=== PATIENT | female | born 1955 | race African-American/Black ===

== ENCOUNTER 2020-05-05 07:28 | Outpatient (REF) | payer MEDICARE, SELFPAY | END 2020-05-05 07:29 | disposition home or self-care (01) | LOC: HO.LAB 07:28 | PROVIDERS: Visit Provider Internal Medicine | DX: Z20.828 Contact with and (suspected) exposure to other viral communicable diseases (principal) | CPT/HCPCS: C9803; U0003 ==

== ENCOUNTER → 2021-05-04 12:36 | Outpatient (BNVA) | payer MEDICARE, SELFPAY | PROVIDERS: Visit Provider Nurse Practitioner Family | DX: M54.16 Radiculopathy, lumbar region (principal); M48.062 Spinal stenosis, lumbar region with neurogenic claudication; M79.7 Fibromyalgia | CPT/HCPCS: 99202 ==

== ENCOUNTER 2021-05-22 09:27 | Outpatient (REF) | payer MEDICARE, SELFPAY | END 2021-05-22 09:28 | disposition home or self-care (01) | LOC: HO.LAB 09:27 | PROVIDERS: Visit Provider Internal Medicine | DX: Z20.822 Contact with and (suspected) exposure to COVID-19 (principal) | CPT/HCPCS: C9803; U0003; U0005 ==

== ENCOUNTER → 2021-06-05 14:42 | Outpatient (BNVA) | payer MEDICARE, SELFPAY | PROVIDERS: Visit Provider Nurse Practitioner Family | DX: M54.16 Radiculopathy, lumbar region (principal); M48.062 Spinal stenosis, lumbar region with neurogenic claudication; M79.7 Fibromyalgia | CPT/HCPCS: 99212 ==

== ENCOUNTER 2021-07-10 09:00 | Outpatient (REF) | payer MEDICARE, SELFPAY ==
[2021-07-10 09:47] LABS: Binax Internal Control QC Valid; Binax Now Covid-19 Ag Negative (Negative)
== END 2021-07-10 09:01 | disposition home or self-care (01) ==
LOC: HO.LAB 09:00
PROVIDERS: PCP Internal Medicine; Visit Provider Internal Medicine
DX: Z20.822 Contact with and (suspected) exposure to COVID-19 (principal)
CPT/HCPCS: C9803

== ENCOUNTER → 2021-07-17 11:32 | Outpatient (BNVA) | payer MEDICARE, SELFPAY | PROVIDERS: PCP Internal Medicine; Visit Provider Nurse Practitioner Family | DX: Z51.81 Encounter for therapeutic drug level monitoring (principal); M48.062 Spinal stenosis, lumbar region with neurogenic claudication; M54.16 Radiculopathy, lumbar region; M79.7 Fibromyalgia; R29.6 Repeated falls; R42 Dizziness and giddiness; Z79.899 Other long term (current) drug therapy | CPT/HCPCS: 99212 ==

== ENCOUNTER 2021-07-24 08:00 | Outpatient (RCR) | payer MEDICARE, SELFPAY ==
--- NOTE | 2021-05-29 09:54 | MHC.PT.EP ---
[facility] [place] Office [place] [facility] [place] Office [address] Silvana Cartwright [address] [phone] F: [phone] F: [phone] F: [phone] F: [phone] Physical Therapy Plan of Care Date of Evaluation: Date of Surgery: Diagnosis: spinal stenosis, lumbar region continue current treatment plan spinal stenosis with neurogenic claudication LBP with radiculopathy Assessment: 66 y/o F referred to PT with lumbar region spinal stenosis. She has had LBP for several years and recent imaging shows significant lumbar stenosis. 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 Examination shows significantly limited lumbar AROM, poor hip strength, decreased B LE strength, scoliosis and B genu valgus, icreased LBP, and impaired gait pattern. Recommend PT 2x/week for 5 weeks to address impairments, implement HEP, and optimize functional mobility. Frequency and Duration: The patient will be seen 2x/week for 5 weeks Short Term Goals: 3 weeks 1 I with HEP 2. Improve lumbar flexion to 75% to facilitate don/doffing shoes 3. Improve hip ER to 25* B (IR R0, L 10) Hand Bunch Maker Goals: 5 week 1. I with HEP and self management of sx 2. Improve hip strength by one MMT grade to facilitate walking Treatment Plan: Modalities to reduce pain, spasms and effusion. Manual therapy to restore motion and function. Therapeutic exercise to improve strength and flexibility. Neuromuscular re-education for posture and balance. Therapeutic activities to return to functional activities of daily living. Electronically signed by: Hilda Barrientos PT Please sign and return to therapist. Thank you for your referral.
--- NOTE | 2021-08-18 13:17 | MHC.PT.DC ---
[facility] [place] Office [place] Office [place] Office [address] Silvana Cartwright [address] [phone] F: [phone] F: [phone] F: [phone] F: [phone] Physical Therapy Discharge Report Diagnosis: spinal stenosis, lumbar region continue current treatment plan spinal stenosis with neurogenic claudication LBP with radiculopathy Date of Surgery: Date of Evaluation: 05/29/21 Date of Discharge: 08/18/21 Treatments to Date: 8 Cancellations to Date: 0 No Shows to Date: 0 Discharge Status: Independent with HEP Visit Non-compliance Discharge Summary: Pt did not f/u with further visits. She had made minimal progress and needed cues to stay on task with exercises. D/c at this time. Electronically signed by: Hilda Barrientos PT Please sign and return to therapist. Thank you for your referral.
== END 2021-08-18 13:17 | disposition home or self-care (01) ==
LOC: HO.PTCHIC 08:00
PROVIDERS: Visit Provider Nurse Practitioner Family
DX: M48.062 Spinal stenosis, lumbar region with neurogenic claudication (principal); M54.16 Radiculopathy, lumbar region
CPT/HCPCS: 97110; 97162

== ENCOUNTER → 2021-08-14 11:28 | Outpatient (BNVA) | payer MEDICARE, SELFPAY | PROVIDERS: PCP Internal Medicine; Visit Provider Nurse Practitioner Family | DX: Z13.89 Encounter for screening for other disorder (principal) | CPT/HCPCS: Q3014 ==

== ENCOUNTER 2021-08-22 09:42 | Outpatient (REF) | payer MEDICARE, SELFPAY ==
--- NOTE | ~2021-08-22 | MR_ITS ---
EXAMINATION: MR LUMBAR SPINE WITHOUT CONTRAST CLINICAL INFORMATION: Spinal stenosis. Lumbar spine. Neurogenic claudication. COMPARISON: No relevant prior imaging. TECHNIQUE: MRI of the lumbar spine was obtained using routine sequences without contrast. FINDINGS: There is spinal scoliosis with a leftward convex curvature centered at L3-L4. Slight left lateral subluxation of L4 on L5. Grade 1 anterolisthesis of L5 on S1 related to facet degenerative changes at this level. Vertebral body heights are preserved. No acute bone marrow signal changes. There is loss of intervertebral disc height and T2 signal intensity at multiple levels related to disc degeneration. The tip of the conus medullaris is located at L1. No mass effect on the conus. Visualized distal cord signal intensity is normal. At L1-L2 the annular contour is normal. No canal or neuroforaminal compromise. At L2-L3 there is a slightly bulging disc. Bilateral facet degenerative change. No canal stenosis. No mass effect on the traversing or foraminal nerve roots. At L3-L4 there is a diffusely bulging disc. Bilateral facet degenerative change. Mild canal stenosis. Asymmetric narrowing of the right subarticular zone causes displacement of the right traversing L4 nerve roots. Moderate to severe compression of the right L3 foraminal nerve root. At L4-L5 there is a diffusely bulging disc and bilateral facet degenerative change. Mild canal stenosis. Subarticular zone narrowing causes displacement and likely compression of the right traversing L5 nerve roots. Mild compression of both L4 foraminal nerve roots. At L5-S1 there is a diffusely bulging disc. Bilateral facet degenerative change. No canal stenosis. Subarticular zone narrowing causes abutment and possible compression of both traversing S1 nerve roots. Moderate compression of the left L5 foraminal nerve root. Limited visualization of the retroperitoneal anatomy reveals a few well marginated benign-appearing cystic lesions within both kidneys. Psoas and paraspinal muscle groups are symmetric. MR/MR lumbar spine wo con IMPRESSION: There is multilevel degenerative spondylosis of the lumbar spine. Mild canal stenosis at L3-L4 and L4-L5. There are varying degrees of mass effect on the traversing and foraminal segments of the nerve roots as described above. For instance a slightly bulging disc at L3-L4 cause moderate to severe compression of the right L3 foraminal nerve root. A pseudodisc bulge in conjunction with facet degenerative change at L5-S1 causes moderate compression of the left L5 foraminal nerve root.
--- NOTE | 2021-08-22 10:51 | ECG_ITS ---
Test Reason : R29.6 Blood Pressure : / mmHG Vent. Rate : 052 BPM Atrial Rate : 052 BPM P-R Int : 176 ms QRS Dur : 084 ms QT Int : 450 ms P-R-T Axes : 071 052 051 degrees QTc Int : 418 ms Sinus bradycardia Otherwise normal ECG No previous ECGs available Referred By: Jannet Rob Electronically Signed By:YAJAIRA VASQUEZ MD
== END 2021-08-22 09:43 | disposition home or self-care (01) ==
LOC: HO.MRI 09:42
PROVIDERS: Visit Provider Nurse Practitioner Family
DX: M48.062 Spinal stenosis, lumbar region with neurogenic claudication (principal); M54.16 Radiculopathy, lumbar region; R42 Dizziness and giddiness; R29.6 Repeated falls
CPT/HCPCS: 72148; 93005

== ENCOUNTER 2021-11-08 11:29 | Outpatient (REF) | payer OTHER, SELFPAY ==
[2021-11-08 12:01] LABS: COVID-19 Test Negative (Negative); IDNOW Serial# 16C4AD1C
== END 2021-11-08 11:30 | disposition home or self-care (01) ==
LOC: HO.LAB 11:29
PROVIDERS: Visit Provider Internal Medicine
DX: Z20.822 Contact with and (suspected) exposure to COVID-19 (principal)
CPT/HCPCS: 87635; C9803

== ENCOUNTER 2022-03-12 10:09 | Outpatient (REF) | payer OTHER, MEDICAID, SELFPAY ==
--- NOTE | ~2022-03-12 | XR_ITS ---
EXAMINATION: XR CERVICAL SPINE CLINICAL INFORMATION: Spondylosis without myelopathy COMPARISON: None TECHNIQUE: 5 views of the cervical spine FINDINGS: Severe degenerative disc disease with slight retrolisthesis of C4-C5. Moderate degenerative disc disease at C5-C6 and C6-C7 with prominent endplate osteophytes. Mild narrowing of the left neural foramen at C4-C5. 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 XR/XR cervical spine min 6V IMPRESSION: Degenerative disc disease as described, severe at C4-C5. Mild left C4-C5 neural foraminal narrowing.
== END 2022-03-12 10:10 | disposition home or self-care (01) ==
LOC: HO.XRAY 10:09
PROVIDERS: PCP Internal Medicine; Visit Provider Nurse Practitioner Family
DX: M47.812 Spondylosis without myelopathy or radiculopathy, cervical region (principal); R29.6 Repeated falls; G89.4 Chronic pain syndrome; M54.16 Radiculopathy, lumbar region; M47.816 Spondylosis without myelopathy or radiculopathy, lumbar region
CPT/HCPCS: 72052; 99212

== ENCOUNTER → 2022-07-23 11:26 | Outpatient (BNVA) | payer OTHER, MEDICAID, SELFPAY | PROVIDERS: PCP Internal Medicine; Visit Provider Nurse Practitioner Family | DX: R29.6 Repeated falls (principal); R42 Dizziness and giddiness; Z74.09 Other reduced mobility | CPT/HCPCS: 99212 ==

== ENCOUNTER 2022-07-23 14:01 | Emergency (ER) | payer OTHER, SELFPAY ==
--- NOTE | ~2022-07-23 | XR_ITS ---
EXAMINATION: 1. LEFT FOOT. 2. LEFT ANKLE. CLINICAL INFORMATION: Fall. Pain. COMPARISON: None TECHNIQUE: 1. Left foot. 3 views 2. Left ankle. 3 views FINDINGS: 1. Left foot. No fracture. No dislocation. Joint spaces are maintained. No significant arthropathy. Small plantar calcaneal spur. No soft tissue abnormality. 2. Left ankle. There is soft tissue swelling around the medial malleolus. No fracture. No dislocation. Ankle mortise is congruent. XR/XR foot LT 2V IMPRESSION: 1. Left foot. No acute abnormality. 2. Left ankle. Soft tissue swelling around the medial malleolus. There is no acute osseous abnormality.
--- NOTE | ~2022-07-23 | XR_ITS ---
EXAMINATION: XR SHOULDER, LEFT CLINICAL INFORMATION: Fall. COMPARISON: None TECHNIQUE: Three views of the left shoulder. FINDINGS: The bones and soft tissues are normal. No fracture. Glenohumeral and acromioclavicular alignment is anatomic with normal joint space. No abnormal soft tissue calcifications. XR/XR shoulder LT min 2V IMPRESSION: Normal left shoulder.
--- NOTE | ~2022-07-23 | XR_ITS ---
EXAMINATION: XR SHOULDER, RIGHT CLINICAL INFORMATION: Pain. Fall. COMPARISON: None TECHNIQUE: Three views of the right shoulder. FINDINGS: The bones and soft tissues are normal. No fracture. Glenohumeral and acromioclavicular alignment is anatomic with normal joint space. No abnormal soft tissue calcifications. XR/XR shoulder RT min 2V IMPRESSION: Normal right shoulder.
--- NOTE | ~2022-07-23 | XR_ITS ---
EXAMINATION: 1. LEFT FOOT. 2. LEFT ANKLE. CLINICAL INFORMATION: Fall. Pain. COMPARISON: None TECHNIQUE: 1. Left foot. 3 views 2. Left ankle. 3 views FINDINGS: 1. Left foot. No fracture. No dislocation. Joint spaces are maintained. No significant arthropathy. Small plantar calcaneal spur. No soft tissue abnormality. 2. Left ankle. There is soft tissue swelling around the medial malleolus. No fracture. No dislocation. Ankle mortise is congruent. XR/XR ankle LT min 3V IMPRESSION: 1. Left foot. No acute abnormality. 2. Left ankle. Soft tissue swelling around the medial malleolus. There is no acute osseous abnormality.
[2022-07-23 15:19] VITALS: BP 108/62; PULSE 67; RESP 18; TEMP 36.6; O2SAT 97; BMI 27.6
--- NOTE | 2022-07-23 15:23 | ECG_ITS ---
Test Reason : FALL Blood Pressure : / mmHG Vent. Rate : 053 BPM Atrial Rate : 053 BPM P-R Int : 170 ms QRS Dur : 084 ms QT Int : 428 ms P-R-T Axes : 053 051 038 degrees QTc Int : 401 ms Sinus bradycardia Otherwise normal ECG When compared with ECG of 22-AUG-2021 10:54, No significant change was found Referred By: Alfredito Pang Electronically Signed By:YAJAIRA VASQUEZ MD
--- NOTE | 2022-07-23 15:28 | ED.GENADULT ---
HPI - General Adult General Chief complaint: Fall <FAUSTINO Wheat - Last Filed: 07/23/22 19:45> Stated complaint: L foot pain/R shoulder pain <FAUSTINO Wheat - Last Filed: 07/23/22 19:45> Time Seen by Provider: 07/23/22 17:55 <FAUSTINO Wheat - Last Filed: 07/23/22 19:45> Source: patient <Ralph Han MD - Last Filed: 07/23/22 18:15> Mode of arrival: ambulatory <Ralph Han MD - Last Filed: 07/23/22 18:15> Limitations: no limitations <Ralph Han MD - Last Filed: 07/23/22 18:15> History of Present Illness HPI narrative: 67-year-old female with history of vertigo, frequent falls, fibromyalgia presents after a fall with left foot and ankle pain, bilateral shoulder pain. Patient is not on blood thinning medications. She denies hitting her head. She says she fell for unclear reason although is likely related to her vertigo. She denied any chest pain, palpitations, significant lightheadedness or other prodromal symptoms. She did not hit her head or lose consciousness at all. Currently her pain is moderate to severe in nature. Is worse with ambulation or movement. Does not radiate. She has some chronic baseline numbness and tingling in her feet which is unchanged. Patient describes her pain as sharp and aching in nature. Patient's fall was yesterday. <Ralph Han MD - Last Filed: 07/23/22 18:15> Related Data Home medications: Home Medications Medication Instructions Recorded Confirmed cholecalciferol (vitamin D3) 50 50 mcg PO DAILY 05/04/21 03/12/22 mcg (2,000 unit) capsule ferrous sulfate 325 mg (65 mg 325 mg PO DAILY 05/04/21 03/12/22 iron) tablet furosemide 20 mg tablet 20 mg PO DAILY 05/04/21 03/12/22 hydroxyzine HCl 25 mg tablet 25 mg PO DAILY 05/04/21 03/12/22 lisinopril 5 mg tablet 5 mg PO DAILY 05/04/21 03/12/22 magnesium oxide 400 mg (241.3 mg 400 mg PO BID 11/18/21 09/26/22 magnesium) tablet meclizine 12.5 mg tablet 12.5 mg PO TID 05/04/21 03/12/22 meloxicam 15 mg tablet 15 mg PO DAILY 05/04/21 03/12/22 omeprazole 40 mg capsule,delayed 40 mg PO DAILY 05/04/21 03/12/22 release ondansetron HCl 4 mg tablet 4 mg PO Q8H PRN 05/04/21 03/12/22 potassium chloride 20 mEq 20 meq PO DAILY 05/04/21 03/12/22 tablet,extended release sennosides 8.6 mg-docusate sodium 0 tab PO 05/04/21 03/12/22 50 mg tablet (Senexon-S) sertraline 50 mg tablet 50 mg PO DAILY 05/04/21 03/12/22 sumatriptan succinate 50 mg tablet 0 mg PO 05/04/21 03/12/22 topiramate 50 mg tablet 50 mg PO BID 05/04/21 03/12/22 verapamil 120 mg 24 hr 120 mg PO DAILY 05/04/21 03/12/22 capsule,extended release atorvastatin 10 mg tablet 10 mg PO DAILY 07/23/22 calcium carbonate 200 mg calcium 200 mg PO TID 07/23/22 (500 mg) chewable tablet (Jeremy-Gest Antacid) gabapentin 400 mg capsule 0 mg PO BID 07/23/22 trazodone 100 mg tablet 100 mg PO BEDTIME 07/23/22 Previous Rx's Medication Instructions Recorded Gel mattress overlay #1 ea 05/04/21 diclofenac sodium 1 % topical gel 4 g topical QID pain #100 grams 03/12/22 (Arthritis Pain (diclofenac)) cyclobenzaprine 5 mg tablet 5 mg PO TID PRN muscle spasm #10 07/23/22 tabs <FAUTSINO Wheat - Last Filed: 07/23/22 19:45> Allergies/adverse reactions: Allergies Allergy/AdvReac Type Severity Reaction Status Date / Time Penicillins Allergy Severe hives Verified 07/23/22 11:32 <FAUSTINO Wheat - Last Filed: 07/23/22 19:45> Review of Systems Review of Systems: CONSTITUTIONAL: Denies weight loss, fever and chills. HEENT: Denies changes in vision and hearing. RESPIRATORY: Denies SOB and cough. CV: Denies palpitations and CP. GI: Denies abdominal pain, nausea, vomiting and diarrhea. : Denies dysuria and urinary frequency. MSK: + myalgia and joint pain. SKIN: Denies rash and pruritus. NEUROLOGICAL: Denies headache and syncope. PSYCHIATRIC: Denies recent changes in mood. Denies anxiety and depression. <Ralph Han MD - Last Filed: 07/23/22 18:15> Yes all other systems are reviewed and are negative <Ralph Han MD - Last Filed: 07/23/22 18:15> [facility] Past Medical History Medical History: Medical History Lumbar back pain with radiculopathy affecting lower extremity Spinal stenosis of lumbar region with neurogenic claudication <FAUSTINO Wheat - Last Filed: 07/23/22 19:45> Social History Social History: Social History Advance Directives: No Advance Directives Information Provided: No <FAUSTINO Wheat - Last Filed: 07/23/22 19:45> Physical Exam ED Vital Signs: Vital Signs - 24 hr 07/23/22 15:19 Temperature 97.9 F Pulse Rate 67 Respiratory Rate 18 Blood Pressure 108/62 Pulse Oximetry 97 Oxygen Delivery Method Room Air BMI result Body Mass Index 27.6 <FAUSTINO Wheat - Last Filed: 07/23/22 19:45> Vital Signs - 24 hr 07/23/22 15:19 Temperature 97.9 F Pulse Rate 67 Respiratory Rate 18 Blood Pressure 108/62 Pulse Oximetry 97 Oxygen Delivery Method Room Air BMI result Body Mass Index 27.6 <Ralph Han MD - Last Filed: 07/23/22 18:15> GEN: Well developed, no acute distress, alert, oriented HEENT: Normocephalic, atraumatic, normal external ears, nose appears normal, no oropharyngeal edema or exudates Eyes: Normal to appearance Neck: Supple, no lymphadenopathy Respiratory: Talks in complete sentences, no respiratory distress, clear to auscultation bilaterally Cardiovascular: Regular rate and rhythm, no murmurs rubs or gallops Abdomen: Soft, nontender, nondistended, no guarding, no rebound Back: No CVA tenderness Extremities: No clubbing cyanosis or edema, tenderness to bilateral shoulder, left medial maleolus, no deformity Neurologic: No focal neurologic deficits, cranial nerves 2-12 intact, strength is 5/5 bilaterally, gait normal Skin: No rash <Ralph Han MD - Last Filed: 07/23/22 18:15> Course Course Course Narrative: RME: 67 yold female presents to the ED for left foot pain and bilateral shoulder pain affter falling yesterday. patient states she fell yesterday due to her vertigo. patient denies hitting head or loss of consciosuness. no neuro deficints on exam. patient denies hitting head or lost of consciosuness. imaging. Xrays, and labs ordered. <FAUSTINO Wheat - Last Filed: 07/23/22 19:45> Reevaluation(s) Reevaluation #1: Patient complains of musculoskeletal pain following a fall yesterday. She did not hit her head or have prodromal symptoms. Doubt syncope for cardiac etiology of her symptoms. She did not hit her head and is not on any blood thinning medications. There are no focal neurologic deficits. There is no indication for CT scan of the head. She had imaging of the shoulders as well as left foot and ankle. There is no fracture or deformities noted. Lab work was unremarkable for acute significant abnormality. I reviewed all results with the patient. I discussed discharge plan and recommendations for follow-up. She will continue Tylenol as needed. Will prescribe a mild muscle relaxer. She is aware this may make her tired increase her risk for falls. She will use this judiciously. For any other concerning symptoms, patient will return to the emergency department. Otherwise, patient is instructed to follow-up with her primary care provider within the next 3-5 days. <Ralph Han MD - Last Filed: 07/23/22 18:15> Time: 18:07 <Ralph Han MD - Last Filed: 07/23/22 18:15> Medical Decision Making Medical Decision Making MDM Narrative: Patient presents with a fall, likely mechanical versus vertiginous nature. She has a history of frequent falls due to chronic vertigo. She denies any new neurologic symptoms. Examination revealed some mild joint tenderness in bilateral shoulders and left ankle. Rest of examination was unremarkable. Reviewed lab work an additional studies. Discussed all results with the patient. <Ralph Han MD - Last Filed: 07/23/22 18:15> Differential Diagnosis Differential Diagnoses: The differential diagnosis associated with the presentation includes (Fracture, strain, sprain, contusion, dislocation) <Ralph Han MD - Last Filed: 07/23/22 18:15> Accidental fall, vertigo, musculoskeletal pain <Ralph Han MD - Last Filed: 07/23/22 18:15> Admission/Observation Consideration of admission/observation: Escalation of care including admission/observation considered <Ralph Han MD - Last Filed: 07/23/22 18:15> Lab Data MDM Lab Attestation statement: I reviewed the patient's lab results. <Ralph Han MD - Last Filed: 07/23/22 18:15> Result Diagrams: 07/23/22 16:56 07/23/22 16:56 <FAUSTINO Wheat - Last Filed: 07/23/22 19:45> Labs: Lab Results 07/23/22 07/23/22 07/23/22 Range/Units 16:56 16:56 16:56 WBC 5.7 (4.8-10.8) X10*3/uL RBC 3.87 L (4.20-5.50) X10*6/uL Hgb 11.8 L (12.0-16.0) g/dl Hct 36.3 L (37.0-47.0) % MCV 93.8 (80.0-98.0) fL MCH 30.5 (27.0-33.0) pg MCHC 32.5 (31.0-35.0) g/dl RDW 13.2 (11.0-16.0) % Plt Count 161 (160-400) X10*3/uL MPV 11.0 (9.4-12.3) fL Immature Gran % (Auto) 0.2 (0.0-0.4) % Neut % (Auto) 45.4 (45-73) % Lymph % (Auto) 38.0 (20-40) % [place] % (Auto) 9.8 (2-11) % Eos % (Auto) 6.1 H (0-4) % Baso % (Auto) 0.5 (0-2) % Lymph # (Auto) 2.2 (1.2-4.9) X10*3/uL [place] # (Auto) 0.6 (0.1-1.2) X10*3/uL Eos # (Auto) 0.4 (0.0-0.4) X10*3/uL Baso # (Auto) 0.0 (0.0-0.2) X10*3/uL Abs Immat Gran (auto) 0.01 (0.00-0.03) X10*3/uL Absolute Neuts (auto) 2.6 (2.0-8.3) x10*3/uL Absolute Nucleated RBC 0.000 (0.0-0.012) X10*3/uL Nucleated RBC % (auto) 0.0 (0.0-0.2) /100WBC PT (10.0-13.1) SEC INR (0.9-1.1) APTT (26.0-36.4) SEC Sodium 141 (135-145) mmol/L Potassium 4.7 (3.3-5.1) mmol/L Chloride 115 H (96-108) mmol/L Carbon Dioxide 22 (22-29) mmol/L Anion Gap 9 L (12-20) BUN 20 H (9-16) mg/dL Creatinine 1.03 (0.5-1.4) mg/dL Estim Creat Clear Calc 54.9 Estimated GFR 53 Random Glucose 92 (60-115) mg/dL Calcium 8.9 (8.4-10.2) mg/dL Total Bilirubin 0.4 (0.0-1.0) mg/dL AST 20 (5-31) U/L ALT 16 (0-31) U/L Alkaline Phosphatase 79 (39-117) U/L Total Creatine Kinase 161 H (26-140) U/L Troponin I High Sens < 3.5 (<3.5-17.0) ng/L Total Protein 6.1 L (6.5-8.0) g/dL Albumin 3.5 (3.5-5.0) g/dL 07/23/22 Range/Units 16:56 WBC (4.8-10.8) X10*3/uL RBC (4.20-5.50) X10*6/uL Hgb (12.0-16.0) g/dl Hct (37.0-47.0) % MCV (80.0-98.0) fL MCH (27.0-33.0) pg MCHC (31.0-35.0) g/dl RDW (11.0-16.0) % Plt Count (160-400) X10*3/uL MPV (9.4-12.3) fL Immature Gran % (Auto) (0.0-0.4) % Neut % (Auto) (45-73) % Lymph % (Auto) (20-40) % [place] % (Auto) (2-11) % Eos % (Auto) (0-4) % Baso % (Auto) (0-2) % Lymph # (Auto) (1.2-4.9) X10*3/uL [place] # (Auto) (0.1-1.2) X10*3/uL Eos # (Auto) (0.0-0.4) X10*3/uL Baso # (Auto) (0.0-0.2) X10*3/uL Abs Immat Gran (auto) (0.00-0.03) X10*3/uL Absolute Neuts (auto) (2.0-8.3) x10*3/uL Absolute Nucleated RBC (0.0-0.012) X10*3/uL Nucleated RBC % (auto) (0.0-0.2) /100WBC PT 11.5 (10.0-13.1) SEC INR 1.0 (0.9-1.1) APTT 29.1 (26.0-36.4) SEC Sodium (135-145) mmol/L Potassium (3.3-5.1) mmol/L Chloride (96-108) mmol/L Carbon Dioxide (22-29) mmol/L Anion Gap (12-20) BUN (9-16) mg/dL Creatinine (0.5-1.4) mg/dL Estim Creat Clear Calc Estimated GFR Random Glucose (60-115) mg/dL Calcium (8.4-10.2) mg/dL Total Bilirubin (0.0-1.0) mg/dL AST (5-31) U/L ALT (0-31) U/L Alkaline Phosphatase (39-117) U/L Total Creatine Kinase (26-140) U/L Troponin I High Sens (<3.5-17.0) ng/L Total Protein (6.5-8.0) g/dL Albumin (3.5-5.0) g/dL <FAUSTINO Wheat - Last Filed: 07/23/22 19:45> Lab Results 07/23/22 07/23/22 07/23/22 Range/Units 16:56 16:56 16:56 WBC 5.7 (4.8-10.8) X10*3/uL RBC 3.87 L (4.20-5.50) X10*6/uL Hgb 11.8 L (12.0-16.0) g/dl Hct 36.3 L (37.0-47.0) % MCV 93.8 (80.0-98.0) fL MCH 30.5 (27.0-33.0) pg MCHC 32.5 (31.0-35.0) g/dl RDW 13.2 (11.0-16.0) % Plt Count 161 (160-400) X10*3/uL MPV 11.0 (9.4-12.3) fL Immature Gran % (Auto) 0.2 (0.0-0.4) % Neut % (Auto) 45.4 (45-73) % Lymph % (Auto) 38.0 (20-40) % [place] % (Auto) 9.8 (2-11) % Eos % (Auto) 6.1 H (0-4) % Baso % (Auto) 0.5 (0-2) % Lymph # (Auto) 2.2 (1.2-4.9) X10*3/uL [place] # (Auto) 0.6 (0.1-1.2) X10*3/uL Eos # (Auto) 0.4 (0.0-0.4) X10*3/uL Baso # (Auto) 0.0 (0.0-0.2) X10*3/uL Abs Immat Gran (auto) 0.01 (0.00-0.03) X10*3/uL Absolute Neuts (auto) 2.6 (2.0-8.3) x10*3/uL Absolute Nucleated RBC 0.000 (0.0-0.012) X10*3/uL Nucleated RBC % (auto) 0.0 (0.0-0.2) /100WBC PT (10.0-13.1) SEC INR (0.9-1.1) APTT (26.0-36.4) SEC Sodium 141 (135-145) mmol/L Potassium 4.7 (3.3-5.1) mmol/L Chloride 115 H (96-108) mmol/L Carbon Dioxide 22 (22-29) mmol/L Anion Gap 9 L (12-20) BUN 20 H (9-16) mg/dL Creatinine 1.03 (0.5-1.4) mg/dL Estim Creat Clear Calc 54.9 Estimated GFR 53 Random Glucose 92 (60-115) mg/dL Calcium 8.9 (8.4-10.2) mg/dL Total Bilirubin 0.4 (0.0-1.0) mg/dL AST 20 (5-31) U/L ALT 16 (0-31) U/L Alkaline Phosphatase 79 (39-117) U/L Total Creatine Kinase 161 H (26-140) U/L Troponin I High Sens < 3.5 (<3.5-17.0) ng/L Total Protein 6.1 L (6.5-8.0) g/dL Albumin 3.5 (3.5-5.0) g/dL 07/23/22 Range/Units 16:56 WBC (4.8-10.8) X10*3/uL RBC (4.20-5.50) X10*6/uL Hgb (12.0-16.0) g/dl Hct (37.0-47.0) % MCV (80.0-98.0) fL MCH (27.0-33.0) pg MCHC (31.0-35.0) g/dl RDW (11.0-16.0) % Plt Count (160-400) X10*3/uL MPV (9.4-12.3) fL Immature Gran % (Auto) (0.0-0.4) % Neut % (Auto) (45-73) % Lymph % (Auto) (20-40) % [place] % (Auto) (2-11) % Eos % (Auto) (0-4) % Baso % (Auto) (0-2) % Lymph # (Auto) (1.2-4.9) X10*3/uL [place] # (Auto) (0.1-1.2) X10*3/uL Eos # (Auto) (0.0-0.4) X10*3/uL Baso # (Auto) (0.0-0.2) X10*3/uL Abs Immat Gran (auto) (0.00-0.03) X10*3/uL Absolute Neuts (auto) (2.0-8.3) x10*3/uL Absolute Nucleated RBC (0.0-0.012) X10*3/uL Nucleated RBC % (auto) (0.0-0.2) /100WBC PT 11.5 (10.0-13.1) SEC INR 1.0 (0.9-1.1) APTT 29.1 (26.0-36.4) SEC Sodium (135-145) mmol/L Potassium (3.3-5.1) mmol/L Chloride (96-108) mmol/L Carbon Dioxide (22-29) mmol/L Anion Gap (12-20) BUN (9-16) mg/dL Creatinine (0.5-1.4) mg/dL Estim Creat Clear Calc Estimated GFR Random Glucose (60-115) mg/dL Calcium (8.4-10.2) mg/dL Total Bilirubin (0.0-1.0) mg/dL AST (5-31) U/L ALT (0-31) U/L Alkaline Phosphatase (39-117) U/L Total Creatine Kinase (26-140) U/L Troponin I High Sens (<3.5-17.0) ng/L Total Protein (6.5-8.0) g/dL Albumin (3.5-5.0) g/dL <Ralph Han MD - Last Filed: 07/23/22 18:15> Independent Interpretation I performed an independent interpretation of an: EKG (Sinus bradycardia heart rate 53, normal intervals, no acute ST elevations depressions, no evidence of cardiac dysrhythmia) and Plain X-Ray (X-ray left ankle, no fracture dislocation, and swelling over the medial malleolu, x-ray left foot, no fracture dislocation, x-ray right shoulder no fracture or dislocation, x-ray left shoulder no fracture dislocation) <Ralph Han MD - Last Filed: 07/23/22 18:15> External Record Review External record reviewed: Office record (Pain management from today as well as March 12, 2022) <Ralph Han MD - Last Filed: 07/23/22 18:15> Tests considered The following testing was considered but not selected: CT scan head, cervical spine <Ralph Han MD - Last Filed: 07/23/22 18:15> Prescription Management I considered prescription management with: Pain Medication <Ralph Han MD - Last Filed: 07/23/22 18:15> Discharge Plan Discharge Clinical Impression: Vertigo, Frequent falls, Acute pain of both shoulders, Acute left ankle pain <FAUSTINO Wheat - Last Filed: 07/23/22 19:45> Patient Disposition: Home, Self-Care <FAUSTINO Wheat - Last Filed: 07/23/22 19:45> Instructions: Musculoskeletal Pain (ED), Dizziness (ED), Arthralgia (ED) <FAUSTINO Wheat - Last Filed: 07/23/22 19:45> Prescriptions: New cyclobenzaprine 5 mg tablet 5 mg PO TID PRN (Reason: muscle spasm) Qty: 10 0RF No Action trazodone 100 mg tablet 100 mg PO BEDTIME calcium carbonate [Jeremy-Gest Antacid] 200 mg calcium (500 mg) tablet,chewable 200 mg PO TID atorvastatin 10 mg tablet 10 mg PO DAILY gabapentin 400 mg capsule 0 mg PO BID hydroxyzine HCl 25 mg tablet 25 mg PO DAILY magnesium oxide 400 mg (241.3 mg magnesium) tablet 400 mg PO BID omeprazole 40 mg capsule,delayed release(DR/EC) 40 mg PO DAILY sumatriptan succinate 50 mg tablet 0 mg PO sennosides-docusate sodium [Senexon-S] 8.6-50 mg tablet 0 tab PO ondansetron HCl 4 mg tablet 4 mg PO Q8H PRN furosemide 20 mg tablet 20 mg PO DAILY topiramate 50 mg tablet 50 mg PO BID meloxicam 15 mg tablet 15 mg PO DAILY verapamil 120 mg capsule,ext rel. pellets 24 hr 120 mg PO DAILY potassium chloride 20 mEq tablet extended release 20 meq PO DAILY lisinopril 5 mg tablet 5 mg PO DAILY ferrous sulfate 325 mg (65 mg iron) tablet 325 mg PO DAILY cholecalciferol (vitamin D3) 50 mcg (2,000 unit) capsule 50 mcg PO DAILY sertraline 50 mg tablet 50 mg PO DAILY meclizine 12.5 mg tablet 12.5 mg PO TID (DME) Gel mattress overlay Misc See Rx Instructions .Route Qty: 1 1RF Rx Instructions: As directed diclofenac sodium [Arthritis Pain (diclofenac)] 1 % gel 4 g topical QID Qty: 100 0RF Rx Instructions: apply to single knee, ankle, foot; for foot includes sole/toes/top of foot <FAUSTINO Wheat - Last Filed: 07/23/22 19:45> Referrals: Marisel Benito MD [Primary Care Provider] - 5 days <FAUSTINO Wheat - Last Filed: 07/23/22 19:45> Interventions: ED Discharge Assessment Last Done: 07/23/22 19:32 <FAUSTINO Wheat - Last Filed: 07/23/22 19:45> Discharge Date/Time: 07/23/22 19:34 <FAUSTINO Wheat - Last Filed: 07/23/22 19:45>
[2022-07-23 17:16] LABS: MANUAL DIFF FLAG NO
[2022-07-23 17:17] LABS: Basophils Percent Auto 0.5 % (0-2); Eosinophils Absolute Auto 0.4 X10*3/uL (0.0-0.4); Eosinophils Percent Auto 6.1 % (0-4); Hematocrit 36.3 % (37.0-47.0); Hemoglobin 11.8 g/dl (12.0-16.0); Imm Gran Abs Auto 0.01 X10*3/uL (0.00-0.03); Imm Gran Pct Auto 0.2 % (0.0-0.4); Lymphocytes Absolute Auto 2.2 X10*3/uL (1.2-4.9); Mean Corpuscular HGB Conc 32.5 g/dl (31.0-35.0); Mean Corpuscular Hemoglobin 30.5 pg (27.0-33.0); Mean Corpuscular Volume 93.8 fL (80.0-98.0); Monocytes Absolute Auto 0.6 X10*3/uL (0.1-1.2); Monocytes Percent Auto 9.8 % (2-11); Neutrophils Absolute Auto 2.6 x10*3/uL (2.0-8.3); Neutrophils Percent Auto 45.4 % (45-73); Platelet Count 161 X10*3/uL (160-400); Red Blood Count 3.87 X10*6/uL (4.20-5.50); Red Cell Distribution Width 13.2 % (11.0-16.0); White Blood Count 5.7 X10*3/uL (4.8-10.8)
[2022-07-23 17:24] LABS: Prothrombin Time 11.5 SEC (10.0-13.1)
[2022-07-23 17:27] LABS: Partial Thromboplastin Time 29.1 SEC (26.0-36.4)
[2022-07-23 17:37] LABS: Alanine Aminotransferase 16 U/L (0-31); Albumin Level 3.5 g/dL (3.5-5.0); Alkaline Phosphatase 79 U/L (39-117); Anion Gap 9 (12-20); Aspartate Amino Transferase 20 U/L (5-31); Bilirubin Total 0.4 mg/dL (0.0-1.0); Blood Urea Nitrogen 20 mg/dL (9-16); Calcium 8.9 mg/dL (8.4-10.2); Carbon Dioxide 22 mmol/L (22-29); Chloride 115 mmol/L (96-108); Creatinine Clr Calc Pharmacy 54.9; Estimated Glomerular Filt Rate 53; Glucose Random 92 mg/dL (60-115); Potassium 4.7 mmol/L (3.3-5.1); Sodium 141 mmol/L (135-145); Total Protein 6.1 g/dL (6.5-8.0)
[2022-07-23 17:44] LABS: Troponin-I High Sensitivity < 3.5 ng/L (<3.5-17.0)
== END 2022-07-23 19:34 | disposition home or self-care (01) ==
PROVIDERS: Physician Assistant; Emergency Provider Emergency Medicine; PCP Internal Medicine
DX: R42 Dizziness and giddiness (principal); G89.11 Acute pain due to trauma; M25.512 Pain in left shoulder; M25.511 Pain in right shoulder; M25.572 Pain in left ankle and joints of left foot; M54.16 Radiculopathy, lumbar region; R29.6 Repeated falls; Z91.81 History of falling; R00.1 Bradycardia, unspecified; Z79.899 Other long term (current) drug therapy
CPT/HCPCS: 36415; 73030; 73610; 73620; 80053; 82550; 84484; 85025; 85610; 85730; 93005; 99283

== ENCOUNTER → 2022-11-01 13:16 | Outpatient (REF) | payer OTHER, SELFPAY ==
--- NOTE | 2022-11-01 14:12 | ECG_ITS ---
Test Reason : bradycardia Blood Pressure : / mmHG Vent. Rate : 048 BPM Atrial Rate : 048 BPM P-R Int : 180 ms QRS Dur : 088 ms QT Int : 422 ms P-R-T Axes : 067 046 049 degrees QTc Int : 376 ms Sinus bradycardia Otherwise normal ECG When compared with ECG of 23-JUL-2022 16:54, No significant change was found Referred By: Jannet Rob Electronically Signed By:Robert Neves
== END ==
LOC: HO.CARD 13:16
PROVIDERS: PCP Internal Medicine; Visit Provider Nurse Practitioner Family
DX: R00.1 Bradycardia, unspecified (principal); R29.6 Repeated falls; R42 Dizziness and giddiness
CPT/HCPCS: 93005; 99212

== ENCOUNTER 2022-12-13 10:36 | Day surgery (SDC) | payer OTHER, SELFPAY ==
[2022-12-05 09:54] VITALS: BMI 25.7
--- NOTE | 2022-12-12 10:58 | P.CONAN_ITS ---
Documented by User: Susy Ames NP 12/12/22 11:01 HPI - Anesthesia Eval Consult details Narrative: 67yo F for Left L5-S1 Transforaminal Epidural Injection Medically optimized PMFSH Active Problems Active Problems: All Active Problems (Updated 12/05/22 @ 10:10 by Clair Edmond, RN) Fibromyalgia (Acute) Frequent falls (Acute) Dizziness of unknown etiology (Acute) Impaired functional mobility, balance, gait, and endurance (Acute) Cervical spondylosis (Acute) Chronic pain syndrome (Acute) Lumbar spondylosis (Acute) Vertigo (Acute) Cataract (Acute) Prediabetes (Acute) Cloudy vision (Acute) Bradycardia with 51-60 beats per minute (Acute) Spinal stenosis of lumbar region with neurogenic claudication (Acute) Lumbar back pain with radiculopathy affecting lower extremity (Acute) Past Medical History Medical History (Updated 12/05/22 @ 10:10 by Clair Edmond RN) Ambulates with cane Anemia Anxiety Arthritis Cataracts, bilateral Diabetes mellitus type 2, diet-controlled Elevated cholesterol Full dentures GERD (gastroesophageal reflux disease) HTN (hypertension) Lumbar back pain with radiculopathy affecting lower extremity JV (obstructive sleep apnea) Spinal stenosis of lumbar region with neurogenic claudication Surgical History Surgical History (Updated 12/05/22 @ 09:53 by Clair Edmond RN) History of total right hip replacement Hx of cholecystectomy Hx of colonoscopy Social History Social History Are you a primary hemodialysis patient care specialist to a significant other at home: No Do you presently have visiting nurse or other home services: Yes (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 If so, by whom?: No Are you DNR?: No Advance Directives: Yes Advance Directives Information Provided: Yes Advance Directives on File: No Recently lost weight without trying: No Meds Allergies Allergy/AdvReac Type Severity Reaction Status Date / Time Penicillins Allergy Severe hives Verified 12/05/22 09:45 Home Medications Medication Instructions Recorded Confirmed Last Taken Type cholecalciferol (vitamin D3) 50 50 mcg PO DAILY 05/04/21 12/05/22 Unknown History mcg (2,000 unit) capsule ferrous sulfate 325 mg (65 mg 325 mg PO DAILY 05/04/21 12/05/22 Unknown History iron) tablet furosemide 20 mg tablet 20 mg PO DAILY 05/04/21 12/05/22 Unknown History hydroxyzine HCl 25 mg tablet 25 mg PO DAILY 05/04/21 12/05/22 Unknown History lisinopril 5 mg tablet 5 mg PO DAILY 05/04/21 12/05/22 Unknown History magnesium oxide 400 mg (241.3 mg 400 mg PO BID 05/04/21 12/05/22 Unknown History magnesium) tablet meclizine 12.5 mg tablet 12.5 mg PO TID 05/04/21 12/05/22 Unknown History meloxicam 15 mg tablet 15 mg PO DAILY 05/04/21 12/05/22 Unknown History omeprazole 40 mg capsule,delayed 40 mg PO DAILY 05/04/21 12/05/22 Unknown History release ondansetron HCl 4 mg tablet 4 mg PO Q8H PRN Nausea 05/04/21 12/05/22 Unknown History potassium chloride 20 mEq 20 meq PO DAILY 05/04/21 12/05/22 Unknown History tablet,extended release sennosides 8.6 mg-docusate sodium 1 tab PO BID 05/04/21 12/05/22 Unknown History 50 mg tablet (Senexon-S) sertraline 50 mg tablet 50 mg PO DAILY 05/04/21 12/05/22 Unknown History sumatriptan succinate 50 mg tablet 0 mg PO DAILY PRN Headache 05/04/21 12/05/22 Unknown History topiramate 50 mg tablet 50 mg PO BID 05/04/21 12/05/22 Unknown History verapamil 120 mg 24 hr 120 mg PO DAILY 05/04/21 12/05/22 Unknown History capsule,extended release atorvastatin 10 mg tablet 10 mg PO DAILY 07/23/22 12/05/22 Unknown History calcium carbonate 200 mg calcium 200 mg PO TID 07/23/22 12/05/22 Unknown History (500 mg) chewable tablet (Jeremy-Gest Antacid) gabapentin 400 mg capsule 400 mg PO TID 07/23/22 12/05/22 Unknown History trazodone 100 mg tablet 100 mg PO BEDTIME 07/23/22 12/05/22 Unknown History acetaminophen 650 mg 1,300 mg PO Q12H 12/05/22 12/05/22 Unknown History tablet,extended release Exam Exam Date and Time: December 12, 2022 1058 Height,Weight and Vital Signs: Height 5 ft 5.5 in Weight 71.214 kg Pertinent Lab Results Pertinent Lab Results: Laboratory Tests 07/23/22 07/23/22 16:56 16:56 WBC 5.7 Hgb 11.8 L Hct 36.3 L Plt Count 161 Sodium 141 Potassium 4.7 Chloride 115 H Carbon Dioxide 22 BUN 20 H Creatinine 1.03 Narrative Narrative: EKG 2022 Vent. Rate : 048 BPM ? ? Atrial Rate : 048 BPM ?? P-R Int : 180 ms? QRS Dur : 088 ms ? ? QT Int : 422 ms ? ? ? P-R-T Axes : 067 046 049 degrees ?? QTc Int : 376 ms ? Sinus bradycardia Otherwise normal ECG When compared with ECG of 23-JUL-2022 16:54, No significant change was found Assessment and Plan Assessment Anesthesia Assessment: Chart Reviewed Documented by User: Anthony Chen MD 12/13/22 11:58 [facility] Past Medical History Medical History (Updated 12/05/22 @ 10:10 by Clair Edmond RN) Ambulates with cane Anemia Anxiety Arthritis Cataracts, bilateral Diabetes mellitus type 2, diet-controlled Elevated cholesterol Full dentures GERD (gastroesophageal reflux disease) HTN (hypertension) Lumbar back pain with radiculopathy affecting lower extremity JV (obstructive sleep apnea) Spinal stenosis of lumbar region with neurogenic claudication Family History Family history of problems with anesthesia: No Surgical History Surgical History (Updated 12/05/22 @ 09:53 by Clair Edmond, KRISTIE) History of total right hip replacement Hx of cholecystectomy Hx of colonoscopy History of Problems with Anesthesia: No Social History Social History Are you a primary hemodialysis patient care specialist to a significant other at home: No Do you presently have visiting nurse or other home services: Yes (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 If so, by whom?: No Are you DNR?: No Advance Directives: Yes Advance Directives Information Provided: Yes Advance Directives on File: No Recently lost weight without trying: No Meds Allergies Allergy/AdvReac Type Severity Reaction Status Date / Time Penicillins Allergy Severe hives Verified 12/05/22 09:45 Home Medications Medication Instructions Recorded Confirmed Last Taken Type cholecalciferol (vitamin D3) 50 50 mcg PO DAILY 05/04/21 12/05/22 Unknown History mcg (2,000 unit) capsule ferrous sulfate 325 mg (65 mg 325 mg PO DAILY 05/04/21 12/05/22 Unknown History iron) tablet furosemide 20 mg tablet 20 mg PO DAILY 05/04/21 12/05/22 Unknown History hydroxyzine HCl 25 mg tablet 25 mg PO DAILY 05/04/21 12/05/22 Unknown History lisinopril 5 mg tablet 5 mg PO DAILY 05/04/21 12/05/22 Unknown History magnesium oxide 400 mg (241.3 mg 400 mg PO BID 05/04/21 12/05/22 Unknown History magnesium) tablet meclizine 12.5 mg tablet 12.5 mg PO TID 05/04/21 12/05/22 Unknown History meloxicam 15 mg tablet 15 mg PO DAILY 05/04/21 12/05/22 Unknown History omeprazole 40 mg capsule,delayed 40 mg PO DAILY 05/04/21 12/05/22 Unknown History release ondansetron HCl 4 mg tablet 4 mg PO Q8H PRN Nausea 05/04/21 12/05/22 Unknown History potassium chloride 20 mEq 20 meq PO DAILY 05/04/21 12/05/22 Unknown History tablet,extended release sennosides 8.6 mg-docusate sodium 1 tab PO BID 05/04/21 12/05/22 Unknown History 50 mg tablet (Senexon-S) sertraline 50 mg tablet 50 mg PO DAILY 05/04/21 12/05/22 Unknown History sumatriptan succinate 50 mg tablet 0 mg PO DAILY PRN Headache 05/04/21 12/05/22 Unknown History topiramate 50 mg tablet 50 mg PO BID 05/04/21 12/05/22 Unknown History verapamil 120 mg 24 hr 120 mg PO DAILY 05/04/21 12/05/22 Unknown History capsule,extended release atorvastatin 10 mg tablet 10 mg PO DAILY 07/23/22 12/05/22 Unknown History calcium carbonate 200 mg calcium 200 mg PO TID 07/23/22 12/05/22 Unknown History (500 mg) chewable tablet (Jeremy-Gest Antacid) gabapentin 400 mg capsule 400 mg PO TID 07/23/22 12/05/22 Unknown History trazodone 100 mg tablet 100 mg PO BEDTIME 07/23/22 12/05/22 Unknown History acetaminophen 650 mg 1,300 mg PO Q12H 12/05/22 12/05/22 Unknown History tablet,extended release Exam Airway Mallampati Class: II TM Dist: >3cm Neck ROM: Limited Heart: rrr Lungs: cta Assessment and Plan Assessment Anesthesia Assessment: Anesthesia Plan Discussed Final Anesthetic Review Family History of Problems with Anesthesia: No History of Problems with Anesthesia: No NPO: Yes ASA Class: III Final Preanesthetic Review: No Changes in Pt Med Stat, Meds/Allgs Chart Reviewed, Consent Obtained/Reviewed and Anes Risks/Benef Reviewed Patient Risk: Intermediate Procedure Risk: Low Anesthetic Plan Anesthetic Plan: MAC: and Agree w/ Assess. and Plan Disposition: Standard PACU
--- NOTE | 2022-12-13 11:35 | MHC.SHP ---
Pre-Procedural Eval Section A Date of Service: 12/13/22 The patient is an INPATIENT: No Changes since office visit: Yes Patient answered all questions The History & Physical has been completed within 30 days and I have reviewed it.: No Section B Chief Complaint: Radiculopathy, lumbar region Details of Present Illness: as above Relevant Social History: None Present Medications: see Short Stay Collaborative assessment Medical History: No relevant PMH History of Previous Operations: No relevant previous surgery Allergies: Allergies Allergy/AdvReac Type Severity Reaction Status Date / Time Penicillins Allergy Severe hives Verified 12/05/22 09:45 Review of Systems Sugical H&P ROS: Negative: Constitution, Cardiovascular, Respiratory, Neurological, Psychiatric, Hem-Onc, Allergic/Immunologic, Gastrointestinal, Genitourinary, Integumentary, Endocrine and Eyes/Ears/Nose/Throat and Yes, Specify: Musculoskeletal (as above) Exam Surgical H&P Exam: Normal: HEENT, Normal: Heart, Normal: Lungs, Normal: Extremities, Normal: Abdomen, Normal: Skin and Normal: Neurological Plan Diagnosis/Plan: Unchanged I have reviewed the history and physical and performed a pertinent physical examination on my patient. No changes have occurred unless specified. Time Spent With Patient Time: Total time managing care of this patient today __5__ minutes.
[2022-12-13 11:54] VITALS: BP 108/58; PULSE 54; RESP 18; TEMP 36.6; O2SAT 100
[2022-12-13 12:01] LABS: Glucose, Whole Blood 76 mg/dL (60-115)
[2022-12-13] MEDS: Lactated Ringers 1,000 ML 100 ML IVCONT (12:07)
--- NOTE | 2022-12-13 12:08 | PC.NURSE ---
IV inserted by bekah vivas rn
--- NOTE | 2022-12-13 12:28 | P.OP_ITS ---
Operative Note Operative Note Date of Service: 12/13/22 Narrative: Transforaminal L5-S1 epidural steroid injection Informed consent was thoroughly explained to the patient before the procedure.? The patient came to the operating room.? She was positioned prone on operating t able with a pillow under her abdomen.? Time-out was performed delineating correct site and side of the procedure, nature of the injection, name and date of of the patient. The lower back of the patient was prepped with ChloraPrep and draped with sterile utility towels.? C-arm was brought over the operating field and sq picture of - L5 vertebra were demonstrated on the screen.? The left side was chosen as the side of the injection.? Tilting machine ipsilateral to the left at the level of L 5 the most prominent picture of the L5 left pedicle was obtained on the screen.? At the lateral border of the S1 superior articular process projection to the skin small amount of lidocaine 1% 3-4 cc was injected to anesthetize the skin.? After that 5 in 22 gauge Quincke point needle was inserted through the skin wheal and was advanced to the articular process on anterior posterior and oblique views intermittently.? When tip of the needle touched the bone the tip of the needle was deviated lateral and after that immediatelly returned back to more medial diresction under SAP and into the foramina. Lateral view was obtained demonstrating the tip of the needle in the most posterior inferior portion of the foamina.The C-amd was returned into AP view and injection of the contrast was performed demonstrating epidural and perineural spread of the contrast.? After that injection of the treatment medicine 4 cc of lidocaine 1% mixed with Kenalog 40 mg was injected into the foramina.? Injection of the contrast and injection of the treatment medicine was observed live on the screen.? No intrathecal and no intravascular spread of the contrast was noted. Upon completion of the procedure sterile Band-Aids were applied. Patient tolerated procedure well she was taken outside of the operating room where she recovered uneventfully.?
--- NOTE | 2022-12-13 12:31 | PC.NURSE ---
dr. vernon updated regarding patient POC. Okay to proceed. No interventions at this time. Rupal PHILLIPS aware.
[2022-12-13 12:59] VITALS: BP 114/68; PULSE 82; RESP 16; TEMP 36.9; O2SAT 96
--- NOTE | 2022-12-13 13:02 | P.BOP_ITS ---
Brief Operative Note Date of Service: 12/13/22 Pre-op diagnosis: disc degeneration lumbar with radiculopathy. Post-op diagnosis: same Procedure: TFESI L5- S1 on the left Surgeon: Bennie Reid MD Anesthesia: MAC Was an Pharmacy Analyst used for this Procedure?: No Estimated blood loss (mL): 0 Condition: stable Disposition: PACU
[2022-12-13 13:14] VITALS: BP 116/73; PULSE 80; RESP 16; TEMP 37; O2SAT 98
== END 2022-12-13 13:59 | disposition home or self-care (01) ==
PROVIDERS: PCP Internal Medicine; Visit Provider Anesthesiology
PROC: (CPT 64483; principal; 2022-12-13 12:20)
DX: M47.26 Other spondylosis with radiculopathy, lumbar region (principal); G89.4 Chronic pain syndrome; M47.812 Spondylosis without myelopathy or radiculopathy, cervical region; Z88.0 Allergy status to penicillin
CPT/HCPCS: 64483; 82947; J2250; J3010; J3301; Q9965

== ENCOUNTER 2023-01-24 13:47 | Outpatient (AMB) | payer OTHER, SELFPAY ==
--- NOTE | 2023-01-24 13:41 | A.OFFVIS_ITS ---
Intake Vital Signs 01/24/23 13:52 Height 5 ft 5.5 in Weight 142 lb BMI 23.3 BP 105/66 Blood Pressure Location Lt brachial Position Sitting Pulse 88 Pulse Source Pulse Oximeter Pulse Oximetry (%) 96 Oxygen Delivery Method Room Air Intake Visit Reasons: s/p Left L5-S1 TFESI 12/13/22 Intake Note: Pain today 01/24 Supervisor Customer Services Required: No Accompanied by: Self / Same As Patient Allergies Penicillins Allergy (Severe, Verified 01/24/23 13:52) hives HPI HPI Comments History of Present Illness Details Patient presents today for follow up to assess response to Left L5-S1 TFESI on 12/13/[address] Reid. Patient reports 100% pain relief for 6 weeks with return of back pain to baseline recently with increased weakness and frequent fall. She reports increase in pain due to rainy weather. Patient also has upcoming follow up with Cardiology and Neurology for vertigo and dizziness. Reports she fell last night but was able to catch herself. Denies any injury or LOC. Patient requests to repeat injections, including for right leg pain too. She reports bilateral leg pain with short distance ambulation, bending or changing positions. Denies any fever, abdominal or groin pain, bladder or bowel incontinence or saddle anesthesia. [place] [facility]: Left L5-S1 TFESI-100% pain relief for 6 weeks Past Procedures at [facility]: 07/26/20 Right L3-L4 and L5-S1 TFESI 01/13/20 Right L3-L4 CARON PRIOR: Patient is a pleasant 66 years old female who presents to the office for initial encounter with a long standing history of low back pain. Patient has been referred to us by [facility] for low back pain with significant stenosis and nerve compression per lumbar MRI. Patient reports her lower back pain is mostly axial but reports pain radiates laterally down both legs (L>R). She admits diffuse pain all over her body, from head to toes with aches, numbness and tingling anteriorly and laterally of both legs. Patient also reports Tu horses in her lower extremities, pain causes her headaches and fatigue. Patient denies bladder/bowel dysfunction or saddle anesthesia. She reports intermittent weakness in her legs and uses cane for ambulation. She states her pain is persistent, worse with prolong sitting, standing or walking and less severe at night time when she lies down on her side and keep pillow between her legs. She states the pain is interfering with her sleep, activities of daily living and she cannot function normally.?She is on permanent disability and has [employer] who helps her 3 times per week. The patient reports the pain in terms of tissue damage tugging, pulling, wrenching, tingling, stinging, tight, squeezing, and tearing. She has been taking Gabapentin and meloxican for many years and notes that it has stopped working for her. She rates her current pain /.? Previously she has tried physical therapy through [facility] office, the last being 1 week ago. Patient feels her symptoms were partially improving with PT and she would like to continue that.? Denies any chiropractic manipulation, massage or acupuncture. Denies any previous back surgery but reports has received back injections in the past and she might reconsider these injections through this office in the future. Patient reports she recently got new mattress for her back pain and she requesting prescription for gel pads for her mattress. Patient?s past medical history is significant for HTN, fibromyalgia, degenerative disc disease, lumbar disc degeneration, high cholesterol, and arthritis.? [facility] Medical History Ambulates with cane Anemia Anxiety Arthritis Cataracts, bilateral Diabetes mellitus type 2, diet-controlled Elevated cholesterol Full dentures GERD (gastroesophageal reflux disease) HTN (hypertension) Lumbar back pain with radiculopathy affecting lower extremity JV (obstructive sleep apnea) Spinal stenosis of lumbar region with neurogenic claudication Surgical History History of total right hip replacement Hx of cholecystectomy Hx of colonoscopy Social History Are you a primary personal carer to a significant other at home: No Do you presently have visiting nurse or other home services: Yes ([employer] M-F 4 hours/day) Patient Tobacco Use Status: Never used Tobacco Review of Systems Const All systems reviewed & are unremarkable except as noted in HPI and below Card Denies chest pain with activity, Denies leg edema and Denies dyspnea Resp Denies cough and Denies dyspnea Physical Exam Vital Signs: Last Vital Signs Pulse 88 01/24/23 13:52 BP 105/66 08/10/23 13:52 Pulse Ox 96 01/24/23 13:52 Oxygen Delivery Method Room Air 01/24/23 13:52 BMI result Body Mass Index 23.3 General: Appears afebrile. Alert and oriented. Mood and affect appropriate. Follows and participates in conversation appropriately. Respiratory effort is unlabored. Uses cane with ambulation. Back/Spine/Pelvis Other: Patient is able to transition from sit to stand with assistance of cane. Antalgic gait with mild limping. Seated SLR positive bilaterally, L>R, worsened with dorsiflexion bilaterally. Para-spinal tenderness all over the back, worse on the left mid and lower back. Kelli sign + bilaterally. Lumbar flexion and extension reproduces lower back pain. Facet loading test positive bilaterally. 2+ pedal pulses bilaterally. Cervical Spine: cervical muscular tenderness and No Cervical spine tenderness Thoracic/Lumbar Spine: thoracic and lumbar spine normal to inspection, No Thoracic/lumbar spine scar(s), Lasegue's sign positive bilateral and localized, pain with thoraco-lumbar ROM, paraspinal muscle tenderness, thoraco-lumbar ROM limited, Thoracic/lumbar scoliosis, No thoracic spinal tenderness, lumbar spinal tenderness at L4 and at L5 and straight leg raise positive bilateral at 40 degrees Pelvis: buttock tenderness bilaterally Sacroiliac joints: bilaterally tender to palpation Results Reviewed Results Reviewed: MR LUMBAR SPINE WITHOUT CONTRAST 08/22/21 FINDINGS: There is spinal scoliosis with a leftward convex curvature centered at L3-L4. Slight left lateral subluxation of L4 on L5. Grade 1 anterolisthesis of L5 on S1 related to facet degenerative changes at this level. Vertebral body heights are preserved. No acute bone marrow signal changes. There is loss of intervertebral disc height and T2 signal intensity at multiple levels related to disc degeneration. The tip of the conus medullaris is located at L1. No mass effect on the conus. Visualized distal cord signal intensity is normal. At L1-L2 the annular contour is normal. No canal or neuroforaminal compromise. At L2-L3 there is a slightly bulging disc. Bilateral facet degenerative change. No canal stenosis. No mass effect on the traversing or foraminal nerve roots. At L3-L4 there is a diffusely bulging disc. Bilateral facet degenerative change. Mild canal stenosis. Asymmetric narrowing of the right subarticular zone causes displacement of the right traversing L4 nerve roots. Moderate to severe compression of the right L3 foraminal nerve root. At L4-L5 there is a diffusely bulging disc and bilateral facet degenerative change. Mild canal stenosis. Subarticular zone narrowing causes displacement and likely compression of the right traversing L5 nerve roots. Mild compression of both L4 foraminal nerve roots. At L5-S1 there is a diffusely bulging disc. Bilateral facet degenerative change. No canal stenosis. Subarticular zone narrowing causes abutment and possible compression of both traversing S1 nerve roots. Moderate compression of the left L5 foraminal nerve root. Limited visualization of the retroperitoneal anatomy reveals a few well marginated benign-appearing cystic lesions within both kidneys. Psoas and paraspinal muscle groups are symmetric. IMPRESSION: There is multilevel degenerative spondylosis of the lumbar spine. Mild canal stenosis at L3-L4 and L4-L5. There are varying degrees of mass effect on the traversing and foraminal segments of the nerve roots as described above. For instance a slightly bulging disc at L3-L4 cause moderate to severe compression of the right L3 foraminal nerve root. A pseudodisc bulge in conjunction with facet degenerative change at L5-S1 causes moderate compression of the left L5 foraminal nerve root. X-Ray Thoracic Spine CLINICAL INFORMATION: Pain in thoracic spine FINDINGS: Mild S-shaped thoracolumbar scoliosis. Multilevel degenerative changes of the thoracic spine. Normal sagittal alignment of the thoracic spine. No compression fracture seen. Right upper quadrant cholecystectomy clips. Partially imaged gastric band and tubing. IMPRESSION: Mild S-shaped thoracolumbar rotoscoliosis. Multilevel degenerative changes of the thoracic spine. XR CERVICAL SPINE 03/12/22 FINDINGS: Severe degenerative disc disease with slight retrolisthesis of C4-C5. Moderate degenerative disc disease at C5-C6 and C6-C7 with prominent endplate osteophytes. Mild narrowing of the left neural foramen at C4-C5. 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 IMPRESSION: Degenerative disc disease as described, severe at C4-C5. Mild left C4-C5 neural foraminal narrowing. Assessment & Plan Assessment & Plan (1) Spinal stenosis of lumbar region with neurogenic claudication: Code(s): M48.062 - Spinal stenosis, lumbar region with neurogenic claudication (2) Lumbar back pain with radiculopathy affecting lower extremity: Code(s): M54.16 - Radiculopathy, lumbar region (3) Chronic pain syndrome: Code(s): G89.4 - Chronic pain syndrome (4) Lumbar spondylosis: Code(s): M47.816 - Spondylosis without myelopathy or radiculopathy, lumbar region (5) Fibromyalgia: Code(s): M79.7 - Fibromyalgia Plan Patient is status post Left L5-S1 TFESI on 12/13/22 with 6 weeks pain relief. She requests to repeat same injection but also injection to relieve her right leg pain. Discussed with patient these injections cannot be repeated until after 03/15/23. Due to significant low back pain with bilateral leg pain, we will proceed with Neurosurgical evaluation with [facility]. Refills provided for lidocaine patch and gel matress pad per patient's request. Patient is aware to call if pain worsens or if she develops any red flag symptoms to seek emergency care. Patient denies any cauda equina syndrome symptoms at this time. Orders: Referrals Neurosurgery Referral M48.062 - Spinal stenosis, lumbar region with neurogenic claudication, M54.16 - Radiculopathy, lumbar region Medications: Refilled lidocaine 5% 1 patch topical DAILY 30 patches 3RF for pain G89.4 - Chronic pain syndrome, M47.816 - Spondylosis without myelopathy or radiculopathy, lumbar region Gel mattress overlay As directed 1 ea 3RF Back pain M48.062 - Spinal stenosis, lumbar region with neurogenic claudication, M54.16 - Radiculopathy, lumbar region Coding Level of Care Code Est Pt Level 4 (49180) Diagnoses Spinal stenosis of lumbar region with neurogenic claudication M48.062 Lumbar back pain with radiculopathy affecting lower extremity M54.16 Chronic pain syndrome G89.4 Lumbar spondylosis M47.816 Fibromyalgia M79.7
[2023-01-24 13:52] VITALS: BP 105/66; PULSE 88; O2SAT 96; BMI 23.3
== END 2023-01-24 14:08 | disposition home or self-care (01) ==
PROVIDERS: PCP Internal Medicine; Visit Provider Nurse Practitioner Family
DX: G89.4 Chronic pain syndrome (principal); M48.062 Spinal stenosis, lumbar region with neurogenic claudication; M47.26 Other spondylosis with radiculopathy, lumbar region; M79.7 Fibromyalgia
CPT/HCPCS: 99214

== ENCOUNTER → 2023-01-24 13:47 | Outpatient (BNVA) | payer OTHER, SELFPAY | PROVIDERS: PCP Internal Medicine; Visit Provider Nurse Practitioner Family | DX: G89.4 Chronic pain syndrome (principal); M48.062 Spinal stenosis, lumbar region with neurogenic claudication; M47.26 Other spondylosis with radiculopathy, lumbar region; M79.7 Fibromyalgia; Z98.890 Other specified postprocedural states | CPT/HCPCS: 99212 ==

== ENCOUNTER 2023-02-19 08:08 | Outpatient (AMB) | payer OTHER, SELFPAY ==
--- NOTE | 2023-02-19 08:30 | A.OFFVIS_ITS ---
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 Roller Operator Required: No Accompanied by: Self / Same As Patient Allergies Penicillins Allergy (Severe, Verified 02/19/23 08:33) hives Medication List - Last Reconciled 02/19/23 by Rafi Trevizo MD acetaminophen ER 1,300 mg PO Q12H atorvastatin 10 mg PO DAILY calcium carbonate (Jeremy-Gest Antacid) 200 mg PO TID cholecalciferol (vitamin D3) 50 mcg PO DAILY cyclobenzaprine 5 mg PO TID PRN diclofenac sodium 1% (Arthritis Pain (diclofenac)) 4 grams topical QID ferrous sulfate 325 mg PO DAILY furosemide 20 mg PO DAILY gabapentin 400 mg PO TID Gel mattress overlay As directed hydroxyzine HCl 25 mg PO DAILY lidocaine 5% 1 patch topical DAILY lisinopril 5 mg PO DAILY magnesium oxide 400 mg PO BID meclizine 12.5 mg PO TID meloxicam 15 mg PO DAILY omeprazole 40 mg PO DAILY ondansetron HCl 4 mg PO Q8H PRN potassium chloride ER 20 mEq PO DAILY sennosides-docusate sodium 8.6-50 mg (Senexon-S) 1 tab PO BID sertraline 50 mg PO DAILY sumatriptan succinate 50 mg PO DAILY PRN topiramate 50 mg PO BID trazodone 100 mg PO BEDTIME verapamil ER 120 mg PO DAILY HPI HPI Comments History of Present Illness Details Lesly has been referred for evaluation of dizziness bradycardia. She states she frequently gets dizzy. This can happen any time but more frequently when she is standing get up from seated position and she is walking. She states that she feels as though she is on study. Additionally, she also has vertigo which is apparently independent problem according to her. However, not sure if she is actually trying to describe the same issue. According to her, no known cardiac issues like coronary disease myocardial infarction or cardiomyopathy. She states she has high blood pressure and takes medications for the same including verapamil and lisinopril but available blood pressures are rather on the lower side. Not clear if that is the main issue. Also described to have slow heart rate which could be related to verapamil. No other cardiac symptoms at this time. [facility] Medical History Ambulates with cane Anemia Anxiety Arthritis Cataracts, bilateral Diabetes mellitus type 2, diet-controlled Elevated cholesterol Full dentures GERD (gastroesophageal reflux disease) HTN (hypertension) Lumbar back pain with radiculopathy affecting lower extremity JV (obstructive sleep apnea) Spinal stenosis of lumbar region with neurogenic claudication Surgical History History of total right hip replacement Hx of cholecystectomy Hx of colonoscopy Social History Are you a primary overnight caregiver to a significant other at home: No Do you presently have visiting nurse or other home services: Yes ([employer] M-F 4 hours/day) Patient Tobacco Use Status: Never used Tobacco Review of Systems Const Denies weakness ENT Denies dizziness Card Denies chest pain, Denies chest pain with activity, Denies syncope, Denies rapid heart rate, Denies pedal edema, Denies edema, Denies leg edema, Denies lightheadedness, Denies palpitations, Denies dyspnea, Denies dyspnea on exertion and Denies orthopnea Resp Denies cough, Denies dyspnea and Denies dyspnea on exertion GI Denies hematochezia and Denies change in stool character Musc Denies abnormal gait, Denies muscle cramps, Denies muscle weakness, Denies numbness, Denies radiating pain into limb and Denies tingling Neuro Denies abnormal gait, Denies dizziness, Denies syncope, Denies numbness, Denies tingling and Denies weakness Endo Denies palpitations Physical Exam Vital Signs: Last Vital Signs Pulse 50 02/19/23 08:31 BP 100/70 02/19/23 08:31 BMI result Body Mass Index 24.2 Const General: comfortable and no acute distress Orientation/consciousness: patient oriented x3 HEENT Other: Unremarkable Head: Yes normal to inspection Neck Neck: Yes normal visual inspection Chest Chest palpation & inspection: normal inspection of the chest Resp Auscultation: clear to auscultation bilaterally Cardio Palpation: normal PMI Heart sounds: S1 normal heart sound present, S2 normal heart sound present, no gallops, no murmurs and no rubs GI Palpation (GI): Soft to palpation Back/Spine/Pelvis Other: unremarkable Skin General skin exam: no rashes or lesions noted Neuro General: patient oriented x3 Extrem General: Yes normal to inspection Psych Mental Status: mental status grossly normal Assessment & Plan Assessment & Plan (1) Dizziness of unknown etiology: Code(s): R42 - Dizziness and giddiness (2) Frequent falls: Code(s): R29.6 - Repeated falls (3) Bradycardia: Code(s): R00.1 - Bradycardia, unspecified Plan EKG with sinus bradycardia at 48/Min; no significant ST-T changes and otherwise unremarkable. Normal NV and corrected QT. Described to be hypertensive but blood pressures seem to be rather on the lower side. Today it is 100/70 mm Hg. Verapamil that she takes her high blood pressure could also lead to bradycardia. Overall, main recommendation is to stop the verapamil and lisinopril and monitor her symptoms and blood pressure. Hopefully, she will feel better. Otherwise, we will get an echocardiogram for cardiac function assessment. Holter monitor for any high-grade heart blocks but less likely. Follow-up in a few weeks time. Orders: Orders CA echo transthoracic complete Today R42 - Dizziness and giddiness ECG 3 day holter monitor Today R00.1 - Bradycardia, unspecified, R42 - Dizziness and giddiness Coding Level of Care Code New Pt Level 3 (43822) Diagnoses Dizziness of unknown etiology R42 Frequent falls R29.6 Bradycardia R00.1
[2023-02-19 08:31] VITALS: BP 100/70; PULSE 50; BMI 24.2
== END 2023-02-19 08:48 | disposition home or self-care (01) ==
PROVIDERS: PCP Internal Medicine; Referring Provider Internal Medicine; Visit Provider Internal Medicine
DX: R42 Dizziness and giddiness (principal); R29.6 Repeated falls; R00.1 Bradycardia, unspecified
CPT/HCPCS: 99203

== ENCOUNTER → 2023-02-19 08:08 | Outpatient (BNVA) | payer OTHER, SELFPAY | PROVIDERS: PCP Internal Medicine; Referring Provider Internal Medicine; Visit Provider Internal Medicine | DX: R42 Dizziness and giddiness (principal); R29.6 Repeated falls; R00.1 Bradycardia, unspecified | CPT/HCPCS: 99202 ==

== ENCOUNTER 2023-02-19 10:41 | Emergency (ER) | payer OTHER, SELFPAY ==
[2023-02-19 10:42] VITALS: BP 128/68; PULSE 58; RESP 16; TEMP 36.6; BMI 24.5
--- NOTE | 2023-02-19 11:21 | ED.URI ---
HPI - URI/Sore Throat General Chief Complaint: Upper Respiratory Symptoms Stated Complaint: Ear ache/Sore throat Time Seen by Provider: 02/19/23 10:52 Source: patient and RN notes reviewed Mode of arrival: ambulatory Limitations: no limitations History of Present Illness HPI Narrative: This is a [id number], with a past medical history of anemia, anxiety, arthritis, diabetes, GERD, hypertension, JV, and spinal stenosis, presenting to the emergency department with complaints of sore throat and bilateral ear pain x2 days. Patient reports that she has had sore throat and painful swallowing. She has been able to tolerate p.o. without difficulty. She denies any headaches, dizziness, fevers, chills, nasal congestion, runny nose, chest pain, shortness of breath, abdominal pain, nausea, vomiting or diarrhea. She denies any sick contacts. No other complaints or concerns at this time. MD elicited complaint: sore throat Consistency: constant Severity: moderate Able to tolerate fluids by mouth: Yes Exacerbating factors: swallowing Relieving factors: lozenge and gargling Associated symptoms: sore throat Treatments prior to arrival: none Related Data Home Medications Medication Instructions Recorded Confirmed cholecalciferol (vitamin D3) 50 50 mcg PO DAILY 05/04/21 02/19/23 mcg (2,000 unit) capsule ferrous sulfate 325 mg (65 mg 325 mg PO DAILY 05/04/21 02/19/23 iron) tablet furosemide 20 mg tablet 20 mg PO DAILY 05/04/21 02/19/23 hydroxyzine HCl 25 mg tablet 25 mg PO DAILY 05/04/21 02/19/23 magnesium oxide 400 mg (241.3 mg 400 mg PO BID 05/04/21 02/19/23 magnesium) tablet meclizine 12.5 mg tablet 12.5 mg PO TID 05/04/21 02/19/23 meloxicam 15 mg tablet 15 mg PO DAILY 05/04/21 02/19/23 omeprazole 40 mg capsule,delayed 40 mg PO DAILY 05/04/21 02/19/23 release ondansetron HCl 4 mg tablet 4 mg PO Q8H PRN Nausea 05/04/21 02/19/23 potassium chloride 20 mEq 20 meq PO DAILY 05/04/21 02/19/23 tablet,extended release sennosides 8.6 mg-docusate sodium 1 tab PO BID 05/04/21 02/19/23 50 mg tablet (Senexon-S) sertraline 50 mg tablet 50 mg PO DAILY 05/04/21 02/19/23 topiramate 50 mg tablet 50 mg PO BID 05/04/21 02/19/23 atorvastatin 10 mg tablet 10 mg PO DAILY 07/23/22 02/19/23 calcium carbonate 200 mg calcium 200 mg PO TID 07/23/22 02/19/23 (500 mg) chewable tablet (Jeremy-Gest Antacid) gabapentin 400 mg capsule 400 mg PO TID 07/23/22 02/19/23 trazodone 100 mg tablet 100 mg PO BEDTIME 07/23/22 02/19/23 acetaminophen 650 mg 1,300 mg PO Q12H 12/05/22 02/19/23 tablet,extended release sumatriptan succinate 50 mg tablet 50 mg PO DAILY PRN Headache 02/19/23 02/19/23 Previous Rx's Medication Instructions Recorded diclofenac sodium 1 % topical gel 4 g topical QID pain #100 grams 03/12/22 (Arthritis Pain (diclofenac)) cyclobenzaprine 5 mg tablet 5 mg PO TID PRN muscle spasm #10 07/23/22 tabs Gel mattress overlay #1 ea 01/24/23 lidocaine 5 % topical patch 1 patch topical DAILY for pain #30 01/24/23 patches acetaminophen 325 mg capsule 650 mg PO Q6H PRN pain #45 caps 02/19/23 Allergies Allergy/AdvReac Type Severity Reaction Status Date / Time Penicillins Allergy Severe hives Verified 02/19/23 08:33 Review of Systems Review of Systems: Yes all other systems are reviewed and are negative Constitutional: Constitutional: Reports as per [facility] Past Medical History Attestation statement: The following information was validated with the patient. Medical History Ambulates with cane Anemia Anxiety Arthritis Cataracts, bilateral Diabetes mellitus type 2, diet-controlled Elevated cholesterol Full dentures GERD (gastroesophageal reflux disease) HTN (hypertension) Lumbar back pain with radiculopathy affecting lower extremity JV (obstructive sleep apnea) Spinal stenosis of lumbar region with neurogenic claudication Surgical History History of total right hip replacement Hx of cholecystectomy Hx of colonoscopy Social History Social History Are you a primary ambulatory care coordinator to a significant other at home: No Do you presently have visiting nurse or other home services: Yes ([employer] M-F 4 hours/day) Patient Tobacco Use Status: Never used Tobacco Advance Directives: Yes Advance Directives Information Provided: Yes Advance Directives on File: No Physical Exam Vital Signs: Vital Signs: Last Vital Signs Temp 97.8 F 02/19/23 10:42 Pulse 58 02/19/23 10:42 Resp 16 02/19/23 10:42 BP 128/68 02/19/23 10:42 BMI result Body Mass Index 24.5 Const: General: cooperative, comfortable and no acute distress Orientation/consciousness: patient oriented x3 Limitations: no limitations HEENT: Other: OP mildly erythematous, no tonsillar hypertrophy or exudates. Airway patent. Uvula midline Head: Yes normal to inspection, Yes normocephalic and Yes atraumatic Ears: hearing grossly normal bilaterally, TM's normal bilaterally and mastoids normal General nose exam: Normal external nose present Face and sinus: Yes normal facial exam Mouth: moist mucous membranes Throat: Yes posterior oropharynx normal Eyes: General: appearance normal, both eyes and all related structures Eyelids: Yes eyelids normal Conjunctivae: conjunctivae normal Sclerae: sclerae normal Pupils: Equal, round and reactive pupils present EOM: EOMs intact bilaterally Neck: Other: Anterior cervical lymphadenopathy noted Neck: Yes normal visual inspection and Yes full ROM Chest: Chest palpation & inspection: normal inspection of the chest Resp: Effort & Inspection: normal respiratory effort and able to speak in complete sentences Auscultation: clear to auscultation bilaterally, no crackles, no rales, no rhonchi and no wheezes Cardio: Rate: regular rate Rhythm: regular rhythm Heart sounds: S1 normal heart sound present and S2 normal heart sound present GI: Inspection: Yes normal to inspection Skin: General skin exam: no rashes or lesions noted Trauma: no lacerations or abrasions Wounds: no wounds Neuro: General: patient oriented x3 and moves all extremities Cranial nerves: Yes Equal, round and reactive pupils present Extrem: General: Yes normal to inspection Right upper extremity: normal to inspection Left upper extremity: normal to inspection Right lower extremity: normal to inspection Left lower extremity: normal to inspection Course Reevaluation(s) Reevaluation #1: Swabs negative. Symptoms likely viral. Given return precautions. D/C with conservative symptomatic treatment instructions. Pt understands and agrees with plan. Stable for D/C. Medical Decision Making Medical Decision Making [facility] Narrative: This is a 68-year-old female presenting to the emergency department with complaints of bilateral ear pain and sore throat x2 days. She has been using cough drops, gargling with salt water without any relief. No fevers or chills. On arrival, all vital signs within normal limits. Patient is nontoxic appearing. No trismus, drooling or dysphonia. Differential diagnoses include strep pharyngitis, tonsillitis, peritonsillar abscess-unlikely, URI, COVID, influenza. Given clinical presentation, will obtain strep swab as well as viral swabs. Differential Diagnosis Differential Diagnoses: The differential diagnosis associated with the presentation includes See above Lab Data [facility] Lab Attestation statement: I reviewed the patient's lab results. Labs: Lab Results 02/19/23 02/19/23 Range/Units 11:27 11:27 Influenza Type A (PCR) NEGATIVE (Negative) Influenza Type B (PCR) NEGATIVE (Negative) RSV RNA Qual (PCR) NEGATIVE (Negative) SARS-CoV-2 RNA (RT-PCR) NEGATIVE (Negative) S. pyogenes GrpA DENICE Negative (Negative) Discharge Plan Discharge Clinical Impression: Pharyngitis Patient Disposition: Home, Self-Care Instructions: Pharyngitis (ED) Additional Instructions: You tested negative for COVID, RSV, and strep throat. Your symptoms are likely due to a virus. Your symptoms will resolve on its own and does not need antibiotics at this time. Please take Tylenol as needed for pain and symptoms. Please continue drinking plenty of fluids and get plenty of rest. Warm tea with honey, salt water gargles, and throat lozenges can also help for your symptoms. If any new or worsening symptoms occur including but not limited to inability to swallow, fevers not responding to ibuprofen or Tylenol, chest pain or shortness for breath, please return for re-evaluation. Prescriptions: New acetaminophen 325 mg capsule 650 mg PO Q6H PRN (Reason: pain) Qty: 45 0RF No Action cyclobenzaprine 5 mg tablet 5 mg PO TID PRN (Reason: muscle spasm) Qty: 10 0RF acetaminophen [Tylenol Arthritis] 650 mg Tablet Extended Release 1,300 mg PO Q12H trazodone 100 mg tablet 100 mg PO BEDTIME calcium carbonate [Jeremy-Gest Antacid] 200 mg calcium (500 mg) tablet,chewable 200 mg PO TID atorvastatin 10 mg tablet 10 mg PO DAILY gabapentin 400 mg capsule 400 mg PO TID hydroxyzine HCl 25 mg tablet 25 mg PO DAILY magnesium oxide 400 mg (241.3 mg magnesium) tablet 400 mg PO BID omeprazole 40 mg capsule,delayed release(DR/EC) 40 mg PO DAILY sennosides-docusate sodium [Senexon-S] 8.6-50 mg tablet 1 tab PO BID ondansetron HCl 4 mg tablet 4 mg PO Q8H PRN (Reason: Nausea) furosemide 20 mg tablet 20 mg PO DAILY topiramate 50 mg tablet 50 mg PO BID meloxicam 15 mg tablet 15 mg PO DAILY potassium chloride 20 mEq tablet extended release 20 meq PO DAILY ferrous sulfate 325 mg (65 mg iron) tablet 325 mg PO DAILY cholecalciferol (vitamin D3) 50 mcg (2,000 unit) capsule 50 mcg PO DAILY sertraline 50 mg tablet 50 mg PO DAILY meclizine 12.5 mg tablet 12.5 mg PO TID sumatriptan succinate 50 mg tablet 50 mg PO DAILY PRN (Reason: Headache) diclofenac sodium [Arthritis Pain (diclofenac)] 1 % gel 4 g topical QID Qty: 100 0RF Rx Instructions: apply to single knee, ankle, foot; for foot includes sole/toes/top of foot lidocaine 5 % adhesive patch,medicated 1 patch topical DAILY Qty: 30 3RF (DME) Gel mattress overlay Misc See Rx Instructions .Route Qty: 1 3RF Rx Instructions: As directed Stand Alone Forms: Work/School Release Interventions: ED Discharge Assessment Last Done: 02/19/23 12:57 Discharge Date/Time: 02/19/23 12:57
[2023-02-19 11:59] LABS: IDNOW Serial# 6674DD1D; Strep A Nucleic Acid Negative (Negative)
[2023-02-19 12:39] LABS: Influenza A PCR NEGATIVE (Negative); Influenza B PCR NEGATIVE (Negative); Resp Syncy Virus RNA Qual PCR NEGATIVE (Negative); SARS COV2 PCR INHOUSE NEGATIVE (Negative)
== END 2023-02-19 12:57 | disposition home or self-care (01) ==
PROVIDERS: Physician Assistant Medical; Emergency Provider Emergency Medicine; PCP Internal Medicine
DX: J02.9 Acute pharyngitis, unspecified (principal); Z20.822 Contact with and (suspected) exposure to COVID-19; Z20.828 Contact with and (suspected) exposure to other viral communicable diseases
CPT/HCPCS: 0241U; 87651; 99282; 99283

== ENCOUNTER → 2023-03-29 13:59 | Outpatient (REF) | payer OTHER, SELFPAY ==
--- NOTE | 2023-03-29 14:02 | HM_ITS ---
Conclusion: 1. Patient was monitored for total period of 3 days 2. Baseline was normal sinus with average heart of 72 beats per minute 3. No significant pauses noted 4. Rare ectopy noted 5. Patient marked the counter twice without associated symptoms correlating with sinus rhythm MTDD
--- NOTE | 2023-03-29 14:02 | CA_ITS ---
Transthoracic Echocardiogram Patient (Last, First, Middle): Lesly Mike, Gender: Female Date of : 1955 Age: 68 Procedure Date: 03/29/2023 Procedure Type: Transthoracic Echocardiogram Location: OP Height: 167.64 cm Weight: 64.86 kg BSA: 1.73 m2 Heart Rate: bpm BP: 100 / 68 mmHg Rougher Operator: TO Referring MD: Rafi Trevizo MD Symptoms: R42 - Dizziness and giddiness Study Quality: Adequate Conclusions: - Normal left ventricular size and systolic function. There is mildly increased left ventricular wall thickness. The visually estimated ejection fraction is between 60-65%. - Normal right ventricular cavity size and systolic function. - There is mild dilatation of the sinuses of Valsalva measuring 3.50 cm and mild dilatation of the ascending aorta measuring 3.40 cm. Findings Left Ventricle Normal left ventricular size and systolic function. There is mildly increased left ventricular wall thickness. The visually estimated ejection fraction is between 60-65%. There is no evidence of regional wall motion abnormalities. Diastolic function is normal for age. There is moderate basal asymmetric hypertrophy. GLS normal at -19%. Right Ventricle Normal right ventricular cavity size and systolic function. Atria The left atrium is normal in size. The right atrium is normal in size. Aortic Valve Normal aortic valve structure and function. There is no aortic valve stenosis. There is no aortic valve regurgitation. Mitral Valve The mitral valve appears normal. There is trace mitral valve regurgitation. There is no mitral valve stenosis. Pulmonic Valve The pulmonic valve is likely normal. There is trace pulmonic valve regurgitation. Tricuspid Valve Normal tricuspid valve structure. There is moderate tricuspid valve regurgitation. Normal right atrial pressure. There is no evidence of pulmonary hypertension. Great Vessels There is mild dilatation of the sinuses of Valsalva measuring 3.50 cm and mild dilatation of the ascending aorta measuring 3.40 cm. The visualized portions of the pulmonary artery and branches are normal. Venous The inferior vena cava is normal in size and collapses greater than 50% with inspiration. Pericardium/Pleural There is no evidence of pericardial effusion. Prior Study Comparison No prior study available for comparison. Measurements 2D Linear Measurements IVSd: 1.40 0.6-0.9/0.6-1.0 cm LVIDd: 3.70 3.9-5.3/4.2-5.9 cm LVIDd Index: 2.14 2.4-3.2/2.2-3.1 cm/m2 LVIDs: 2.20 2.0-3.6 cm LVPWd: 0.90 0.7-1.1 cm LA Diam: 3.20 2.7-3.8/3.0-4.0 cm LAIDs Index: 1.85 1.5-2.3 cm/m2 LV Mass: 171.96 67-162/88-224 g LV Mass Index: 99.40 43-95/49-115 g/m2 LVOT Diam: 2.10 3.0+(-)1.3 cm 2D Systolic Function EF 4C: 63.70 >55% EF 2C: 69.90 >55% EF BiP: 65.50 >55% Aortic Valve AoV Pk Fawad: 1.41 AoV Mn Fawad: 0.97 AoV VTI: 0.34 AoV Pk Grad: 8.00 Aov Mn Grad: 4.00 REAL Cont.VTI: 1.89 LVOT LVOT Pk Fawad: 0.82 LVOT Mn Fawad: 0.50 LVOT VTI: 0.19 LVOT Pk Grad: 3.00 LVOT Mn Grad: 1.00 LVOT Diam: 2.10 LVOT Area: 3.46 Right Ventricle TAPSE (mm): 18.60 TVS' Fawad: 12.20 Tricuspid Valve TR Pk Fawad: 2.78 TR Pk Grad: 31.00 RA Press: 3.00 RVSP: 34.00 Great Vessels Aorta Sinus of Valsalva: 3.50 2.0-3.5 cm Ao Asc: 3.40 2.1-3.4 cm Updated in Other Vendor System with Status of Final Robert Neves MD electronically signed on 04/01/2023 9:33:52 AM with status of Final
== END ==
LOC: HO.CARD 13:59
PROVIDERS: PCP Internal Medicine; Visit Provider Internal Medicine
DX: R42 Dizziness and giddiness (principal); R00.1 Bradycardia, unspecified
CPT/HCPCS: 93242; 93306

== ENCOUNTER → 2023-03-29 14:02 | Outpatient (BNV) | payer OTHER, SELFPAY | PROVIDERS: PCP Internal Medicine; Visit Provider Internal Medicine Cardiovascular Disease | DX: R00.1 Bradycardia, unspecified (principal) | CPT/HCPCS: 93244; 93306 ==

== ENCOUNTER 2023-04-18 08:11 | Outpatient (AMB) | payer OTHER, SELFPAY ==
[2023-04-18 08:43] VITALS: BP 100/72; PULSE 58; BMI 23.0
--- NOTE | 2023-04-18 08:43 | MHC.OFFVIS ---
Intake Vital Signs 04/18/23 08:43 Height 5 ft 5 in Weight 138 lb 0.15 oz BMI 23.0 BP 100/72 Blood Pressure Location Lt brachial Position Sitting Pulse 58 Pulse Source Pulse Oximeter Intake Visit Reasons: follow up after testing Intake Note: f/u after testing [employer] [place] [facility] Required: No Allergies Penicillins Allergy (Severe, Verified 04/18/23 08:45) hives Medication List - Last Reconciled 04/18/23 by CURTIS Rai acetaminophen 650 mg (2 x 325 mg) PO Q6H PRN acetaminophen ER 1,300 mg PO Q12H atorvastatin 10 mg PO DAILY calcium carbonate (Jeremy-Gest Antacid) 200 mg PO TID cholecalciferol (vitamin D3) 50 mcg PO DAILY cyclobenzaprine 5 mg PO TID PRN diclofenac sodium 1% (Arthritis Pain (diclofenac)) 4 grams topical QID ferrous sulfate 325 mg PO DAILY furosemide 20 mg PO DAILY gabapentin 400 mg PO TID Gel mattress overlay As directed hydroxyzine HCl 25 mg PO DAILY lidocaine 5% 1 patch topical DAILY lisinopril 5 mg PO DAILY magnesium oxide 400 mg PO BID meclizine 12.5 mg PO TID meloxicam 15 mg PO DAILY omeprazole 40 mg PO DAILY ondansetron HCl 4 mg PO Q8H PRN potassium chloride ER 20 mEq PO DAILY sennosides-docusate sodium 8.6-50 mg (Senexon-S) 1 tab PO BID sertraline 50 mg PO DAILY sumatriptan succinate 50 mg PO DAILY PRN topiramate 50 mg PO BID trazodone 100 mg PO BEDTIME verapamil ER 120 mg PO DAILY HPI follow up after testing HPI Details Lesly is a 68 yr old female with past medical history of hypertension, prediabetes, vertigo who was recently evaluated for bradycardia. An echocardiogram and Holter monitor were done and she now presents for follow-up. Today she reports that she continues to have lightheadedness and that she takes meclizine up to 3 times daily which does help. She has some unsteadiness with ambulation and uses a cane. No presyncope, syncope or recent falls. No chest discomfort at rest or with activity. No shortness of breath, palpitations, PND, orthopnea or edema. She takes her meds as directed. [facility] Medical History (Updated 04/18/23 @ 12:37 by Samina Schaffer NP-C) Cataracts, bilateral Arthritis Anxiety Full dentures Ambulates with cane Diabetes mellitus type 2, diet-controlled Anemia JV (obstructive sleep apnea) Elevated cholesterol HTN (hypertension) GERD (gastroesophageal reflux disease) Spinal stenosis of lumbar region with neurogenic claudication Lumbar back pain with radiculopathy affecting lower extremity Surgical History Hx of colonoscopy History of total right hip replacement Hx of cholecystectomy Social History Are you a primary home care consultant to a significant other at home: No Do you presently have visiting nurse or other home services: Yes ([employer] M-F 4 hours/day) Patient Tobacco Use Status: Never used Tobacco Review of Systems Const All systems reviewed & are unremarkable except as noted in HPI and below ENT Details: unsteady at times, uses cane for balance Denies dizziness Card Denies chest pain, Denies chest pain at rest, Denies chest pain with activity, Denies rapid heart rate, Denies pedal edema, Denies edema, Denies leg edema, Denies lightheadedness, Denies palpitations, Denies dyspnea, Denies dyspnea on exertion and Denies orthopnea Resp Denies cough, Denies dyspnea and Denies dyspnea on exertion GI Denies hematochezia and Denies change in stool character Musc Denies abnormal gait, Denies limited range of motion, Denies muscle cramps, Denies muscle weakness, Denies numbness, Denies radiating pain into limb, Denies stiffness and Denies tingling Neuro Denies abnormal gait, Denies dizziness, Denies numbness and Denies tingling Endo Denies palpitations Physical Exam Vital Signs: Last Vital Signs Pulse 58 04/18/23 08:43 BP 100/72 04/18/23 08:43 BMI result Body Mass Index 23.0 Const General: cooperative, healthy appearing, comfortable and no acute distress Orientation/consciousness: patient oriented x3 Neck Neck: Yes normal visual inspection Resp Effort & Inspection: normal respiratory effort Auscultation: clear to auscultation bilaterally, no crackles, no rales, no rhonchi and no wheezes Cardio Jugular venous distension: no JVD Rate: regular rate Rhythm: regular rhythm Heart sounds: S1 normal heart sound present, S2 normal heart sound present, no murmurs and no rubs Neuro General: patient oriented x3 Extrem General: Yes normal to inspection, No no pedal edema and No calf tenderness Psych Appearance: grossly normal Mental Status: mental status grossly normal Speech and movement: Normal speech and movement present Assessment & Plan Assessment & Plan (1) Bradycardia: Code(s): R00.1 - Bradycardia, unspecified Plan: History of bradycardia. She has been on verapamil for blood pressure control. On last visit her blood pressure was low and she was instructed to stop verapamil and lisinopril which she did not do. She did not understand the directions. An echocardiogram was done on 03/29/2023 showing EF 60-65%, mild LVH, moderate basal asymmetric hypertrophy. Holter monitor done 03/29/2023 for 3 days showed sinus rhythm with average heart rate 72, no significant bradycardia or pauses. She tells me she has been taking her verapamil right along. Blood pressure is still on the low side at 100/72. Will need to confirm her actual dose of for appt male then plan to reduce by half. She is agreeable to this plan. She has an upcoming PCP visit and vital signs can be reached checked at that time. If she continues to have issues with bradycardia then verapamil can be stopped. Alternate agents can be used for blood pressure control if warranted. No indication for pacemaker placement at this time. Cardiology follow-up in 6 months, sooner if needed (2) Vertigo: Code(s): R42 - Dizziness and giddiness Plan: History of vertigo which seems to be chronic for her. She has some lightheadedness even with the use of meclizine. She uses a cane for steady ambulation. No clear indication that her light headedness is related to bradycardia. (3) HTN (hypertension): Code(s): I10 - Essential (primary) hypertension Qualifiers: Hypertension type: primary hypertension Qualified Code(s): I10 - Essential (primary) hypertension Plan: On low side today, 100/72. She did not stop her medications as directed last visit. Will reduce her verapamil dose (4) LVH (left ventricular hypertrophy): Code(s): I51.7 - Cardiomegaly Plan: Mild LVH and moderate basal asymmetric hypertrophy noted on recent echocardiogram. She needs ongoing good blood pressure control Coding Level of Care Code Est Pt Level 4 (50975) Diagnoses Bradycardia R00.1 Vertigo R42 Primary hypertension I10 Hypertension type: primary hypertension LVH (left ventricular hypertrophy) I51.7 Time Spent (min) 26
== END 2023-04-18 09:16 | disposition home or self-care (01) ==
PROVIDERS: PCP Internal Medicine; Visit Provider Nurse Practitioner Family
DX: R00.1 Bradycardia, unspecified (principal); R42 Dizziness and giddiness; I10 Essential (primary) hypertension; I51.7 Cardiomegaly
CPT/HCPCS: 99214

== ENCOUNTER → 2023-04-18 08:11 | Outpatient (BNVA) | payer OTHER, SELFPAY | PROVIDERS: PCP Internal Medicine; Visit Provider Nurse Practitioner Family | DX: R00.1 Bradycardia, unspecified (principal); I10 Essential (primary) hypertension; I51.7 Cardiomegaly; R42 Dizziness and giddiness | CPT/HCPCS: 99212 ==

== ENCOUNTER 2023-05-28 14:40 | Outpatient (REF) | payer OTHER, SELFPAY ==
--- NOTE | ~2023-05-28 | XR_ITS ---
EXAMINATION: Right clavicle series. Right shoulder series. CLINICAL INFORMATION: Fall. COMPARISON: X-rays of the right shoulder July 2022 TECHNIQUE: 2 views of the right clavicle. 3 views of the right shoulder FINDINGS: Right shoulder: Chronic clavicular joint normal. Glenohumeral joint: There is a subchondral cyst well-circumscribed sclerotic margins of the inferior aspect of the glenoid. No joint space narrowing. Surrounding bone and soft tissues unremarkable. Right clavicle: The bone is normal. Sternoclavicular joint unremarkable No fracture or surrounding abnormality. XR/XR clavicle RT IMPRESSION: 1. No acute abnormality. 2. osteoarthritis of the glenohumeral joint. 3. Normal right clavicle.
--- NOTE | ~2023-05-28 | XR_ITS ---
EXAMINATION: Right clavicle series. Right shoulder series. CLINICAL INFORMATION: Fall. COMPARISON: X-rays of the right shoulder July 2022 TECHNIQUE: 2 views of the right clavicle. 3 views of the right shoulder FINDINGS: Right shoulder: Chronic clavicular joint normal. Glenohumeral joint: There is a subchondral cyst well-circumscribed sclerotic margins of the inferior aspect of the glenoid. No joint space narrowing. Surrounding bone and soft tissues unremarkable. Right clavicle: The bone is normal. Sternoclavicular joint unremarkable No fracture or surrounding abnormality. XR/XR shoulder RT min 2V IMPRESSION: 1. No acute abnormality. 2. osteoarthritis of the glenohumeral joint. 3. Normal right clavicle.
== END 2023-05-28 14:41 | disposition home or self-care (01) ==
LOC: HO.XRAY 14:40
PROVIDERS: PCP Internal Medicine; Visit Provider Nurse Practitioner Family
DX: M25.511 Pain in right shoulder (principal); M47.816 Spondylosis without myelopathy or radiculopathy, lumbar region; G89.4 Chronic pain syndrome; Z91.81 History of falling
CPT/HCPCS: 73000; 73030; 99212

== ENCOUNTER 2023-05-28 14:47 | Outpatient (AMB) | payer OTHER, SELFPAY ==
--- NOTE | 2023-05-28 14:48 | MHC.OFFVIS ---
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 She also continues to endorse chronic low back pain but her main concern is right shoulder pain today. Bilateral shoulder x-rays in July 2022 were normal. Patient reports multiple recent falls due to dizziness and unsteadiness. She was seen by Cardiology and completed cardiac echo and Holter monitoring. Patient reports she stopped taking lisinopril and verapamil as she was recommended by Cardiology but continues to experience significant dizziness, headaches and frequent falls. She also reports decreased appetite, weight loss and is asking for supplemental Ensure drinks. Patient states she regularly follows with her PCP for anemia. Reports meclizine has not been effective for her dizziness. She plans to reach out to Cardiology provider today. Patient also reports her blood pressure readings have been running low when she checks it at local pharmacy. She was able to ambulate in change her positions during today's visit without dizziness or vertigo episodes. Her gait is antalgic due to back pain and uses cane with ambulation. [place] [facility] [place] Left L5-S1 TFESI-100% pain relief for 6 weeks Past Procedures at [facility]: 07/26/20 Right L3-L4 and L5-S1 TFESI 01/13/20 Right L3-L4 CARON PRIOR: Patient is a pleasant 66 years old female who presents to the office for initial encounter with a long standing history of low back pain. Patient has been referred to us by [facility] for low back pain with significant stenosis and nerve compression per lumbar MRI. Patient reports her lower back pain is mostly axial but reports pain radiates laterally down both legs (L>R). She admits diffuse pain all over her body, from head to toes with aches, numbness and tingling anteriorly and laterally of both legs. Patient also reports Tu horses in her lower extremities, pain causes her headaches and fatigue. Patient denies bladder/bowel dysfunction or saddle anesthesia. She reports intermittent weakness in her legs and uses cane for ambulation. She states her pain is persistent, worse with prolong sitting, standing or walking and less severe at night time when she lies down on her side and keep pillow between her legs. She states the pain is interfering with her sleep, activities of daily living and she cannot function normally.?She is on permanent disability and has [employer] who helps her 3 times per week. The patient reports the pain in terms of tissue damage tugging, pulling, wrenching, tingling, stinging, tight, squeezing, and tearing. She has been taking Gabapentin and meloxican for many years and notes that it has stopped working for her. She rates her current pain 01/24.? Previously she has tried physical therapy through [facility] office, the last being 1 week ago. Patient feels her symptoms were partially improving with PT and she would like to continue that.? Denies any chiropractic manipulation, massage or acupuncture. Denies any previous back surgery but reports has received back injections in the past and she might reconsider these injections through this office in the future. Patient reports she recently got new mattress for her back pain and she requesting prescription for gel pads for her mattress. Patient?s past medical history is significant for HTN, fibromyalgia, degenerative disc disease, lumbar disc degeneration, high cholesterol, and arthritis.? [facility] Medical History (Updated 05/28/23 @ 15:09 by FATMATA Larkin) Cataracts, bilateral Arthritis Anxiety Full dentures Ambulates with cane Diabetes mellitus type 2, diet-controlled Anemia JV (obstructive sleep apnea) Elevated cholesterol HTN (hypertension) GERD (gastroesophageal reflux disease) Spinal stenosis of lumbar region with neurogenic claudication Lumbar back pain with radiculopathy affecting lower extremity Surgical History Hx of colonoscopy History of total right hip replacement Hx of cholecystectomy Social History Are you a primary care transition manager to a significant other at home: No Do you presently have visiting nurse or other home services: Yes ([employer] M-F 4 hours/day) Patient Tobacco Use Status: Never used Tobacco Review of Systems Const All systems reviewed & are unremarkable except as noted in HPI and below Reports as per HPI, Denies body aches, Denies chills, Reports difficulty sleeping, Reports fatigue, Denies fever(s), Reports frequent falls, Reports headache(s), Reports lethargy, Denies malaise, Denies night sweats, Reports poor appetite, Reports weakness and Reports weight loss ENT Reports vertigo, Reports headache(s), Denies epistaxis, Denies nasal discharge, Denies neck pain and Denies sore throat Card Reports as per HPI, Denies chest pain with activity, Denies syncope, Denies claudication, Reports lightheadedness, Denies palpitations and Denies dyspnea Resp Denies cough and Denies dyspnea GI Denies melena, Denies hematochezia, Denies constipation, Denies fecal incontinence and Denies loose stools Denies hematuria and Denies urinary incontinence Musc Reports back pain, Reports arthralgias, Denies joint swelling, Denies neck pain, Denies numbness, Denies radiating pain into limb, Reports stiffness and Denies tingling Neuro Reports vertigo, Denies syncope, Reports frequent falls, Reports headache(s), Denies numbness, Denies tingling and Reports weakness Endo Reports fatigue and Denies palpitations Physical Exam Vital Signs: Last Vital Signs Pulse 61 05/28/23 14:52 BP 129/69 05/28/23 14:52 Pulse Ox 97 05/28/23 14:52 Oxygen Delivery Method Room Air 05/28/23 14:52 BMI result Body Mass Index 23.0 General: Appears afebrile. Alert and oriented. Mood and affect appropriate. Follows and participates in conversation appropriately. Respiratory effort is unlabored. No cough. Gait is antalgic with loss of balance without cane. She is able to stand on heels or toes with assistance. Uses cane with ambulation. HEENT Head: Yes normal to inspection, Yes No palpable skull fracture present, Yes normocephalic, Yes atraumatic, No Reese's sign, No occipital foramen tenderness, No palpable skull fracture and No periorbital ecchymosis Back/Spine/Pelvis Other: Lumbar flexion and extension reproduces lower back pain. Facet loading test positive bilaterally. 2+ pedal pulses bilaterally. Cervical Spine: cervical muscular tenderness and No Cervical spine tenderness Thoracic/Lumbar Spine: thoracic and lumbar spine normal to inspection, No Thoracic/lumbar spine scar(s), Lasegue's sign negative, pain with thoraco-lumbar ROM, paraspinal muscle tenderness, thoraco-lumbar ROM limited, Thoracic/lumbar scoliosis, No thoracic spinal tenderness, lumbar spinal tenderness at L4 and at L5 and straight leg raise positive bilateral at 40 degrees Sacroiliac joints: bilaterally tender to palpation Extrem General: Yes capillary refill normal, Yes no clubbing, cyanosis or edema and Yes no calf tenderness Right upper extremity: shoulder/upper arm (Limited ROM with internal and external rotations.) Details: normal to inspection, tenderness Location: of the clavicle Laterality: medially and mid-shaft and over the biceps tendon and axillary nerve sensory function normal; no swelling, no ecchymosis, no crepitus and no unusual warmth Results Reviewed Results Reviewed: MR LUMBAR SPINE WITHOUT CONTRAST 08/22/21 FINDINGS: There is spinal scoliosis with a leftward convex curvature centered at L3-L4. Slight left lateral subluxation of L4 on L5. Grade 1 anterolisthesis of L5 on S1 related to facet degenerative changes at this level. Vertebral body heights are preserved. No acute bone marrow signal changes. There is loss of intervertebral disc height and T2 signal intensity at multiple levels related to disc degeneration. The tip of the conus medullaris is located at L1. No mass effect on the conus. Visualized distal cord signal intensity is normal. At L1-L2 the annular contour is normal. No canal or neuroforaminal compromise. At L2-L3 there is a slightly bulging disc. Bilateral facet degenerative change. No canal stenosis. No mass effect on the traversing or foraminal nerve roots. At L3-L4 there is a diffusely bulging disc. Bilateral facet degenerative change. Mild canal stenosis. Asymmetric narrowing of the right subarticular zone causes displacement of the right traversing L4 nerve roots. Moderate to severe compression of the right L3 foraminal nerve root. At L4-L5 there is a diffusely bulging disc and bilateral facet degenerative change. Mild canal stenosis. Subarticular zone narrowing causes displacement and likely compression of the right traversing L5 nerve roots. Mild compression of both L4 foraminal nerve roots. At L5-S1 there is a diffusely bulging disc. Bilateral facet degenerative change. No canal stenosis. Subarticular zone narrowing causes abutment and possible compression of both traversing S1 nerve roots. Moderate compression of the left L5 foraminal nerve root. Limited visualization of the retroperitoneal anatomy reveals a few well marginated benign-appearing cystic lesions within both kidneys. Psoas and paraspinal muscle groups are symmetric. IMPRESSION: There is multilevel degenerative spondylosis of the lumbar spine. Mild canal stenosis at L3-L4 and L4-L5. There are varying degrees of mass effect on the traversing and foraminal segments of the nerve roots as described above. For instance a slightly bulging disc at L3-L4 cause moderate to severe compression of the right L3 foraminal nerve root. A pseudodisc bulge in conjunction with facet degenerative change at L5-S1 causes moderate compression of the left L5 foraminal nerve root. XR SHOULDER, LEFT 07/23/22 CLINICAL INFORMATION: Fall. FINDINGS: The bones and soft tissues are normal. No fracture. Glenohumeral and acromioclavicular alignment is anatomic with normal joint space. No abnormal soft tissue calcifications. IMPRESSION: Normal left shoulder. XR SHOULDER, RIGHT 07/23/22 CLINICAL INFORMATION: Pain. Fall. FINDINGS: The bones and soft tissues are normal. No fracture. Glenohumeral and acromioclavicular alignment is anatomic with normal joint space. No abnormal soft tissue calcifications. IMPRESSION: Normal right shoulder. X-Ray Thoracic Spine CLINICAL INFORMATION: Pain in thoracic spine FINDINGS: Mild S-shaped thoracolumbar scoliosis. Multilevel degenerative changes of the thoracic spine. Normal sagittal alignment of the thoracic spine. No compression fracture seen. Right upper quadrant cholecystectomy clips. Partially imaged gastric band and tubing. IMPRESSION: Mild S-shaped thoracolumbar rotoscoliosis. Multilevel degenerative changes of the thoracic spine. XR CERVICAL SPINE 03/12/22 FINDINGS: Severe degenerative disc disease with slight retrolisthesis of C4-C5. Moderate degenerative disc disease at C5-C6 and C6-C7 with prominent endplate osteophytes. Mild narrowing of the left neural foramen at C4-C5. 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 IMPRESSION: Degenerative disc disease as described, severe at C4-C5. Mild left C4-C5 neural foraminal narrowing. Assessment & Plan Assessment & Plan (1) History of recent fall: Code(s): Z91.81 - History of falling (2) Right shoulder pain: Code(s): M25.511 - Pain in right shoulder (3) Chronic pain syndrome: Code(s): G89.4 - Chronic pain syndrome (4) Lumbar spondylosis: Code(s): M47.816 - Spondylosis without myelopathy or radiculopathy, lumbar region Plan 1. Right shoulder and clavicle x-ray to rule out dislocation, fracture and degenerative changes. 2. Follow office cardiology and PCP regarding persistent dizziness and vertigo episodes. Patient reports she is being treated for anemia by her PCP, most recent CBC values are not available today for review. Script for supplemental Ensure drinks provided per patient request today. She reports decreased appetite and would like to supplement it with Ensure drinks but this has been financially difficult with out of pocket costs. 3. Patient reports gabapentin has been effective for her pain generators. She is willing to trial a decreased gabapentin dose and monitor her dizziness levels. Patient is aware to call if pain worsens or if she develops any red flag or worsening symptoms to seek emergency care. All questions and concerns have been answered and patient agreed with the plan. Follow-up for x-ray results and sooner as needed. Orders: Orders XR clavicle RT Today M25.511 - Pain in right shoulder, Z91.81 - History of falling XR shoulder RT min 2V Today M25.511 - Pain in right shoulder, Z91.81 - History of falling Medications: New food supplemt, lactose-reduced (Ensure Original oral liquid) [place] flavor 2 ea PO BID 30 days 60 multiple units 2RF D64.9 - Anemia, unspecified, E46 - Unspecified protein-calorie malnutrition Changed From gabapentin 400 mg PO TID G89.4 - Chronic pain syndrome, M47.816 - Spondylosis without myelopathy or radiculopathy, lumbar region To gabapentin 300 mg PO BID 30 days 60 caps 0RF pain G89.4 - Chronic pain syndrome, M47.816 - Spondylosis without myelopathy or radiculopathy, lumbar region Coding Level of Care Code Est Pt Level 4 (16375) Diagnoses History of recent fall Z91.81 Right shoulder pain M25.511 Chronic pain syndrome G89.4 Lumbar spondylosis M47.816
[2023-05-28 14:52] VITALS: BP 129/69; PULSE 61; O2SAT 97; BMI 23.0
== END 2023-05-28 15:19 | disposition home or self-care (01) ==
PROVIDERS: PCP Internal Medicine; Visit Provider Nurse Practitioner Family
DX: G89.4 Chronic pain syndrome (principal); M25.511 Pain in right shoulder; M47.816 Spondylosis without myelopathy or radiculopathy, lumbar region; Z91.81 History of falling
CPT/HCPCS: 99214

== ENCOUNTER 2023-07-04 13:55 | Outpatient (AMB) | payer OTHER, SELFPAY ==
[2023-07-04 14:04] VITALS: BP 104/56; PULSE 69; O2SAT 96; BMI 22.2
--- NOTE | 2023-07-04 14:04 | MHC.OFFVIS ---
Intake Vital Signs 07/04/23 14:04 Height 5 ft 5 in Weight 133 lb 6 oz BMI 22.2 BP 104/56 L Blood Pressure Location Lt brachial Position Sitting Pulse 69 Pulse Source Pulse Oximeter Pulse Oximetry (%) 96 Oxygen Delivery Method Room Air Intake Visit Reasons: Follow Up/Increased Pain/lvm Intake Note: Pain today 8 Rehab Liaison Required: No Accompanied by: Self / Same As Patient Allergies Penicillins Allergy (Severe, Verified 07/04/23 14:05) hives HPI HPI Comments History of Present Illness Details Patient presents today for follow up for right shoulder pain and to review recent xray results. She reports recent fall off her bed while she was sleeping and re-injured her right shoulder and neck pain. She attributes her re-current falls due to dizziness and vertigo. Patient states she has upcoming ENT evaluation next month. She is interested in Vestibular PT which she was unable to attend last year due to taking care of her elderly mother with Alzheimer. Patient has limited range of motion of right shoulder and increased pain with overhead reaches. She is interested in therapeutic injection to alleviate her pain. Denies any recent cough, cold, infection, fever, other significant changes in medical history or recent hospitalizations/ER or Urgent clinic visits since last office visit. PRIOR: Patient presents today for right shoulder and clavicle pain. She also continues to endorse chronic low back pain but her main concern is right shoulder pain today. Bilateral shoulder x-rays in July 2022 were normal. Patient reports multiple recent falls due to dizziness and unsteadiness. She was seen by Cardiology and completed cardiac echo and Holter monitoring. Patient reports she stopped taking lisinopril and verapamil as she was recommended by Cardiology but continues to experience significant dizziness, headaches and frequent falls. She also reports decreased appetite, weight loss and is asking for supplemental Ensure drinks. Patient states she regularly follows with her PCP for anemia. Reports meclizine has not been effective for her dizziness. She plans to reach out to Cardiology provider today. Patient also reports her blood pressure readings have been running low when she checks it at local pharmacy. She was able to ambulate in change her positions during today's visit without dizziness or vertigo episodes. Her gait is antalgic due to back pain and uses cane with ambulation. Past Procedures at [facility]: 12/13/22: Left L5-S1 TFESI-100% pain relief for 6 weeks Past Procedures at [facility]: 07/26/20 Right L3-L4 and L5-S1 TFESI 01/13/20 Right L3-L4 CARON PRIOR: Patient is a pleasant 66 years old female who presents to the office for initial encounter with a long standing history of low back pain. Patient has been referred to us by [facility] for low back pain with significant stenosis and nerve compression per lumbar MRI. Patient reports her lower back pain is mostly axial but reports pain radiates laterally down both legs (L>R). She admits diffuse pain all over her body, from head to toes with aches, numbness and tingling anteriorly and laterally of both legs. Patient also reports Tu horses in her lower extremities, pain causes her headaches and fatigue. Patient denies bladder/bowel dysfunction or saddle anesthesia. She reports intermittent weakness in her legs and uses cane for ambulation. She states her pain is persistent, worse with prolong sitting, standing or walking and less severe at night time when she lies down on her side and keep pillow between her legs. She states the pain is interfering with her sleep, activities of daily living and she cannot function normally.?She is on permanent disability and has [employer] who helps her 3 times per week. The patient reports the pain in terms of tissue damage tugging, pulling, wrenching, tingling, stinging, tight, squeezing, and tearing. She has been taking Gabapentin and meloxican for many years and notes that it has stopped working for her. She rates her current pain 8/10.? Previously she has tried physical therapy through [facility] office, the last being 1 week ago. Patient feels her symptoms were partially improving with PT and she would like to continue that.? Denies any chiropractic manipulation, massage or acupuncture. Denies any previous back surgery but reports has received back injections in the past and she might reconsider these injections through this office in the future. Patient reports she recently got new mattress for her back pain and she requesting prescription for gel pads for her mattress. Patient?s past medical history is significant for HTN, fibromyalgia, degenerative disc disease, lumbar disc degeneration, high cholesterol, and arthritis.? [facility] Medical History (Updated 07/04/23 @ 19:34 by FATMATA Larkin) Vertigo Cataracts, bilateral Arthritis Anxiety Full dentures Ambulates with cane Diabetes mellitus type 2, diet-controlled Anemia JV (obstructive sleep apnea) Elevated cholesterol HTN (hypertension) GERD (gastroesophageal reflux disease) Spinal stenosis of lumbar region with neurogenic claudication Lumbar back pain with radiculopathy affecting lower extremity Surgical History Hx of colonoscopy History of total right hip replacement Hx of cholecystectomy Social History Are you a primary post acute care registered nurse to a significant other at home: No Do you presently have visiting nurse or other home services: Yes ([employer] M-F 4 hours/day) Patient Tobacco Use Status: Never used Tobacco Review of Systems Const All systems reviewed & are unremarkable except as noted in HPI and below Physical Exam Vital Signs: Last Vital Signs Pulse 69 07/04/23 14:04 BP 104/56 L 07/04/23 14:04 Pulse Ox 96 07/04/23 14:04 Oxygen Delivery Method Room Air 07/04/23 14:04 BMI result Body Mass Index 22.2 General: Appears afebrile. No acute distress. Alert and oriented. Mood and affect appropriate. Follows and participates in conversation appropriately. Respiratory effort is unlabored. No cough. Gait is antalgic with loss of balance without cane. She is able to stand on heels or toes with assistance. Uses cane with ambulation. HEENT Head: Yes normal to inspection, Yes No palpable skull fracture present, Yes normocephalic, Yes atraumatic, No Reese's sign, No occipital foramen tenderness, No palpable skull fracture and No periorbital ecchymosis Neck Neck: Yes no lymphadenopathy, Yes supple, No anterior neck swelling, Yes no JVD, No prominent supraclavicular fat pad and No prominent dorsocervical fat pad Back/Spine/Pelvis Other: Lumbar flexion and extension reproduces lower back pain. Facet loading test positive bilaterally. 2+ pedal pulses bilaterally. Cervical Spine: cervical muscular tenderness, pain with cervical ROM, cervical spasm (right) and No Cervical spine tenderness Thoracic/Lumbar Spine: thoracic and lumbar spine normal to inspection, No Thoracic/lumbar spine scar(s), Lasegue's sign negative, pain with thoraco-lumbar ROM, paraspinal muscle tenderness, thoraco-lumbar ROM limited, Thoracic/lumbar scoliosis, No thoracic spinal tenderness and lumbar spinal tenderness at L4 and at L5 Sacroiliac joints: bilaterally tender to palpation Extrem General: Yes capillary refill normal, Yes no clubbing, cyanosis or edema and Yes no calf tenderness Right upper extremity: shoulder/upper arm (Limited ROM with internal and external rotations.) Details: normal to inspection, tenderness Location: of the clavicle Laterality: medially and of the A-C joint and axillary nerve sensory function normal; no swelling, no ecchymosis, no crepitus and no unusual warmth Results Reviewed Results Reviewed: Right clavicle series. Right shoulder series 05/28/23 CLINICAL INFORMATION: Fall. COMPARISON: X-rays of the right shoulder July 2022 TECHNIQUE: 2 views of the right clavicle. 3 views of the right shoulder FINDINGS: Right shoulder: Chronic clavicular joint normal. Glenohumeral joint: There is a subchondral cyst well-circumscribed sclerotic margins of the inferior aspect of the glenoid. No joint space narrowing. Surrounding bone and soft tissues unremarkable. Right clavicle: The bone is normal. Sternoclavicular joint unremarkable No fracture or surrounding abnormality. IMPRESSION: 1. No acute abnormality. 2. osteoarthritis of the glenohumeral joint. 3. Normal right clavicle. Assessment & Plan Assessment & Plan (1) Frequent falls: Code(s): R29.6 - Repeated falls (2) Dizziness of unknown etiology: Code(s): R42 - Dizziness and giddiness (3) Chronic pain syndrome: Code(s): G89.4 - Chronic pain syndrome (4) Right shoulder pain: Code(s): M25.511 - Pain in right shoulder (5) Vertigo: Code(s): R42 - Dizziness and giddiness Plan 1. PT referral for Vestibular PT for dizziness and vertigo. Fall precautions reviewed with patient. 2. Right shoulder and clavicle xray results reviewed with patient. For ongoing right shoulder pain, will schedule Right Shoulder Intra-articular steroid injection with local and fluoroscopy. All questions and concerns have been answered and patient agreed with the plan. Follow up after injection and sooner if needed. Justification for interventional therapy: ? Patient with average pain > 6/10 ? Patient has exhausted conservative therapy, including physical therapy, NSAIDs The risks, consequences, alternatives, and benefits of various treatment options were discussed with the patient in great detail, including conservative management, injections and procedures. I have informed patient of hyperglycemic effects of steroids. Orders: Orders PT Evaluation and Treatment Today R29.6 - Repeated falls, R42 - Dizziness and giddiness, Z74.09 - Other reduced mobility Coding Level of Care Code Est Pt Level 4 (65533) Diagnoses Frequent falls R29.6 Dizziness of unknown etiology R42 Chronic pain syndrome G89.4 Right shoulder pain M25.511 Vertigo R42
== END 2023-07-04 14:17 | disposition home or self-care (01) ==
PROVIDERS: PCP Internal Medicine; Visit Provider Nurse Practitioner Family
DX: G89.4 Chronic pain syndrome (principal); R42 Dizziness and giddiness; M19.011 Primary osteoarthritis, right shoulder; M25.511 Pain in right shoulder; R29.6 Repeated falls
CPT/HCPCS: 99214

== ENCOUNTER → 2023-07-04 13:55 | Outpatient (BNVA) | payer OTHER, SELFPAY | PROVIDERS: PCP Internal Medicine; Visit Provider Nurse Practitioner Family | DX: R29.6 Repeated falls (principal); R42 Dizziness and giddiness; M25.511 Pain in right shoulder; G89.4 Chronic pain syndrome | CPT/HCPCS: 99212 ==

== ENCOUNTER 2023-08-20 06:13 | Outpatient (REF) | payer OTHER, SELFPAY ==
--- NOTE | ~2023-08-20 | FL_ITS ---
EXAMINATION: XR FLUOROSCOPY WITH IMAGES CLINICAL INFORMATION: Right shoulder pain injection. COMPARISON: Fluoroscopy dated 12/13/2022. TECHNIQUE: Fluoroscopy Supervised By: Dr. Bennie Reid. Fluoroscopy Time: 0.1 minutes. Cumulative Dose: 0.530 mGy. DAP: 0.106 Gycm2. Images: 2. FINDINGS: The 2 submitted images show an injection needle and injected contrast, situated in the vicinity of the right subacromial/subdeltoid bursa. FL/FL guidance in treatment room IMPRESSION: Intraoperative fluoroscopy is provided during right shoulder pain injection. Please see the patient's Operative Report for full procedural details.
== END 2023-08-20 06:14 | disposition home or self-care (01) ==
LOC: CF 06:13
PROVIDERS: Visit Provider Anesthesiology
DX: M19.011 Primary osteoarthritis, right shoulder (principal); R29.6 Repeated falls
CPT/HCPCS: 20610; J2795; J3301; Q9967

== ENCOUNTER 2023-08-20 10:01 | Outpatient (AMB) | payer OTHER, SELFPAY ==
[2023-08-20 10:13] VITALS: BP 140/72; PULSE 69; RESP 14; O2SAT 100; BMI 23.0
--- NOTE | 2023-08-20 10:13 | MHC.OFFVIS ---
Intake Vital Signs 08/20/23 10:13 08/20/23 10:37 Height 5 ft 5 in 5 ft 5 in Weight 138 lb 138 lb BMI 23.0 23.0 BP 140/72 H 118/70 Blood Pressure Location Lt brachial Lt brachial Position Sitting Sitting Respiration 14 14 Pulse 69 78 Pulse Source Pulse Oximeter Pulse Oximeter Pulse Oximetry (%) 100 98 Oxygen Delivery Method Room Air Comment Pre-Op Post-Op Intake Visit Reasons: RIGHT INTRA-ARTICULAR SHOULDER INJECTION Radio Television Technical Director Required: No Accompanied by: Self / Same As Patient Allergies Penicillins Allergy (Severe, Verified 08/20/23 10:37) hives [facility] Medical History (Updated 08/19/23 @ 15:03 by FATMATA Larkin) Vertigo Cataracts, bilateral Arthritis Anxiety Full dentures Ambulates with cane Diabetes mellitus type 2, diet-controlled Anemia JV (obstructive sleep apnea) Elevated cholesterol HTN (hypertension) GERD (gastroesophageal reflux disease) Spinal stenosis of lumbar region with neurogenic claudication Lumbar back pain with radiculopathy affecting lower extremity Surgical History Hx of colonoscopy History of total right hip replacement Hx of cholecystectomy Social History Are you a primary career development engineer to a significant other at home: No Do you presently have visiting nurse or other home services: Yes ([employer] M-F 4 hours/day) Patient Tobacco Use Status: Never used Tobacco Physical Exam Vital Signs: Last Vital Signs Pulse 78 08/20/23 10:37 Resp 14 08/20/23 10:37 BP 118/70 08/20/23 10:37 Pulse Ox 98 08/20/23 10:37 Oxygen Delivery Method Room Air 08/20/23 10:37 BMI result Body Mass Index 23.0 Assessment & Plan Assessment & Plan (1) Frequent falls: Code(s): R29.6 - Repeated falls (2) Dizziness of unknown etiology: Code(s): R42 - Dizziness and giddiness (3) Chronic pain syndrome: Code(s): G89.4 - Chronic pain syndrome (4) Right shoulder pain: Code(s): M25.511 - Pain in right shoulder Plan: Right shoulder injection therapeutic. ? ?Informed consent was explained to the patient. All questions were explained and? answered.? The patient was taken inside the operating room where she was positioned prone on the operating table. Time-out was performed delineating correct site, side, the nature of the procedure, patient's allergy, . All operating room staff was participating in OR time-out procedure. ? ? The back of the right shoulder was prepped with ChloraPrep and draped with self adhesive utility towels. C-arm was brought over the operating field and the picture of the silhouette of the right glenohumeral joint was demonstrated on the screen.? Projection of the glenohumeral joint silhouette the skin was injected with small amount of lidocaine. After that 22 gauge during 1/2 inch needle was inserted through the skin and advanced to the silhouette of the glenohumeral joint. When loss of resistance felt and the tip of the needle went into the joint injections of the contrast was performed demonstrating intra-articular spread of the contrast. After that 4 cc of ropivacaine mixed with Kenalog 40 mg was injected into the joint. The patient tolerated procedure well. The needle was removed Band-Aid was applied. (5) Vertigo: Code(s): R42 - Dizziness and giddiness Plan 1. PT referral for Vestibular PT for dizziness and vertigo. Fall precautions reviewed with patient. 2. Right shoulder and clavicle xray results reviewed with patient. For ongoing right shoulder pain, will schedule Right Shoulder Intra-articular steroid injection with local and fluoroscopy. All questions and concerns have been answered and patient agreed with the plan. Follow up after injection and sooner if needed. Justification for interventional therapy: ? Patient with average pain > 6/10 ? Patient has exhausted conservative therapy, including physical therapy, NSAIDs The risks, consequences, alternatives, and benefits of various treatment options were discussed with the patient in great detail, including conservative management, injections and procedures. I have informed patient of hyperglycemic effects of steroids. Orders: Orders FL guidance in treatment room Today M19.011 - Primary osteoarthritis, right shoulder, M25.511 - Pain in right shoulder Coding Level of Care Code Procedure Only Diagnoses Frequent falls R29.6 Dizziness of unknown etiology R42 Chronic pain syndrome G89.4 Right shoulder pain M25.511 Vertigo R42
[2023-08-20 10:37] VITALS: BP 118/70; PULSE 78; RESP 14; O2SAT 98; BMI 23.0
== END 2023-08-20 10:36 | disposition home or self-care (01) ==
LOC: HO.PMCPRC 10:01
PROVIDERS: PCP Internal Medicine; Visit Provider Anesthesiology
DX: R29.6 Repeated falls (principal); R42 Dizziness and giddiness; G89.4 Chronic pain syndrome; M25.511 Pain in right shoulder
CPT/HCPCS: 20610; 77002

== ENCOUNTER 2023-08-21 07:53 | Outpatient (RCR) | payer OTHER, SELFPAY ==
[2023-08-21 07:57] VITALS: BP 123/76; PULSE 57
--- NOTE | 2023-08-21 09:21 | MHC.PT.EP ---
[facility] [place] Office [place] Office [place] Office [address] Silvana Cartwright [address] [phone] F: [phone] F: [phone] F: [phone] F: [phone] Physical Therapy Plan of Care Date of Evaluation: 08/21/23 Date of Surgery: NA Diagnosis: Dizziness and giddiness Repeated falls Assessment: Lesly is a 68 year old female who is referred to PT for dizziness and giddiness, repeated falls, unspecified disorder of vestibular function . She reports of having symptoms of dizziness for about a year. She reports of having symptoms of spontaneous dizziness which could vary from room spinning to light headedness, occasional nausea, and VEE. In addition she reports of feeling unsteady and having falls in the evening. Per pt she is unsure if it is because of dizziness, B LE neuropathy or vision. She also reports of rolling of her bed and having falls overnight. On PT examination she presented with intact saccades, smooth pursuit, visual tracking, negative head thrust, negative VBI, negative for BPPV in B [place] and B roll and good static and dynamic balance. She does not present with symptoms suggestive of vestibular hypofunction. She lives alone and goes to adult day program everyday from 7 to 2.30pm. She has DIRECTOR OF PLAYER PERSONNEL to assist her with ADLS before and after. She would benefit from skilled PT to address B LE strength and balance so as to improve tolerance to functional activities. Frequency and Duration: The patient will be seen 1/week for 5 weeks Short Term Goals: 1. Pt will demonstrate initiation of HEP in 2 weeks. Industrial Seamstress Goals: 1. Pt will demonstrate an increase in muscle strength by 1 grade which prevent falls from B LE weakness at the end of the fay in 5 weeks. 2. Pt will be independent with all HEP for symptom management and maintenance following d/c in 5 weeks. Treatment Plan: Modalities to reduce pain, spasms and effusion. Manual therapy to restore motion and function. Therapeutic exercise to improve strength and flexibility. Neuromuscular re-education for posture and balance. Therapeutic activities to return to functional activities of daily living. Electronically signed by: Aminata Stewart PT DPT Please sign and return to therapist. Thank you for your referral.
--- NOTE | 2023-11-15 09:28 | MHC.PT.DC ---
[facility] [place] [facility] [place] [facility] [place] Office [address] Silvana Cartwright [address] [phone] F: [phone] F: [phone] F: [phone] F: [phone] Physical Therapy Discharge Report Diagnosis: Dizziness and giddiness Repeated falls Date of Surgery: NA Date of Evaluation: 08/21/23 Date of Discharge: 11/15/23 Treatments to Date: 1 Cancellations to Date: 2 No Shows to Date: 2 Discharge Status: Patient Elected to Stop Discharge Summary: The patient did not attend any scheduled visits after her initial evaluation. The patient has not been seen in 08/21/23. Please refer to plan of care for more information regarding findings and proposed PT plan. Electronically signed by: Josefa Meier PT, DPT Please sign and return to therapist. Thank you for your referral.
== END 2023-11-04 15:17 | disposition home or self-care (01) ==
LOC: HO.PT 07:53
PROVIDERS: PCP Internal Medicine; Visit Provider Nurse Practitioner Family
DX: R29.6 Repeated falls (principal); H81.90 Unspecified disorder of vestibular function, unspecified ear; Z74.09 Other reduced mobility
CPT/HCPCS: 97112; 97162

== ENCOUNTER 2023-09-26 09:04 | Outpatient (AMB) | payer OTHER, SELFPAY ==
[2023-09-26 09:08] VITALS: BP 117/68; PULSE 65; O2SAT 98; BMI 23.0
--- NOTE | 2023-09-26 09:08 | A.OFFVIS_ITS ---
Intake Vital Signs 09/26/23 09:08 Height 5 ft 5 in Weight 138 lb 6 oz BMI 23.0 BP 117/68 Blood Pressure Location Lt brachial Position Sitting Pulse 65 Pulse Source Pulse Oximeter Pulse Oximetry (%) 98 Oxygen Delivery Method Room Air Intake Visit Reasons: RIGHT INTRA-ARTICULAR SHOULDER INJECTION Allergies Penicillins Allergy (Severe, Verified 09/26/23 09:08) hives HPI HPI Comments History of Present Illness Details Patient presents today to assess response to right intra-articular shoulder steroid injection on 08/20/[address] Reid. Patient reports ongoing 70% pain relief and increased range of motion since proc edure. She denies any pain with overhead reaches or regular daily activities but report residual right shoulder pain with backside pocket reaches. Patient reports 7/10 lower back pain due to fall last week while she was taking shower and thinks she was too sleepy. She states she fell backwards and hit her lower back and buttock. Denies loss of consciousness. Patient reports she notified her PCP regarding this, denies any recent xrays. Reports significant muscle spasms in her mid and lower back. Tylenol and lidocaine patches have been partially beneficial for her. She is also awaiting repeat Sleep Study as she finds herself frequently napping during daytime or dozing off during conversations with her friends or family. Patient also is restarting Vestibular PT for chronic dizziness. Denies any recent cough, cold, infection, fever, or any other significant changes in her medical history, medications or recent hospitalizations. Patient also reports her 92 years old mom recently and she had good family and friends gathering for her mom's . Patient reports she is one of 8 siblings. Past Procedures at [facility] [place]: 08/20/23: Right intra-articular shoulder steroid injection-70% ongoing pain relief 12/13/22: Left L5-S1 TFESI-100% pain rel ief for 6 weeks Past Procedures at [facility]: 07/26/20 Right L3-L4 and L5-S1 TFESI 01/13/20 Right L3-L4 CARON PRIOR: Patient is a pleasant 66 years old female who presents to the office for initial encounter with a long standing history of low back pain. Patient has been referred to us by [facility] for low back pain with significant stenosis and nerve compression per lumbar MRI. Patient reports her lower back pain is mostly axial but reports pain radiates laterally down both legs (L>R). She admits diffuse pain all over her body, from head to toes with aches, numbness and tingling anteriorly and laterally of both legs. Patient also reports Tu horses in her lower extremities, pain causes her headaches and fatigue. Patient denies bladder/bowel dysfunction or saddle anesthesia. She reports intermittent weakness in her legs and uses cane for ambulation. She states her pain is persistent, worse with prolong sitting, standing or walking and less severe at night time when she lies down on her side and keep pillow between her legs. She states the pain is interfering with her sleep, activities of daily living and she cannot function normally.?She is on permanent disability and has [employer] who helps her 3 times per week. The patient reports the pain in terms of tissue damage tugging, pulling, wrenching, tingling, stinging, tight, squeezing, and tearing. She has been taking Gabapentin and meloxican for many years and notes that it has stopped working for her. She rates her current pain 8/10.? Previously she has tried physical therapy through [facility] office, the last being 1 week ago. Patient feels her symptoms were partially improving with PT and she would like to continue that.? Denies any chiropractic manipulation, massage or acupuncture. Denies any previous back surgery but reports has received back injections in the past and she might reconsider these injections through this office in the future. Patient reports she recently got new mattress for her back pain and she requesting prescription for gel pads for her mattress. Patient?s past medical history is significant for HTN, fibromyalgia, degenerative disc disease, lumbar disc degeneration, high cholesterol, and arthritis.? [facility] Medical History (Updated 09/26/23 @ 09:17 by FATMATA Larkin) Vertigo Cataracts, bilateral Arthritis Anxiety Full dentures Ambulates with cane Diabetes mellitus type 2, diet-controlled Anemia JV (obstructive sleep apnea) Elevated cholesterol HTN (hypertension) GERD (gastroesophageal reflux disease) Spinal stenosis of lumbar region with neurogenic claudication Lumbar back pain with radiculopathy affecting lower extremity Surgical History Hx of colonoscopy History of total right hip replacement Hx of cholecystectomy Social History Are you a primary animal care supervisor to a significant other at home: No Do you presently have visiting nurse or other home services: Yes ([employer] M-F 4 hours/day) Patient Tobacco Use Status: Never used Tobacco Review of Systems Const All systems reviewed & are unremarkable except as noted in HPI and below Physical Exam Vital Signs: Last Vital Signs Pulse 65 09/26/23 09:08 BP 117/68 09/26/23 09:08 Pulse Ox 98 09/26/23 09:08 Oxygen Delivery Method Room Air 09/26/23 09:08 BMI result Body Mass Index 23.0 General: Appears afebrile. No acute distress. Alert and oriented. Mood and affect appropriate. Follows and participates in conversation appropriately. Respiratory effort is unlabored. No cough. She is able to stand on heels or toes with assistance. Antalgic gait with mild limping. Uses cane with ambulation. HEENT Head: Yes normal to inspection, Yes No palpable skull fracture present, Yes normocephalic, Yes atraumatic, No occipital foramen tenderness, No palpable skull fracture and No periorbital ecchymosis Eyes General: appearance normal, both eyes and all related structures Neck Neck: Yes no lymphadenopathy, Yes supple, No anterior neck swelling, Yes no JVD and No prominent dorsocervical fat pad Back/Spine/Pelvis Other: Lumbar flexion and extension reproduces lower back pain. Facet loading test positive bilaterally. 2+ pedal pulses bilaterally. Cervical Spine: cervical muscular tenderness and No Cervical spine tenderness Thoracic/Lumbar Spine: thoracic and lumbar spine normal to inspection, No Thoracic/lumbar spine scar(s), Lasegue's sign negative, straight leg raise negative bilaterally, pain with thoraco-lumbar ROM, paraspinal muscle tenderness, Thoracic/lumbar scoliosis, thoraco-lumbar spasm, No thoracic spinal tenderness and lumbar spinal tenderness at L4 and at L5 Pelvis: buttock tenderness Sacroiliac joints: bilaterally tender to palpation Sacrum: tenderness Extrem General: Yes capillary refill normal, Yes no clubbing, cyanosis or edema and Yes no calf tenderness Right upper extremity: shoulder/upper arm (Mild pain with backside pocket reaches.) Details: normal to inspection, tenderness Location: of the clavicle Laterality: medially and of the A-C joint and crepitus; no swelling Results Reviewed Results Reviewed: Right clavicle series. Right shoulder series 05/28/23 CLINICAL INFORMATION: Fall. COMPARISON: X-rays of the right shoulder July 2022 TECHNIQUE: 2 views of the right clavicle. 3 views of the right shoulder FINDINGS: Right shoulder: Chronic clavicular joint normal. Glenohumeral joint: There is a subchondral cyst well-circumscribed sclerotic margins of the inferior aspect of the glenoid. No joint space narrowing. Surrounding bone and soft tissues unremarkable. Right clavicle: The bone is normal. Sternoclavicular joint unremarkable No fracture or surrounding abnormality. IMPRESSION: 1. No acute abnormality. 2. osteoarthritis of the glenohumeral joint. 3. Normal right clavicle. Assessment & Plan Assessment & Plan (1) Lumbar back pain with radiculopathy affecting lower extremity: Code(s): M54.16 - Radiculopathy, lumbar region (2) Lumbar spondylosis: Code(s): M47.816 - Spondylosis without myelopathy or radiculopathy, lumbar region (3) History of recent fall: Code(s): Z91.81 - History of falling (4) Coccyx pain: Code(s): M53.3 - Sacrococcygeal disorders, not elsewhere classified (5) Osteoarthritis of right glenohumeral joint: Code(s): M19.011 - Primary osteoarthritis, right shoulder (6) Right shoulder pain: Code(s): M25.511 - Pain in right shoulder Plan Patient is one month status post right therapeutic shoulder injection with fluoroscopy with ongoing 70% pain relief, with improved functioning and ROM. She will continue to monitor her shoulder symptoms and notify our office when her pain returns to baseline. Lumbar spine and coccyx imaging to assess degree of degenerative changes, any subluxation, listhesis, compression fractures or pars defects due to recent recurrent fall 1 week ago in the shower. Continue rest, ice/heat applications, Tylenol and lidocaine patches. Patient is aware to notify our office or seek medical evaluation at ER or Urgent clinic for worsening of symptoms. All questions were answered and patient agreed with the plan. Follow up for xray results and sooner as needed. Orders: Orders XR lumbar spine 4V min Today M47.816 - Spondylosis without myelopathy or radiculopathy, lumbar region, M54.16 - Radiculopathy, lumbar region, Z91.81 - History of falling XR sacrum coccyx min 2V Today M47.816 - Spondylosis without myelopathy or radiculopathy, lumbar region, M53.3 - Sacrococcygeal disorders, not elsewhere classified, Z91.81 - History of falling Medications: Discontinued cyclobenzaprine Discontinued Reason: Patient Completed Course 5 mg PO TID PRN 10 tabs 0RF muscle spasm Coding Level of Care Code Est Pt Level 4 (36249) Diagnoses Lumbar back pain with radiculopathy affecting lower extremity M54.16 Lumbar spondylosis M47.816 History of recent fall Z91.81 Coccyx pain M53.3 Osteoarthritis of right glenohumeral joint M19.011 Right shoulder pain M25.511
== END 2023-09-26 09:19 | disposition home or self-care (01) ==
PROVIDERS: PCP Internal Medicine; Visit Provider Nurse Practitioner Family
DX: M54.16 Radiculopathy, lumbar region (principal); M47.816 Spondylosis without myelopathy or radiculopathy, lumbar region; Z91.81 History of falling; M53.3 Sacrococcygeal disorders, not elsewhere classified; M19.011 Primary osteoarthritis, right shoulder; M25.511 Pain in right shoulder
CPT/HCPCS: 99214

== ENCOUNTER 2023-09-26 09:04 | Outpatient (REF) | payer OTHER, SELFPAY ==
--- NOTE | ~2023-09-26 | XR_ITS ---
EXAMINATION: XR LUMBAR SPINE XR SACRUM/COCCYX CLINICAL INFORMATION: History of falling. TECHNIQUE: 6 views of the lumbar spine. 3 views of the sacrum. COMPARISON: MR lumbar spine 08/22/2021. Radiographs thoracic spine 08/12/2020. FINDINGS: SACRUM/COCCYX: Right total hip prosthesis partially imaged. Moderate degenerative changes with joint space narrowing and hypertrophic change left hip. The bones are diffusely demineralized. Small pelvic calcifications are likely vascular. Advanced degenerative changes with sclerosis and hypertrophic change in the bilateral sacroiliac joints. Limited visualization of the sacrum in particular due to overlying bowel. There is a 4-5 mm gap between the distal tip of the coccyx and the remainder of the sacrum/coccyx of indeterminate age and significance. Multiple small ossific/calcific calcifications, many of them rounded, some corticated, are seen in the soft tissues just posterior to the tip of the coccyx on the lateral view, possibly located more laterally on AP views although difficult to characterize. LUMBAR SPINE: Levoscoliosis of the spine. Redemonstration of partially imaged gastric band and tubing. Surgical clips in the right upper quadrant. Advanced facet arthritis in the [id number] lumbar spine. Advanced multilevel spondylosis with marked loss of disc space height at L3-L4. L4-L5 disc space is difficult to evaluate due to overlying bowel and bony demineralization, but there appears to be moderate loss of disc space height at L4-L5. Grade 1 anterolisthesis of L5 on S1 with moderate loss of disc space height. XR/XR lumbar spine 4V min IMPRESSION: 1. Advanced degenerative changes in the bilateral sacroiliac joints. 2. Limited visualization of the sacrum in particular due to overlying bowel. There is a 4-5 mm gap between the distal tip of the coccyx and the remainder of the sacrum/coccyx of indeterminate age and significance. Multiple small ossific/calcific calcifications, some corticated, are seen in the soft tissues just posterior to the tip of the coccyx on the lateral view, possibly located more laterally on AP views although difficult to localize with confidence. 3. Advanced multilevel spondylosis in the lumbar spine. 4. Correlation with clinical exam recommended to determine further management including possible additional imaging.
--- NOTE | ~2023-09-26 | XR_ITS ---
EXAMINATION: XR LUMBAR SPINE XR SACRUM/COCCYX CLINICAL INFORMATION: History of falling. TECHNIQUE: 6 views of the lumbar spine. 3 views of the sacrum. COMPARISON: MR lumbar spine 08/22/2021. Radiographs thoracic spine 08/12/2020. FINDINGS: SACRUM/COCCYX: Right total hip prosthesis partially imaged. Moderate degenerative changes with joint space narrowing and hypertrophic change left hip. The bones are diffusely demineralized. Small pelvic calcifications are likely vascular. Advanced degenerative changes with sclerosis and hypertrophic change in the bilateral sacroiliac joints. Limited visualization of the sacrum in particular due to overlying bowel. There is a 4-5 mm gap between the distal tip of the coccyx and the remainder of the sacrum/coccyx of indeterminate age and significance. Multiple small ossific/calcific calcifications, many of them rounded, some corticated, are seen in the soft tissues just posterior to the tip of the coccyx on the lateral view, possibly located more laterally on AP views although difficult to characterize. LUMBAR SPINE: Levoscoliosis of the spine. Redemonstration of partially imaged gastric band and tubing. Surgical clips in the right upper quadrant. Advanced facet arthritis in the [id number] lumbar spine. Advanced multilevel spondylosis with marked loss of disc space height at L3-L4. L4-L5 disc space is difficult to evaluate due to overlying bowel and bony demineralization, but there appears to be moderate loss of disc space height at L4-L5. Grade 1 anterolisthesis of L5 on S1 with moderate loss of disc space height. XR/XR sacrum coccyx min 2V IMPRESSION: 1. Advanced degenerative changes in the bilateral sacroiliac joints. 2. Limited visualization of the sacrum in particular due to overlying bowel. There is a 4-5 mm gap between the distal tip of the coccyx and the remainder of the sacrum/coccyx of indeterminate age and significance. Multiple small ossific/calcific calcifications, some corticated, are seen in the soft tissues just posterior to the tip of the coccyx on the lateral view, possibly located more laterally on AP views although difficult to localize with confidence. 3. Advanced multilevel spondylosis in the lumbar spine. 4. Correlation with clinical exam recommended to determine further management including possible additional imaging.
== END 2023-09-26 09:05 | disposition home or self-care (01) ==
LOC: HO.XRAY 09:04
PROVIDERS: PCP Internal Medicine; Visit Provider Nurse Practitioner Family
DX: M54.16 Radiculopathy, lumbar region (principal); M53.3 Sacrococcygeal disorders, not elsewhere classified; M47.816 Spondylosis without myelopathy or radiculopathy, lumbar region; Z91.81 History of falling
CPT/HCPCS: 72110; 72220; 99212

== ENCOUNTER 2023-10-28 10:09 | Outpatient (AMB) | payer OTHER, SELFPAY ==
--- NOTE | 2023-10-28 10:42 | MHC.OFFVIS ---
Vital Signs 10/28/23 10:43 Height 5 ft 5 in Weight 137 lb BMI 22.8 BP 107/58 L Blood Pressure Location Lt brachial Position Sitting Pulse 62 Pulse Source Pulse Oximeter Pulse Oximetry (%) 98 Oxygen Delivery Method Room Air Intake Visit Reasons: Discuss X-Ray Results Intake Note: Pain today 12/24 Engineering Secretary Required: No Accompanied by: Self / Same As Patient Allergies Penicillins Allergy (Severe, Verified 10/28/23 10:44) hives HPI Comments Details: Patient presents to discuss recent lumbar spine and coccyx x-ray results. Patient continues to endorse significant lower back pain is most movements, ADLs, mobility, bending or extending backwards. Patient denies any tailbone pain today and tolerates prolonged sitting during today's exam. X-rays findings were discussed this patient today in are noted below. We will proceed with diagnostic lumbar medial branch blocks as next steps in bone density test to follow-up on recent x-ray results. Patient denies bladder or bowel dysfunction or saddle anesthesia. She reports episodes of dizziness and vertigo and states meclizine has been helpful. Patient reports she continues to take magnesium for muscle spasms with good relief. She reports avoiding taking magnesium with her regular BP medications to avoid hypotension. Denies any recent cough, cold, infection, fever, any significant changes in her medical history, medications or recent hospitalizations. PRIOR: Patient presents today to assess response to right intra-articular shoulder steroid injection on 08/20/[address] Reid. Patient reports ongoing 70% pain relief and increased range of motion since procedure. She denies any pain with overhead reaches or regular daily activities but report residual right shoulder pain with backside pocket reaches. Patient reports 7/10 lower back pain due to fall last week while she was taking shower and thinks she was too sleepy. She states she fell backwards and hit her lower back and buttock. Denies loss of consciousness. Patient reports she notified her PCP regarding this, denies any recent xrays. Reports significant muscle spasms in her mid and lower back. Tylenol and lidocaine patches have been partially beneficial for her. She is also awaiting repeat Sleep Study as she finds herself frequently napping during daytime or dozing off during conversations with her friends or family. Patient also is restarting Vestibular PT for chronic dizziness. Denies any recent cough, cold, infection, fever, or any other significant changes in her medical history, medications or recent hospitalizations. Patient also reports her 92 years old mom recently and she had good family and friends gathering for her mom's . Patient reports she is one of 8 siblings. Past Procedures at [facility]: 08/20/23: Right intra-articular shoulder steroid injection-70% ongoing pain relief 12/13/22: Left L5-S1 TFESI-100% pain relief for 6 weeks Past Procedures at [facility]: 07/26/20 Right L3-L4 and L5-S1 TFESI 01/13/20 Right L3-L4 CARON PRIOR: Patient is a pleasant 66 years old female who presents to the office for initial encounter with a long standing history of low back pain. Patient has been referred to us by [facility] for low back pain with significant stenosis and nerve compression per lumbar MRI. Patient reports her lower back pain is mostly axial but reports pain radiates laterally down both legs (L>R). She admits diffuse pain all over her body, from head to toes with aches, numbness and tingling anteriorly and laterally of both legs. Patient also reports Tu horses in her lower extremities, pain causes her headaches and fatigue. Patient denies bladder/bowel dysfunction or saddle anesthesia. She reports intermittent weakness in her legs and uses cane for ambulation. She states her pain is persistent, worse with prolong sitting, standing or walking and less severe at night time when she lies down on her side and keep pillow between her legs. She states the pain is interfering with her sleep, activities of daily living and she cannot function normally.?She is on permanent disability and has [employer] who helps her 3 times per week. The patient reports the pain in terms of tissue damage tugging, pulling, wrenching, tingling, stinging, tight, squeezing, and tearing. She has been taking Gabapentin and meloxican for many years and notes that it has stopped working for her. She rates her current pain 01/24.? Previously she has tried physical therapy through [facility] office, the last being 1 week ago. Patient feels her symptoms were partially improving with PT and she would like to continue that.? Denies any chiropractic manipulation, massage or acupuncture. Denies any previous back surgery but reports has received back injections in the past and she might reconsider these injections through this office in the future. Patient reports she recently got new mattress for her back pain and she requesting prescription for gel pads for her mattress. Patient?s past medical history is significant for HTN, fibromyalgia, degenerative disc disease, lumbar disc degeneration, high cholesterol, and arthritis.? [facility] Medical History Vertigo Cataracts, bilateral Arthritis Anxiety Full dentures Ambulates with cane Diabetes mellitus type 2, diet-controlled Anemia JV (obstructive sleep apnea) Elevated cholesterol HTN (hypertension) GERD (gastroesophageal reflux disease) Spinal stenosis of lumbar region with neurogenic claudication Lumbar back pain with radiculopathy affecting lower extremity Surgical History Hx of colonoscopy History of total right hip replacement Hx of cholecystectomy Social History Are you a primary family day care worker to a significant other at home: No Do you presently have visiting nurse or other home services: Yes ([employer] M-F 4 hours/day) Patient Tobacco Use Status: Never used Tobacco Review of Systems Const All systems reviewed & are unremarkable except as noted in HPI and below Physical Exam General: Appears afebrile. No acute distress. Alert and oriented. Mood and affect appropriate. Follows and participates in conversation appropriately. Respiratory effort is unlabored. No cough. She is able to stand on heels or toes with assistance. Antalgic gait with mild limping. Uses cane with ambulation. HEENT Head: Yes normal to inspection, Yes No palpable skull fracture present, Yes normocephalic, Yes atraumatic, No occipital foramen tenderness, No palpable skull fracture and No periorbital ecchymosis Eyes General: appearance normal, both eyes and all related structures Neck Neck: Yes no lymphadenopathy, Yes supple, No anterior neck swelling, Yes no JVD and No prominent dorsocervical fat pad General: Yes no CVA tenderness Back/Spine/Pelvis Other: Lumbar flexion and extension reproduces moderate lower back pain, worse with extension and lateral rotations. Facet loading test positive bilaterally. 2+ pedal pulses bilaterally. Back: no CVA tenderness Cervical Spine: cervical muscular tenderness, pain with cervical ROM and No Cervical spine tenderness Thoracic/Lumbar Spine: thoracic and lumbar spine normal to inspection, No Thoracic/lumbar spine scar(s), Lasegue's sign negative, straight leg raise negative bilaterally, pain with thoraco-lumbar ROM, paraspinal muscle tenderness, Thoracic/lumbar scoliosis, thoraco-lumbar spasm, No thoracic spinal tenderness and lumbar spinal tenderness (L3-S1) Pelvis: no buttock tenderness Sacroiliac joints: bilaterally (+Fransico's, +Stinchfield, + Pelvic compression) tender to palpation Extrem General: Yes capillary refill normal, Yes no clubbing, cyanosis or edema and Yes no calf tenderness Results Reviewed Results Reviewed: XR LUMBAR SPINE XR SACRUM/COCCYX 09/26/23 CLINICAL INFORMATION: History of falling. TECHNIQUE: 6 views of the lumbar spine. 3 views of the sacrum. COMPARISON: MR lumbar spine 08/22/2021. Radiographs thoracic spine 08/12/2020. FINDINGS: SACRUM/COCCYX: Right total hip prosthesis partially imaged. Moderate degenerative changes with joint space narrowing and hypertrophic change left hip. The bones are diffusely demineralized. Small pelvic calcifications are likely vascular. Advanced degenerative changes with sclerosis and hypertrophic change in the bilateral sacroiliac joints. Limited visualization of the sacrum in particular due to overlying bowel. There is a 4-5 mm gap between the distal tip of the coccyx and the remainder of the sacrum/coccyx of indeterminate age and significance. Multiple small ossific/calcific calcifications, many of them rounded, some corticated, are seen in the soft tissues just posterior to the tip of the coccyx on the lateral view, possibly located more laterally on AP views although difficult to characterize. LUMBAR SPINE: Levoscoliosis of the spine. Redemonstration of partially imaged gastric band and tubing. Surgical clips in the right upper quadrant. Advanced facet arthritis in the [id number] lumbar spine. Advanced multilevel spondylosis with marked loss of disc space height at L3-L4. L4-L5 disc space is difficult to evaluate due to overlying bowel and bony demineralization, but there appears to be moderate loss of disc space height at L4-L5. Grade 1 anterolisthesis of L5 on S1 with moderate loss of disc space height. IMPRESSION: 1. Advanced degenerative changes in the bilateral sacroiliac joints. 2. Limited visualization of the sacrum in particular due to overlying bowel. There is a 4-5 mm gap between the distal tip of the coccyx and the remainder of the sacrum/coccyx of indeterminate age and significance. Multiple small ossific/calcific calcifications, some corticated, are seen in the soft tissues just posterior to the tip of the coccyx on the lateral view, possibly located more laterally on AP views although difficult to localize with confidence. 3. Advanced multilevel spondylosis in the lumbar spine. 4. Correlation with clinical exam recommended to determine further management including possible additional imaging. Assessment & Plan Assessment & Plan (1) Lumbar spondylosis: Code(s): M47.816 - Spondylosis without myelopathy or radiculopathy, lumbar region Category: Medical (2) Decreased bone density: Code(s): M85.80 - Other specified disorders of bone density and structure, unspecified site Category: Medical (3) Sacroiliac joint pain: Code(s): M53.3 - Sacrococcygeal disorders, not elsewhere classified Category: Medical (4) Chronic pain syndrome: Code(s): G89.4 - Chronic pain syndrome Category: Medical Plan Lumbar spine and coccyx xray results reviewed with patient. For ongoing axial low back pain, will schedule Diagnostic Bilateral L3-L4 L5 MBB with local and fluoroscopy. Discussed peripheral nerve stimulation and radiofrequency ablation if positive response to injections. We will also send patient for a bone scan to assess for osteoporosis given decrease in density on recent x-ray results. Patient reports she regularly takes Calcium and Vitamin D. All questions and concerns have been answered and patient agreed with the plan. Follow up after injection and sooner if needed. Justification for interventional therapy: ? Patient with average pain > 6/10 ? Patient has exhausted conservative therapy, including physical therapy, NSAIDs The risks, consequences, alternatives, and benefits of various treatment options were discussed with the patient in great detail, including conservative management, injections and procedures. Orders: Orders XR DEXA axial skeleton Today M47.816 - Spondylosis without myelopathy or radiculopathy, lumbar region, M53.3 - Sacrococcygeal disorders, not elsewhere classified, M85.80 - Other specified disorders of bone density and structure, unspecified site, Z78.0 - Asymptomatic menopausal state Medications: Refilled lidocaine 5% 1 patch topical DAILY 30 patches 3RF for pain G89.4 - Chronic pain syndrome, M47.816 - Spondylosis without myelopathy or radiculopathy, lumbar region Coding Level of Care Code Est Pt Level 4 (09612) Diagnoses Lumbar spondylosis M47.816 Decreased bone density M85.80 Sacroiliac joint pain M53.3 Chronic pain syndrome G89.4
[2023-10-28 10:43] VITALS: BP 107/58; PULSE 62; O2SAT 98; BMI 22.8
== END 2023-10-28 10:58 | disposition home or self-care (01) ==
PROVIDERS: PCP Internal Medicine; Visit Provider Nurse Practitioner Family
DX: M47.816 Spondylosis without myelopathy or radiculopathy, lumbar region (principal); M85.80 Other specified disorders of bone density and structure, unspecified site; M53.3 Sacrococcygeal disorders, not elsewhere classified; G89.4 Chronic pain syndrome
CPT/HCPCS: 99214

== ENCOUNTER → 2023-10-28 10:09 | Outpatient (BNVA) | payer OTHER, SELFPAY | PROVIDERS: PCP Internal Medicine; Visit Provider Nurse Practitioner Family | DX: M85.80 Other specified disorders of bone density and structure, unspecified site (principal); M47.816 Spondylosis without myelopathy or radiculopathy, lumbar region; M53.3 Sacrococcygeal disorders, not elsewhere classified; G89.4 Chronic pain syndrome | CPT/HCPCS: 99212 ==

== ENCOUNTER 2023-10-31 08:28 | Outpatient (AMB) | payer OTHER, SELFPAY ==
[2023-10-31 08:30] VITALS: BP 90/62; PULSE 62; BMI 22.2
--- NOTE | 2023-10-31 08:30 | MHC.OFFVIS ---
Vital Signs 10/31/23 08:30 Height 5 ft 5 in Weight 133 lb 9.602 oz BMI 22.2 BP 90/62 Blood Pressure Location Lt brachial Position Sitting Pulse 62 Pulse Source Pulse Oximeter Intake Visit Reasons: 6 mth fu (rs) Canvas Goods Maker Required: No Allergies Penicillins Allergy (Severe, Verified 10/31/23 08:32) hives Medication List - Last Reconciled 10/31/23 by CURTIS Rai acetaminophen 650 mg (2 x 325 mg) PO Q6H PRN atorvastatin 10 mg PO DAILY calcium carbonate (Jeremy-Gest Antacid) 200 mg PO TID cholecalciferol (vitamin D3) 50 mcg PO DAILY ferrous sulfate 325 mg PO DAILY food supplemt, lactose-reduced (Ensure Original oral liquid) 2 ea PO BID 30 days furosemide 20 mg PO DAILY gabapentin 300 mg PO BID 30 days Gel mattress overlay As directed hydroxyzine HCl 25 mg PO DAILY lidocaine 5% 1 patch topical DAILY lisinopril 5 mg PO DAILY magnesium oxide 400 mg PO BID meclizine 12.5 mg PO TID meloxicam 15 mg PO DAILY omeprazole 40 mg PO DAILY ondansetron HCl 4 mg PO Q8H PRN potassium chloride ER 20 mEq PO DAILY sennosides-docusate sodium 8.6-50 mg (Senexon-S) 1 tab PO BID sertraline 50 mg PO DAILY sertraline 100 mg PO DAILY sumatriptan succinate 50 mg PO DAILY PRN topiramate 50 mg PO BID trazodone 100 mg PO BEDTIME HPI HPI 6 mth fu (rs): Details: Lesly is a 68 yr old female with past medical history of hypertension, prediabetes, vertigo who has been evaluated for bradycardia and now presents for follow-up. Following last visit her verapamil dose was to be reduced. Today she reports that she has ongoing issues with lightheadedness and that she takes meclizine up to 3 times daily which does help. She has some unsteadiness with ambulation and uses a cane. No presyncope, syncope or recent falls. No chest discomfort at rest or with activity. No shortness of breath, palpitations, PND, orthopnea or edema. She takes her meds as directed. Verapamil is still on her list at her usual dose. [facility] Medical History Vertigo Cataracts, bilateral Arthritis Anxiety Full dentures Ambulates with cane Diabetes mellitus type 2, diet-controlled Anemia JV (obstructive sleep apnea) Elevated cholesterol HTN (hypertension) GERD (gastroesophageal reflux disease) Spinal stenosis of lumbar region with neurogenic claudication Lumbar back pain with radiculopathy affecting lower extremity Surgical History Hx of colonoscopy History of total right hip replacement Hx of cholecystectomy Social History Are you a primary progressive care unit registered nurse to a significant other at home: No Do you presently have visiting nurse or other home services: Yes ([employer] MANAGER M-F 4 hours/day) Patient Tobacco Use Status: Never used Tobacco Review of Systems Const All systems reviewed & are unremarkable except as noted in HPI and below ENT Reports vertigo and Reports dizziness Card Denies chest pain, Denies chest pain at rest, Denies chest pain with activity, Denies rapid heart rate, Denies pedal edema, Denies edema, Denies leg edema, Denies lightheadedness, Denies palpitations, Denies dyspnea, Denies dyspnea on exertion and Denies orthopnea Resp Denies cough, Denies dyspnea and Denies dyspnea on exertion GI Denies hematochezia and Denies change in stool character Musc Details: left knee pain Denies abnormal gait, Reports limited range of motion, Denies muscle cramps, Denies muscle weakness, Denies numbness, Denies radiating pain into limb, Denies stiffness and Denies tingling Neuro Denies abnormal gait, Reports vertigo, Reports dizziness, Denies numbness and Denies tingling Endo Denies palpitations Physical Exam Vital Signs: Last Vital Signs Pulse 62 10/31/23 08:30 BP 90/62 10/31/23 08:30 BMI result Body Mass Index 22.2 Const General: cooperative, healthy appearing, comfortable and no acute distress Orientation/consciousness: patient oriented x3 Neck Neck: Yes normal visual inspection and Yes no JVD Resp Effort & Inspection: normal respiratory effort Auscultation: clear to auscultation bilaterally, no crackles, no rales, no rhonchi and no wheezes Cardio Jugular venous distension: no JVD Rate: regular rate Rhythm: regular rhythm Heart sounds: S1 normal heart sound present, S2 normal heart sound present, no murmurs and no rubs Neuro General: patient oriented x3 Extrem General: Yes normal to inspection, No no pedal edema and No calf tenderness Psych Appearance: grossly normal Mental Status: mental status grossly normal Speech and movement: Normal speech and movement present Assessment & Plan Assessment & Plan (1) Bradycardia: Code(s): R00.1 - Bradycardia, unspecified Category: Medical Plan: History of bradycardia. She has been on verapamil for blood pressure control. An echocardiogram was done on 03/29/2023 showing EF 60-65%, mild LVH, moderate basal asymmetric hypertrophy. Holter monitor done 03/29/2023 for 3 days showed sinus rhythm with average heart rate 72, no significant bradycardia or pauses. On prior visit her blood pressure was low and she was instructed to stop verapamil and lisinopril which she did not do. Then on last visit she was instructed to reduce her verapamil by half. Today it seems that she has continued on her usual medications including verapamil 120 mg daily. She is unsure why the med changes were never made. Resting pulse currently in the 60s. She does have issues with lightheadedness which seems consistent with vertigo. She does take meclizine with improvement. Her blood pressure is low today however not orthostatic on exam. Her low blood pressures may be contributing to some of her lightheadedness. At this time clearly informed her to stop taking verapamil. She will continue on lisinopril 5 mg daily only. She states clear understanding of this. Will arrange for Holter monitor in a few weeks to ensure that she has no tachycardia issues. From what I see she has been on the verapamil for hypertension only. No indication for pacemaker placement at this time. Cardiology follow-up in 6 months, sooner if needed (2) Vertigo: Code(s): R42 - Dizziness and giddiness Category: Medical Plan: History of vertigo which seems to be chronic for her. She has some lightheadedness even with the use of meclizine. She uses a cane for steady ambulation. No clear indication that her light headedness is related to bradycardia. (3) HTN (hypertension): Code(s): I10 - Essential (primary) hypertension Category: Medical Qualifiers: Hypertension type: primary hypertension Qualified Code(s): I10 - Essential (primary) hypertension Plan: Blood pressure low today, 90/62. Will have her stop verapamil. Continue low-dose lisinopril. Cardiology follow-up in 6 weeks. (4) LVH (left ventricular hypertrophy): Code(s): I51.7 - Cardiomegaly Category: Medical Plan: Mild LVH and moderate basal asymmetric hypertrophy noted on recent echocardiogram. She needs ongoing good blood pressure control Plan Time spent on chart review, documentation, interview and assessment Orders: Orders ECG 3 day holter monitor 2 Weeks R00.1 - Bradycardia, unspecified Coding Level of Care Code Est Pt Level 4 (45719) Diagnoses Bradycardia R00.1 Vertigo R42 Primary hypertension I10 Hypertension type: primary hypertension LVH (left ventricular hypertrophy) I51.7 Time Spent (min) 28
== END 2023-10-31 08:58 | disposition home or self-care (01) ==
PROVIDERS: PCP Internal Medicine; Visit Provider Nurse Practitioner Family
DX: R00.1 Bradycardia, unspecified (principal); R42 Dizziness and giddiness; I10 Essential (primary) hypertension; I51.7 Cardiomegaly
CPT/HCPCS: 99214

== ENCOUNTER → 2023-10-31 08:28 | Outpatient (BNVA) | payer OTHER, SELFPAY | PROVIDERS: PCP Internal Medicine; Visit Provider Nurse Practitioner Family | DX: R00.1 Bradycardia, unspecified (principal); R42 Dizziness and giddiness; I10 Essential (primary) hypertension; I51.7 Cardiomegaly | CPT/HCPCS: 99212 ==

== ENCOUNTER 2023-11-27 09:34 | Outpatient (REF) | payer OTHER, SELFPAY ==
--- NOTE | ~2023-11-27 | MM_ITS ---
EXAMINATION: BONE DENSITOMETRY CLINICAL INDICATION: Osteopenia. COMPARISON: This is the patient's baseline examination. TECHNIQUE: Using a [employer]outOmatic DXA System (software version: 13.1) manufactured by [employer], dual-energy x-ray absorptiometry was performed of the lumbar spine and left hip. The images are of good technical quality. Summary results are attached. FINDINGS: LEFT FEMUR, NECK: BMD 0.872 g/cm2, Z-score -0.3, T-score -1.2, osteopenia. LEFT FEMUR, TOTAL: BMD 0.892 g/cm2, Z-score -0.3, T-score -0.9, normal. AP SPINE L1-L2 (excluding L3 and L4): The data of L1-L4 has been changed to exclude the L3 and L4 vertebral bodies, because degenerative sclerosis at these levels may cause overestimation of lumbar spine density. BMD 1.098 g/cm2, Z-score 0.6, T-score -0.6, normal. IDENTIFIED RISK FACTORS: Early menopause, family history (parent hip fracture), history of fracture (adult), bilateral oophorectomy, hysterectomy, osteoporosis, recurrent falls, secondary osteoporosis. HISTORY OF FRACTURE: Hip. MEDICATIONS: Calcium or multivitamin. Vitamin D, fluoride. MM/XR DEXA axial skeleton IMPRESSION: 1. DIAGNOSIS: Osteopenia based on the lowest T-score value of -1.2 in the femoral neck applying World Health Organization criteria. 2. 10-YEAR FRACTURE RISK PREDICTION, FRAX: Major osteoporotic fracture (clinical spine, forearm, hip or shoulder) 9.7%. Hip fracture 1.5%. 3. Treatment Recommendations: NOF guidelines recommend consideration for treatment in postmenopausal women and men age 50 and older presenting with the following: -A hip or vertebral (clinical or morphometric) fracture. -T-score less than or equal to -2.5 at the femoral neck or spine after appropriate evaluation to exclude secondary causes. -Low bone mass at the hip or spine and a 10-year fracture probability by FRAX of greater than or equal to 3% for hip fracture or greater than or equal to 20% for major osteoporotic fracture based on the [place] adapted WHO algorithm. 4. Other Recommendations: All treatment decisions require clinical judgment and consideration of individual patient factors, including patient preferences, comorbidities, previous drug use, risk factors not captured in the FRAX model (e.g. frailty, falls, vitamin D deficiency, increased bone turnover, interval significant decline in bone density) and possible under or overestimation of fracture risk by FRAX. Additional medical evaluation for secondary cause of low bone mineral density may be appropriate. FUTURE SCAN RECOMMENDATION: People with diagnosed cases of osteoporosis or at high risk for fracture should have regular bone mineral density tests. For patients eligible for Medicare, routine testing is allowed once every 2 years. The testing frequency can be increased to one year for patients who have rapidly progressing disease, those who are receiving or discontinuing medical therapy to restore bone mass, or have additional risk factors.
== END 2023-11-27 09:35 | disposition home or self-care (01) ==
LOC: HO.MAMMO 09:34
PROVIDERS: PCP Internal Medicine; Visit Provider Nurse Practitioner Family
DX: Z13.820 Encounter for screening for osteoporosis (principal); Z78.0 Asymptomatic menopausal state; M85.80 Other specified disorders of bone density and structure, unspecified site; M47.816 Spondylosis without myelopathy or radiculopathy, lumbar region; M53.3 Sacrococcygeal disorders, not elsewhere classified
CPT/HCPCS: 77080; 93242

== ENCOUNTER → 2023-11-27 11:09 | Outpatient (REF) | payer OTHER, SELFPAY ==
--- NOTE | 2023-11-27 11:13 | HM_ITS ---
Conclusion: 1. Patient was monitored for total period of 2 days and 23 hours 2. Baseline was normal sinus rhythm with average heart of 72 beats per minute 3. Rare ectopy noted next 4. No significant pauses noted 5. Patient marked the counter 3 times with no diary submitted, markers correlating with sinus rhythm MTDD
== END ==
LOC: HO.CARD 11:09
PROVIDERS: PCP Internal Medicine; Visit Provider Nurse Practitioner Family
DX: Z13.89 Encounter for screening for other disorder (principal)
CPT/HCPCS: 93242

== ENCOUNTER → 2023-11-27 11:13 | Outpatient (BNV) | payer OTHER, SELFPAY | PROVIDERS: PCP Internal Medicine; Visit Provider Internal Medicine Cardiovascular Disease | DX: R00.1 Bradycardia, unspecified (principal) | CPT/HCPCS: 93244 ==

== ENCOUNTER 2023-12-12 08:21 | Outpatient (AMB) | payer OTHER, SELFPAY ==
--- NOTE | 2023-12-12 08:42 | A.OFFVIS_ITS ---
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 Required: No Accompanied by: Self / Same As Patient Allergies Penicillins Allergy (Severe, Verified 10/31/23 08:32) hives Medication List - Last Reconciled 12/12/23 by CURTIS Rai acetaminophen 650 mg (2 x 325 mg) PO Q6H PRN atorvastatin 10 mg PO DAILY calcium carbonate (Jeremy-Gest Antacid) 200 mg PO TID cholecalciferol (vitamin D3) 50 mcg PO DAILY ferrous sulfate 325 mg PO DAILY food supplemt, lactose-reduced (Ensure Original oral liquid) 2 ea PO BID 30 days furosemide 20 mg PO DAILY gabapentin 300 mg PO BID 30 days Gel mattress overlay As directed hydroxyzine HCl 25 mg PO DAILY lidocaine 5% 1 patch topical DAILY lisinopril 5 mg PO DAILY magnesium oxide 400 mg PO BID meclizine 12.5 mg PO TID meloxicam 15 mg PO DAILY omeprazole 40 mg PO DAILY ondansetron HCl 4 mg PO Q8H PRN potassium chloride ER 20 mEq PO DAILY sennosides-docusate sodium 8.6-50 mg (Senexon-S) 1 tab PO BID sertraline 50 mg PO DAILY sertraline 100 mg PO DAILY sumatriptan succinate 50 mg PO DAILY PRN topiramate 50 mg PO BID trazodone 100 mg PO BEDTIME HPI HPI 6 wk/ Holter: Details: eLsly is a 68 yr old female with past medical history of hypertension, prediabetes, vertigo who has been evaluated for bradycardia and now presents for follow-up. Following last visit her verapamil was stopped and holter monitor ordered. Today she reports that she has ongoing issues with lightheadedness and that she takes meclizine up to 3 times daily which does help. She has some unsteadiness with ambulation and uses a cane. She did have a recent fall with injury to her left hand. She tells me that her legs were weak when she stood up which contributed to the fall. No presyncope, syncope. She is mostly sedentary. No chest discomfort at rest or with activity. No shortness of breath, palpitations, PND, orthopnea or edema. She takes her meds as directed. [facility] Medical History Vertigo Cataracts, bilateral Arthritis Anxiety Full dentures Ambulates with cane Diabetes mellitus type 2, diet-controlled Anemia JV (obstructive sleep apnea) Elevated cholesterol HTN (hypertension) GERD (gastroesophageal reflux disease) Spinal stenosis of lumbar region with neurogenic claudication Lumbar back pain with radiculopathy affecting lower extremity Surgical History Hx of colonoscopy History of total right hip replacement Hx of cholecystectomy Social History Are you a primary associate director career services to a significant other at home: No Do you presently have visiting nurse or other home services: Yes (PRESSURE DISPATCHER M-F 4 hours/day) Patient Tobacco Use Status: Never used Tobacco Review of Systems Const All systems reviewed & are unremarkable except as noted in HPI and below Denies chills, Denies fatigue, Denies fever(s), Denies frequent falls, Denies weakness, Denies weight gain and Denies weight loss ENT Reports vertigo and Reports dizziness Card Denies chest pain, Denies leg edema, Reports lightheadedness, Denies palpitations, Denies dyspnea and Denies dyspnea on exertion Resp Denies cough, Denies dyspnea and Denies dyspnea on exertion GI Denies hematochezia Musc Denies abnormal gait, Denies muscle weakness, Denies numbness, Denies radiating pain into limb and Denies tingling Neuro Denies abnormal gait, Reports vertigo, Reports dizziness, Denies frequent falls, Denies numbness, Denies tingling and Denies weakness Endo Denies fatigue and Denies palpitations Physical Exam Vital Signs: Last Vital Signs Pulse 53 12/12/23 08:43 BP 110/70 12/12/23 08:43 BMI result Body Mass Index 22.9 Const General: cooperative, healthy appearing, comfortable and no acute distress Orientation/consciousness: patient oriented x3 Neck Neck: Yes normal visual inspection and Yes no JVD Resp Effort & Inspection: normal respiratory effort Auscultation: clear to auscultation bilaterally, no crackles, no rales, no rhonchi and no wheezes Cardio Jugular venous distension: no JVD Rate: regular rate Rhythm: regular rhythm Heart sounds: S1 normal heart sound present, S2 normal heart sound present, no murmurs and no rubs Neuro General: patient oriented x3 Extrem General: Yes normal to inspection, No no pedal edema and No calf tenderness Psych Appearance: grossly normal Mental Status: mental status grossly normal Speech and movement: Normal speech and movement present Office Procedures EKG Details: Today, read by me, sinus bradycardia, right axis, ST and T-wave abnormality leads 3 and AVF, rate 53, QTC 397 millisecond [id number], Complete Assessment & Plan Assessment & Plan (1) Bradycardia: Code(s): R00.1 - Bradycardia, unspecified Category: Medical Plan: History of bradycardia. She had been on verapamil for blood pressure control. An echocardiogram was done on 03/29/2023 showing EF 60-65%, mild LVH, moderate basal asymmetric hypertrophy. Holter monitor done 03/29/2023 for 3 days showed sinus rhythm with average heart rate 72, no significant bradycardia or pauses. She does have chronic issues with lightheadedness which seems consistent with vertigo. She does take meclizine with improvement. Her blood pressure was low last visit, not orthostatic on exam. It was felt that low blood pressures may be contributing to some of her lightheadedness. On last visit she was instructed to stop verapamil completely which she did do. She was continued on low-dose lisinopril. A Holter monitor was done on 11/27/2023 for 3 days to ensure she had no concerning tachycardia. The Holter showed sinus rhythm with average heart rate 72, rare ectopy. EKG done today showing sinus bradycardia, rate 53. Her blood pressure is low normal and again she is not orthostatic on my exam. She continues to have issues with lightheadedness. Her current vital signs should not be making her feel lightheaded. Reviewed with her. Continue treatment for vertigo. Cardiology follow-up in 6 months, sooner if needed. (2) Vertigo: Code(s): R42 - Dizziness and giddiness Category: Medical Plan: History of vertigo which seems to be chronic for her. She has some lightheadedness even with the use of meclizine. She uses a cane for steady ambulation. No clear indication that her light headedness is related to bradycardia. (3) HTN (hypertension): Code(s): I10 - Essential (primary) hypertension Category: Medical Qualifiers: Hypertension type: primary hypertension Qualified Code(s): I10 - Essential (primary) hypertension Plan: As above. Blood pressure recheck done by me sitting 108/68, standing 108/72. (4) LVH (left ventricular hypertrophy): Code(s): I51.7 - Cardiomegaly Category: Medical Plan: Mild LVH and moderate basal asymmetric hypertrophy noted on recent echocardiogram. She needs ongoing good blood pressure control Plan Time spent on chart review, documentation, interview and assessment Coding Level of Care Code Est Pt Level 3 (08547) Diagnoses Bradycardia R00.1 Vertigo R42 Primary hypertension I10 Hypertension type: primary hypertension LVH (left ventricular hypertrophy) I51.7 CPT Codes EKG - CPT: 30899-[id number], Complete ([id number]) Time Spent (min) 24
[2023-12-12 08:43] VITALS: BP 110/70; PULSE 53; BMI 22.9
== END 2023-12-12 09:16 | disposition home or self-care (01) ==
LOC: HO.HCS 08:21
PROVIDERS: PCP Internal Medicine; Visit Provider Nurse Practitioner Family
DX: R00.1 Bradycardia, unspecified (principal); R42 Dizziness and giddiness; I10 Essential (primary) hypertension; I51.7 Cardiomegaly
CPT/HCPCS: 93010; 99213

== ENCOUNTER → 2023-12-12 08:21 | Outpatient (BNVA) | payer OTHER, SELFPAY | PROVIDERS: PCP Internal Medicine; Visit Provider Nurse Practitioner Family | DX: R42 Dizziness and giddiness (principal); I10 Essential (primary) hypertension; R00.1 Bradycardia, unspecified; I51.7 Cardiomegaly | CPT/HCPCS: 93005; 99212 ==

== ENCOUNTER 2023-12-12 09:23 | Emergency (ER) | payer OTHER, SELFPAY ==
--- NOTE | ~2023-12-12 | XR_ITS ---
EXAMINATION: BILATERAL HANDS CLINICAL INFORMATION: Fall with finger pain COMPARISON: None available. TECHNIQUE: 3 views each hand FINDINGS: Right: There is marked abnormality seen with fusion of nearly the entire carpus. Severe narrowing at the radiocarpal joint. Chronic comminuted unhealed fracture of the mid to distal ulna. Old probable healed fracture radial diaphysis. Flexion deformity present in the fingers. No acute fractures are seen. Left: Mild degenerative changes present at the radiocarpal joint. Old healed fracture noted in the distal radius with cortical thickening. There is nonunion of a distal ulnar fracture. There is chondrocalcinosis seen at the pisiform lunate joint. There is bony ankylosis of the proximal and middle phalanges of the fifth digit. There is a fracture at the base of the fifth proximal phalanx which may be subacute with no evidence of fusion. No other fractures are seen. XR/XR hand LT min 3V IMPRESSION: 1. Marked abnormality in the right wrist with fusion of nearly the entire carpus. 2. Nonunion right ulnar diaphyseal fracture with probable old healed radial fracture 3. Old healed fracture distal left radius with nonunion of distal left ulnar fracture. 4. Fracture base of left fifth proximal phalanx which may be subacute.
--- NOTE | ~2023-12-12 | XR_ITS ---
EXAMINATION: BILATERAL HANDS CLINICAL INFORMATION: Fall with finger pain COMPARISON: None available. TECHNIQUE: 3 views each hand FINDINGS: Right: There is marked abnormality seen with fusion of nearly the entire carpus. Severe narrowing at the radiocarpal joint. Chronic comminuted unhealed fracture of the mid to distal ulna. Old probable healed fracture radial diaphysis. Flexion deformity present in the fingers. No acute fractures are seen. Left: Mild degenerative changes present at the radiocarpal joint. Old healed fracture noted in the distal radius with cortical thickening. There is nonunion of a distal ulnar fracture. There is chondrocalcinosis seen at the pisiform lunate joint. There is bony ankylosis of the proximal and middle phalanges of the fifth digit. There is a fracture at the base of the fifth proximal phalanx which may be subacute with no evidence of fusion. No other fractures are seen. XR/XR hand RT min 3V IMPRESSION: 1. Marked abnormality in the right wrist with fusion of nearly the entire carpus. 2. Nonunion right ulnar diaphyseal fracture with probable old healed radial fracture 3. Old healed fracture distal left radius with nonunion of distal left ulnar fracture. 4. Fracture base of left fifth proximal phalanx which may be subacute.
[2023-12-12 09:31] VITALS: BP 121/63; PULSE 52; RESP 19; TEMP 36.6; O2SAT 98; BMI 22.5
--- NOTE | 2023-12-12 12:11 | ED_ITS ---
HPI - General Adult General Chief complaint: General Medical Stated complaint: pain in both hands Time Seen by Provider: 12/12/23 12:08 Source: patient Mode of arrival: ambulatory Limitations: no limitations History of Present Illness ED Provider: phyllis SANTIAGO narrative: Patient is a 68-year-old female with history of HTN, T2DM, arthritis, vertigo, spinal stenosis with claudication presenting to the emergency department with complaint of bilateral hand pain after a fall on Saturday. Patient states that she has vertigo at baseline and when she stood up on her porch Saturday afternoon, she became dizzy and fell onto her outstretched hands. She called [facility] on Saturday and scheduled an appointment for yesterday but when she arrived she was told that there was a computer air and her appointment was raised. She does have an appointment there tomorrow. Her primary complaint is pain to 5th metacarpal. Patient reports history of significant contractures of hands and wears a brace to right arm at baseline. Denies head strike or loss of consciousness at the time of fall. She has not anticoagulated. MD complaint: bilateral hand pain Onset (ago): day(s) Severity: moderate Quality: aching Pain Consistency: constant Relieving factors: none Exacerbating factors: movement Associated symptoms: denies other symptoms Treatments prior to arrival: none Related Data Home Medications ?Medication ?Instructions ?Recorded ?Confirmed cholecalciferol (vitamin D3) 50 50 mcg PO DAILY 05/04/21 12/12/23 mcg (2,000 unit) capsule ferrous sulfate 325 mg (65 mg 325 mg PO DAILY 05/04/21 12/12/23 iron) tablet furosemide 20 mg tablet 20 mg PO DAILY 05/04/21 12/12/23 hydroxyzine HCl 25 mg tablet 25 mg PO DAILY 05/04/21 12/12/23 magnesium oxide 400 mg (241.3 mg 400 mg PO BID 05/04/21 12/12/23 magnesium) tablet meclizine 12.5 mg tablet 12.5 mg PO TID 05/04/21 12/12/23 meloxicam 15 mg tablet 15 mg PO DAILY 05/04/21 12/12/23 omeprazole 40 mg capsule,delayed 40 mg PO DAILY 05/04/21 12/12/23 release ondansetron HCl 4 mg tablet 4 mg PO Q8H PRN Nausea 05/04/21 12/12/23 potassium chloride 20 mEq 20 meq PO DAILY 05/04/21 12/12/23 tablet,extended release sennosides 8.6 mg-docusate sodium 1 tab PO BID 05/04/21 12/12/23 50 mg tablet (Senexon-S) sertraline 50 mg tablet 50 mg PO DAILY 05/04/21 12/12/23 topiramate 50 mg tablet 50 mg PO BID 05/04/21 12/12/23 atorvastatin 10 mg tablet 10 mg PO DAILY 07/23/22 12/12/23 calcium carbonate (Jeremy-Gest 200 mg PO TID 07/23/22 12/12/23 Antacid) trazodone 100 mg tablet 100 mg PO BEDTIME 07/23/22 12/12/23 sumatriptan succinate 50 mg tablet 50 mg PO DAILY PRN Headache 02/19/23 12/12/23 sertraline 100 mg tablet 100 mg PO DAILY 05/28/23 12/12/23 lisinopril 5 mg tablet 5 mg PO DAILY 07/04/23 12/12/23 Previous Rx's ?Medication ?Instructions ?Recorded Gel mattress overlay #1 ea 01/24/23 acetaminophen 325 mg capsule 650 mg (2 x 325 mg) PO Q6H PRN 02/19/23 pain #45 caps gabapentin 300 mg capsule 300 mg PO BID pain 30 days #60 caps 08/22/23 lidocaine 5 % topical patch 1 patch topical DAILY for pain #30 10/28/23 patches food supplemt, lactose-reduced 2 ea PO BID 30 days #60 multiple 11/28/23 (Ensure Original oral liquid) units Allergies Allergy/AdvReac Type Severity Reaction Status Date / Time Penicillins Allergy Severe hives Verified 12/12/23 09:33 Review of Systems Review of Systems: As per HPI Yes all other systems are reviewed and are negative Constitutional: Constitutional: Reports as per HPI [facility] Past Medical History Medical History Vertigo Cataracts, bilateral Arthritis Anxiety Full dentures Ambulates with cane Diabetes mellitus type 2, diet-controlled Anemia JV (obstructive sleep apnea) Elevated cholesterol HTN (hypertension) GERD (gastroesophageal reflux disease) Spinal stenosis of lumbar region with neurogenic claudication Lumbar back pain with radiculopathy affecting lower extremity Surgical History Hx of colonoscopy History of total right hip replacement Hx of cholecystectomy Social History Social History Are you a primary intensive care anaesthetist to a significant other at home: No Do you presently have visiting nurse or other home services: Yes (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 Blood pressure normal. Heart rate normal. Respiratory rate normal. Temperature normal. Oxygen saturation normal. Const General: cooperative, healthy appearing and no acute distress Orientation/consciousness: oriented to person, oriented to place, oriented to time and patient oriented x3 Limitations: no limitations HENNC Head: Yes normocephalic and Yes atraumatic Ears: external ears normal General nose exam: Normal external nose present Face and sinus: Yes face symmetric Mouth: oropharynx normal and moist mucous membranes Throat: Yes uvula midline Eyes Pupils: Equal, round and reactive pupils present Neck Neck: Yes normal visual inspection and Yes supple Resp Effort & Inspection: normal respiratory effort and able to speak in complete sentences Auscultation: clear to auscultation bilaterally Cardio Rate: regular rate Rhythm: regular rhythm Heart sounds: S1 normal heart sound present and S2 normal heart sound present GI Palpation (GI): Soft to palpation and nontender Auscultation: normoactive bowel sounds General: Yes no CVA tenderness Back/Spine/Pelvis Back: no CVA tenderness Skin General skin exam: elasticity normal and turgor normal Neuro General: oriented to person, oriented to place, oriented to time, patient oriented x3, moves all extremities, no focal motor deficits and CN's II-XI intact bilaterally Cranial nerves: Yes Equal, round and reactive pupils present Cognition (Neuro): normal cognition Extrem General: Yes full ROM, Yes no pedal edema and Yes no calf tenderness Right upper extremity: wrist Details: abnormal ROM and radial pulse present; no tenderness and Extremity exam: right hand (contractures of fingers, 4th finger absent) Details: normal capillary refill and neurosensory exam normal; neuromotor exam abnormal Left upper extremity: wrist and hand Details: normal capillary refill, neuromotor exam abnormal (all fingers contracted, DIP joint of 5th finger fixed in flexion which patient states is not her baseline), neurosensory exam normal, abnormal ROM of finger and swelling Location: of the 5th digit Location: at the MCP joint and at the proximal phalanx; neuromotor exam abnormal Psych Mental Status: mental status grossly normal Affect: normal affect Thought process: Normal thought process present Procedures Orthopedic Splinting/Casting Injury #1: Side: left Upper Extremity Injury Location: finger (5th, left) Upper Extremity Immobilizer: finger (other) and Jaylen wrap Additional Comments: Ability to splint limited due to length of time since injury. Medical Decision Making Medical Decision Making [facility] Narrative: Patient is a 68-year-old female with history of HTN, T2DM, arthritis, vertigo, spinal stenosis with claudication presenting to the emergency department with complaint of bilateral hand pain after a fall on Saturday. On exam patient is awake, A+Ox3, VS WNL, afebrile, normal neurological exam without focal deficits, physical exam findings as above. Given reported symptoms and physical exam findings, initial differential includes bilateral hand/wrist contusion versus fracture versus dislocation. X-rays notable for acute fracture to base of 5th MCP, all other findings appear chronic. My interpretation is in agreement with the radiologist's interpretation. Case discussed with kodak Fuentes, who recommends splinting as best as possible given that injury occurred on Saturday and patient has baseline contractures. Finger splint and JAYLEN wrap applied with +CMS distal after application. Advised patient to keep ortho appointment with [facility] tomorrow. Tylenol, ice, elevation for pain. Return precautions discussed. Patient verbalized understanding of and agreement with plan. Differential Diagnosis Differential Diagnoses: The differential diagnosis associated with the presentation includes As per MDM Consult Healthcare Provider Management of the patient was discussed with: Community Health Planning Director (kodak Fuentes) Independent Interpretation I performed an independent interpretation of an: Plain X-Ray Interpretation: X-rays notable for acute fracture to base of 5th MCP, all other findings appear chronic. Radiology Impression Discussion of test interpretation with radiology: I have reviewed the radiologist's reading. Radiologist Impression: XR/XR hand RT min 3V IMPRESSION: 1. Marked abnormality in the right wrist with fusion of nearly the entire carpus. 2. Nonunion right ulnar diaphyseal fracture with probable old healed radial fracture 3. Old healed fracture distal left radius with nonunion of distal left ulnar fracture. 4. Fracture base of left fifth proximal phalanx which may be subacute. External Record Review External record reviewed: Inpatient record, Office record and Outpatient record Discharge Plan Discharge Clinical Impression: Closed fracture of fifth metacarpal bone of left hand Patient Disposition: Home, Self-Care Instructions: Hand Fracture (ED) Additional Instructions: You were evaluated in the emergency department today for injuries after a fall. Your x-rays showed evidence of a fracture to the 5th finger of your left hand and you were placed in a splint in the emergency department today. We recommend that you keep your appointment with [facility] for tomorrow for further management of your injuries. We recommend 650 mg of Tylenol every 6 hours as needed for pain. You can also apply ice to the affected areas for 10-15 minutes at a time, using caution not to apply ice directly to the skin. We recommend keeping your affected areas elevated while at rest. Return to the emergency department if you develop increasing swelling, new weakness, numbness, tingling, change of color in your hands or any other concerning symptoms. Prescriptions: No Action gabapentin 300 mg capsule 300 mg PO BID 30 Days Qty: 60 0RF Ensure Original Liquid 2 ea PO BID 30 Days Qty: 60 2RF Rx Instructions: [place] flavor acetaminophen 325 mg capsule 650 mg PO Q6H PRN (Reason: pain) Qty: 45 0RF trazodone 100 mg tablet 100 mg PO BEDTIME calcium carbonate [Jeremy-Gest Antacid] 200 mg calcium (500 mg) tablet,chewable 200 mg PO TID atorvastatin 10 mg tablet 10 mg PO DAILY hydroxyzine HCl 25 mg tablet 25 mg PO DAILY magnesium oxide 400 mg (241.3 mg magnesium) tablet 400 mg PO BID omeprazole 40 mg capsule,delayed release(DR/EC) 40 mg PO DAILY sennosides-docusate sodium [Senexon-S] 8.6-50 mg tablet 1 tab PO BID ondansetron HCl 4 mg tablet 4 mg PO Q8H PRN (Reason: Nausea) furosemide 20 mg tablet 20 mg PO DAILY topiramate 50 mg tablet 50 mg PO BID meloxicam 15 mg tablet 15 mg PO DAILY potassium chloride 20 mEq tablet extended release 20 meq PO DAILY ferrous sulfate 325 mg (65 mg iron) tablet 325 mg PO DAILY cholecalciferol (vitamin D3) 50 mcg (2,000 unit) capsule 50 mcg PO DAILY sertraline 50 mg tablet 50 mg PO DAILY meclizine 12.5 mg tablet 12.5 mg PO TID sumatriptan succinate 50 mg tablet 50 mg PO DAILY PRN (Reason: Headache) (DME) Gel mattress overlay Misc See Rx Instructions .Route Qty: 1 3RF Rx Instructions: As directed sertraline 100 mg tablet 100 mg PO DAILY lisinopril 5 mg tablet 5 mg PO DAILY lidocaine 5 % adhesive patch,medicated 1 patch topical DAILY Qty: 30 3RF Referrals: [facility] [Provider Group] Print Language: Sinhala
[2023-12-12 15:22] VITALS: BP 106/64; PULSE 57; RESP 16; TEMP 36.4; O2SAT 98
[2023-12-12 15:38] VITALS: BP 106/64; PULSE 57; RESP 16; TEMP 36.4; O2SAT 98
== END 2023-12-12 15:39 | disposition home or self-care (01) ==
PROVIDERS: Emergency Provider Emergency Medicine; PCP Internal Medicine
DX: S62.317A Displaced fracture of base of fifth metacarpal bone, left hand, initial encounter for closed fracture (principal); W18.30XA Fall on same level, unspecified, initial encounter; M79.641 Pain in right hand; E11.9 Type 2 diabetes mellitus without complications; I10 Essential (primary) hypertension; Y93.89 Activity, other specified; Y92.018 Other place in single-family (private) house as the place of occurrence of the external cause; Y99.9 Unspecified external cause status
CPT/HCPCS: 73130; 99283; 99284

== ENCOUNTER → 2023-12-25 12:55 | Outpatient (BNVA) | payer OTHER, SELFPAY | PROVIDERS: PCP Internal Medicine; Visit Provider Orthopaedic Surgery ==

== ENCOUNTER 2024-01-09 10:00 | Outpatient (RCR) | payer OTHER, SELFPAY ==
--- NOTE | 2023-12-31 13:16 | MHC.PT.EP ---
[facility] [place] [facility] [place] [facility] [place] [facility] [address] Silvana Cartwright [address] [phone] F: [phone] F: [phone] F: [phone] F: [phone] Physical Therapy Plan of Care Date of Evaluation: 12/31/23 Date of Surgery: Diagnosis: gait instability unsteadiness on feet Assessment: 68 y/o female referred to PT with gait instability and unsteadiness on feet. She has a long standing history of low back pain (significant stenosis and nerve compression per lumbar MRI) and multiple falls a month. Reports pain and difficulty with walking, stairs, slab puller. She does have a SALES RELATIONSHIP MANAGER come to the house everyday to assist with chores, laundry, cooking, dressing, and bathing. She ambulates with a cane, walker, or no AD at times. Examination shows decreased B LE strength (R LE weaker than L), decreased R hip ROM, impaired static balance, impaired dynamic balance, DGI, and impaired gait pattern. Recommend PT 2x/week for 5 weeks to address impairments, Frequency and Duration: The patient will be seen 2x/week for 5 weeks Short Term Goals: 3 weeks I with HEP Pt will be able to perform gait with head turns with close spv Correction Goals: 5 weeks I with HEP and self management of sx Improve DGI to >/=19/24 Pt will reports > 50% improvement in balance with functional mobility Treatment Plan: Modalities to reduce pain, spasms and effusion. Manual therapy to restore motion and function. Therapeutic exercise to improve strength and flexibility. Neuromuscular re-education for posture and balance. Therapeutic activities to return to functional activities of daily living. Electronically signed by: Hilda Barrientos PT Please sign and return to therapist. Thank you for your referral.
--- NOTE | 2024-01-23 12:08 | MHC.PT.DC ---
[facility] [place] Office [place] Office [place] Office [address] Silvana Cartwright [address] [phone] F: [phone] F: [phone] F: [phone] F: [phone] Physical Therapy Discharge Report Diagnosis: gait instability unsteadiness on feet Date of Surgery: Date of Evaluation: 12/31/23 Date of Discharge: 01/23/24 Treatments to Date: 2 Cancellations to Date: 3 No Shows to Date: 2 Discharge Status: Visit Non-compliance Discharge Summary: Pt only attended evaluation and one treatment session. She is discharged d/t noncompliance with scheduling policy. Electronically signed by: Hilda Barrientos PT Please sign and return to therapist. Thank you for your referral.
== END 2024-01-23 12:08 | disposition home or self-care (01) ==
LOC: HO.PT 10:00
PROVIDERS: PCP Internal Medicine; Visit Provider Nurse Practitioner Family
DX: R26.81 Unsteadiness on feet (principal)
CPT/HCPCS: 97110; 97162

== ENCOUNTER 2024-01-14 07:05 | Outpatient (REF) | payer OTHER, SELFPAY ==
--- NOTE | ~2024-01-14 | FL_ITS ---
EXAMINATION: XR FLUOROSCOPY WITH IMAGES CLINICAL INFORMATION: Spondylosis without myelopathy or radiculopathy, lumbar region. COMPARISON: 12/13/2022. TECHNIQUE: Fluoroscopy provided to: Dr. Reid Fluoroscopy time: 0.5 minutes DAP: 0.0809 mGycm2 Images: 7 FINDINGS: Sequential images dorsal lumbar spine with obliques demonstrating nerve root sheath injection exiting nerve roots L3, L4, and L5 bilaterally. FL/FL guidance in treatment room IMPRESSION: Fluoroscopic guidance. Please refer to the full operative report for details. Electronically signed by: Slick Marquez MD 03/11/2024 05:19 PM EDT
== END 2024-01-14 07:06 | disposition home or self-care (01) ==
LOC: CF 07:05
PROVIDERS: Visit Provider Anesthesiology
DX: M47.816 Spondylosis without myelopathy or radiculopathy, lumbar region (principal); M85.80 Other specified disorders of bone density and structure, unspecified site; M53.3 Sacrococcygeal disorders, not elsewhere classified; G89.4 Chronic pain syndrome
CPT/HCPCS: 64493; 64494; J2795; Q9967

== ENCOUNTER 2024-01-14 08:43 | Outpatient (AMB) | payer OTHER, SELFPAY ==
[2024-01-14 08:49] VITALS: BP 110/60; PULSE 60; RESP 16; O2SAT 97
--- NOTE | 2024-01-14 08:49 | A.OFFVIS_ITS ---
Vital Signs 01/14/24 08:49 01/14/24 10:09 BP 110/60 106/66 Blood Pressure Location Lt brachial Lt brachial Position Sitting Sitting Respiration 16 16 Pulse 60 55 Pulse Source Pulse Oximeter Pulse Oximeter Pulse Oximetry (%) 97 99 Oxygen Delivery Method Room Air Room Air Comment Pre-op Post-op Intake Visit Reasons: Diagnostic Bilateral L3-L4 L5 MBB Allergies Penicillins Allergy (Severe, Verified 12/25/23 13:31) hives FOR[facility]LY [facility], [facility] Medical History Vertigo Cataracts, bilateral Arthritis Anxiety Full dentures Ambulates with cane Diabetes mellitus type 2, diet-controlled Anemia JV (obstructive sleep apnea) Elevated cholesterol HTN (hypertension) GERD (gastroesophageal reflux disease) Spinal stenosis of lumbar region with neurogenic claudication Lumbar back pain with radiculopathy affecting lower extremity Surgical History Hx of colonoscopy History of total right hip replacement Hx of cholecystectomy Social History Are you a primary occasional caregiver to a significant other at home: No Do you presently have visiting nurse or other home services: Yes (HOUSE MOTHER M-F 4 hours/day) Alcohol intake: never Patient Tobacco Use Status: Never used Tobacco Physical Exam Vital Signs: Last Vital Signs Pulse 55 01/14/24 10:09 Resp 16 01/14/24 10:09 BP 106/66 01/14/24 10:09 Pulse Ox 99 01/14/24 10:09 Oxygen Delivery Method Room Air 01/14/24 10:09 Assessment & Plan Assessment & Plan (1) Lumbar spondylosis: Code(s): M47.816 - Spondylosis without myelopathy or radiculopathy, lumbar region Category: Medical Plan: Diagnostic medial branch block L3,L4 dorsal ramus L5 bilateral.? ? ?Informed consent was explained to the patient. All questions were explained and? answered.? The patient was taken inside the operating room where she was positioned prone on the operating table. Time-out was performed delineating correct site, side, the nature of the procedure, patient's allergy, . All operating room staff was participating in OR time-out procedure. ? ? The lower back was prepped with ChloraPrep and draped with sterile towels.? C- arm was brought over the operating field and sq picture of L4-, L5 vertebra and S1 AREA were delineated on the screen.? Point of interest were delineated as confluence of superior articular process of L4 and L5 vertebra bilaterally with corresponding transverse processes as well as confluence of the sacral alae bilaterally with superior articular process of S1.? The projection of the point of interest to the skin were injected with the small amount of local anesthetic lidocaine 2% 1-1.5 cc.? After that 22 gauge 3.5 inch spinal needle was driven sequentially to the points of interest in tunnel vision fashion. After needles gently contacted the bone at the point of interests the needle was injected with small amount of the contrast.? The injection of the contrast did not demonstrate any intravascular or intrathecal spread of the contrast.? After that injection of the? ropivacaine 0.5%-1cc was performed at each needle location.??after that the needles were removed and Bandaids were applied. ? Upon completion of the injections? needle was? removed and sterile Band-Aids were applied.? The patient tolerated procedure very well. (2) Decreased bone density: Code(s): M85.80 - Other specified disorders of bone density and structure, unspecified site Category: Medical (3) Sacroiliac joint pain: Code(s): M53.3 - Sacrococcygeal disorders, not elsewhere classified Category: Medical (4) Chronic pain syndrome: Code(s): G89.4 - Chronic pain syndrome Category: Medical Plan Lumbar spine and coccyx xray results reviewed with patient. For ongoing axial low back pain, will schedule Diagnostic Bilateral L3-L4 L5 MBB with local and fluoroscopy. Discussed peripheral nerve stimulation and radiofrequency ablation if positive response to injections. We will also send patient for a bone scan to assess for osteoporosis given decrease in density on recent x-ray results. Patient reports she regularly takes Calcium and Vitamin D. All questions and concerns have been answered and patient agreed with the plan. Follow up after injection and sooner if needed. Justification for interventional therapy: ? Patient with average pain > 6/10 ? Patient has exhausted conservative therapy, including physical therapy, NSAIDs The risks, consequences, alternatives, and benefits of various treatment options were discussed with the patient in great detail, including conservative management, injections and procedures. Orders: Orders FL guidance in treatment room Today M47.816 - Spondylosis without myelopathy or radiculopathy, lumbar region Coding Level of Care Code Procedure Only Diagnoses Lumbar spondylosis M47.816 Decreased bone density M85.80 Sacroiliac joint pain M53.3 Chronic pain syndrome G89.4
[2024-01-14 10:09] VITALS: BP 106/66; PULSE 55; RESP 16; O2SAT 99
== END 2024-01-14 10:12 | disposition home or self-care (01) ==
LOC: HO.PMCPRC 08:43
PROVIDERS: PCP Internal Medicine; Visit Provider Anesthesiology
DX: M47.816 Spondylosis without myelopathy or radiculopathy, lumbar region (principal); M85.80 Other specified disorders of bone density and structure, unspecified site; M53.3 Sacrococcygeal disorders, not elsewhere classified; G89.4 Chronic pain syndrome
CPT/HCPCS: 64493; 64494

== ENCOUNTER 2024-01-20 15:40 | Outpatient (AMB) | payer OTHER, SELFPAY ==
--- NOTE | 2024-01-20 15:40 | A.OFFVIS_ITS ---
Vital Signs 01/20/24 15:41 Height 5 ft 5 in Intake Visit Reasons: Diagnostic Bilateral L3-L4 L5 MBB Allergies Penicillins Allergy (Severe, Verified 01/20/24 15:41) hives HPI Comments Details: Patient presents today to assess response to Bilateral Diagnostic L3-L4 DR L5 MBB on 01/14/[address] Reid. Patient reports ongoing 100% pain relief in her lower spine with improvement in her daily functioning, mobility and sleep. She rates her pain at 0/10. She is interested to undergo peripheral nerve stimulation trial with Sprint. We also discussed therapeutic injections and RFA procedure. Patient reports she is now receiving MECHANICAL MANUFACTURING ENGINEER services and her grandson has moved in with her. She is currently activity with PT for gait and balance training and notes improvement in her strength and gait stability. She reports occasional episodes of vertigo, takes meclizine and vestibular PT. She also being followed by [facility] for sinus bradycardia, LVH and HTN. Patient requests refill for Ensure supplemental food drinks. Denies any recent cough, cold, infection, fever, any significant changes in her medical history, medications or recent hospitalizations. Past Procedures at [facility]: 01/14/24: Bilateral Diagnostic L3-L4 DR L5 MBB -100% ongoing pain relief 08/20/23: Right intra-articular shoulder steroid injection-70% ongoing pain relief 12/13/22: Left L5-S1 TFESI-100% pain relief for 6 weeks Past Procedures at [facility]: 07/26/20 Right L3-L4 and L5-S1 TFESI 01/13/20 Right L3-L4 CARON PRIOR: Patient is a pleasant 66 years old female who presents to the office for initial encounter with a long standing history of low back pain. Patient has been referred to us by [facility] for low back pain with significant stenosis and nerve compression per lumbar MRI. Patient reports her lower back pain is mostly axial but reports pain radiates laterally down both legs (L>R). She admits diffuse pain all over her body, from head to toes with aches, numbness and tingling anteriorly and laterally of both legs. Patient also reports Tu horses in her lower extremities, pain causes her headaches and fatigue. Patient denies bladder/bowel dysfunction or saddle anesthesia. She reports intermittent weakness in her legs and uses cane for ambulation. She states her pain is persistent, worse with prolong sitting, standing or walki ng and less severe at night time when she lies down on her side and keep pillow between her legs. She states the pain is interfering with her sleep, activities of daily living and she cannot function normally.?She is on permanent disability and has MECHANICAL MANUFACTURING ENGINEER who helps her 3 times per week. The patient reports the pain in terms of tissue damage tugging, pulling, wrenching, tingling, stinging, tight, squeezing, and tearing. She has been taking Gabapentin and meloxican for many years and notes that it has stopped working for her. She rates her current pain 8/10.? Previously she has tried physical therapy through [facility] office, the last being 1 week ago. Patient feels her symptoms were partially improving with PT and she would like to continue that.? Denies any chiropractic manipulation, massage or acupuncture. Denies any previous back surgery but reports has received back injections in the past and she might reconsider these injections through this office in the future. Patient reports she recently got new mattress for her back pain and she requesting prescription for gel pads for her mattress. Patient?s past medical history is significant for HTN, fibromyalgia, degenerative disc disease, lumbar disc degeneration, high cholesterol, and arthritis.? [facility] Medical History Vertigo Cataracts, bilateral Arthritis Anxiety Full dentures Ambulates with cane Diabetes mellitus type 2, diet-controlled Anemia JV (obstructive sleep apnea) Elevated cholesterol HTN (hypertension) GERD (gastroesophageal reflux disease) Spinal stenosis of lumbar region with neurogenic claudication Lumbar back pain with radiculopathy affecting lower extremity Surgical History Hx of colonoscopy History of total right hip replacement Hx of cholecystectomy Social History Are you a primary childcare attendant to a significant other at home: No Do you presently have visiting nurse or other home services: Yes (MECH[employer]ICAL MANUFACTURING ENGINEER M-F 4 hours/day) Alcohol intake: never Patient Tobacco Use Status: Never used Tobacco Review of Systems Const All systems reviewed & are unremarkable except as noted in HPI and below ENT Reports Normal hearing present Neuro Reports Normal hearing present and Denies confusion Psych Denies confusion Physical Exam Const General: cooperative, alert and awake; No confusion Orientation/consciousness: patient oriented x3 and No confusion Resp Effort & Inspection: able to speak in complete sentences, no audible wheezes and no cough Neuro General: patient oriented x3 and No confusion Cranial nerves: Yes Normal hearing present Cognition (Neuro): normal cognition Psych Mental Status: mental status grossly normal Speech and movement: Clear speech present Affect: normal affect Attitude: cooperative Thought process: Normal thought process present Thought content: Normal thought content present and No Depressive thoughts present Insight: Good insight present (Psych) Judgement: Good judgement present (Psych) Telehealth Telehealth Telehealth Platform: Telephone Location of provider rendering services: practice address Location of patient: address on file Patient Identification confirmed using: Name, : Yes Telehealth method: voice only Patient verbally consented to treatment: Yes Patient verbally consented to billing insurance company: Yes Patient informed of any privacy concerns related to visit: Yes Minutes spent on Phone/Video with Pt.: 12 Results Reviewed Results Reviewed: XR LUMBAR SPINE XR SACRUM/COCCYX 09/26/23 CLINICAL INFORMATION: History of falling. COMPARISON: MR lumbar spine 08/22/2021. Radiographs thoracic spine 08/12/2020. FINDINGS: SACRUM/COCCYX: Right total hip prosthesis partially imaged. Moderate degenerative changes with joint space narrowing and hypertrophic change left hip. The bones are diffusely demineralized. Small pelvic calcifications are likely vascular. Advanced degenerative changes with sclerosis and hypertrophic change in the bilateral sacroiliac joints. Limited visualization of the sacrum in particular due to overlying bowel. There is a 4-5 mm gap between the distal tip of the coccyx and the remainder of the sacrum/coccyx of indeterminate age and significance. Multiple small ossific/calcific calcifications, many of them rounded, some corticated, are seen in the soft tissues just posterior to the tip of the coccyx on the lateral view, possibly located more laterally on AP views although difficult to characterize. LUMBAR SPINE: Levoscoliosis of the spine. Redemonstration of partially imaged gastric band and tubing. Surgical clips in the right upper quadrant. Advanced facet arthritis in the zey-an-tijoe lumbar spine. Advanced multilevel spondylosis with marked loss of disc space height at L3-L4. L4-L5 disc space is difficult to evaluate due to overlying bowel and bony demineralization, but there appears to be moderate loss of disc space height at L4-L5. Grade 1 anterolisthesis of L5 on S1 with moderate loss of disc space height. IMPRESSION: 1. Advanced degenerative changes in the bilateral sacroiliac joints. 2. Limited visualization of the sacrum in particular due to overlying bowel. There is a 4-5 mm gap between the distal tip of the coccyx and the remainder of the sacrum/coccyx of indeterminate age and significance. Multiple small ossific/calcific calcifications, some corticated, are seen in the soft tissues just posterior to the tip of the coccyx on the lateral view, possibly located more laterally on AP views although difficult to localize with confidence. 3. Advanced multilevel spondylosis in the lumbar spine. 4. Correlation with clinical exam recommended to determine further management including possible additional imaging. MM/XR DEXA axial skeleton 11/27/23 IMPRESSION: 1. DIAGNOSIS: Osteopenia based on the lowest T-score value of -1.2 in the femoral neck applying World Health Organization criteria. Assessment & Plan Assessment & Plan (1) Lumbar spondylosis: Code(s): M47.816 - Spondylosis without myelopathy or radiculopathy, lumbar region Category: Medical (2) Decreased bone density: Code(s): M85.80 - Other specified disorders of bone density and structure, unspecified site Category: Medical (3) Sacroiliac joint pain: Code(s): M53.3 - Sacrococcygeal disorders, not elsewhere classified Category: Medical (4) Chronic pain syndrome: Code(s): G89.4 - Chronic pain syndrome Category: Medical (5) Fibromyalgia: Code(s): M79.7 - Fibromyalgia Category: Medical (6) Vestibular dysfunction: Code(s): H81.90 - Unspecified disorder of vestibular function, unspecified ear Category: Medical Plan Patient is status post Diagnostic Bilateral L3-L4 L5 MBB with ongoing complete pain relief since procedure with improvement in ADLs, mobility and sleep. Reviewed peripheral nerve stimulation and radiofrequency ablation as well as therapeutic injections. Recent bone scan showed osteopenia in femoral head. Patient is interested to pursue Sprint PNS trial for axial low back pain when her LBP returns to baseline. She will notify our office with this. Expectations, risks and benefits were reviewed. Script provided for Ensure supplemental food drinks per patient's request. Continue PT and HEP for low back pain, gait and balance training. All questions and concerns have been answered and patient agreed with the plan. Follow up after injection and sooner if needed. I hereby testify that I spent 12 minutes in conversation with this patient as well as with planning and coordinating care for this patient and organizing this note. Medications: Refilled food supplemt, lactose-reduced (Ensure Original oral liquid) [place] flavor 2 ea PO BID 30 days 60 multiple units 2RF D64.9 - Anemia, unspecified, E46 - Unspecified protein-calorie malnutrition Coding Level of Care Code Tele Est Pt Level 3 (86472) Diagnoses Lumbar spondylosis M47.816 Decreased bone density M85.80 Sacroiliac joint pain M53.3 Chronic pain syndrome G89.4 Fibromyalgia M79.7 Vestibular dysfunction H81.90
== END 2024-01-20 15:46 | disposition home or self-care (01) ==
LOC: HO.PMC 15:40
PROVIDERS: PCP Internal Medicine; Visit Provider Nurse Practitioner Family
DX: M47.816 Spondylosis without myelopathy or radiculopathy, lumbar region (principal); M85.80 Other specified disorders of bone density and structure, unspecified site; M53.3 Sacrococcygeal disorders, not elsewhere classified; G89.4 Chronic pain syndrome; M79.7 Fibromyalgia; H81.90 Unspecified disorder of vestibular function, unspecified ear
CPT/HCPCS: 99213

== ENCOUNTER → 2024-01-20 15:40 | Outpatient (BNVA) | payer OTHER, SELFPAY | PROVIDERS: PCP Internal Medicine; Visit Provider Nurse Practitioner Family ==

== ENCOUNTER 2024-02-11 09:08 | Outpatient (REF) | payer OTHER, SELFPAY ==
[2024-02-11 11:00] LABS: MANUAL DIFF FLAG NO
[2024-02-11 11:20] LABS: Basophils Percent Auto 0.4 % (0-2); Eosinophils Absolute Auto 0.3 X10*3/uL (0.0-0.4); Eosinophils Percent Auto 5.2 % (0-4); Hematocrit 36.2 % (37.0-47.0); Hemoglobin 11.5 g/dl (12.0-16.0); Imm Gran Abs Auto 0.01 X10*3/uL (0.00-0.03); Imm Gran Pct Auto 0.2 % (0.0-0.4); Lymphocytes Absolute Auto 2.2 X10*3/uL (1.2-4.9); Lymphocytes Percent Auto 39.7 % (20-40); Mean Corpuscular HGB Conc 31.8 g/dl (31.0-35.0); Mean Corpuscular Hemoglobin 30.7 pg (27.0-33.0); Mean Corpuscular Volume 96.5 fL (80.0-98.0); Mean Platelet Volume 10.8 fL (9.4-12.3); Monocytes Absolute Auto 0.6 X10*3/uL (0.1-1.2); Monocytes Percent Auto 10.1 % (2-11); Neutrophils Absolute Auto 2.5 x10*3/uL (2.0-8.3); Neutrophils Percent Auto 44.4 % (45-73); Platelet Count 145 X10*3/uL (160-400); Red Blood Count 3.75 X10*6/uL (4.20-5.50); Red Cell Distribution Width 13.5 % (11.0-16.0); White Blood Count 5.6 X10*3/uL (4.8-10.8)
[2024-02-11 12:01] LABS: Erythrocyte Sedimentation Rate 12 MM/HR (0-20)
[2024-02-11 12:05] LABS: Alanine Aminotransferase 23 U/L (0-31); Albumin Level 3.7 g/dL (3.5-5.0); Alkaline Phosphatase 71 U/L (39-117); Anion Gap 11 (12-20); Aspartate Amino Transferase 28 U/L (5-31); Bilirubin Total 0.5 mg/dL (0.0-1.0); Blood Urea Nitrogen 24 mg/dL (9-16); Calcium 9.1 mg/dL (8.4-10.2); Carbon Dioxide 24 mmol/L (22-29); Chloride 108 mmol/L (96-108); Estimated Glomerular Filt Rate 44; Glucose Random 69 mg/dL (60-115); Potassium 4.1 mmol/L (3.3-5.1); Sodium 139 mmol/L (135-145); Total Protein 6.6 g/dL (6.5-8.0)
[2024-02-12 14:54] LABS: CRP High Sensitivity 2.2 mg/L
== END 2024-02-11 09:09 | disposition home or self-care (01) ==
LOC: HO.LAB 09:08
PROVIDERS: PCP Internal Medicine; Visit Provider Nurse Practitioner Family
DX: R07.9 Chest pain, unspecified (principal); I10 Essential (primary) hypertension; R00.1 Bradycardia, unspecified; I51.7 Cardiomegaly
CPT/HCPCS: 36415; 80053; 85025; 85652; 86141; 93005; 99212

== ENCOUNTER 2024-02-11 09:08 | Outpatient (AMB) | payer OTHER, SELFPAY ==
[2024-02-11 09:13] VITALS: BP 110/60; PULSE 64; BMI 23.1
--- NOTE | 2024-02-11 09:13 | A.OFFVIS_ITS ---
Vital Signs 02/11/24 09:13 Height 5 ft 5 in Weight 138 lb 14.259 oz BMI 23.1 BP 110/60 Blood Pressure Location Lt brachial Position Sitting Pulse 64 Pulse Source Monitor Intake Visit Reasons: f/u cp for the past 3 days Allergies Penicillins Allergy (Severe, Verified 01/20/24 15:41) hives Medication List - Last Reconciled 02/11/24 by CURTIS Rai acetaminophen 650 mg (2 x 325 mg) PO Q6H PRN atorvastatin 10 mg PO DAILY calcium carbonate (Jeremy-Gest Antacid) 200 mg PO TID cholecalciferol (vitamin D3) 50 mcg PO DAILY ferrous sulfate 325 mg PO DAILY food supplemt, lactose-reduced (Ensure Original oral liquid) 2 ea PO BID 30 days furosemide 20 mg PO DAILY gabapentin 300 mg PO BID 30 days Gel mattress overlay As directed hydroxyzine HCl 25 mg PO DAILY lidocaine 5% 1 patch topical DAILY lisinopril 5 mg PO DAILY magnesium oxide 400 mg PO BID meclizine 12.5 mg PO TID meloxicam 15 mg PO DAILY omeprazole 40 mg PO DAILY ondansetron HCl 4 mg PO Q8H PRN potassium chloride ER 20 mEq PO DAILY sennosides-docusate sodium 8.6-50 mg (Senexon-S) 1 tab PO BID sertraline 100 mg PO DAILY sumatriptan succinate 50 mg PO DAILY PRN topiramate 50 mg PO BID trazodone 100 mg PO BEDTIME HPI HPI f/u cp for the past 3 days: Details: Lesly is a 69 yr old female with past medical history of hypertension, prediabetes, vertigo who has been evaluated for bradycardia, who presents for follow-up after recent Holter monitor. Today she reports that she has been experiencing discomfort in her anterior chest for the last month. She describes it as sharp pains that hurts with deep breath, movement, palpation of the area. She states this has been a daily occurrence and has not been improving. She takes Tylenol as needed. Her symptom is not worse by walking. She has been sleeping on her side which she says is the most comfortable position. Her symptom is not better with sitting up. She has had no recent fevers or illness. No concerning shortness of breath, PND, orthopnea or edema. No syncope, syncope, falls. She still has episodes of lightheadedness and takes her meclizine with affect. She is mostly sedentary. She is taking her meds as directed. [facility]LY [facility] Medical History Vertigo Cataracts, bilateral Arthritis Anxiety Full dentures Ambulates with cane Diabetes mellitus type 2, diet-controlled Anemia JV (obstructive sleep apnea) Elevated cholesterol HTN (hypertension) GERD (gastroesophageal reflux disease) Spinal stenosis of lumbar region with neurogenic claudication Lumbar back pain with radiculopathy affecting lower extremity Surgical History Hx of colonoscopy History of total right hip replacement Hx of cholecystectomy Social History Are you a primary wound care specialist to a significant other at home: No Do you presently have visiting nurse or other home services: Yes ([employer] M-F 4 hours/day) Alcohol intake: never Patient Tobacco Use Status: Never used Tobacco Review of Systems Const All systems reviewed & are unremarkable except as noted in HPI and below Denies weakness ENT Reports dizziness Card Reports chest pain, Reports chest pain at rest, Denies chest pain with activity, Denies syncope, Denies rapid heart rate, Denies pedal edema, Denies edema, Denies leg edema, Denies lightheadedness, Denies palpitations, Reports dyspnea, Denies dyspnea on exertion and Denies orthopnea Resp Denies cough, Reports dyspnea and Denies dyspnea on exertion GI Details: left abdomenal discomfort Denies hematochezia and Denies change in stool character Musc Denies abnormal gait, Denies muscle cramps, Denies muscle weakness, Denies numbness, Denies radiating pain into limb and Denies tingling Neuro Denies abnormal gait, Reports dizziness, Denies syncope, Denies numbness, Denies tingling and Denies weakness Endo Denies palpitations Physical Exam Vital Signs: Last Vital Signs Pulse 64 02/11/24 09:13 BP 110/60 02/11/24 09:13 BMI result Body Mass Index 23.1 Const General: cooperative, healthy appearing, comfortable and no acute distress Orientation/consciousness: patient oriented x3 Neck Neck: Yes normal visual inspection and Yes no JVD Resp Effort & Inspection: normal respiratory effort Auscultation: clear to auscultation bilaterally, no crackles, no rales, no rhonchi and no wheezes Cardio Other: reported tenderness to my palpation of anterior chest wall Jugular venous distension: no JVD Rate: regular rate Rhythm: regular rhythm Heart sounds: S1 normal heart sound present, S2 normal heart sound present, no murmurs and no rubs Neuro General: patient oriented x3 Extrem General: Yes normal to inspection, No no pedal edema and No calf tenderness Psych Appearance: grossly normal Mental Status: mental status grossly normal Speech and movement: Normal speech and movement present Office Procedures EKG Details: Today, read by me, normal sinus rhythm, right axis deviation, rate 64, QTC 418 milliseconds [id number], Complete Assessment & Plan Assessment & Plan (1) Chest pain: Code(s): R07.9 - Chest pain, unspecified Category: Medical Plan: Reports of precordial chest pain for the last month. She says it has been daily and is worse with deep inspiration, movement of her thorax and palpation of the anterior chest wall. It is not better in a upright position. She has not had any recent illness or fevers. She denies any concerning shortness of breath. An EKG done today showing sinus rhythm with no acute ST or T-wave abnormalities, rate 64. Her symptom is atypical for angina. It is most likely chest wall discomfort and could be costochondritis. EKG not suggesting pericarditis however will check sed rate and CRP. Will arrange for echocardiogram as it has been nearly a year since her last. Instructed to take ibuprofen 2-3 times daily to help with her discomfort, take with food. Plan to call her with test results once available. At present will arrange for cardiology follow-up in 6 months however if her tests are abnormal and symptoms persist she will be seen sooner. Emergency care if needed. (2) Bradycardia: Code(s): R00.1 - Bradycardia, unspecified Category: Medical Plan: History of bradycardia. She had been on verapamil for blood pressure control. An echocardiogram was done on 03/29/2023 showing EF 60-65%, mild LVH, moderate basal asymmetric hypertrophy. Holter monitor done 03/29/2023 for 3 days showed sinus rhythm with average heart rate 72, no significant bradycardia or pauses. She does have chronic issues with lightheadedness which seems consistent with vertigo. She does take meclizine with improvement. On prior visit she had low blood pressure and her verapamil was stopped. She was continued on lisinopril. A Holter monitor was done on 11/27/2023 for 3 days to ensure she had no concerning tachycardia. The Holter showed sinus rhythm with average heart rate 72, rare ectopy. EKG done today showing sinus rhythm, rate 64. Her blood pressure is low normal. She continues to have issues with lightheadedness. Her current vital signs should not be making her feel lightheaded. Reviewed with her. Continue treatment for vertigo. (3) Vertigo: Code(s): R42 - Dizziness and giddiness Category: Medical Plan: History of vertigo which seems to be chronic for her. She has some lightheaded ness even with the use of meclizine. She uses a cane for steady ambulation. No clear indication that her light headedness is related to bradycardia. (4) HTN (hypertension): Code(s): I10 - Essential (primary) hypertension Category: Medical Qualifiers: Hypertension type: primary hypertension Qualified Code(s): I10 - Essential (primary) hypertension Plan: As above. (5) LVH (left ventricular hypertrophy): Code(s): I51.7 - Cardiomegaly Category: Medical Plan: Mild LVH and moderate basal asymmetric hypertrophy noted on recent echocardiogram. She needs ongoing good blood pressure control Plan Time spent on chart review, documentation, interview and assessment Orders: Orders Erythrocyte Sedimentation Rate Today R07.9 - Chest pain, unspecified CRP High Sensitivity Today R07.9 - Chest pain, unspecified Complete Blood Count Auto Diff Today R07.9 - Chest pain, unspecified Comprehensive Met. Panel Today R07.9 - Chest pain, unspecified CA echo transthoracic complete Today I10 - Essential (primary) hypertension, I51.7 - Cardiomegaly, R07.9 - Chest pain, unspecified Coding Level of Care Code Est Pt Level 4 (45850) Diagnoses Chest pain R07.9 Bradycardia R00.1 Vertigo R42 Primary hypertension I10 Hypertension type: primary hypertension LVH (left ventricular hypertrophy) I51.7 CPT Codes EKG - CPT: [id number], Complete ([id number]) Time Spent (min) 30
== END 2024-02-11 10:04 | disposition home or self-care (01) ==
PROVIDERS: PCP Internal Medicine; Visit Provider Nurse Practitioner Family
DX: R07.9 Chest pain, unspecified (principal); R00.1 Bradycardia, unspecified; R42 Dizziness and giddiness; I10 Essential (primary) hypertension; I51.7 Cardiomegaly
CPT/HCPCS: 93010; 99214

== ENCOUNTER → 2024-03-19 08:26 | Outpatient (REF) | payer OTHER, SELFPAY ==
--- NOTE | 2024-03-19 08:29 | CA_ITS ---
Transthoracic Echocardiogram Patient (Last, First, Middle): Lesly Mike, Gender: Female Date of : 1955 Age: 69 Procedure Date: 03/19/2024 Procedure Type: Transthoracic Echocardiogram Location: OP Height: 165. cm Weight: 61.69 kg BSA: 1.68 m2 Heart Rate: 53 bpm BP: 120 / 70 mmHg Behavioral Health Counselor: PALOMA Referring MD: Samina Schaffer NP-S[facility] Awning Hanger Helper: Steven Boo MD Symptoms: R07.9 - Chest pain, unspecified Study Quality: Good ECG Rhythm: Bradycardia Conclusions: - 1. Normal LV ejection fraction of 65-70% with impaired relaxation filling pattern 2. Normal cardiac valvular Dopplers 3. Normal RV systolic pressure 4. Mildly dilated ascending aorta 3.7 cm Findings Left Ventricle Normal left ventricular size, thickness, and systolic function. The visually estimated ejection fraction is between 65-70%. Spectral Doppler is indicative of an impaired relaxation filling pattern. E/E prime ratio is between 8 and 15 consistent with indeterminate filling pressures. Right Ventricle Normal right ventricular cavity size and systolic function. Atria Both atria are normal in size. There is no evidence of interatrial shunt. Aortic Valve Normal aortic valve structure and function. There is no aortic valve stenosis. There is no aortic valve regurgitation. Mitral Valve Normal mitral valve structure and function. There is trace mitral valve regurgitation. There is no mitral valve stenosis. Pulmonic Valve The pulmonic valve is likely normal. There is trace pulmonic valve regurgitation. Tricuspid Valve Normal tricuspid valve structure. There is trace tricuspid valve regurgitation. The right ventricular systolic pressure is normal. The right ventricular systolic pressure is 30 mmHg. Normal right atrial pressure. There is no evidence of pulmonary hypertension. Great Vessels All visible segments of the aorta are normal in size. The pulmonary artery was not well visualized. There is mild dilatation of the ascending aorta measuring 3.70 cm. Venous The inferior vena cava is normal in size and collapses greater than 50% with inspiration. Pericardium/Pleural There is no evidence of pericardial effusion. Prior Study Comparison Changes noted compared to prior study dated: 03/29/2023. Ascending aorta is further dilated but only mildly dilated at 3.7 cm Measurements 2D Linear Measurements IVSd: 1.01 0.6-0.9/0.6-1.0 cm LVIDd: 4.19 3.9-5.3/4.2-5.9 cm LVIDd Index: 2.49 2.4-3.2/2.2-3.1 cm/m2 LVIDs: 2.23 2.0-3.6 cm LVPWd: 0.80 0.7-1.1 cm LA Diam: 2.70 2.7-3.8/3.0-4.0 cm LAIDs Index: 1.61 1.5-2.3 cm/m2 LV Mass: 148.59 67-162/88-224 g LV Mass Index: 88.44 43-95/49-115 g/m2 LVOT Diam: 1.90 3.0+(-)1.3 cm 2D Systolic Function EF 4C: 63.30 >55% EF 2C: 75.60 >55% EF BiP: 70.90 >55% Mitral Valve MV Pk E: 0.60 MV PK A: 0.67 MV Decel Time: 196.00 E/A: 0.90 E'Lateral: 6.42 E'Medial: 4.35 E/E' Med: 13.80 E/E' Lat: 9.30 PHT: 57.00 MVA PHT: 3.86 Decel Gates: 3.06 Aortic Valve AoV Pk Fawad: 1.21 AoV Mn Fawad: 0.91 AoV VTI: 0.31 AoV Pk Grad: 6.00 Aov Mn Grad: 4.00 REAL Cont.VTI: 1.58 LVOT LVOT Pk Fawad: 0.80 LVOT Mn Fawad: 0.48 LVOT VTI: 0.17 LVOT Pk Grad: 3.00 LVOT Mn Grad: 1.00 LVOT Diam: 1.90 LVOT Area: 2.84 Diastolic Function MV Pk E: 0.60 MV Pk A: 0.67 E/A: 0.90 E'Medial: 4.35 E/E' Med: 13.80 E' Laterial: 6.42 E/E' Lat: 9.30 Right Ventricle TAPSE (mm): 20.80 TVS' Fawad: 10.30 Tricuspid Valve TR Pk Fawad: 2.60 TR Pk Grad: 27.00 RA Press: 3.00 RVSP: 30.00 Great Vessels Aorta Sinus of Valsalva: 3.50 2.0-3.5 cm Ao Asc: 3.70 2.1-3.4 cm Pulmonary Valve PV Pk Fawad: 0.72 Peak PV Grad: 2.00 Updated in Other Vendor System with Status of Final Steven Boo MD electronically signed on 03/19/2024 12:53:32 PM with status of Final
== END ==
LOC: HO.CARD 08:26
PROVIDERS: PCP Internal Medicine; Visit Provider Nurse Practitioner Family
DX: R07.9 Chest pain, unspecified (principal); I51.7 Cardiomegaly
CPT/HCPCS: 93306; 99212

== ENCOUNTER → 2024-03-19 08:29 | Outpatient (BNV) | payer OTHER, SELFPAY | PROVIDERS: PCP Internal Medicine; Visit Provider Internal Medicine Cardiovascular Disease | DX: R07.9 Chest pain, unspecified (principal); R93.1 Abnormal findings on diagnostic imaging of heart and coronary circulation | CPT/HCPCS: 93306 ==

== ENCOUNTER 2024-03-19 13:07 | Outpatient (AMB) | payer OTHER, SELFPAY ==
--- NOTE | 2024-03-19 13:08 | A.OFFVIS_ITS ---
Vital Signs 03/19/24 13:11 Height 5 ft 5 in Weight 134 lb BMI 22.3 BP 126/74 Blood Pressure Location Lt brachial Position Sitting Pulse 61 Pulse Source Pulse Oximeter Pulse Oximetry (%) 98 Oxygen Delivery Method Room Air Intake Visit Reasons: Back Pain Intake Note: Pain today 03/26 Fingernail Technician Required: No Accompanied by: Self / Same As Patient Allergies Penicillins Allergy (Severe, Verified 03/19/24 13:12) hives Medication List - Last Reconciled 03/19/24 by FATMATA Larkin acetaminophen 650 mg (2 x 325 mg) PO Q6H PRN atorvastatin 10 mg PO DAILY calcium carbonate (Jeremy-Gest Antacid) 200 mg PO TID cholecalciferol (vitamin D3) 50 mcg PO DAILY ferrous sulfate 325 mg PO DAILY furosemide 20 mg PO DAILY gabapentin 300 mg PO BID 30 days Gel mattress overlay As directed hydroxyzine HCl 25 mg PO DAILY lidocaine 5% 1 patch topical DAILY lisinopril 5 mg PO DAILY magnesium oxide 400 mg PO BID meclizine 12.5 mg PO TID meloxicam 15 mg PO DAILY omeprazole 40 mg PO DAILY ondansetron HCl 4 mg PO Q8H PRN potassium chloride ER 20 mEq PO DAILY sennosides-docusate sodium 8.6-50 mg (Senexon-S) 1 tab PO BID sertraline 100 mg PO DAILY solifenacin 10 mg PO DAILY solifenacin 5 mg PO DAILY sumatriptan succinate 50 mg PO DAILY PRN topiramate 50 mg PO BID trazodone 100 mg PO BEDTIME HPI Comments Details: Patient presents today for follow up for worsening low back pain with bilateral radiculopathy and increased right sided neck pain. Pain is present with any activity, especially walking or standing which she can tolerate for 2-5 min only before she sits down to rest and alleviate her symptoms. She reports her axial low back pain has returned since injections in December and she was interested in RFA but is concerned for neck and low back pain with radicular symptoms and frequent falls. Patient reports last mechanical fall was yesterday without any significant trauma or injury but landed on her right side. Denies loss of consciousness. Neck pain radiates into her right shoulder and right upper extremity with associated numbness and tingling. She wears right lower arm brace for chronic pain. Patient reports she completed Echo per Cardiology today. Continues to experiences frequent chest pain episodes, cough at night, dizziness and falls. Patient has been managing her symptoms with heat, Tylenol, lidocaine patches and using walker at home. Denies any recent cough, cold, infection, fever, bladder or bowel dysfunction or saddle anesthesia or any other significant changes in medical history since last office visit. PRIOR: Patient presents today to assess response to Bilateral Diagnostic L3-L4 DR L5 MBB on 01/14/[address] Reid. Patient reports ongoing 100% pain relief in her lower spine with improvement in her daily functioning, mobility and sleep. She rates her pain at 0/10. She is interested to undergo peripheral nerve stimulation trial with [employer]. We also discussed therapeutic injections and RFA procedure. Patient reports she is now receiving CUSTOMER RELATIONS REPRESENTATIVE services and her grandson has moved in with her. She is currently activity with PT for gait and balance training and notes improvement in her strength and gait stability. She reports occasional episodes of vertigo, takes meclizine and vestibular PT. She also being followed by [facility] for sinus bradycardia, LVH and HTN. Patient requests refill for Ensure supplemental food drinks. Denies any recent cough, cold, infection, fever, any significant changes in her medical history, medications or recent hospitalizations. Past Procedures at [facility]: 01/14/24: Bilateral Diagnostic L3-L4 DR L5 MBB -100% ongoing pain relief 08/20/23: Right intra-articular shoulder steroid injection-70% ongoing pain relief 12/13/22: Left L5-S1 TFESI-100% pain relief for 6 weeks Past Procedures at [facility]: 07/26/20 Right L3-L4 and L5-S1 TFESI 01/13/20 Right L3-L4 CARON PRIOR: Patient is a pleasant 66 years old female who presents to the office for initial encounter with a long standing history of low back pain. Patient has been referred to us by [facility] for low back pain with significant stenosis and nerve compression per lumbar MRI. Patient reports her lower back pain is mostly axial but reports pain radiates laterally down both legs (L>R). She admits diffuse pain all over her body, from head to toes with aches, numbness and tingling anteriorly and laterally of both legs. Patient also reports Tu horses in her lower extremities, pain causes her headaches and fatigue. Patient denies bladder/bowel dysfunction or saddle anesthesia. She reports intermittent weakness in her legs and uses cane for ambulation. She states her pain is persistent, worse with prolong sitting, standing or walking and less severe at night time when she lies down on her side and keep pillow between her legs. She states the pain is interfering with her sleep, activities of daily living and she cannot function normally.?She is on permanent disability and has CUSTOMER RELATIONS REPRESENTATIVE who helps her 3 times per week. The patient reports the pain in terms of tissue damage tugging, pulling, wrenching, tingling, stinging, tight, squeezing, and tearing. She has been taking Gabapentin and meloxican for many years and notes that it has stopped working for her. She rates her current pain 01/24.? Previously she has tried physical therapy through [facility] office, the last being 1 week ago. Patient feels her symptoms were partially improving with PT and she would like to continue that.? Denies any chiropractic manipulation, massage or acupuncture. Denies any previous back surgery but reports has received back injections in the past and she might reconsider these injections through this office in the future. Patient reports she recently got new mattress for her back pain and she requesting prescription for gel pads for her mattress. Patient?s past medical history is significant for HTN, fibromyalgia, degenerative disc disease, lumbar disc degeneration, high cholesterol, and arthritis.? [facility] Medical History Vertigo Cataracts, bilateral Arthritis Anxiety Full dentures Ambulates with cane Diabetes mellitus type 2, diet-controlled Anemia JV (obstructive sleep apnea) Elevated cholesterol HTN (hypertension) GERD (gastroesophageal reflux disease) Spinal stenosis of lumbar region with neurogenic claudication Lumbar back pain with radiculopathy affecting lower extremity Surgical History Hx of colonoscopy History of total right hip replacement Hx of cholecystectomy Social History Are you a primary caretaker to a significant other at home: No Do you presently have visiting nurse or other home services: Yes (CUSTOMER RELATIONS REPRESENTATIVE M-F 4 hours/day) Alcohol intake: never Patient Tobacco Use Status: Never used Tobacco Review of Systems Const All systems reviewed & are unremarkable except as noted in HPI and below Physical Exam General: Appears afebrile. Alert and oriented. Mood and affect appropriate. Follows and participates in conversation appropriately. Respiratory effort is unlabored. No cough. She is able to stand on heels or toes with assistance. Antalgic gait with mild limping. Uses cane with ambulation. HEENT Head: Yes normal to inspection, Yes No palpable skull fracture present, Yes normocephalic, Yes atraumatic, No occipital foramen tenderness, No palpable skull fracture and No periorbital ecchymosis Face and sinus: Yes normal facial exam and Yes face symmetric Eyes General: appearance normal, both eyes and all related structures Pupils: Equal, round and reactive pupils present Neck Other: Patient with decreased cervical ROM in all planes/especially with right lateral rotation. Reports increased pain with cervical extension and flexion. Spurling compression test equivocal. Pain is unchanged by Spurling maneuver with retraction. Elvey's tension test positive on the right, with radiation of pain from neck to wrist. Lhermitte's test was negative. Diminished DTRs bilaterally. Reports significant neck stiffness on the right, balance issues and tripping or loosing her balance when walking. Patient demonstrated 3.4/5 right and 4/5 left motor strength of bilateral upper extremities. 2 + radial pulses. Significant tightness throughout right upper trapezius as well as TTP throughout bilateral upper trapezius muscles. No paravertebral tenderness over facet joints bilaterally. Neck: Yes no lymphadenopathy, Yes supple, No anterior neck swelling, Yes no JVD and No prominent dorsocervical fat pad General: Yes no CVA tenderness Back/Spine/Pelvis Other: Lumbar flexion and extension reproduces moderate-severe lower back pain. Facet loading test positive bilaterally. 2+ pedal pulses bilaterally. Back: no CVA tenderness Cervical Spine: cervical muscular tenderness, pain with cervical ROM and No Cervical spine tenderness Thoracic/Lumbar Spine: thoracic and lumbar spine normal to inspection, No Thoracic/lumbar spine scar(s), Lasegue's sign positive bilateral and localized, pain with thoraco-lumbar ROM, paraspinal muscle tenderness, Thoracic/lumbar scoliosis, thoraco-lumbar spasm, No thoracic spinal tenderness, lumbar spinal tenderness (L3-S1) and straight leg raise positive (right worse than left) bilateral at 50 degrees Pelvis: no buttock tenderness Sacroiliac joints: bilaterally (+Fransico's, +Stinchfield, + Pelvic compression) tender to palpation Neuro Cranial nerves: Yes Equal, round and reactive pupils present Extrem General: Yes capillary refill normal, Yes no clubbing, cyanosis or edema and Yes no calf tenderness Results Reviewed Results Reviewed: XR LUMBAR SPINE XR SACRUM/COCCYX 09/26/23 CLINICAL INFORMATION: History of falling. COMPARISON: MR lumbar spine 08/22/2021. Radiographs thoracic spine 08/12/2020. FINDINGS: SACRUM/COCCYX: Right total hip prosthesis partially imaged. Moderate degenerative changes with joint space narrowing and hypertrophic change left hip. The bones are diffusely demineralized. Small pelvic calcifications are likely vascular. Advanced degenerative changes with sclerosis and hypertrophic change in the bilateral sacroiliac joints. Limited visualization of the sacrum in particular due to overlying bowel. There is a 4-5 mm gap between the distal tip of the coccyx and the remainder of the sacrum/coccyx of indeterminate age and significance. Multiple small ossific/calcific calcifications, many of them rounded, some corticated, are seen in the soft tissues just posterior to the tip of the coccyx on the lateral view, possibly located more laterally on AP views although difficult to characterize. LUMBAR SPINE: Levoscoliosis of the spine. Redemonstration of partially imaged gastric band and tubing. Surgical clips in the right upper quadrant. Advanced facet arthritis in the [id number] lumbar spine. Advanced multilevel spondylosis with marked loss of disc space height at L3-L4. L4-L5 disc space is difficult to evaluate due to overlying bowel and bony demineralization, but there appears to be moderate loss of disc space height at L4-L5. Grade 1 anterolisthesis of L5 on S1 with moderate loss of disc space height. IMPRESSION: 1. Advanced degenerative changes in the bilateral sacroiliac joints. 2. Limited visualization of the sacrum in particular due to overlying bowel. There is a 4-5 mm gap between the distal tip of the coccyx and the remainder of the sacrum/coccyx of indeterminate age and significance. Multiple small ossific/calcific calcifications, some corticated, are seen in the soft tissues just posterior to the tip of the coccyx on the lateral view, possibly located more laterally on AP views although difficult to localize with confidence. 3. Advanced multilevel spondylosis in the lumbar spine. 4. Correlation with clinical exam recommended to determine further management including possible additional imaging. MM/XR DEXA axial skeleton 11/27/23 IMPRESSION: 1. DIAGNOSIS: Osteopenia based on the lowest T-score value of -1.2 in the femoral neck applying World Health Organization criteria. Assessment & Plan Assessment & Plan (1) Cervical spondylosis: Code(s): M47.812 - Spondylosis without myelopathy or radiculopathy, cervical region Category: Medical (2) History of recent fall: Code(s): Z91.81 - History of falling Category: Medical (3) Cervical disc disease with myelopathy: Code(s): M50.00 - Cervical disc disorder with myelopathy, unspecified cervical region Category: Medical (4) Lumbar back pain with radiculopathy affecting lower extremity: Code(s): M54.16 - Radiculopathy, lumbar region Category: Medical (5) Spinal stenosis of lumbar region with neurogenic claudication: Code(s): M48.062 - Spinal stenosis, lumbar region with neurogenic claudication Category: Medical (6) Lumbar spondylosis: Code(s): M47.816 - Spondylosis without myelopathy or radiculopathy, lumbar region Category: Medical (7) CKD stage 3b, GFR 30-44 ml/min: Code(s): N18.32 - Chronic kidney disease, stage 3b Category: Medical (8) Sacroiliac joint pain: Code(s): M53.3 - Sacrococcygeal disorders, not elsewhere classified Category: Medical (9) Chronic pain syndrome: Code(s): G89.4 - Chronic pain syndrome Category: Medical Plan MRI of the lumbar and cervical pine to assess for neural integrity and compression and follow up on recent MRI findings and rule out myelopathy as patient continues to reports issues with balance, recurrent falls, worsening of neck and low back pain with radicular symptoms and weakness. Patient complete pain relief with diagnostic Bilateral L3-L4 L5 MBB and will plan for potential RFA procedure if no significant findings on MRI reports. Nephrology referral to further evaluate elevated BUN and decreased GFR per recent lab values. Patient encouraged adequate hydration and avoid NSAIDs. Patient completed Echo per Cardiology. Continue PT and HEP for low back pain, gait and balance training. All questions and concerns have been answered and patient agreed with the plan. Follow up for MRI results and sooner if needed. Orders: Orders MR cervical spine wo con Today M47.812 - Spondylosis without myelopathy or radiculopathy, cervical region, M50.00 - Cervical disc disorder with myelopathy, unspecified cervical region, Z91.81 - History of falling MR lumbar spine wo con Today M47.816 - Spondylosis without myelopathy or radiculopathy, lumbar region, M48.062 - Spinal stenosis, lumbar region with neurogenic claudication, M54.16 - Radiculopathy, lumbar region Referrals Nephrology Referral N18.32 - Chronic kidney disease, stage 3b Medications: Refilled lidocaine 5% 1 patch topical DAILY 30 patches 3RF for pain G89.4 - Chronic pain syndrome, M47.816 - Spondylosis without myelopathy or radiculopathy, lumbar region Coding Level of Care Code Est Pt Level 4 (71049) Complex EM visit Add On G2211 Diagnoses Cervical spondylosis M47.812 History of recent fall Z91.81 Cervical disc disease with myelopathy M50.00 Lumbar back pain with radiculopathy affecting lower extremity M54.16 Spinal stenosis of lumbar region with neurogenic claudication M48.062 Lumbar spondylosis M47.816 CKD stage 3b, GFR 30-44 ml/min N18.32 Sacroiliac joint pain M53.3 Chronic pain syndrome G89.4
[2024-03-19 13:11] VITALS: BP 126/74; PULSE 61; O2SAT 98; BMI 22.3
== END 2024-03-19 13:35 | disposition home or self-care (01) ==
PROVIDERS: PCP Internal Medicine; Visit Provider Nurse Practitioner Family
DX: M47.812 Spondylosis without myelopathy or radiculopathy, cervical region (principal); Z91.81 History of falling; M50.00 Cervical disc disorder with myelopathy, unspecified cervical region; M54.16 Radiculopathy, lumbar region; M48.062 Spinal stenosis, lumbar region with neurogenic claudication; M47.816 Spondylosis without myelopathy or radiculopathy, lumbar region; N18.32 Chronic kidney disease, stage 3b; M53.3 Sacrococcygeal disorders, not elsewhere classified; G89.4 Chronic pain syndrome
CPT/HCPCS: 99214; G2211

== ENCOUNTER 2024-04-16 13:56 | Outpatient (AMB) | payer OTHER, SELFPAY ==
--- NOTE | 2024-04-16 14:24 | HO.NEPHOV ---
Vital Signs 04/16/24 14:26 Height 5 ft 5 in BP 90/58 L Blood Pressure Location Lt brachial Position Sitting Pulse 75 Pulse Source Pulse Oximeter Pulse Oximetry (%) 94 Oxygen Delivery Method Room Air Intake Visit Reasons: INP:CKD-Conf Senior Accounting Associate Required: No Accompanied by: Self / Same As Patient Allergies Penicillins Allergy (Severe, Verified 04/17/24 08:42) hives HPI Comments Details: I had the pleasure of seeing Lesly in consultation for chronic kidney disease. She is 69 years of age who is not a diabetic but hypertensive on medications. Her blood pressure has been at goal, sometimes low normal. She is on lisinopril as well as Verapamil. She has a lot of pain issues and is closely seen in pain management. She denies any coronary artery disease, congestive heart failure, carotid stenosis, CVA, peripheral arterial disease or known history of renal artery stenosis. She denies any renal calculus, hematuria, history of malignancy, gout, excessive nonsteroidal anti-inflammatory medication intake. She denies any nausea, vomiting, diarrhea, hematemesis, melena, paroxysmal nocturnal dyspnea or orthopnea. She has no pedal edema. She does not get recurrent sinusitis, epistaxis, recurrent UTI. Her serum creatinine has gone up from baseline lately. [facility] Medical History Vertigo Cataracts, bilateral Arthritis Anxiety Full dentures Ambulates with cane Diabetes mellitus type 2, diet-controlled Anemia JV (obstructive sleep apnea) Elevated cholesterol HTN (hypertension) GERD (gastroesophageal reflux disease) Spinal stenosis of lumbar region with neurogenic claudication Lumbar back pain with radiculopathy affecting lower extremity Surgical History Hx of colonoscopy History of total right hip replacement Hx of cholecystectomy Social History Are you a primary physician locums urgent care to a significant other at home: No Do you presently have visiting nurse or other home services: Yes (DENTAL SURGEON M-F 4 hours/day) Alcohol intake: never Patient Tobacco Use Status: Never used Tobacco Review of Systems Const All systems reviewed & are unremarkable except as noted in HPI and below Physical Exam Vital Signs: Last Vital Signs Pulse 75 04/16/24 14:26 BP 90/58 L 04/16/24 14:26 Pulse Ox 94 04/16/24 14:26 Oxygen Delivery Method Room Air 04/16/24 14:26 Const General: comfortable and no acute distress Orientation/consciousness: patient oriented x3 HEENT Head: Yes normocephalic Mouth: Normal oral and palatal mucosa present Eyes EOM: EOMs intact bilaterally Neck Neck: Yes supple Resp Auscultation: clear to auscultation bilaterally Cardio Jugular venous distension: no JVD Rate: regular rate GI Palpation (GI): Soft to palpation Auscultation: normal bowel sounds General: Yes no CVA tenderness Back/Spine/Pelvis Back: no CVA tenderness Skin General skin exam: no rashes or lesions noted Neuro General: patient oriented x3 and moves all extremities Extrem General: Yes no pedal edema Results Reviewed Nephrology Results: Hgb 11.5 g/dl (12.0-16.0) L 02/11/24 WBC 5.6 X10*3/uL (4.8-10.8) 02/11/24 Plt Count 145 X10*3/uL (160-400) L 02/11/24 Sodium 141 mmol/L (135-145) 04/17/24 Potassium 4.2 mmol/L (3.3-5.1) 04/17/24 Chloride 110 mmol/L (96-108) H 04/17/24 Carbon Dioxide 23 mmol/L (22-29) 04/17/24 BUN 26 mg/dL (9-16) H 04/17/24 Creatinine 1.34 mg/dL (0.5-1.4) 04/17/24 Calcium 9.8 mg/dL (8.4-10.2) 04/17/24 Assessment & Plan Assessment & Plan (1) HTN (hypertension): Code(s): I10 - Essential (primary) hypertension Category: Medical Qualifiers: Hypertension type: primary hypertension Qualified Code(s): I10 - Essential (primary) hypertension (2) CKD stage 3a, GFR 45-59 ml/min: Code(s): N18.31 - Chronic kidney disease, stage 3a Category: Medical Plan Lesly has her serum creatinine going up from baseline. She most likely has mild CKD from vascular disease and age related loss of renal function. Her current clinical presentation does not make us suspect of any active glomerular or interstitial pathology causing rise in serum creatinine .Her blood pressure has been running low normal. She is on NIRU inhibitor. She has euvolemic and not tachycardic. I ordered detailed workup. I asked her to stay away from nonsteroidal anti-inflammatories and maintain good hydration. I have ordered ultrasound for kidney including Doppler of her renal arteries. I did not make any medication changes but shall back off on NIRU inhibitor if her serum creatinine goes up further. Potentially she could be a candidate for low-dose SGLT2 inhibitor in the future. All these have been explained in detail. Further management is pending evolving data Orders: Orders Anti DNA DS Antibody 04/17/24 N18.31 - Chronic kidney disease, stage 3a Myeloperoxidase Antibody 04/17/24 N18.31 - Chronic kidney disease, stage 3a Complement C4 04/17/24 N18. - Chronic kidney disease, stage 3a Phospholipase A2 Receptor Pnl 04/17/24 N18.31 - Chronic kidney disease, stage 3a Hepatitis B Core Antibody 04/17/24 N18.31 - Chronic kidney disease, stage 3a Hepatitis B Surface Antigen 04/17/24 N18.31 - Chronic kidney disease, stage 3a Blood Urea Nitrogen 04/17/24 N18.31 - Chronic kidney disease, stage 3a US renal doppler 04/16/24 N18.31 - Chronic kidney disease, stage 3a Proteinase 3 PR3 Antibodies 04/17/24 N18.31 - Chronic kidney disease, stage 3a Anti Glomerular Basement Memb 04/17/24 N18.31 - Chronic kidney disease, stage 3a Complement C3 04/17/24 N18.31 - Chronic kidney disease, stage 3a Immunofixation Pnl, Serum 04/17/24 N18.31 - Chronic kidney disease, stage 3a Creatinine 04/17/24 N18.31 - Chronic kidney disease, stage 3a Electrolytes 04/17/24 N18.31 - Chronic kidney disease, stage 3a Calcium 04/17/24 N18.31 - Chronic kidney disease, stage 3a US renal doppler 04/16/24 N18.31 - Chronic kidney disease, stage 3a US renal BI 04/16/24 N18.31 - Chronic kidney disease, stage 3a, I10 - Essential (primary) hypertension Coding Level of Care Code New Pt Level 4 (23885) Diagnoses Primary hypertension I10 Hypertension type: primary hypertension CKD stage 3a, GFR 45-59 ml/min N18.31
[2024-04-16 14:26] VITALS: BP 90/58; PULSE 75; O2SAT 94
== END 2024-04-16 15:13 | disposition home or self-care (01) ==
LOC: HO.HKAS 13:56
PROVIDERS: PCP Internal Medicine; Referring Provider Nurse Practitioner Family; Visit Provider Internal Medicine Nephrology
DX: I10 Essential (primary) hypertension (principal); N18.31 Chronic kidney disease, stage 3a
CPT/HCPCS: 99204

== ENCOUNTER → 2024-04-16 13:56 | Outpatient (BNVA) | payer OTHER, SELFPAY | PROVIDERS: PCP Internal Medicine; Referring Provider Nurse Practitioner Family; Visit Provider Internal Medicine Nephrology | DX: I12.9 Hypertensive chronic kidney disease with stage 1 through stage 4 chronic kidney disease, or unspecified chronic kidney disease (principal); N18.31 Chronic kidney disease, stage 3a | CPT/HCPCS: 99202 ==

== ENCOUNTER 2024-04-17 08:31 | Outpatient (AMB) | payer OTHER, SELFPAY ==
[2024-04-17 08:41] VITALS: BP 111/56; PULSE 66; O2SAT 98; BMI 22.0
--- NOTE | 2024-04-17 08:41 | A.OFFVIS_ITS ---
Vital Signs 04/17/24 08:41 Height 5 ft 5 in Weight 132 lb 4.438 oz BMI 22.0 BP 111/56 L Blood Pressure Location Lt brachial Position Sitting Pulse 66 Pulse Source Pulse Oximeter Pulse Oximetry (%) 98 Oxygen Delivery Method Room Air Intake Visit Reasons: FU to repeat injections Allergies Penicillins Allergy (Severe, Verified 04/17/24 08:42) hives Medication List - Last Reconciled 04/17/24 by Fiona Adame acetaminophen 650 mg (2 x 325 mg) PO Q6H PRN atorvastatin 10 mg PO DAILY calcium carbonate (Jeremy-Gest Antacid) 200 mg PO TID cholecalciferol (vitamin D3) 50 mcg PO DAILY ferrous sulfate 325 mg PO DAILY furosemide 20 mg PO DAILY gabapentin mg PO BID Gel mattress overlay As directed hydroxyzine HCl 25 mg PO DAILY lidocaine 5% 1 patch topical DAILY lisinopril 5 mg PO DAILY magnesium oxide 400 mg PO BID meclizine 12.5 mg PO TID omeprazole 40 mg PO DAILY ondansetron HCl 4 mg PO Q8H PRN potassium chloride ER 20 mEq PO DAILY sennosides-docusate sodium 8.6-50 mg (Senexon-S) 1 tab PO BID sertraline 100 mg PO DAILY solifenacin 10 mg PO DAILY solifenacin 5 mg PO DAILY sumatriptan succinate 50 mg PO DAILY PRN topiramate 50 mg PO BID trazodone 100 mg PO BEDTIME verapamil ER 120 mg PO DAILY HPI Comments Details: Patient presents today for follow-up for persistent right-sided radiculopathy and axial low back pain. She underwent diagnostic lumbar medial branch blocks in December with significant pain relief and would like to proceed with radiofrequency ablation as next steps for axial low back pain. Her back pain also radiates into right lower extremity and L3-L4 distribution which is consistent with her previous lumbar spine MRI completed in 2021. She would like to undergo therapeutic CARON to address her radicular symptoms. Denies any recent trauma, injury or falls. Patient does have history of recurrent falls due to imbalance and gait issues as well as dizziness and vertigo episodes and has been actively participating in physical therapy for this. Patient is currently managing her pain with Tylenol and lidocaine patches with minimal pain relief. Denies any recent cough, cold, infection, fever, bladder or bowel dysfunction or saddle anesthesia or any other significant changes in medical history since last office visit. PRIOR: Patient presents today to assess response to Bilateral Diagnostic L3-L4 DR L5 MBB on 01/14/[address] Reid. Patient reports ongoing 100% pain relief in her lower spine with improvement in her daily functioning, mobility and sleep. She rates her pain at 0/10. She is interested to undergo peripheral nerve stimulation trial with Sprint. We also discussed therapeutic injections and RFA procedure. Patient reports she is now receiving EMERGENCY MEDICINE PHYSICIAN services and her grandson has moved in with her. She is currently activity with PT for gait and balance training and notes improvement in her strength and gait stability. She reports occasional episodes of vertigo, takes meclizine and vestibular PT. She also being followed by [facility] [place] [facility] for sinus bradycardia, LVH and HTN. Patient requests refill for Ensure supplemental food drinks. Denies any recent cough, cold, infection, fever, any significant changes in her medical history, medications or recent hospitalizations. Past Procedures at [facility] [place]: 01/14/24: Bilateral Diagnostic L3-L4 DR L5 MBB -100% ongoing pain relief 08/20/23: Right intra-articular shoulder steroid injection-70% ongoing pain relief 12/13/22: Left L5-S1 TFESI-100% pain relief for 6 weeks Past Procedures at [facility]: 07/26/20 Right L3-L4 and L5-S1 TFESI 01/13/20 Right L3-L4 CARON PRIOR: Patient is a pleasant 66 years old female who presents to the office for initial encounter with a long standing history of low back pain. Patient has been referred to us by [facility] for low back pain with significant stenosis and nerve compression per lumbar MRI. Patient reports her lower back pain is mostly axial but reports pain radiates laterally down both legs (L>R). She admits diffuse pain all over her body, from head to toes with aches, numbness and tingling anteriorly and laterally of both legs. Patient also reports Tu horses in her lower extremities, pain causes her headaches and fatigue. Patient denies bladder/bowel dysfunction or saddle anesthesia. She reports intermittent weakness in her legs and uses cane for ambulation. She states her pain is persistent, worse with prolong sitting, standing or walking and less severe at night time when she lies down on her side and keep pillow between her legs. She states the pain is interfering with her sleep, activities of daily living and she cannot function normally.?She is on permanent disability and has EMERGENCY MEDICINE PHYSICIAN who helps her 3 times per week. The patient reports the pain in terms of tissue damage tugging, pulling, wrenching, tingling, stinging, tight, squeezing, and tearing. She has been taking Gabapentin and meloxican for many years and notes that it has stopped working for her. She rates her current pain 8/10.? Previously she has tried physical therapy through [facility] office, the last being 1 week ago. Patient feels her symptoms were partially improving with PT and she would like to continue that.? Denies any chiropractic manipulation, massage or acupuncture. Denies any previous back surgery but reports has received back injections in the past and she might reconsider these injections through this office in the future. Patient reports she recently got new mattress for her back pain and she requesting prescription for gel pads for her mattress. Patient?s past medical history is significant for HTN, fibromyalgia, degenerative disc disease, lumbar disc degeneration, high cholesterol, and arthritis.? [facility] Medical History Vertigo Cataracts, bilateral Arthritis Anxiety Full dentures Ambulates with cane Diabetes mellitus type 2, diet-controlled Anemia JV (obstructive sleep apnea) Elevated cholesterol HTN (hypertension) GERD (gastroesophageal reflux disease) Spinal stenosis of lumbar region with neurogenic claudication Lumbar back pain with radiculopathy affecting lower extremity Surgical History Hx of colonoscopy History of total right hip replacement Hx of cholecystectomy Social History Are you a primary palliative care nurse practitioner to a significant other at home: No Do you presently have visiting nurse or other home services: Yes (EMERGENCY MEDICINE PHYSICIAN M-F 4 hours/day) Alcohol intake: never Patient Tobacco Use Status: Never used Tobacco Review of Systems Const All systems reviewed & are unremarkable except as noted in HPI and below Physical Exam Vital Signs: Last Vital Signs Pulse 66 04/17/24 08:41 BP 111/56 L 04/17/24 08:41 Pulse Ox 98 04/17/24 08:41 Oxygen Delivery Method Room Air 04/17/24 08:41 BMI result Body Mass Index 22.0 General: Appears afebrile. Alert and oriented. Mood and affect appropriate. Follows and participates in conversation appropriately. Respiratory effort is unlabored. No cough. She is able to stand on heels or toes with assistance. Antalgic gait with mild limping. Uses cane with ambulation. HEENT Head: Yes normal to inspection, Yes No palpable skull fracture present, Yes normocephalic, Yes atraumatic, No occipital foramen tenderness, No palpable skull fracture and No periorbital ecchymosis Face and sinus: Yes normal facial exam and Yes face symmetric Eyes General: appearance normal, both eyes and all related structures Pupils: Equal, round and reactive pupils present Neck Other: Patient with decreased cervical ROM in all planes/especially with right lateral rotation. Reports increased pain with cervical extension and flexion. Spurling compression test equivocal. Pain is unchanged by Spurling maneuver with retraction. Elvey's tension test positive on the right, with radiation of pain from neck to wrist. Lhermitte's test was negative. Diminished DTRs bilaterally. Reports significant neck stiffness on the right, balance issues and tripping or loosing her balance when walking. Patient demonstrated 3.4/5 right and 4/5 left motor strength of bilateral upper extremities. 2 + radial pulses. Significant tightness throughout right upper trapezius as well as TTP throughout bilateral upper trapezius muscles. No paravertebral tenderness over facet joints bilaterally. Neck: Yes no lymphadenopathy, Yes supple, No anterior neck swelling, Yes no JVD and No prominent dorsocervical fat pad General: Yes no CVA tenderness Back/Spine/Pelvis Other: Lumbar flexion and extension reproduces moderate lower back pain, worse with bending and flexing forward. Facet loading test positive bilaterally. 2+ pedal pulses bilaterally. Reports increased pain with coughing or sneezing. No midline tenderness and thoracic or lumbar spine. Back: no CVA tenderness Cervical Spine: cervical ROM normal, loss of normal cervical lordosis, cervical muscular tenderness and No Cervical spine tenderness Thoracic/Lumbar Spine: thoracic and lumbar spine normal to inspection, No Thoracic/lumbar spine scar(s), Lasegue's sign positive (L3-L4 distribution) on the right and localized, pain with thoraco-lumbar ROM, paraspinal muscle tenderness, Thoracic/lumbar scoliosis, thoraco-lumbar spasm, No thoracic spinal tenderness, lumbar spinal tenderness (L3-S1) and straight leg raise positive (right worse than left) bilateral at 50 degrees Pelvis: buttock tenderness on the left Sacroiliac joints: bilaterally (+Fransico's, +Stinchfield, + Pelvic compression) tender to palpation Neuro Cranial nerves: Yes Equal, round and reactive pupils present Extrem General: Yes capillary refill normal, Yes no clubbing, cyanosis or edema and Yes no calf tenderness Results Reviewed Results Reviewed: XR LUMBAR SPINE XR SACRUM/COCCYX 09/26/23 CLINICAL INFORMATION: History of falling. COMPARISON: MR lumbar spine 08/22/2021. Radiographs thoracic spine 08/12/2020. FINDINGS: SACRUM/COCCYX: Right total hip prosthesis partially imaged. Moderate degenerative changes with joint space narrowing and hypertrophic change left hip. The bones are diffusely demineralized. Small pelvic calcifications are likely vascular. Advanced degenerative changes with sclerosis and hypertrophic change in the bilateral sacroiliac joints. Limited visualization of the sacrum in particular due to overlying bowel. There is a 4-5 mm gap between the distal tip of the coccyx and the remainder of the sacrum/coccyx of indeterminate age and significance. Multiple small ossific/calcific calcifications, many of them rounded, some corticated, are seen in the soft tissues just posterior to the tip of the coccyx on the lateral view, possibly located more laterally on AP views although difficult to characterize. LUMBAR SPINE: Levoscoliosis of the spine. Redemonstration of partially imaged gastric band and tubing. Surgical clips in the right upper quadrant. Advanced facet arthritis in the [id number] lumbar spine. Advanced multilevel spondylosis with marked loss of disc space height at L3-L4. L4-L5 disc space is difficult to evaluate due to overlying bowel and bony demineralization, but there appears to be moderate loss of disc space height at L4-L5. Grade 1 anterolisthesis of L5 on S1 with moderate loss of disc space height. IMPRESSION: 1. Advanced degenerative changes in the bilateral sacroiliac joints. 2. Limited visualization of the sacrum in particular due to overlying bowel. There is a 4-5 mm gap between the distal tip of the coccyx and the remainder of the sacrum/coccyx of indeterminate age and significance. Multiple small ossific/calcific calcifications, some corticated, are seen in the soft tissues just posterior to the tip of the coccyx on the lateral view, possibly located more laterally on AP views although difficult to localize with confidence. 3. Advanced multilevel spondylosis in the lumbar spine. 4. Correlation with clinical exam recommended to determine further management including possible additional imaging. MM/XR DEXA axial skeleton 11/27/23 IMPRESSION: 1. DIAGNOSIS: Osteopenia based on the lowest T-score value of -1.2 in the femoral neck applying World Health Organization criteria. MR LUMBAR SPINE WITHOUT CONTRAST 08/22/21 CLINICAL INFORMATION: Spinal stenosis. Lumbar spine. Neurogenic claudication. FINDINGS: There is spinal scoliosis with a leftward convex curvature centered at L3-L4. Slight left lateral subluxation of L4 on L5. Grade 1 anterolisthesis of L5 on S1 related to facet degenerative changes at this level. Vertebral body heights are preserved. No acute bone marrow signal changes. There is loss of intervertebral disc height and T2 signal intensity at multiple levels related to disc degeneration. The tip of the conus medullaris is located at L1. No mass effect on the conus. Visualized distal cord signal intensity is normal. At L1-L2 the annular contour is normal. No canal or neuroforaminal compromise. At L2-L3 there is a slightly bulging disc. Bilateral facet degenerative change. No canal stenosis. No mass effect on the traversing or foraminal nerve roots. At L3-L4 there is a diffusely bulging disc. Bilateral facet degenerative change. Mild canal stenosis. Asymmetric narrowing of the right subarticular zone causes displacement of the right traversing L4 nerve roots. Moderate to severe compression of the right L3 foraminal nerve root. At L4-L5 there is a diffusely bulging disc and bilateral facet degenerative change. Mild canal stenosis. Subarticular zone narrowing causes displacement and likely compression of the right traversing L5 nerve roots. Mild compression of both L4 foraminal nerve roots. At L5-S1 there is a diffusely bulging disc. Bilateral facet degenerative change. No canal stenosis. Subarticular zone narrowing causes abutment and possible compression of both traversing S1 nerve roots. Moderate compression of the left L5 foraminal nerve root. Limited visualization of the retroperitoneal anatomy reveals a few well marginated benign-appearing cystic lesions within both kidneys. Psoas and paraspinal muscle groups are symmetric. IMPRESSION: There is multilevel degenerative spondylosis of the lumbar spine. Mild canal stenosis at L3-L4 and L4-L5. There are varying degrees of mass effect on the traversing and foraminal segments of the nerve roots as described above. For instance a slightly bulging disc at L3-L4 cause moderate to severe compression of the right L3 foraminal nerve root. A pseudodisc bulge in conjunction with facet degenerative change at L5-S1 causes moderate compression of the left L5 foraminal nerve root. Assessment & Plan Assessment & Plan (1) Lumbar spondylosis: Code(s): M47.816 - Spondylosis without myelopathy or radiculopathy, lumbar region Category: Medical (2) Sacroiliac joint pain: Code(s): M53.3 - Sacrococcygeal disorders, not elsewhere classified Category: Medical (3) Chronic pain syndrome: Code(s): G89.4 - Chronic pain syndrome Category: Medical (4) Lumbar back pain with radiculopathy affecting lower extremity: Code(s): M54.16 - Radiculopathy, lumbar region Category: Medical (5) Spinal stenosis of lumbar region with neurogenic claudication: Code(s): M48.062 - Spinal stenosis, lumbar region with neurogenic claudication Category: Medical Plan Schedule Right L3-L4 TFESI with local and fluoroscopy for radicular right-sided low back pain. For ongoing axial low back pain and positive results with diagnostic lumbar MBB in December, we will subsequently proceed with bilateral L3-L4 L5 medial branch RFA with sedation and fluoroscopy. We also discussed peripheral nerve stimulation with Sprint device. All questions and concerns have been answered and patient agreed with the plan. Follow up after injections and sooner if needed. Justification for interventional therapy: ? Patient with average pain > 6/10 ? Patient has exhausted conservative therapy, including physical therapy, NSAIDs The risks, consequences, alternatives, and benefits of various treatment options were discussed with the patient in great detail, including conservative management, injections and procedures. Patient is aware of hyperglycemic effects of steroids. Coding Level of Care Code Est Pt Level 4 (88159) Complex EM visit Add On G2211 Diagnoses Lumbar spondylosis M47.816 Sacroiliac joint pain M53.3 Chronic pain syndrome G89.4 Lumbar back pain with radiculopathy affecting lower extremity M54.16 Spinal stenosis of lumbar region with neurogenic claudication M48.062
== END 2024-04-17 08:57 | disposition home or self-care (01) ==
LOC: HO.PMC 08:31
PROVIDERS: PCP Internal Medicine; Visit Provider Nurse Practitioner Family
DX: M47.816 Spondylosis without myelopathy or radiculopathy, lumbar region (principal); M53.3 Sacrococcygeal disorders, not elsewhere classified; G89.4 Chronic pain syndrome; M54.16 Radiculopathy, lumbar region; M48.062 Spinal stenosis, lumbar region with neurogenic claudication
CPT/HCPCS: 99214; G2211

== ENCOUNTER → 2024-04-17 08:31 | Outpatient (BNVA) | payer OTHER, SELFPAY | PROVIDERS: PCP Internal Medicine; Visit Provider Nurse Practitioner Family | DX: M48.062 Spinal stenosis, lumbar region with neurogenic claudication (principal); M47.816 Spondylosis without myelopathy or radiculopathy, lumbar region; M54.16 Radiculopathy, lumbar region; M53.3 Sacrococcygeal disorders, not elsewhere classified; G89.4 Chronic pain syndrome | CPT/HCPCS: 99212 ==

== ENCOUNTER 2024-04-17 09:06 | Outpatient (REF) | payer OTHER, SELFPAY ==
[2024-04-17 11:54] LABS: HBsAGNum1 0.24 S/CO (0.00-0.99); Hepatitis B Core Antibody Nonreactive (Nonreactive); Hepatitis B Surface Antigen Negative (Negative)
[2024-04-17 12:03] LABS: Anion Gap 12 (12-20); Blood Urea Nitrogen 26 mg/dL (9-16); Calcium 9.8 mg/dL (8.4-10.2); Carbon Dioxide 23 mmol/L (22-29); Chloride 110 mmol/L (96-108); Estimated Glomerular Filt Rate 39; Potassium 4.2 mmol/L (3.3-5.1); Sodium 141 mmol/L (135-145)
[2024-04-20 09:53] LABS: Complement C3 116 mg/dL (83-193)
[2024-04-20 16:09] LABS: Anti DNA DS Antibody 1 IU/mL; Anti Glomerular Basement Memb <1.0 AI; Myeloperoxidase Antibody <1.0 AI; Proteinase 3 PR3 Antibodies <1.0 AI
[2024-04-21 23:08] LABS: IgA 326 mg/dL (70-320); IgG 1405 mg/dL (600-1540); IgM 66 mg/dL (50-300)
[2024-05-01 14:48] LABS: Phospholipase A2 IgG ELISA <4 RU/mL; Phospholipase A2 IgG IFA NEGATIVE (NEGATIVE)
== END 2024-04-17 09:07 | disposition home or self-care (01) ==
LOC: HO.LAB 09:06
PROVIDERS: PCP Internal Medicine; Visit Provider Internal Medicine Nephrology
DX: N18.31 Chronic kidney disease, stage 3a (principal)
CPT/HCPCS: 36415; 80051; 82310; 82565; 82784; 83520; 84520; 86021; 86160; 86225; 86255; 86334; 86704; 87340

== ENCOUNTER 2024-05-19 10:10 | Outpatient (REF) | payer OTHER, SELFPAY ==
--- NOTE | ~2024-05-19 | US_ITS ---
EXAMINATION: ULTRASOUND RENAL WITH DOPPLER CLINICAL INFORMATION: CAD stage III COMPARISON: None. TECHNIQUE: Real-time grayscale, color Doppler, and duplex Doppler evaluation of the kidneys and renal vasculature was performed. FINDINGS: RENAL MEASUREMENTS: Right: 8.4 x 4.5 x 3.9 cm (Sag x AP x TV) Left: 7.7 x 5.3 x 3.6 cm (Sag x AP x TV) Multiple bilateral simple renal cysts which do not require follow-up. The renal parenchyma appears normal. No hydronephrosis or nephrolithiasis. DOPPLER INTERROGATION: Aorta: 77 cm/sec Right Main Renal Artery: Proximal: Not visualized Mid: Not visualized Distal: 55 cm/sec Left Main Renal Artery: Proximal: 86 cm/sec Mid: 165 cm/sec Distal: 121 cm/sec US/US renal BI IMPRESSION: No evidence of renal artery stenosis, though the proximal and mid right renal artery were not visualized. Electronically signed by: Angélica Gagnon MD 05/20/2024 07:09 AM [facility]
--- NOTE | ~2024-05-19 | US_ITS ---
EXAMINATION: ULTRASOUND RENAL WITH DOPPLER CLINICAL INFORMATION: CAD stage III COMPARISON: None. TECHNIQUE: Real-time grayscale, color Doppler, and duplex Doppler evaluation of the kidneys and renal vasculature was performed. FINDINGS: RENAL MEASUREMENTS: Right: 8.4 x 4.5 x 3.9 cm (Sag x AP x TV) Left: 7.7 x 5.3 x 3.6 cm (Sag x AP x TV) Multiple bilateral simple renal cysts which do not require follow-up. The renal parenchyma appears normal. No hydronephrosis or nephrolithiasis. DOPPLER INTERROGATION: Aorta: 77 cm/sec Right Main Renal Artery: Proximal: Not visualized Mid: Not visualized Distal: 55 cm/sec Left Main Renal Artery: Proximal: 86 cm/sec Mid: 165 cm/sec Distal: 121 cm/sec US/US renal doppler IMPRESSION: No evidence of renal artery stenosis, though the proximal and mid right renal artery were not visualized. Electronically signed by: Angélica Gagnon MD 05/20/2024 07:09 AM [facility]
== END 2024-05-19 10:11 | disposition home or self-care (01) ==
LOC: HO.US 10:10
PROVIDERS: PCP Internal Medicine; Visit Provider Internal Medicine Nephrology
DX: I12.9 Hypertensive chronic kidney disease with stage 1 through stage 4 chronic kidney disease, or unspecified chronic kidney disease (principal); N18.31 Chronic kidney disease, stage 3a
CPT/HCPCS: 76775; 93975

== ENCOUNTER 2024-08-13 09:07 | Outpatient (AMB) | payer OTHER, SELFPAY ==
--- NOTE | 2024-08-13 09:08 | A.OFFVIS_ITS ---
Vital Signs 08/13/24 09:14 Height 5 ft 5 in Weight 132 lb BMI 22.0 BP 125/65 Blood Pressure Location Rt brachial Position Sitting Pulse 58 Pulse Source Pulse Oximeter Pulse Oximetry (%) 97 Oxygen Delivery Method Room Air Intake Visit Reasons: Back, Neck, Shoulder & Hip Pain From A Fall Intake Note: Patient states that this past Saturday08/08/24 she had fallen, states that she fell down 14 stairs at home. I asked patient if she went to ER or seeked any medical attention and she states no they told me it would be a 5 hour wait and I'm not sitting anywhere for 5 hours, I just stayed on the floor for a little bit and then get up. Patient states that she heard a crack in her back when she fell, states that she does not live alone, that her grandson does live with her but he was at work when she fell. States that she put it in her tablet and he was snooping and found out she fell and was upset with her. Pain today 03/26 Freelance Translator Required: No Accompanied by: Self / Same As Patient Allergies Penicillins Allergy (Severe, Verified 08/13/24 09:31) hives HPI Comments Details: Patient presents today for follow up for acute right shoulder, neck, acute on chronic low back with right radiculopathy, and right hip pain status post fall on 08/08/24. Patient reports she was coming down the stairs and her right leg gave out and she fell 14 steps downstairs. She denies loss of consciousness and denies current anti-coagulation medications. Since last visit, we were planing to schedule right L3-L4 TFESI for significant stenosis and nerve compression per most recent lumbar MRI. Our schedulers reached out to patient numerously without sucess and were not able to leave voicemail as her voicemail box is full. Patient reports today she would like to be scheduled for this injection. Paperwork was provided to patient today. Patient reports she declined ER visit after fall due to long hours to be seen and did not call her PCP since recent fall. Patient reports she continues to experience frequent vertigo episodes and states she was taking off of meclizine by her PCP. However, she reports recent recurring fall was non-syncopal and was mechanical due to her back and right leg pain. Patient lives with her grandson who was at work when she fell. Patient reports she has [employer] services for assistance with ADLs at home but no VNA services or medical life alert. She completed evaluation and one session of PT last January past for gait, strength and balance and was discharged from PT due to non-compliance with visits. I have also referred this patient for Vestribular therapy for chronic vertigo but she was not able to attend as of yet. I recommend patient to go to ER for evaluation s/p recent fall and VNA services referral for fall safety and home safety evaluation. She was offered 911 services to bring her to our local ER, patient declined. Reports she feels steady with ambulation with cane. She also uses walker at home. PRIOR: Patient presents today for follow-up for persistent right-sided radiculopathy and axial low back pain. She underwent diagnostic lumbar medial branch blocks in December with significant pain relief and would like to proceed with radiofrequency ablation as next steps for axial low back pain. Her back pain also radiates into right lower extremity and L3-L4 distribution which is consistent with her previous lumbar spine MRI completed in 2021. She would like to undergo therapeutic CARON to address her radicular symptoms. Denies any recent trauma, injury or falls. Patient does have history of recurrent falls due to imbalance and gait issues as well as dizziness and vertigo episodes and has been actively participating in physical therapy for this. Patient is currently managing her pain with Tylenol and lidocaine patches with minimal pain relief. Denies any recent cough, cold, infection, fever, bladder or bowel dysfunction or saddle anesthesia or any other significant changes in medical history since last office visit. PRIOR: Patient presents today to assess response to Bilateral Diagnostic L3-L4 DR Nic ANTUNEZ on 01/14/[address] Reid. Patient reports ongoing 100% pain relief in her lower spine with improvement in her daily functioning, mobility and sleep. She rates her pain at 0/10. She is interested to undergo peripheral nerve stimulation trial with Sprint. We also discussed therapeutic injections and RFA procedure. Patient reports she is now receiving [employer] services and her grandson has moved in with her. She is currently activity with PT for gait and balance training and notes improvement in her strength and gait stability. She reports occasional episodes of vertigo, takes meclizine and vestibular PT. She also being followed by [facility] [place] for sinus bradycardia, LVH and HTN. Patient requests refill for Ensure supplemental food drinks. Denies any recent cough, cold, infection, fever, any significant changes in her medical history, medications or recent hospitalizations. Past Procedures at [facility]: 01/14/24: Bilateral Diagnostic L3-L4 DR L5 MBB -100% ongoing pain relief 08/20/23: Right intra-articular shoulder steroid injection-70% ongoing pain relief 12/13/22: Left L5-S1 TFESI-100% pain relief for 6 weeks Past Procedures at [facility]: 07/26/20 Right L3-L4 and L5-S1 TFESI 01/13/20 Right L3-L4 CARON PRIOR: Patient is a pleasant 66 years old female who presents to the office for initial encounter with a long standing history of low back pain. Patient has been referred to us by [facility] for low back pain with significant stenosis and nerve compression per lumbar MRI. Patient reports her lower back pain is mostly axial but reports pain radiates laterally down both legs (L>R). She admits diffuse pain all over her body, from head to toes with aches, numbness and tingling anteriorly and laterally of both legs. Patient also reports Tu horses in her lower extremities, pain causes her headaches and fatigue. Patient denies bladder/bowel dysfunction or saddle anesthesia. She reports intermittent weakness in her legs and uses cane for ambulation. She states her pain is persistent, worse with prolong sitting, standing or walking and less severe at night time when she lies down on her side and keep pillow between her legs. She states the pain is interfering with her sleep, activities of daily living and she cannot function normally.?She is on permanent disability and has [employer] who helps her 3 times per week. The patient reports the pain in terms of tissue damage tugging, pulling, wrenching, tingling, stinging, tight, squeezing, and tearing. She has been taking Gabapentin and meloxican for many years and notes that it has stopped working for her. She rates her current pain 8/10.? Previously she has tried physical therapy through [facility] office, the last being 1 week ago. Patient feels her symptoms were partially improving with PT and she would like to continue that.? Denies any chiropractic manipulation, massage or acupuncture. Denies any previous back surgery but reports has received back injections in the past and she might reconsider these injections through this office in the future. Patient reports she recently got new mattress for her back pain and she requesting prescription for gel pads for her mattress. Patient?s past medical history is significant for HTN, fibromyalgia, degenerative disc disease, lumbar disc degeneration, high cholesterol, and arthritis.? [facility] Medical History Vertigo Cataracts, bilateral Arthritis Anxiety Full dentures Ambulates with cane Diabetes mellitus type 2, diet-controlled Anemia JV (obstructive sleep apnea) Elevated cholesterol HTN (hypertension) GERD (gastroesophageal reflux disease) Spinal stenosis of lumbar region with neurogenic claudication Lumbar back pain with radiculopathy affecting lower extremity Surgical History Hx of colonoscopy History of total right hip replacement Hx of cholecystectomy Social History Are you a primary healthcare administrator to a significant other at home: No Do you presently have visiting nurse or other home services: Yes ([employer] M-F 4 hours/day) Alcohol intake: never Patient Tobacco Use Status: Never used Tobacco Review of Systems Const All systems reviewed & are unremarkable except as noted in HPI and below Physical Exam Vital Signs: Last Vital Signs Pulse 58 08/13/24 09:14 BP 125/65 08/13/24 09:14 Pulse Ox 97 08/13/24 09:14 Oxygen Delivery Method Room Air 08/13/24 09:14 BMI result Body Mass Index 22.0 General: Appears afebrile. Alert and oriented. Mood and affect appropriate. Follows and participates in conversation appropriately. Respiratory effort is unlabored. No cough. She is able to stand on heels or toes with assistance. Antalgic gait with mild limping. Uses cane with ambulation. HEENT Head: Yes No palpable skull fracture present, Yes normocephalic, Yes atraumatic, No palpable skull fracture and No periorbital ecchymosis Eyes General: appearance normal, both eyes and all related structures Pupils: Equal, round and reactive pupils present Neck Neck: Yes no lymphadenopathy, Yes supple, No anterior neck swelling, Yes no JVD and No prominent dorsocervical fat pad General: Yes no CVA tenderness Back/Spine/Pelvis Other: Lumbar flexion and extension reproduces moderate lower back pain, worse with bending and flexing forward. Facet loading test positive bilaterally. 2+ pedal pulses bilaterally. Mild midline tenderness in lower thoracic and lumbar spine. Back: no CVA tenderness Cervical Spine: cervical ROM normal, cervical muscular tenderness, pain with cervical ROM and No Cervical spine tenderness Thoracic/Lumbar Spine: thoracic and lumbar spine normal to inspection, No Thoracic/lumbar spine scar(s), Lasegue's sign positive on the right, pain with thoraco-lumbar ROM, paraspinal muscle tenderness, Thoracic/lumbar scoliosis, thoraco-lumbar spasm, thoracic spinal tenderness (lower thoracic), lumbar spinal tenderness (L3-S1) and straight leg raise positive (right worse than left) bilateral at 50 degrees Pelvis: buttock tenderness on the left Sacroiliac joints: bilaterally (+Fransico's, +Stinchfield, + Pelvic compression) tender to palpation Neuro Cranial nerves: Yes Equal, round and reactive pupils present Extrem General: Yes capillary refill normal, Yes no clubbing, cyanosis or edema and Yes no calf tenderness Results Reviewed Results Reviewed: XR LUMBAR SPINE XR SACRUM/COCCYX 09/26/23 CLINICAL INFORMATION: History of falling. COMPARISON: MR lumbar spine 08/22/2021. Radiographs thoracic spine 08/12/2020. FINDINGS: SACRUM/COCCYX: Right total hip prosthesis partially imaged. Moderate degenerative changes with joint space narrowing and hypertrophic change left hip. The bones are diffusely demineralized. Small pelvic calcifications are likely vascular. Advanced degenerative changes with sclerosis and hypertrophic change in the bilateral sacroiliac joints. Limited visualization of the sacrum in particular due to overlying bowel. There is a 4-5 mm gap between the distal tip of the coccyx and the remainder of the sacrum/coccyx of indeterminate age and significance. Multiple small ossific/calcific calcifications, many of them rounded, some corticated, are seen in the soft tissues just posterior to the tip of the coccyx on the lateral view, possibly located more laterally on AP views although difficult to characterize. LUMBAR SPINE: Levoscoliosis of the spine. Redemonstration of partially imaged gastric band and tubing. Surgical clips in the right upper quadrant. Advanced facet arthritis in the [id number] lumbar spine. Advanced multilevel spondylosis with marked loss of disc space height at L3-L4. L4-L5 disc space is difficult to evaluate due to overlying bowel and bony demineralization, but there appears to be moderate loss of disc space height at L4-L5. Grade 1 anterolisthesis of L5 on S1 with moderate loss of disc space height. IMPRESSION: 1. Advanced degenerative changes in the bilateral sacroiliac joints. 2. Limited visualization of the sacrum in particular due to overlying bowel. There is a 4-5 mm gap between the distal tip of the coccyx and the remainder of the sacrum/coccyx of indeterminate age and significance. Multiple small ossific/calcific calcifications, some corticated, are seen in the soft tissues just posterior to the tip of the coccyx on the lateral view, possibly located more laterally on AP views although difficult to localize with confidence. 3. Advanced multilevel spondylosis in the lumbar spine. 4. Correlation with clinical exam recommended to determine further management including possible additional imaging. MM/XR DEXA axial skeleton 11/27/23 IMPRESSION: 1. DIAGNOSIS: Osteopenia based on the lowest T-score value of -1.2 in the femoral neck applying World Health Organization criteria. MR LUMBAR SPINE WITHOUT CONTRAST 08/22/21 CLINICAL INFORMATION: Spinal stenosis. Lumbar spine. Neurogenic claudication. FINDINGS: There is spinal scoliosis with a leftward convex curvature centered at L3-L4. Slight left lateral subluxation of L4 on L5. Grade 1 anterolisthesis of L5 on S1 related to facet degenerative changes at this level. Vertebral body heights are preserved. No acute bone marrow signal changes. There is loss of intervertebral disc height and T2 signal intensity at multiple levels related to disc degeneration. The tip of the conus medullaris is located at L1. No mass effect on the conus. Visualized distal cord signal intensity is normal. At L1-L2 the annular contour is normal. No canal or neuroforaminal compromise. At L2-L3 there is a slightly bulging disc. Bilateral facet degenerative change. No canal stenosis. No mass effect on the traversing or foraminal nerve roots. At L3-L4 there is a diffusely bulging disc. Bilateral facet degenerative change. Mild canal stenosis. Asymmetric narrowing of the right subarticular zone causes displacement of the right traversing L4 nerve roots. Moderate to severe compression of the right L3 foraminal nerve root. At L4-L5 there is a diffusely bulging disc and bilateral facet degenerative change. Mild canal stenosis. Subarticular zone narrowing causes displacement and likely compression of the right traversing L5 nerve roots. Mild compression of both L4 foraminal nerve roots. At L5-S1 there is a diffusely bulging disc. Bilateral facet degenerative change. No canal stenosis. Subarticular zone narrowing causes abutment and possible compression of both traversing S1 nerve roots. Moderate compression of the left L5 foraminal nerve root. Limited visualization of the retroperitoneal anatomy reveals a few well marginated benign-appearing cystic lesions within both kidneys. Psoas and paraspinal muscle groups are symmetric. IMPRESSION: There is multilevel degenerative spondylosis of the lumbar spine. Mild canal stenosis at L3-L4 and L4-L5. There are varying degrees of mass effect on the traversing and foraminal segments of the nerve roots as described above. For instance a slightly bulging disc at L3-L4 cause moderate to severe compression of the right L3 foraminal nerve root. A pseudodisc bulge in conjunction with facet degenerative change at L5-S1 causes moderate compression of the left L5 foraminal nerve root. Assessment & Plan Assessment & Plan (1) Lumbar spondylosis: Code(s): M47.816 - Spondylosis without myelopathy or radiculopathy, lumbar region Category: Medical (2) Sacroiliac joint pain: Code(s): M53.3 - Sacrococcygeal disorders, not elsewhere classified Category: Medical (3) Chronic pain syndrome: Code(s): G89.4 - Chronic pain syndrome Category: Medical (4) Lumbar back pain with radiculopathy affecting lower extremity: Code(s): M54.16 - Radiculopathy, lumbar region Category: Medical (5) Spinal stenosis of lumbar region with neurogenic claudication: Code(s): M48.062 - Spinal stenosis, lumbar region with neurogenic claudication Category: Medical (6) History of recent fall: Code(s): Z91.81 - History of falling Category: Medical (7) Frequent falls: Code(s): R29.6 - Repeated falls Category: Medical (8) Vertigo: Code(s): R42 - Dizziness and giddiness Category: Medical (9) Gait instability: Code(s): R26.81 - Unsteadiness on feet Category: Medical Plan Patient was advised to go to ER for acute fall management in the elderly and follow up with her PCP. VNA services for fall safety and home safety evaluation due to history of multiple repeated falls. Proceed with Right L3-L4 TFESI with local and fluoroscopy for radicular right- sided low back radicular pain as planned. For ongoing axial low back pain and positive results with diagnostic lumbar MBB in December, we will subsequently proceed with bilateral L3-L4 L5 medial branch RFA with sedation and fluoroscopy. We also discussed peripheral nerve stimulation with Sprint device. All questions and concerns have been answered and patient agreed with the plan. Follow up after injections and sooner if needed. Orders: Referrals [facility] Referral M48.062 - Spinal stenosis, lumbar region with neurogenic claudication, R26.81 - Unsteadiness on feet, R29.6 - Repeated falls, R42 - Dizziness and giddiness, Z91.81 - History of falling Coding Level of Care Code Est Pt Level 4 (99096) Diagnoses Lumbar spondylosis M47.816 Sacroiliac joint pain M53.3 Chronic pain syndrome G89.4 Lumbar back pain with radiculopathy affecting lower extremity M54.16 Spinal stenosis of lumbar region with neurogenic claudication M48.062 History of recent fall Z91.81 Frequent falls R29.6 Vertigo R42 Gait instability R26.81
[2024-08-13 09:14] VITALS: BP 125/65; PULSE 58; O2SAT 97; BMI 22.0
--- OUTSIDE RECORDS SUMMARY | 2024-08-13 09:56 | XMS_ITS | Data Portability ---
Author Organization [place] - [facility], All[facility] Address [address] [place] [phone] Care Team Providers [facility] Sales Manager Name Role Phone TAYLOR CANO Referring Provider Assessment Encounter Date Assessment Date Assessment LastModified by Organization Details LastModified Time 12/31/2023 12/31/2023 Patient presents with non-pulsatile tinnitus and difficulty comprehending speech in background noise. Audiometric testing demonstrates only age-related high-frequency hearing loss not impacting the human speech frequencies. Reviewed good listening strategies. Reviewed the possibility of auditory processing disorder and patient is eager to be tested for this. Will call with results. Follow up in one year, sooner with perceived change. [email or web address] Not available 12/31/2023 15:14:00 Plan of Treatment Reminders Order Date Submit Date Provider Last Modified By Organization Details Last Modified Time Details Appointments None recorded. Lab None recorded. Referral None recorded. Procedures None recorded. Surgeries None recorded. Imaging audiogram 2023 024 [email or web address] [id number] Not available 08:53:00 Medication Orders None recorded. Patient TargetsNo targets recorded. Patient InstructionsNo instructions recorded. Reason for Referral None Reported. Results Created Date Observation Date Name Description Value Unit Range Abnormal Flag Note LastModifiedBy Organization Detail LastModifiedTime 01/02/20 24 audio gram No observ ation record ed. [email or web address] Not Available 12/15 16:03:26 01/09/20 24 audio gram No observ ation record ed. BARCODE Not Available 2023 16:40:48 01/09/20 24 audio gram No observ ation record ed. BARCODE Not Available 2023 16:43:53 01/09/20 24 audio gram No observ ation record ed. [email or web address] Not Available 16:44:54 Result Notes None recorded. Problems Name Problem SNOMED Code Status Onset Date Resolution Date Notes Provider Name and Address Organization Details Recorded Time Bilateral tinnitus 5656602689893 Active 2023 OSCAR POLLARD MA, CCC-A [address], [place], [phone], [facility] - [facility] 4 14:37:41 Abnormal auditory perception 99900542 Active 2023 OSCAR POLLARD MA, [facility] [address] [facility] [address], [place], [address], [facility] 4 14:37:53 Sensorineur al hearing loss of bilateral ears [id number] Active 2023 MERCY ARECHIGA PA-C [address] [facility], [place], [address], [facility] 4 15:14:58 Problem Notes None recorded. Procedures Surgical History Date Name Laterality Status Provider Name and Address Organization Details Recorded Time 12/31/2023 Comp Audio with Tymps (29502 & 35407) completed OSCAR POLLARD MA, [facility] [address] [facility],[facility] [address], [place], [address], [facility] 12/31/2023 14:38:17 Imaging Results Imaging Date Name Status LastModified by Organiz ation Details LastModified Time 01/02/2024 audiogram completed [email or web address] Information n ot available 01/02/2024 16:03:26 01/09/2024 audiogram completed BARCODE Information no t available 01/09/2024 16:40:48 01/09/2024 audiogram completed BARCODE Information no t available 01/09/2024 16:43:53 01/09/2024 audiogram completed [email or web address] Information not available 01/09/2024 16:44:54 Procedure Notes None recorded. Medical Equipment None Reported. Medications Name Sig Start Date Stop Date Status Note LastModified by Organization Details LastModified Time acetaminophe n 325 mg tablet TAKE 2 TABLETS ORALLY EVERY 6 HOURS NEEDED FOR PAIN active Not Available Not Available No t Available atorvastatin 10 mg tablet TAKE 1 TABLET BY MOUTH EVERY DAY active Not Available Not Available No t Available ondansetron HCl 8 mg tablet TAKE 1 TABLET BY MOUTH THREE TIMES A DAY NEEDED FOR NAUSEA AND VOMITING active Not Available Not Available No t Available meloxicam 15 mg tablet TAKE 1 TABLET BY MOUTH EVERY DAY active Not Available Not Available No t Available hydroquinone 4 % topical cream APPLY TO HYPERPIGMEN MILAGROS AREAS TWICE DAILY FOR 4 MONTHS , BREAK FOR 4 MONTHS active Not Available Not Available No t Available ondansetron HCl 4 mg tablet TAKE 1 TABLET BY MOUTH EVERY 8 HOURS NEEDED FOR NAUSEA active Not Available Not Available No t Available gabapentin 400 mg capsule TAKE 1 CAPSULE BY MOUTH IN THE MORNING ,1 CAP AT NOON TIME & 2 CAPS AT BEDTIME active Not Available Not Available No t Available sertraline 100 mg tablet TAKE BY MOUTH EVERY MORNING ONE HALF TAB FOR ONE WK THEN ONE FULL TAB EVERY MORNING active Not Available Not Available No t Available sumatriptan 50 mg tablet MAY REPEAT DOSE ONCE AFTER 2 HOURS, IF NEEDED. active Not Available Not Available No t Available meclizine 12.5 mg tablet TAKE 1 TABLET BY MOUTH THREE TIMES A DAY NEEDED FOR DIZZINESS active Not Available Not Available No t Available ciprofloxaci n 250 mg tablet TAKE 1 TABLET BY MOUTH TWICE A DAY FOR 3 DAYS active Not Available Not Available No t Available omeprazole 40 mg capsule,nba yed release TAKE 1 CAPSULE BY MOUTH 2 TIMES DAILY (BEFORE MEALS). active Not Available Not Available No t Available acetaminophe n 500 mg tablet TAKE 1 TABLET BY MOUTH EVERY 6 HOURS NEEDED FOR PAIN. active Not Available Not Available No t Available magnesium oxide 400 mg (241.3 mg magnesium) tablet TAKE 1 TABLET BY MOUTH TWICE A DAY active Not Available Not Available No t Available trazodone 100 mg tablet TAKE 1 TABLET BY MOUTH EVERYDAY AT BEDTIME active Not Available Not Available No t Available OneTouch Ultra Test strips USE TWICE A DAY active Not Available Not Available No t Available erythromycin 5 mg/gram (0.5 %) eye ointment APPLY INTO RIGHT EYE TWICE PER DAY FOR 5 DAYS active Not Available Not Available No t Available ferrous sulfate 325 mg (65 mg iron) tablet TAKE 1 TABLET BY MOUTH EVERY DAY active Not Available Not Available No t Available lidocaine 5 % topical patch APPLY 1 PATCH TOPICALLY DAILY FOR PAIN (LEAVE ON FOR UP TO 12 HOURS THEN LEAVE OFF X12 HOURS) active Not Available Not Available No t Available gabapentin 300 mg capsule TAKE 1 CAPSULE ORALLY 2 TIMES A DAY FOR PAIN FOR 30 DAYS active Not Available Not Available Not Available lisinopril 5 mg tablet TAKE 1 TABLET BY MOUTH EVERY DAY active Not Available Not Available No t Available furosemide 20 mg tablet TAKE 1 TAB BY MOUTH DAILY NEEDED (LEG SWELLING). active Not Available Not Available N ot Available verapamil ER 120 mg 24 hr capsule,exte nded release TAKE 1 CAPSULE BY MOUTH EVERY DAY active Not Available Not Available No t Available topiramate 50 mg tablet TAKE 1 TABLET BY MOUTH TWICE DAILY. active Not Available Not Available No t Available solifenacin 5 mg tablet TAKE 1 TABLET BY MOUTH EVERY DAY FOR 180 DAYS active Not Available Not Available No t Available eszopiclone 2 mg tablet TAKE ONE TABLET BY MOUTH EVERY NIGHT AT BEDTIME active Not Available Not Available No t Available Senexon-S 8.6 mg-50 mg tablet TAKE 2 TABLETS BY MOUTH DAILY active Not Available Not Available Not Available Vitamin D3 50 mcg (2,000 unit) capsule TAKE 1 CAPSULE BY MOUTH EVERY DAY active Not Available Not Available No t Available potassium chloride ER 20 mEq tablet,exten ded release TAKE 1 TABLET BY MOUTH EVERY DAY active Not Available Not Available No t Available OneTouch Ultra2 Meter USE DIRECTED TWICE A DAY active Not Available Not Available Not Available Vitals None Recorded Social History None recorded. Functional Status None recorded. Mental Status None recorded. Family History Nothing Reported. Medical History No medical history recorded. Gynecological HistoryNo gynecological history recorded. Obstetrics History GPAL:G 0 P 0 0 0 0 Past Encounters Encounter ID Performer Location Encounter Start Date Encounter Closed Date Diagnosis/Indication Diagnosis SNOMED-CT Code Diagnosis ICD10 Code Diagnosis Note [id number] MERCY ARECHIGA PA-C [facility] [address] [address] 12/31/2023 13:52:20 12/31/2023 15:02:11 Bilateral tinnitus [id number] 102 H93.13 For both ears, normal to borderline normal hearing thru 4000Hz with a mild- moderate loss thereafter . Excellent speech clarity for both ears. Normal middle ear compliance and pressure bilaterall y. Abnormal a uditory perception [id number] H93.299 Sensorineu ral hearing loss of bilateral ears 428899141 H90.3 Health Concerns Section Related Observation LastModified by Organization Detai ls LastModified Time None Recorded Concern Status LastModified by Organization Details LastModified Time None Recorded Advance Directives Directive None Recorded Payers Encounter Date Sequence Insurance Name Policy Number Policy Gaitan Covered Member ID Gaitan Member ID Guarantor Name 12/31/2023 1 [facility] - DOS ON OR AFTER 2022 - ONE [employer] (MEDICARE REPLACEMENT/ADV ANTAGE - HMO) Lesly Mike [id number] Lesly Mike Notes Date Note Type Note Provider Name and Address Organization Details Recorded Time 12/31/2023 text/html 68 year old livier ramirez presents for evaluation of ears and hearing. Feels she sometimes misses pieces of conversation and has to ask people to repeat themselves. Sometimes there is a brief pain or some ringing in one ear. There is no otorrhea. No history of recurrent otitis and no ear surgeries. MERYC ARECHIGA PA-C [address] [place] [address], [place], [address], [facility] - [facility] 12/31/2023 15:15:11 OBGyn Episode No OBEpisode recorded.
--- OUTSIDE RECORDS SUMMARY | 2024-08-13 09:56 | XMS_ITS | Clinical Summary ---
Author Organization 175 [facility] Address [address] [place] [address] Phone Care Team Providers Care Varitype Operator Name Role Phone Marisel Benito MD Primary Care Provider [phone] Allergies Active Allergy Reactions Criticality Noted Date Comments Penicillins Anaphylaxis High 01/17/2010 Medications blood-glucose meter kit 2 (two) times a day. 4 Active magnesium oxide (MAG-OX) 400 mg (241.3 elemental magnesium) tablet Take 1 tablet (400 mg total) by mouth 2 (two) times a day. 4 Active lactose-reduced food (ENSURE HIGH PROTEIN ORAL) Take 100 mL by mouth 3 (three) times a day. 4 Active glucose blood test strip 1 each by Not Applicable route 2 (two) times a day. 3 Active OneTouch Ultra Test test strip 2 (two) times a day. 4 Active acetaminophen (TYLENOL) 500 mg tablet Take 1 tablet (500 mg total) by mouth every 6 (six) hours if needed (pain). 4 Active calcium carbonate (TUMS) 500 mg (200 mg elemental calcium) chewable tablet Chew 1 tablet (500 mg total) 3 (three) times a day. 3 Active cholecalciferol (VITAMIN D-3) 50 mcg (2,000 unit) capsule Take 1 capsule (2,000 Units total) by mouth 1 (one) time each day. 4 Active ferrous sulfate 325 mg (65 mg elemental iron) tablet Take 1 tablet (325 mg total) by mouth 1 (one) time each day. 4 Active gabapentin (NEURONTIN) 400 mg capsule TAKE 1 CAPSULE BY MOUTH IN THE MORNING ,1 CAP AT NOON TIME & 2 CAPS AT BEDTIME 4 Active hydrOXYzine HCL (ATARAX) 25 mg tablet Take 1 tablet (25 mg total) by mouth at bedtime as needed. Active lisinopriL (PRINIVIL,ZESTRI L) 5 mg tablet Take 1 tablet (5 mg total) by mouth 1 (one) time each day. 4 Active meclizine (ANTIVERT) 12.5 mg tablet Take 1 tablet (12.5 mg total) by mouth 3 (three) times a day if needed for dizziness. 4 Active omeprazole (PriLOSEC) [address] capsule Take 1 capsule (40 mg total) by mouth 2 (two) times a day before meals. 4 Active ondansetron (ZOFRAN) 4 mg tablet Take 1 tablet (4 mg total) by mouth every 8 (eight) hours if needed for nausea. 4 Active ondansetron (ZOFRAN) 8 mg tablet Take 1 tablet (8 mg total) by mouth 3 (three) times a day if needed for nausea. 4 Active senna-docusate (Senexon-S) 8.6-50 mg per tablet Take 2 tablets by mouth 1 (one) time each day. 4 Active SUMAtriptan (IMITREX) 50 mg tablet May repeat dose once after 2 hours, if needed. 4 Active traZODone (DESYREL) 100 mg tablet Take 1 tablet (100 mg total) by mouth at bedtime. 4 Active verapamil ER (VERELAN) 120 mg 24 hr capsule Take 1 capsule (120 mg total) by mouth 1 (one) time each day. 4 Active nutritional drink (Ensure) liquidIndication s:Vertigo,Decrea sed appetite,Sleep apnea, unspecified type Take 100 mL by mouth 3 (three) times a day. 330 mL 3 4 Active solifenacin (VESICARE) 10 mg tablet Take 1 tablet (10 mg total) by mouth 1 (one) time each day. 4 Active sertraline (ZOLOFT) 100 mg tablet Take 1 tablet (100 mg total) by mouth 1 (one) time each day in the morning. 4 Active potassium chloride 20 mEq tablet extended release TAKE 1 TABLET BY MOUTH EVERY DAY 90 tablet 1 4 Active nutritional supplement-fiber liquidIndication s:Type 2 diabetes mellitus with other specified complication, unspecified whether assisted insulin use ([facility]) Take 1 each by mouth 2 (two) times a day. 2500 mL 3 4 Active topiramate (TOPAMAX) 50 mg tablet TAKE 1 TABLET BY MOUTH TWICE A DAY 180 tablet 1 4 Active atorvastatin (LIPITOR) 10 mg tablet TAKE 1 TABLET BY MOUTH EVERY DAY 90 tablet 1 5 Active Active Problems Problem Noted Date Diagnosed Date Vertigo 06/08/2020 Pure hypercholesterolemia 02/13/2019 Obesity (BMI 30-39.9) 02/13/2019 Migraine 02/13/2019 HTN (hypertension) 02/13/2019 Encounters Date Type Department Care Team Description 08/12/2024 Telephone Internal [address] [place] [phone] Maryam Mckeon MA Request For Order(s) (RM Annual Care Plan /) 08/04/2024 Telephone [facility] 175 [facility] [address] [place] [phone] Lexie Richards PA 07/21/2024 Telephone Internal [address] [place] [phone] Katey Hernandez MA Faxed form ([facility]) 06/30/2024 Telephone Internal [facility] 175 [facility] [address] [place] [phone] Katey Hernandez MA 05/20/2024 Telephone Internal [address] [phone] Katey Hernandez MA faxed order (L&C) 05/19/2024 [facility] 175 [facility] [address] [place] [phone] Marisel Benito MD Fitting for DME from Last 3 Months Immunizations Name Administration Dates Next Due Influenza trivalent, with pr eservative (Fluzone; Afluria) 6mo and older 03/14/2020 Pneumococcal conjugate 13 va lent (Prevnar 13, PCV13) 2mo and older 03/14/2020,02/13/2019 Surgical History Surgery Date Site/Laterality Comments HYSTERECTOMY 2000 PROCEDURE: HISTORICAL HYSTERECTOMY OTHER SURGICAL HISTORY 1978 PROCEDURE: [place] TONSILLECTOMY PRIMARY/SECONDARY AGE 11/> OTHER SURGICAL HISTORY 11/28/2018 PROCEDURE: [place] LAPS SURG CHOLECYSTECTOMY W/CHOLANGIOGRAPHY; COMMENT: negative IOC HIP ARTHROPLASTY 2018 Right PROCEDURE: HISTORICAL HIP REPLACEMENT Medical History Medical History Date Comments HTN (hypertension) DX:HTN (hyper tension) Hyperlipidemia DX:Hyperlipidemi a Esophageal reflux DX:Esophageal reflux Nausea and vomiting DX:Nausea an d vomiting Stress DX:Stress Social History Tobacco Use Types Packs/Day Years Used Date Smoking Tobacco: Former Smokeless Tobacco: Never Tobacco Cessation:Counseling Given: Not Answered Alcohol Use Standard Drinks/Week Comments No 0 (1 standard drink = 0.6 oz pur e alcohol) Comments Unknown Sex and Gender Information Value Date Recorded Sex Assigned at Not on file Legal Sex Female 7:17 PM EST Gender Identity Not on file Sexual Orientation Not on file Obstetrics History Last Filed Vital Signs Vital Sign Reading Time Taken Comments Blood Pressure 93/64 05/06/2024 2:14 PM EST Pulse 71 05/06/2024 2:14 PM EST Temperature 35.9 ??C (96.6 ??F) 05/06/2024 2:14 PM ES T Respiratory Rate - - Oxygen Saturation 97% 04/29/2024 3:48 PM EST Inhaled Oxygen Concentration - - Weight 61.1 kg (134 lb 9.6 oz) 04/29/2024 3:48 P M EST Height 165.1 cm (5' 5 ) 04/29/2024 3:48 PM EST Body Mass Index 22.4 04/29/2024 3:48 PM EST Plan of Treatment Health Maintenance Due Date Last Done Comments Breast Cancer Screening 1955 Diabetes: Annual Foot Exam 01/02/1964 Diabetes: Annual Retina Eye Exam 01/02/1964 DTaP,Tdap,and Td Vaccines (1 - Tdap) 1973 Hepatitis B Vaccines (3 of 3 - 19+ 3-dose series) 06/12/2006 04/17/2006, 11/07/2005, 10/18/2005 RSV Immunization Patients 60+ Years Old (1 - Risk 60-74 years 1-dose series) 2014 Pneumococcal Vaccine: 50+ Years (2 of 2 - PPSV23) 05/09/2020 03/14/2020, 02/13/2019 Colorectal Cancer Screening: Colonoscopy 05/19/2022 Depression Screening 05/19/2022 Falls Risk Assessment 05/19/2022 Hepatitis C Screening 05/19/2022 Medicare Annual Wellness Visit 05/19/2022 Osteoporosis Screening (Bone Density Screening) 05/19/2022 Social Influencers of Health Screening 05/19/2022 COVID-19 Vaccine ( season) 2024 06/21/2022, 11/22/2021, 05/31/2021, Additional history exists Influenza Vaccine (#1) 2024 , 06/21/2022, 08/24/2021, Additional history exists Diabetes: Annual Urine Albumin-Creatinine Ratio (uACR) 04/29/2024 Diabetes: Blood Sugar Control Test (HGBA1C) 10/28/2024 04/30/2024, 01/27/2024, 01/27/2024 Diabetes: Annual GFR (Glomerular Filtration Rate) 04/30/2025 04/30/2024, 01/27/2024, 01/27/2024 Hypertension/CHF/CAD Annual BMP Blood Test 04/30/2025 04/30/2024, 01/27/2024, 01/27/2024 Cholesterol Screening (Lipid Panel) 04/30/2029 04/30/2024, 01/27/2024, 01/27/2024 Hepatitis A Vaccines Aged Out 04/17/2006, 10/19/19 06 No longer eligible based on patient's age to complete this topic Zoster Vaccines Completed 03/26/2023, 08/15, 08/15/2015 HIB Vaccines Aged Out No longer eligi ble based on patient's age to complete this topic HPV Vaccines Aged Out No longer eligi ble based on patient's age to complete this topic IPV Vaccines Aged Out No longer eligi ble based on patient's age to complete this topic MMR Vaccines Aged Out No longer eligi ble based on patient's age to complete this topic Meningococcal ACWY Vaccine Aged Out N o longer eligible based on patient's age to complete this topic Meningococcal B Vacine Aged Out No lo nger eligible based on patient's age to complete this topic RSV Immunization Patients Under 20 months Aged Out No longer eligible based on patient's age to complete this topic Varicella Vaccines Aged Out No longer eligible based on patient's age to complete this topic Procedures Procedure Name Priority Date/Time Associated Diagnosis Comments EXTERNAL ULTRASOUND REPORT 05/19/2024 EXTERNAL ULTRASOUND REPORT 05/19/2024 COMPREHENSIVE METABOLIC PANEL Routine 04/30/2024 8:06 AM EST Decreased appetite HEMOGLOBIN A1C Routine 04/30/2024 8:06 AM EST Decreased appetite LIPID PANEL WITH REFLEX TO DIRECT LDL Routine 04/30/2024 8:06 AM EST Decreased appetite from Last 3 Months or Most Recently Relevant to Health Maintenance Results * External Ultrasound Report (05/19/2024) Only the most recent of2 resultswithin the time period is included. Anatomical Region Laterality Modality Ultrasound us Provider [facility] [place] [place] US PROCEDURES Final Result * Lipid panel with reflex to direct LDL (04/30/2024 8:06 AM EST) Cholesterol 163 0 - 200 mg/dL LAB CHEMISTRY METHOD 04/30/2024 10:43 AM [facility] Triglycerides 87 0 - 150 mg/dL LAB CHEMISTRY METHOD 04/30/2024 10:43 AM [facility] HDL 64 >=40 mg/dL LAB CHEMISTRY METHOD 04/30/2024 10:43 AM [facility] LDL Calculated 82 0 - 100 mg/dL LAB CHEMISTRY METHOD 04/30/2024 10:43 AM [facility] VLDL Cholesterol Jeremy 17.4 mg/dL LAB CHEMISTRY METHOD 04/30/2024 10:43 AM [facility] Non HDL Chol. (LDL+VLDL) 99 <145 mg/dL LAB CHEMISTRY METHOD 04/30/2024 10:43 AM EST [facility] Chol/HDL Ratio 2.5 0.0 - 4.4 LAB CHEMISTRY METHOD 04/30/2024 10:43 AM [facility] Blood Venous blood specimen / Unknown Venipuncture / Unknown 04/30/2024 8:06 AM EST 04/30/2024 8:07 AM EST Marybel Reyes SENIOR DESIGNER LAB BLOOD ORDERABLES Final Resul t Performing Organization Address City/[facility]/ZIP Co de Phone Number [facility] [address] [place] [address], [place] [phone] * Hemoglobin A1c (04/30/2024 8:06 AM EST) Hemoglobin A1C 6.0 <6.5 % LAB CHEMISTRY METHOD 04/30/2024 11:24 AM EST [facility] Mean Bld Glu Estim. 126 mg/dL LAB CHEMISTRY METHOD 04/30/2024 11:24 AM [facility] Blood Venous blood specimen / Unknown Venipuncture / Unknown 04/30/2024 8:06 AM EST 04/30/2024 8:07 AM EST Marybel Reyes SENIOR DESIGNER LAB BLOOD ORDERABLES Final Resul t [facility] [address] [place] [address], [place] [phone] * (ABNORMAL) Comprehensive metabolic panel (04/30/2024 8:06 AM EST) Sodium 142 133 - 145 mmol/L LAB CHEMISTRY METHOD 04/30/2024 10:43 AM [facility] Potassium 3.9 3.5 - 5.5 mmol/L LAB CHEMISTRY METHOD 04/30/2024 10:43 AM EST [facility] Chloride 110 96 - 110 mmol/L LAB CHEMISTRY METHOD 04/30/2024 10:43 AM [facility] CO2 28 21 - 32 mmol/L LAB CHEMISTRY METHOD 04/30/2024 10:43 AM [facility] Anion Gap 4 3 - 11 LAB CHEMISTRY METHOD 04/30/2024 10:43 AM [facility] Glucose 98 70 - 100 mg/dL LAB CHEMISTRY METHOD 04/30/2024 10:43 AM [facility] BUN 17 5 - 25 mg/dL LAB CHEMISTRY METHOD 04/30/2024 10:43 AM [facility] Creatinine 1.11(H) 0.50 - 1.10 mg/dL LAB CHEMISTRY METHOD 04/30/2024 10:43 AM [facility] eGFR 54(L) >=60 mL/min/1. 73m2 LAB CHEMISTRY METHOD 04/30/2024 10:43 AM [facility] Comment:Calculation based on the??Chronic Kidney Disease Epidemiology Collaboration (CKD-EPI) equation refit??without adjustment for race. BUN/Creatinine Ratio 15.3 LAB CHEMISTRY METHOD 04/30/2024 10:43 AM [facility] Calcium 9.5 8.5 - 10.5 mg/dL LAB CHEMISTRY METHOD 04/30/2024 10:43 AM [facility] AST (SGOT) 18 10 - 42 unit/L LAB CHEMISTRY METHOD 04/30/2024 10:43 AM [facility] ALT (SGPT) 20 10 - 60 unit/L LAB CHEMISTRY METHOD 04/30/2024 10:43 AM [facility] Alkaline Phosphatase 81 42 - 121 unit/L LAB CHEMISTRY METHOD 04/30/2024 10:43 AM [facility] Total Protein 7.2 6.0 - 8.0 g/dL LAB CHEMISTRY METHOD 04/30/2024 10:43 AM EST [facility] Albumin 3.5 3.2 - 5.0 g/dL LAB CHEMISTRY METHOD 04/30/2024 10:43 AM EST [facility] Total Bilirubin 0.5 0.0 - 1.4 mg/dL LAB CHEMISTRY METHOD 04/30/2024 10:43 AM EST [facility] ([facility]) [facility] Blood Venous blood specimen / Unknown Venipuncture / Unknown 04/30/2024 8:06 AM EST 04/30/2024 8:07 AM EST us Marybel Reyes NP LAB BLOOD ORDERABLES Final Resul t [facility] ([facility]) 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 Expl anation Health Care Decision (hx) 11/29/2018 AD [place] DIRECTIVE Health Care Decision (hx) 11/29/2018 AD [place] DIRECTIVE Health Care Decision (hx) 11/29/2018 AD [place] DIRECTIVE Health Care Decision (hx) 11/29/2018 AD [place] DIRECTIVE Health Care Decision (hx) 11/29/2018 AD [place] DIRECTIVE Health Care Decision (hx) 11/29/2018 AD [place] DIRECTIVE Health Care Decision (hx) 11/29/2018 AD [place] DIRECTIVE Health Care Decision (hx) 11/29/2018 AD [place] DIRECTIVE Health Care Decision (hx) 11/29/2018 AD [place] DIRECTIVE Health Care Decision (hx) 11/29/2018 AD [place] DIRECTIVE Health Care Decision (hx) 11/29/2018 AD [place] DIRECTIVE Health Care Decision (hx) 11/29/2018 AD [place] DIRECTIVE Health Care Decision (hx) 11/29/2018 AD [place] DIRECTIVE Health Care Decision (hx) 10/01/2016 AD [place] DIRECTIVE Health Care Decision (hx) 10/01/2016 AD [place] DIRECTIVE Health Care Decision (hx) 10/01/2016 AD [place] DIRECTIVE Health Care Decision (hx) 10/01/2016 AD [place] DIRECTIVE Health Care Decision (hx) 10/01/2016 AD [place] DIRECTIVE Health Care Decision (hx) 10/01/2016 AD [place] DIRECTIVE Health Care Decision (hx) 10/01/2016 AD [place] DIRECTIVE Health Care Decision (hx) 10/01/2016 AD [place] DIRECTIVE Health Care Decision (hx) 10/01/2016 AD [place] DIRECTIVE Health Care Decision (hx) 10/01/2016 AD [place] DIRECTIVE Health Care Decision (hx) 10/01/2016 AD [place] DIRECTIVE Health Care Decision (hx) 10/01/2016 AD [place] DIRECTIVE Health Care Decision (hx) 10/01/2016 AD [place] DIRECTIVE Care Teams Varitype Operator Relationship Specialty Start Date End Date Marisel Benito MD [address] [place] [phone] PCP - General Internal Medicine 05/01/18
--- OUTSIDE RECORDS SUMMARY | 2024-08-13 09:56 | XMS_ITS | Encounter Summary ---
Author Organization [facility] Address [id number] [place] [phone] Care Team Providers Care Home Maker Name Role Phone Marisel Benito MD Primary Care Provider [phone] Reason for Visit * Reason Onset Date Comments Request For Order(s) 08/12/2024 [facility] Annual Care Plan Encounter Details Date Type Department Care Team ([facility] st Contact Info) Description 08/12/2024 [place] [facility] 175 [facility] [address] [place] [address] Maryam Mckeon MA Request For Order(s) ([facility] Annual Care Plan /) Social History Tobacco Use Types Packs/Day Years Used Date Smoking Tobacco: Former Smokeless Tobacco: Never Alcohol Use Standard Drinks/Week Comments No 0 (1 standard drink = 0.6 oz pur e alcohol) Comments Unknown Sex and Gender Information Value Date Recorded Sex Assigned at Not on file Legal Sex Female 7:17 PM EST Gender Identity Not on file Sexual Orientation Not on file documented as of this encounter Progress Notes * Maryam Mckeon MA - 08/12/2024 7:18 AM EST [facility] Annual Care Plan Please sign & fax [phone] documented in this encounter Plan of Treatment Not on file documented as of this encounter Visit Diagnoses Not on filedocumented in this encounter Care Teams Home Maker Relationship Specialty Start Date End Date Marisel Benito MD 175 [facility] [address] [place] [phone] PCP - General Internal Medicine 05/01/18 documented as of this encounter
--- OUTSIDE RECORDS SUMMARY | 2024-08-13 09:56 | XMS_ITS | Encounter Summary ---
Author Organization [facility] Address [address] [place] [address] Care Team Providers Care Guidance Counselor Name Role Phone Marisel Benito MD Primary Care Provider [phone] Encounter Details Date Type Department Care Team (Late st Contact Info) Description 06/30/2024 Telephone Internal Medicine [facility] 175 [facility] [address] [place] [phone] Brittany Hernandez MA Social History Tobacco Use Types Packs/Day Years [...] as of this encounter Progress Notes * Brittany Hernandez MA - 08/13/2024 8:13 AM EST Faxed to L&C [phone] * Brittany Hernandez MA - 08/12/2024 4:43 PM ESTAddended by: BRITTANY HERNANDEZ on: 08/12/2024 04:43 PM Modules accepted: Orders * Brittany Hernandez MA - 08/12/2024 4:42 PM EST New RX pended with qualifying Dx * Brittany Hernandez MA - 07/23/2024 9:26 AM EST Faxed to L&C [phone] * Brittany Hernandez MA - 07/21/2024 3:17 PM ESTAddended by: BRITTANY HERNANDEZ on: 07/21/2024 03:17 PM Modules accepted: Orders * Brittany Hernandez MA - 07/21/2024 3:17 PM EST HTN was not an approving dx for compression socks, Pended new order with new dx. * Brittany Hernandez MA - 07/08/2024 4:06 PM EST Faxed to L&C [phone] * Brittany Hernandez MA - 06/30/2024 2:40 PM EST [facility] is requesting new RX. DME pended. documented in this encounter Plan of Treatment Not on file documented as of this encounter Visit Diagnoses Diagnosis Hypertension, unspecified type- Primary Type 2 diabetes mellitus with other specified complication, unspecified whether shelter insulin use ([facility]) Hyperlipidemia, unspecified hyperlipidemia type documented in this encounter Orders General Supply Count Last Ordered Date First Or dered Date COMPRESSION STOCKINGS 1 08/12/2024 documented in this encounter Care Teams Guidance Counselor Relationship Specialty Start Date End Date Marisel Benito MD [address] [place] [phone] PCP - General Internal Medicine 05/01/18 documented as of this encounter
--- OUTSIDE RECORDS SUMMARY | 2024-08-13 09:56 | XMS_ITS | Encounter Summary ---
Author Organization [facility] Address [address] [place] [address] Care Team Providers Care Roof Bolter Helper Name Role Phone Marisel Benito MD Primary Care Provider [phone] Encounter Details Date Type Department Care Team (Late st Contact Info) Description 08/04/2024 Telephone [facility] 175 [facility] [address] [place] [address] Lexie Richards PA [address] [place] [address] [place] [address] Social History Tobacco Use Types Packs/Day Years [...] as of this encounter Progress Notes * Vidhya Gilbert - 08/04/2024 2:19 PM EST ATTEMPTED TO CALL PATIENT WHO MISSED THEIR APPOINTMENT YESTERDAY 08/03. PHONE WENT TO VOICEMAIL AND THERE IS NO VOICEMAIL BOX SET UP TO LEAVE A MESSAGE. documented in this encounter Plan of Treatment Not on file documented as of this encounter Visit Diagnoses Not on filedocumented in this encounter Care Teams Roof Bolter Helper Relationship Specialty Start Date End Date Marisel Benito MD [address] [place] [address] [place] [address] PCP - General Internal Medicine 05/01/18 documented as of this encounter
--- OUTSIDE RECORDS SUMMARY | 2024-08-13 09:56 | XMS_ITS | Encounter Summary ---
Author Organization [facility] Address [address] [place] [phone] Care Team Providers Care Director Of Nuclear Medicine Name Role Phone Marisel Benito MD Primary Care Provider [phone] Reason for Visit * Reason Onset Date Comments Faxed form 07/21/2024 [facility] Encounter Details Date Type Department Care Team (Late st Contact Info) Description 07/21/2024 Telephone Internal Medicine [facility] [address] [facility] [address] [place] [address] Katey Hernandez MA Faxed form ([facility]) Social History Tobacco Use Types Packs/Day Years [...] as of this encounter Progress Notes * Katey Hernandez MA - 07/22/2024 1:44 PM EST Faxed [phone] * Katey Hernandez MA - 07/21/2024 11:22 AM EST [facility] ADH semi annual report. 01/06/2024 Placed in providers folder for signature. documented in this encounter Plan of Treatment Not on file documented as of this encounter Visit Diagnoses Not on filedocumented in this encounter Care Teams Director Of Nuclear Medicine Relationship Specialty Start Date End Date Marisel Benito MD [address] [place] [phone] PCP - General Internal Medicine 05/01/18 documented as of this encounter
== END 2024-08-13 09:20 | disposition home or self-care (01) ==
PROVIDERS: PCP Internal Medicine; Visit Provider Nurse Practitioner Family
DX: M47.816 Spondylosis without myelopathy or radiculopathy, lumbar region (principal); M53.3 Sacrococcygeal disorders, not elsewhere classified; G89.4 Chronic pain syndrome; M54.16 Radiculopathy, lumbar region; M48.062 Spinal stenosis, lumbar region with neurogenic claudication; Z91.81 History of falling; R29.6 Repeated falls; R42 Dizziness and giddiness; R26.81 Unsteadiness on feet
CPT/HCPCS: 99214

== ENCOUNTER 2024-08-13 09:24 | Emergency (ER) | payer OTHER, SELFPAY ==
--- NOTE | ~2024-08-13 | XR_ITS ---
EXAMINATION: XR THORACIC SPINE CLINICAL INFORMATION: fall with pain COMPARISON: None available. TECHNIQUE: 3 views of the thoracic spine were obtained. FINDINGS: There is a mild to moderate right convex scoliosis, apex at T7. There is a normal kyphosis. No fractures, compression deformities, subluxations, or suspicious bone lesions. A few prominent Schmorl's nodes are present in the endplates. Mild to moderate disc degeneration present, most significant in the midthoracic region. Mild facet degeneration, multilevel. There is a gastric banding device in place, which could be possibly malpositioned given the appearance. Recommend correlation with a KUB radiograph. Soft tissues, heart, mediastinum, and imaged lungs appear normal. XR/XR thoracic spine 2V IMPRESSION: 1. No acute findings of the thoracic spine. 2. Mild to moderate degenerative spondylosis. Mild right convex scoliosis. 3. There is a gastric banding device in place, which could be possibly malpositioned/slipped given the appearance. Recommend correlation with a KUB radiograph. Electronically signed by: Slick Marquez MD 08/13/2024 11:20 AM [facility]
--- NOTE | ~2024-08-13 | XR_ITS ---
EXAMINATION: XR SHOULDER 2 OR MORE VIEWS RIGHT HISTORY: fall right shoulder pain COMPARISON: Comparison is made with the prior examination dated 05/28/2023. FINDINGS: Three views of the right shoulder are submitted. Osseous mineralization is normal. There is no fracture or dislocation. Again seen are cystic changes of the glenoid. The glenohumeral and acromioclavicular joint spaces are preserved. The soft tissues are unremarkable. XR/XR shoulder RT min 2V IMPRESSION: No evidence of fracture of the right shoulder. Electronically signed by: Hari Dorado MD 08/13/2024 11:12 AM [facility]
--- NOTE | ~2024-08-13 | XR_ITS ---
EXAMINATION: XR HAND AND WRIST COMPLETE LEFT HISTORY: FALL WITH PAIN COMPARISON: Comparison is made with the prior examination dated 12/12/2023. FINDINGS: Three views of the left hand and wrist are submitted. Osseous mineralization is normal. There is an old healed fracture of the distal radius and an old ununited fracture of the distal ulna. There is an additional chronic fracture of the proximal phalanx of the 5th finger. No acute fracture is seen. The joint spaces are preserved. The soft tissues are unremarkable. XR/XR hand wrist LT IMPRESSION: No evidence of acute fracture of the left hand or wrist. Electronically signed by: Hari Dorado MD 08/13/2024 11:08 AM [facility]
--- NOTE | ~2024-08-13 | XR_ITS ---
EXAMINATION: XR HAND AND WRIST COMPLETE RIGHT HISTORY: fall with pain COMPARISON: Comparison is made with the prior examination dated 12/12/2023. FINDINGS: Three views of the right hand and wrist are submitted. Osseous mineralization is normal. There is an old healed fracture of the distal radius. An old ununited fracture of the distal ulna is noted. No acute fracture is seen. 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 There is osseous fusion of the entire carpus. The soft tissues are unremarkable. XR/XR hand wrist RT IMPRESSION: No evidence of acute fracture of the right hand or wrist. Electronically signed by: Hari Dorado MD 08/13/2024 11:11 AM [facility]
--- NOTE | ~2024-08-13 | XR_ITS ---
EXAMINATION: XR LUMBOSACRAL SPINE CLINICAL INFORMATION: fall with pain COMPARISON: September 26, 2023. TECHNIQUE: Three views of the lumbosacral spine. FINDINGS: There is a superior endplate compression deformity representing 20% volume loss without retropulsion at L1 vertebra. Multilevel thoracolumbar spondylosis. Grade 1 anterolisthesis L5-S1 on a degenerative basis. Levoconvex curvature of the lumbar spine. There is a radiopaque catheter extending in the left hemiabdomen. Vascular clips right upper quadrant abdomen. Sclerosis of the sacroiliac joints more conspicuous on the left side. There is a hip prosthesis seen on the lateral projection probably on the right hip. XR/XR lumbar spine 2-3V IMPRESSION: Acute to subacute superior endplate compression deformity representing 20% volume loss without retropulsion, L1 vertebra. Electronically signed by: Pavel Malcolm MD 08/13/2024 11:23 AM [facility]
--- NOTE | ~2024-08-13 | CT_ITS ---
EXAMINATION: CT CERVICAL SPINE WITHOUT IV CONTRAST HISTORY: fall down stairs neck pain. TECHNIQUE: Helical CT of the cervical spine was performed per standard departmental protocol. Coronal and sagittal reformatted images were also evaluated. One or more of the following techniques was used for dose reduction: Automated exposure control, adjustment of the mA and/or kV according to patient size, use of iterative reconstruction technique. DLP: 227.36 mGy-cm COMPARISON: There are no prior studies for comparison. FINDINGS: CERVICAL SPINE: There is osseous fusion of C4 and C5. The vertebral bodies maintain normal height without evidence of fracture. There is straightening of the normal cervical lordosis without subluxation. There is moderate degenerative disc disease with disc space narrowing and osteophyte formation. There is facet osteoarthritis and uncovertebral joint hypertrophy causing bilateral neural foraminal stenosis at the C4-5, C5-6, C6-7 levels. Evaluation for disc pathology is limited by lack of intrathecal contrast material, however. BRAIN: The visualized portion of the brain is unremarkable. SINUSES: The visualized paranasal sinuses, mastoid air cells and middle ear cavities are unremarkable. LUNG APICES: There are mild emphysematous changes at the lung apices. SOFT TISSUES: There is dilatation of the esophagus which contains fluid. CT/CT cervical spine wo IV con IMPRESSION: 1. Straightening of the normal cervical lordosis. No evidence of fracture or subluxation. 2. Degenerative disc disease as described. 3. Dilated esophagus containing fluid. Further evaluation with upper endoscopy or barium swallow is suggested. Electronically signed by: Hari Dorado MD 08/13/2024 11:01 AM [facility]
--- NOTE | ~2024-08-13 | CT_ITS ---
EXAMINATION: CT HEAD WITHOUT IV CONTRAST HISTORY: fall down stairs. TECHNIQUE: Unenhanced helical CT of the head was performed per standard departmental protocol. Coronal and sagittal reformats of the head were also evaluated. One or more of the following techniques was used for dose reduction: Automated exposure control, adjustment of the mA and/or kV according to patient size, use of iterative reconstruction technique. DLP: 625.82 mGy-cm COMPARISON: There are no prior studies for comparison. FINDINGS: BRAIN: The brain parenchyma is unremarkable. There is normal brannon/white differentiation. The ventricular system is normal in size and configuration. There is no mass effect or midline shift. No intra- or extra-axial fluid collections are identified. SINUSES: There is a polyp versus mucous retention cyst in the right maxillary sinus. There is partial opacification of the bilateral mastoid air cells. The middle ear cavities are normally pneumatized. ORBITS: The visualized orbits are unremarkable. BONES/SOFT TISSUES: The extracranial soft tissues are unremarkable. The calvarium is intact. No suspicious lytic or sclerotic lesions. CT/CT head/brain wo IV con IMPRESSION: No evidence of intracranial hemorrhage. Electronically signed by: Hari Dorado MD 08/13/2024 10:53 AM [facility]
[2024-08-13 09:28] VITALS: BP 126/79; PULSE 58; RESP 18; TEMP 37; O2SAT 96; BMI 20.7
--- NOTE | 2024-08-13 11:32 | ED_ITS ---
HPI - Fall General Chief Complaint: Fall Stated Complaint: fall Time Seen by Provider: 08/13/24 10:45 Source: patient Mode of arrival: ambulatory Limitations: no limitations History of Present Illness ED Provider: STEPHANIE TABARES PA-C HPI Narrative: 69 year old female with pmhx significant for HTN, T2DM, CKD, anemia, vertigo, JV not on CPAP, GERD, arthritis, spinal stenosis, lumbar radiculopathy presents to the ED today for evaluation after losing her balance and falling down approximately 14 stairs in her home 5 days ago (08/08/24). Reports head strike. No LOC. She is not on anticoagulation. She was able to stand and ambulate after fall. She presented to [facility] for evaluation however left prior to evaluation due to long wait times. She presents to the ED today for evaluation of right sided neck pain, right shoulder pain, right hand/wrist pain, and low back pain. Pain is worse with movement. She has been taking tylenol at home with minimal relief. She has been ambulating with a cane, which is her baseline. No further falls/injury. Denies bowel or bladder incontinence or retention, numbness/tingling/weakness of the lower extremities, saddle anesthesia, dysuria, hematuria. Denies history of IV drug use. Denies history of spinal surgeries. Related Data Home Medications ?Medication ?Instructions ?Recorded ?Confirmed cholecalciferol (vitamin D3) 50 50 mcg PO DAILY 05/04/21 04/17/24 mcg (2,000 unit) capsule ferrous sulfate 325 mg (65 mg 325 mg PO DAILY 05/04/21 04/17/24 iron) tablet furosemide 20 mg tablet 20 mg PO DAILY 05/04/21 04/17/24 hydroxyzine HCl 25 mg tablet 25 mg PO DAILY 05/04/21 04/17/24 magnesium oxide 400 mg (241.3 mg 400 mg PO BID 05/04/21 04/17/24 magnesium) tablet meclizine 12.5 mg tablet 12.5 mg PO TID 05/04/21 04/17/24 omeprazole 40 mg capsule,delayed 40 mg PO DAILY 05/04/21 04/17/24 release ondansetron HCl 4 mg tablet 4 mg PO Q8H PRN Nausea 05/04/21 04/17/24 potassium chloride 20 mEq 20 meq PO DAILY 05/04/21 04/17/24 tablet,extended release sennosides 8.6 mg-docusate sodium 1 tab PO BID 05/04/21 04/17/24 50 mg tablet (Senexon-S) topiramate 50 mg tablet 50 mg PO BID 05/04/21 04/17/24 atorvastatin 10 mg tablet 10 mg PO DAILY 07/23/22 04/17/24 calcium carbonate (Jeremy-Gest 200 mg PO TID 07/23/22 04/17/24 Antacid) trazodone 100 mg tablet 100 mg PO BEDTIME 07/23/22 04/17/24 sumatriptan succinate 50 mg tablet 50 mg PO DAILY PRN Headache 02/19/23 04/17/24 sertraline 100 mg tablet 100 mg PO DAILY 05/28/23 04/17/24 lisinopril 5 mg tablet 5 mg PO DAILY 07/04/23 04/17/24 solifenacin 10 mg tablet 10 mg PO DAILY 03/19/24 04/17/24 solifenacin 5 mg tablet 5 mg PO DAILY 03/19/24 04/17/24 gabapentin 400 mg capsule mg PO BID 04/16/24 04/17/24 verapamil 120 mg 24 hr 120 mg PO DAILY 04/16/24 04/17/24 capsule,extended release eszopiclone 1 mg tablet mg PO 08/13/24 Previous Rx's ?Medication ?Instructions ?Recorded Gel mattress overlay #1 ea 01/24/23 acetaminophen 325 mg capsule 650 mg (2 x 325 mg) PO Q6H PRN 02/19/23 pain #45 caps lidocaine 5 % topical patch 1 patch topical DAILY for pain #30 03/19/24 patches lidocaine 5 % topical patch 1 patch topical DAILY #15 ea 08/13/24 (Lidoderm) prednisone 20 mg tablet 60 mg (3 x 20 mg) PO DAILY 5 days 08/13/24 #15 tabs tramadol 50 mg tablet 50 mg PO Q12H PRN pain (scale 08/13/24 score 7-10) #8 tabs Allergies Allergy/AdvReac Type Severity Reaction Status Date / Time Penicillins Allergy Severe hives Verified 08/13/24 09:31 Review of Systems Review of Systems: Constitutional: No fever, chills, fatigue, night sweats, weight changes ENT/Mouth: No ear pain, hearing loss, nasal congestion, sinus pain, rhinorrhea, sore throat Eyes: No eye pain, swelling, redness, vision changes, discharge Cardio: No chest pain, palpitations, PERALES, orthopnea, peripheral edema Pulm: No SOB, cough, sputum, wheezing, dyspnea, hemoptysis GI: No nausea, vomiting, hematemesis, abdominal pain, diarrhea, constipation, hematochezia, melena : No irregular bleeding, dysuria, frequency, urgency, hesitancy, hematuria, flank pain, urinary flow changes, urinary incontinence or retention MSK: No joint pain, myalgias, +right shoulder pain, +lower back pain, +neck pain Skin: No lesions, rashes Neuro: No weakness, numbness, paresthesias, LOC, dizziness, headache Psych: No anxiety/panic, depression, SI/HI, AH/VH All other systems reviewed and are negative. [facility] Past Medical History Attestation statement: The following information was validated with the patient. Source: old records reviewed and nursing notes reviewed Medical History Vertigo Cataracts, bilateral Arthritis Anxiety Full dentures Ambulates with cane Diabetes mellitus type 2, diet-controlled Anemia JV (obstructive sleep apnea) Elevated cholesterol HTN (hypertension) GERD (gastroesophageal reflux disease) Spinal stenosis of lumbar region with neurogenic claudication Lumbar back pain with radiculopathy affecting lower extremity Surgical History Hx of colonoscopy History of total right hip replacement Hx of cholecystectomy Social History Social History Are you a primary pediatric acute care unit nurse to a significant other at home: No Do you presently have visiting nurse or other home services: Yes ([employer] 4 hours/day) Alcohol intake: never Patient Tobacco Use Status: Never used Tobacco Advance Directives: No Advance Directives Information Provided: Yes Do you have a plan to hurt others: No Plan Physical Exam Vital Signs: Vital Signs: Last Vital Signs Temp 97.5 F 08/13/24 12:19 Pulse 54 08/13/24 12:19 Resp 16 08/13/24 12:19 BP 110/60 08/13/24 12:19 Pulse Ox 100 08/13/24 12:19 O2 Del Method Room Air 08/13/24 12:19 BMI result Body Mass Index 20.7 vital signs stable, afebrile General: Well appearing, in no acute distress. Skin: Warm, dry, intact. No rashes or lesions. Head: Normocephalic, atraumatic. EENT: Hearing is intact b/l. Conjunctiva clear. PERRLA. EOM intact. Moist mucous membranes.? Neck: No midline cervical spinous tenderness or step-off deformity. Right-sided cervical paraspinal muscle tenderness without palpable spasm. Full ROM to C- spine intact. Cardiac: Chest wall symmetric. RRR Lungs: Normal respiratory effort without accessory muscle use. CTA bilaterally. Abdomen: Soft, non-tender, non-distended. No rebound tenderness or guarding. Positive BS x4. Back: +ttp over entire midline lumbar spine without step off deformity. no fluctuance/ mass. associated bilateral lumbar paraspinal muscle tenderness to palpation. No warmth. No crepitus. Ext: Upper and lower extremities atraumatic, without tenderness, deformity, swelling or erythema. Full ROM throughout. Neuro: AOx3. Normal speech. NIH 0. Strength 5/5 intact throughout. No saddle anesthesia. Sensation intact to light touch. NV intact distally. Reflexes 2+ bilaterally. Ambulating with steady gait assisted by cane. Psych: Appropriate mood and affect. Responds appropriately to questions. Course Course Course Narrative: CT head/brain without bleed or skull fracture. CT cervical spine without subluxation or fracture. Chronic degenerative disc disease noted. Incidental finding of dilated esophagus containing fluid, recommending further eval with upper endoscopy or barium swallow. Bilateral hand/wrist x-rays do not demonstrate acute fracture. X-ray right shoulder without fracture or dislocation. X-ray thoracic spine does not demonstrate acute fracture or subluxation. There are chronic degenerative changes. Incidental finding of gastric banding device in place, possibly malpositioned or slipped given the appearance, recommending correlation with KUB. Lumbar spine x-ray showing superior endplate compression deformity representing 20% volume loss without retropulsion at L1 vertebrae. > I discussed all workup results with patient, including incidental findings. Advised outpatient follow-up for such. > She was given a dose of tramadol and lidocaine in ED today for pain with improvement. > she is ambulating with steady gait assisted by cane. There are no red flag symptoms. I am not concerned for cord compression. Declining PT eval at this time. I feel discharge home with pain control and outpatient follow up is reasonable. She currently follows with pain management for her chronic back pain. I have also provided her with a referral to the front office specialist. I advised her to call them to establish care. Tramadol sent to pharmacy. Patient has remained stable throughout ED visit today. Discussed worrisome signs and symptoms and when to return to the ED. All questions answered at this time. Patient is agreeable with disposition and stable for discharge. Medications Administered Discontinued Medications Generic Name Dose Route Start Last Admin Trade Name Freq PRN Reason Stop Dose Admin Tramadol HCl 50 mg 08/13/24 11:40 08/13/24 12:09 Tramadol Hcl 50 Mg Tablet PO 08/13/24 11:41 50 mg ONCE ONE Administration Medical Decision Making Medical Decision Making MDM Narrative: 69 year old female with pmhx significant for HTN, T2DM, CKD, anemia, vertigo, JV not on CPAP, GERD, arthritis, spinal stenosis, lumbar radiculopathy presents to the ED today for evaluation after losing her balance and falling down approximately 14 stairs in her home 5 days ago (08/08/24). Vital signs are stable. Afebrile. She is nontoxic appearing in no acute distress. On exam, ttp over entire midline lumbar spine without step off deformity. no fluctuance/ mass. associated bilateral lumbar paraspinal muscle tenderness to palpation. No warmth. No crepitus. CMS intact distally. Ambulating with steady gait assisted by cane. Differential diagnosis includes cervical strain v sprain v fracture v subluxation. Unlikely cord compression. Concern for shoulder contusion v strain. Lower suspicion for fracture, dislocation. Unlikely neurovascular compromise, compartment syndrome, threat to limb. Concern for lumbar fracture, subluxation contusion, radiculopathy. Unlikely cord compression, cauda equina, Guillain- [place], epidural abscess. Plan for imaging, pain control, and re-evaluation. Differential Diagnosis Differential Diagnoses: The differential diagnosis associated with the presentation includes as above. Admission/Observation not indicated. Independent Interpretation I performed an independent interpretation of an: Plain X-Ray and CT Scan Interpretation: CT head/brain without bleed or skull fracture CT cervical spine without fracture or subluxation XR right shoulder without fracture or dislocation XR b/l hands/ wrists without fracture Radiology Impression Discussion of test interpretation with radiology: I have reviewed the radiologist's reading. Radiologist Impression: Procedure(s): XR shoulder RT min 2V Accession Number(s): [id number] cc: Marisel Benito MD; Stephanie Tabares~ EXAMINATION: XR SHOULDER 2 OR MORE VIEWS RIGHT HISTORY: fall right shoulder pain COMPARISON: Comparison is made with the prior examination dated 05/28/2023. FINDINGS: Three views of the right shoulder are submitted. Osseous mineralization is normal. There is no fracture or dislocation. Again seen are cystic changes of the glenoid. The glenohumeral and acromioclavicular joint spaces are preserved. The soft tissues are unremarkable. XR/XR shoulder RT min 2V IMPRESSION: No evidence of fracture of the right shoulder. Electronically signed by: Hari Dorado MD 08/13/2024 11:12 AM EST RP Procedure(s): XR hand wrist LT Accession Number(s): [id number] cc: Marisel Benito MD; Low Mata MD~ EXAMINATION: XR HAND AND WRIST COMPLETE LEFT HISTORY: FALL WITH PAIN COMPARISON: Comparison is made with the prior examination dated 12/12/2023. FINDINGS: Three views of the left hand and wrist are submitted. Osseous mineralization is normal. There is an old healed fracture of the distal radius and an old ununited fracture of the distal ulna. There is an additional chronic fracture of the proximal phalanx of the 5th finger. No acute fracture is seen. The joint spaces are preserved. The soft tissues are unremarkable. XR/XR hand wrist LT IMPRESSION: No evidence of acute fracture of the left hand or wrist. Electronically signed by: Hari Dorado MD 08/13/2024 11:08 AM EST RP Procedure(s): XR hand wrist RT Accession Number(s): [id number] cc: Marisel Benito MD; Low Mata MD~ EXAMINATION: XR HAND AND WRIST COMPLETE RIGHT HISTORY: fall with pain COMPARISON: Comparison is made with the prior examination dated 12/12/2023. FINDINGS: Three views of the right hand and wrist are submitted. Osseous mineralization is normal. There is an old healed fracture of the distal radius. An old ununited fracture of the distal ulna is noted. No acute fracture is seen. 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 There is osseous fusion of the entire carpus. The soft tissues are unremarkable. XR/XR hand wrist RT IMPRESSION: No evidence of acute fracture of the right hand or wrist. Electronically signed by: Hari Dorado MD 08/13/2024 11:11 AM EST RP Procedure(s): XR thoracic spine 2V Accession Number(s): [id number] cc: Marisel Benito MD; Low Mata MD~ EXAMINATION: XR THORACIC SPINE CLINICAL INFORMATION: fall with pain COMPARISON: None available. TECHNIQUE: 3 views of the thoracic spine were obtained. FINDINGS: There is a mild to moderate right convex scoliosis, apex at T7. There is a normal kyphosis. No fractures, compression deformities, subluxations, or suspicious bone lesions. A few prominent Schmorl's nodes are present in the endplates. Mild to moderate disc degeneration present, most significant in the midthoracic region. Mild facet degeneration, multilevel. There is a gastric banding device in place, which could be possibly malpositioned given the appearance. Recommend correlation with a KUB radiograph. Soft tissues, heart, mediastinum, and imaged lungs appear normal. XR/XR thoracic spine 2V IMPRESSION: 1. No acute findings of the thoracic spine. 2. Mild to moderate degenerative spondylosis. Mild right convex scoliosis. 3. There is a gastric banding device in place, which could be possibly malpositioned/slipped given the appearance. Recommend correlation with a KUB radiograph. Electronically signed by: Slick Marquez MD 08/13/2024 11:20 AM EST RP Procedure(s): XR lumbar spine 2-3V Accession Number(s): [id number] cc: Marisel Benito MD; Low Mata MD~ EXAMINATION: XR LUMBOSACRAL SPINE CLINICAL INFORMATION: fall with pain COMPARISON: September 26, 2023. TECHNIQUE: Three views of the lumbosacral spine. FINDINGS: There is a superior endplate compression deformity representing 20% volume loss without retropulsion at L1 vertebra. Multilevel thoracolumbar spondylosis. Grade 1 anterolisthesis L5-S1 on a degenerative basis. Levoconvex curvature of the lumbar spine. There is a radiopaque catheter extending in the left hemiabdomen. Vascular clips right upper quadrant abdomen. Sclerosis of the sacroiliac joints more conspicuous on the left side. There is a hip prosthesis seen on the lateral projection probably on the right hip. XR/XR lumbar spine 2-3V IMPRESSION: Acute to subacute superior endplate compression deformity representing 20% volume loss without retropulsion, L1 vertebra. Electronically signed by: Pavel Malcolm MD 08/13/2024 11:23 AM EST Procedure(s): CT cervical spine wo IV con Accession Number(s): [id number] cc: Marisel Benito MD; Stephanie Tabares~ Report Number: [id number]: Total DLP = 863.43 mGy-cm EXAMINATION: CT CERVICAL SPINE WITHOUT IV CONTRAST HISTORY: fall down stairs neck pain. TECHNIQUE: Helical CT of the cervical spine was performed per standard departmental protocol. Coronal and sagittal reformatted images were also evaluated. One or more of the following techniques was used for dose reduction: Automated exposure control, adjustment of the mA and/or kV according to patient size, use of iterative reconstruction technique. DLP: 227.36 mGy-cm COMPARISON: There are no prior studies for comparison. FINDINGS: CERVICAL SPINE: There is osseous fusion of C4 and C5. The vertebral bodies maintain normal height without evidence of fracture. There is straightening of the normal cervical lordosis without subluxation. There is moderate degenerative disc disease with disc space narrowing and osteophyte formation. There is facet osteoarthritis and uncovertebral joint hypertrophy causing bilateral neural foraminal stenosis at the C4-5, C5-6, C6-7 levels. Evaluation for disc pathology is limited by lack of intrathecal contrast material, however. BRAIN: The visualized portion of the brain is unremarkable. SINUSES: The visualized paranasal sinuses, mastoid air cells and middle ear cavities are unremarkable. LUNG APICES: There are mild emphysematous changes at the lung apices. SOFT TISSUES: There is dilatation of the esophagus which contains fluid. CT/CT cervical spine wo IV con IMPRESSION: 1. Straightening of the normal cervical lordosis. No evidence of fracture or subluxation. 2. Degenerative disc disease as described. 3. Dilated esophagus containing fluid. Further evaluation with upper endoscopy or barium swallow is suggested. Electronically signed by: Hari Dorado MD 08/13/2024 11:01 AM EST RP Procedure(s): CT head/brain wo IV con Accession Number(s): [id number] cc: Marisel Benito MD; Stephanie Tabares~ Report Number: [id number]: Total DLP = 0.00 mGy-cm EXAMINATION: CT HEAD WITHOUT IV CONTRAST HISTORY: fall down stairs. TECHNIQUE: Unenhanced helical CT of the head was performed per standard departmental protocol. Coronal and sagittal reformats of the head were also evaluated. One or more of the following techniques was used for dose reduction: Automated exposure control, adjustment of the mA and/or kV according to patient size, use of iterative reconstruction technique. DLP: 625.82 mGy-cm COMPARISON: There are no prior studies for comparison. FINDINGS: BRAIN: The brain parenchyma is unremarkable. There is normal brannon/white differentiation. The ventricular system is normal in size and configuration. There is no mass effect or midline shift. No intra- or extra-axial fluid collections are identified. SINUSES: There is a polyp versus mucous retention cyst in the right maxillary sinus. There is partial opacification of the bilateral mastoid air cells. The middle ear cavities are normally pneumatized. ORBITS: The visualized orbits are unremarkable. BONES/SOFT TISSUES: The extracranial soft tissues are unremarkable. The calvarium is intact. No suspicious lytic or sclerotic lesions. CT/CT head/brain wo IV con IMPRESSION: No evidence of intracranial hemorrhage. Electronically signed by: Hari Dorado MD 08/13/2024 10:53 AM EST RP External Record Review External record reviewed: Inpatient record Prescription Management I considered prescription management with: Pain Medication Chronic Conditions Patient?s care impacted by: Other (spinal stenosis, OA) Social Determinants Patient?s care significantly limited by Social Determinants of Health including: Other Social Determinant of Health Critical Care Time Critical Care Time Critical Care Time: No Discharge Plan Discharge Clinical Impression: Closed compression fracture of body of L1 vertebra, Fall down stairs Patient Disposition: Home, Self-Care Instructions: Thoracolumbar Fracture (ED), Vertebroplasty (DC) Additional Instructions: You were evaluated in the ED today following a fall [address] scans of your head/neck are normal and do not demonstrate any intracranial bleed or fracture. The x-rays of your right shoulder and both hands/wrists do not demonstrate fracture. The x-ray of your thoracic spine does not demonstrate fracture. As discussed, the x-ray of your lumbar spine shows a compression deformity to L1 consistent with acute fracture. Management consists of pain control and follow up with spinal surgeon. I have provided you with a referral. Call them to establish care. They will not call you. I recommend you take 600mg ibuprofen every 6 hours or Tylenol 650mg every 6 hours as needed for pain. If needed, you can alternate these medications so that you take one medication every 3 hours. For example, at noon take ibuprofen, then at 3pm take Tylenol, then at 6pm take ibuprofen. Tramadol is a pain medication that has been sent to your pharmacy for you to take for break through pain. I am also sending a short course of steroids to help with inflammation. Take these as prescribed. If you are diabetic, please monitor your blood sugar at home while taking prednisone as this can cause increased blood sugar. Return to the Emergency Department if you experience worsening back pain, difficulty walking, fevers, numbness, tingling, incontinence, or any other concerning symptoms. In the case of an emergency call 911. Your scans had additional incidental findings that warrant outpatient follow up: The xray of your thoracic spine shows possible slipped position of your gastric band. Recommending KUB xray. Please follow up with your primary care provider. CT scan of your cervical spine shows incidental finding of esophageal dilation with fluid. I recommend following up with GI specialist for further evaluation/ imaging. You have been provided with a referral. Call them to [facility], they will not call you. Prescriptions: New tramadol 50 mg tablet 50 mg PO Q12H PRN (Reason: pain (scale score 7-10)) Qty: 8 0RF lidocaine [Lidoderm] 5 % adhesive patch,medicated 1 patch topical DAILY Qty: 15 0RF Rx Instructions: leave on most painful area for up to 12 hrs prednisone 20 mg tablet 60 mg PO DAILY 5 Days Qty: 15 0RF No Action acetaminophen 325 mg capsule 650 mg PO Q6H PRN (Reason: pain) Qty: 45 0RF trazodone 100 mg tablet 100 mg PO BEDTIME calcium carbonate [Jeremy-Gest Antacid] 200 mg calcium (500 mg) tablet,chewable 200 mg PO TID atorvastatin 10 mg tablet 10 mg PO DAILY hydroxyzine HCl 25 mg tablet 25 mg PO DAILY magnesium oxide 400 mg (241.3 mg magnesium) tablet 400 mg PO BID omeprazole 40 mg capsule,delayed release(DR/EC) 40 mg PO DAILY sennosides-docusate sodium [Senexon-S] 8.6-50 mg tablet 1 tab PO BID ondansetron HCl 4 mg tablet 4 mg PO Q8H PRN (Reason: Nausea) furosemide 20 mg tablet 20 mg PO DAILY topiramate 50 mg tablet 50 mg PO BID potassium chloride 20 mEq tablet extended release 20 meq PO DAILY ferrous sulfate 325 mg (65 mg iron) tablet 325 mg PO DAILY cholecalciferol (vitamin D3) 50 mcg (2,000 unit) capsule 50 mcg PO DAILY meclizine 12.5 mg tablet 12.5 mg PO TID sumatriptan succinate 50 mg tablet 50 mg PO DAILY PRN (Reason: Headache) (DME) [facility] See Rx Instructions .Route Qty: 1 3RF Rx Instructions: As directed solifenacin 10 mg tablet 10 mg PO DAILY solifenacin 5 mg tablet 5 mg PO DAILY lidocaine 5 % adhesive patch,medicated 1 patch topical DAILY Qty: 30 3RF sertraline 100 mg tablet 100 mg PO DAILY lisinopril 5 mg tablet 5 mg PO DAILY verapamil 120 mg capsule,ext rel. pellets 24 hr 120 mg PO DAILY gabapentin 400 mg capsule PO BID eszopiclone 1 mg tablet PO [place] [facility] [facility] [place]] - 1 week (esophageal dilation, recommending further imaging) [facility] [place] Group] - 3 days (acute compression fracture L1) [facility] [place]] Marisel Benito MD [Primary Care Provider] - Interventions: ED Discharge Assessment Last Done: 08/13/24 12:19 Discharge Date/Time: 08/13/24 12:20 Print Language: German
[2024-08-13] MEDS: traMADoL HCL 50 MG TABLET PO (12:09)
[2024-08-13 12:19] VITALS: BP 110/60; PULSE 54; RESP 16; TEMP 36.4; O2SAT 100
--- OUTSIDE RECORDS SUMMARY | 2024-08-13 13:26 | XMS_ITS | Encounter Summary ---
Author Organization [facility] Address [address] [place] [address] Care Team Providers Care Airbrush Artist Name Role Phone Marisel Benito MD Primary Care Provider Encounter Details Date Type Department Care Team (Late st Contact Info) Description 06/30/2024 Telephone Internal Medicine [facility] [address] [facility] [address] [place] [phone] Brittany Hernandez MA Social History Tobacco Use [...] 08/13/2024 8:13 AM EST Faxed to L&C [phone] * Brittany Hernandez MA - 08/12/2024 4:43 PM ESTAddended by: BRITTANY HERNANDEZ on: 08/12/2024 04:43 PM Modules accepted: Orders * Brittany Hernandez MA - 08/12/2024 4:42 PM EST New RX pended with qualifying Dx * Brtitany Hernandez MA - 07/23/2024 9:26 AM EST Faxed to L&C [phone] * Brittany Hernandez MA - 07/21/2024 3:17 PM ESTAddended by: BRITTANY HERNANDEZ on: 07/21/2024 03:17 PM Modules accepted: Orders * Brittany Hernandez MA - 07/21/2024 3:17 PM EST HTN was not an approving dx for compression socks, Pended new order with new dx. * Brittany Hernandez MA - 07/08/2024 4:06 PM EST Faxed to L&C [phone] * Brittany Hernandez MA - 06/30/2024 2:[address] [facility] is requesting new RX. DME pended. documented in this encounter Plan of Treatment Not on file documented as of this encounter Visit Diagnoses Diagnosis Hypertension, unspecified type- Primary Type 2 diabetes mellitus with other specified complication, unspecified whether correction insulin use ([facility]) Hyperlipidemia, unspecified hyperlipidemia type documented in this encounter Orders General Supply Count Last Ordered Date First Or dered Date COMPRESSION STOCKINGS 1 08/12/2024 documented in this encounter Care Teams Airbrush Artist Relationship Specialty Start Date End Date Marisel Benito MD [address] [place] [phone] PCP - General Internal Medicine 05/01/18 documented as of this encounter
--- OUTSIDE RECORDS SUMMARY | 2024-08-13 13:26 | XMS_ITS | Clinical Summary ---
Author Organization [facility] Address [address] [place] [address] Phone Care Team Providers Care Drywall Sander Name Role Phone Marisel Benito MD Primary Care Provider [phone] Allergies Active Allergy Reactions Criticality Noted Date [...] mellitus with other specified complication, unspecified whether detention insulin use ([facility]) Take 1 each by mouth 2 (two) [...] Department Care Team Description 08/12/2024 Telephone Internal [address] [place] [phone] Maryam Mckeon MA Request For Order(s) (RM Annual Care Plan /) 08/04/2024 Telephone [facility] [address] [facility] [address] [place] [phone] Lexie Richards PA 07/21/2024 Telephone Internal [address] [place] [phone] Katey Hernandez MA Faxed form ([facility]) 06/30/2024 Telephone Internal [facility] [address] [facility] [address] [place] [phone] Katey Hernandez MA 05/20/2024 Telephone Internal [address] [phone] Katey Hernandez MA faxed order (L&C) 05/19/2024 [facility] [address] [facility] [address] [place] [phone] Marisel Benito MD Fitting for DME from Last 3 Months Immunizations Name Administration Dates Next Due Influenza trivalent, with pr eservative (Fluzone; Afluria) 6mo and older 03/14/2020 Pneumococcal conjugate 13 va lent (Prevnar 13, PCV13) 2mo and older 03/14/2020,02/13/2019 Surgical History Surgery Date Site/Laterality Comments HYSTERECTOMY 2000 PROCEDURE: HISTORICAL HYSTERECTOMY OTHER SURGICAL HISTORY 1978 PROCEDURE: MS TONSILLECTOMY PRIMARY/SECONDARY AGE 11/> OTHER SURGICAL HISTORY 11/28/2018 PROCEDURE: MS LAPS SURG CHOLECYSTECTOMY W/CHOLANGIOGRAPHY; COMMENT: negative IOC [...] Laterality Modality Ultrasound us Provider [employer] [facility] US PROCEDURES Final Result * Lipid panel with reflex to direct LDL (04/30/2024 8:06 AM EST) Cholesterol 163 0 - 200 mg/dL LAB CHEMISTRY METHOD 04/30/2024 10:43 AM [facility] Triglycerides 87 0 - 150 mg/dL LAB CHEMISTRY METHOD 04/30/2024 10:43 AM [facility] HDL 64 >=40 mg/dL LAB CHEMISTRY METHOD 04/30/2024 10:43 AM [facility] LDL Calculated 82 0 - 100 mg/dL LAB CHEMISTRY METHOD 04/30/2024 10:43 AM [facility] VLDL Cholesterol Jeremy 17.4 mg/dL LAB CHEMISTRY METHOD 04/30/2024 10:43 AM [facility] Non HDL Chol. (LDL+VLDL) 99 <145 mg/dL LAB CHEMISTRY METHOD 04/30/2024 10:43 AM EST [facility] Chol/HDL Ratio 2.5 0.0 - 4.4 LAB CHEMISTRY METHOD 04/30/2024 10:43 AM [facility] Blood Venous blood specimen / Unknown Venipuncture / Unknown 04/30/2024 8:06 AM EST 04/30/2024 8:07 AM EST Marybel Reyes DIAL MAKER LAB BLOOD ORDERABLES Final Resul t Performing Organization Address City/[facility]/ZIP Co de Phone Number [facility] [address] [place] [address], [place] [phone] * Hemoglobin A1c (04/30/2024 8:06 AM EST) Hemoglobin A1C 6.0 <6.5 % LAB CHEMISTRY METHOD 04/30/2024 11:24 AM EST [facility] Mean Bld Glu Estim. 126 mg/dL LAB CHEMISTRY METHOD 04/30/2024 11:24 AM [facility] Blood Venous blood specimen / Unknown Venipuncture / Unknown 04/30/2024 8:06 AM EST 04/30/2024 8:07 AM EST Marybel Reyes DIAL MAKER LAB BLOOD ORDERABLES Final Resul t [facility] [address] [place] [address], [place] [phone] * (ABNORMAL) Comprehensive metabolic panel (04/30/2024 8:06 AM EST) Sodium 142 133 - 145 mmol/L LAB CHEMISTRY METHOD 04/30/2024 10:43 AM [facility] Potassium 3.9 3.5 - 5.5 mmol/L LAB CHEMISTRY METHOD 04/30/2024 10:43 AM EST [facility] Chloride 110 96 - 110 mmol/L LAB CHEMISTRY METHOD 04/30/2024 10:43 AM [facility] CO2 28 21 - 32 mmol/L LAB CHEMISTRY METHOD 04/30/2024 10:43 AM [facility] Anion Gap 4 3 - 11 LAB CHEMISTRY METHOD 04/30/2024 10:43 AM [facility] Glucose 98 70 - 100 mg/dL LAB CHEMISTRY METHOD 04/30/2024 10:43 AM [facility] BUN 17 5 - 25 mg/dL LAB CHEMISTRY METHOD 04/30/2024 10:43 AM [facility] Creatinine 1.11(H) 0.50 - 1.10 mg/dL LAB CHEMISTRY METHOD 04/30/2024 10:43 AM [facility] eGFR 54(L) >=60 mL/min/1. 73m2 LAB CHEMISTRY METHOD 04/30/2024 10:43 AM [facility] Comment:Calculation based on the??Chronic Kidney Disease Epidemiology Collaboration (CKD-EPI) equation refit??without adjustment for race. BUN/Creatinine Ratio 15.3 LAB CHEMISTRY METHOD 04/30/2024 10:43 AM [facility] Calcium 9.5 8.5 - 10.5 mg/dL LAB CHEMISTRY METHOD 04/30/2024 10:43 AM [facility] AST (SGOT) 18 10 - 42 unit/L LAB CHEMISTRY METHOD 04/30/2024 10:43 AM [facility] ALT (SGPT) 20 10 - 60 unit/L LAB CHEMISTRY METHOD 04/30/2024 10:43 AM [facility] Alkaline Phosphatase 81 42 - 121 unit/L LAB CHEMISTRY METHOD 04/30/2024 10:43 AM [facility] Total Protein 7.2 6.0 - 8.0 g/dL LAB CHEMISTRY METHOD 04/30/2024 10:43 AM EST [facility] Albumin 3.5 3.2 - 5.0 g/dL LAB CHEMISTRY METHOD 04/30/2024 10:43 AM EST [facility] Total Bilirubin 0.5 0.0 - 1.4 mg/dL LAB CHEMISTRY METHOD 04/30/2024 10:43 AM EST [facility] Blood Venous blood specimen / Unknown Venipuncture / Unknown 04/30/2024 8:06 AM EST 04/30/2024 8:07 AM EST us Marybel Reyes NP LAB BLOOD ORDERABLES Final Resul t [facility] [address] [place] [address], from Last 3 Months or Most Recently Relevant to Health Maintenance Insurance Member Subscriber Plan / Payer (Ef fective 2019-Present) Name:Lesly Mike Relation to Subscriber:Self Name:Lesly Mike Payer ID:[id number] Group ID:[id number] Type:Not on file Address: [place] [address] [address] [id number] Advance Directives Documents on File Type Date Recorded Patient Cooker Meal Expl anation Health Care Decision (hx) 11/29/2018 [...] (hx) 10/01/2016 AD [facility] DIRECTIVE Care Teams Drywall Sander Relationship Specialty Start Date End Date Marisel Benito MD [address] [place] [phone] PCP - General Internal Medicine 05/01/18
--- OUTSIDE RECORDS SUMMARY | 2024-08-13 13:26 | XMS_ITS | Encounter Summary ---
Author Organization [facility] Address [address] [place] [phone] Care Team Providers Care Sleeping Car Porter Name Role Phone Marisel Benito MD Primary Care Provider [phone] Reason for Visit * Reason Onset Date Comments Faxed form 07/21/2024 [facility] Encounter Details Date Type Department Care Team (Late st Contact Info) Description 07/21/2024 Telephone Internal Medicine [facility] [address] [facility] [address] [place] [address] Katey Hernandez MA Faxed form ([facility]) Social History Tobacco Use Types Packs/Day Years [...] MA - 07/22/2024 1:44 PM EST Faxed [phone] * Katey Hernandez MA - 07/21/2024 11:22 AM EST [facility] ADH semi annual report. 01/06/2024 Placed in providers folder for signature. documented in this encounter Plan of Treatment Not on file documented as of this encounter Visit Diagnoses Not on filedocumented in this encounter Care Teams Sleeping Car Porter Relationship Specialty Start Date End Date Marisel Benito MD [address] [place] [phone] PCP - General Internal Medicine 05/01/18 documented as of this encounter
--- OUTSIDE RECORDS SUMMARY | 2024-08-13 13:26 | XMS_ITS | Encounter Summary ---
Author Organization [facility] Address [address] [place] [address] Care Team Providers Care Personnel Administrator Name Role Phone Marisel Benito MD Primary Care Provider [phone] Reason for Visit * Reason Onset Date Comments Request For Order(s) 08/12/2024 [facility] Annual Care Plan Encounter Details Date Type Department Care Team (Late st Contact Info) Description 08/12/2024 Telephone Internal Medicine [facility] [address] [facility] [address] [place] [address] Maryam Mckeon MA Request For Order(s) ([facility] Annual Care Plan /) [...] Progress Notes * Maryam Mckeon MA - 08/13/2024 10:05 AM EST Scanned into chart and faxed to [facility] [phone] * Maryam Mckeon MA - 08/12/2024 7:18 AM EST [facility] Annual Care Plan Please sign & fax [phone] documented in this encounter Plan of Treatment Not on file documented as of this encounter Visit Diagnoses Not on filedocumented in this encounter Care Teams Personnel Administrator Relationship Specialty Start Date End Date Marisel Benito MD [address] [phone] PCP - General Internal Medicine 05/01/18 documented as of this encounter
--- OUTSIDE RECORDS SUMMARY | 2024-08-13 13:26 | XMS_ITS | Encounter Summary ---
Author Organization [facility] Address [address] [place] [address] Care Team Providers Care Chemistry Intern Name Role Phone Marisel Benito MD Primary Care Provider [phone] Encounter Details Date Type Department Care Team (Late st Contact Info) Description 08/04/2024 Telephone [facility] [address] [facility] [address] [place] [address] Lexie Richards PA [address] [place] [address] [place] [address] Social History Tobacco Use Types Packs/Day Years [...] on filedocumented in this encounter Care Teams Chemistry Intern Relationship Specialty Start Date End Date Marisel Benito MD [address] [place] [address] PCP - General Internal Medicine 05/01/18 documented as of this encounter
== END 2024-08-13 12:20 | disposition home or self-care (01) ==
PROVIDERS: Emergency Provider Emergency Medicine; PCP Internal Medicine
DX: S32.010A Wedge compression fracture of first lumbar vertebra, initial encounter for closed fracture (principal); W10.8XXA Fall (on) (from) other stairs and steps, initial encounter; M25.511 Pain in right shoulder; M54.2 Cervicalgia; M79.641 Pain in right hand; E11.22 Type 2 diabetes mellitus with diabetic chronic kidney disease; I12.9 Hypertensive chronic kidney disease with stage 1 through stage 4 chronic kidney disease, or unspecified chronic kidney disease; N18.9 Chronic kidney disease, unspecified; Y93.89 Activity, other specified; Y92.9 Unspecified place or not applicable; Y99.9 Unspecified external cause status
CPT/HCPCS: 70450; 72070; 72100; 72125; 73030; 73110; 73130; 99212; 99283; 99284

== ENCOUNTER → 2024-08-13 10:14 | Outpatient (BNV) | payer OTHER, SELFPAY | PROVIDERS: Emergency Provider Emergency Medicine; PCP Internal Medicine; Visit Provider Radiology Diagnostic Radiology | DX: M79.641 Pain in right hand (principal); M79.642 Pain in left hand; M54.2 Cervicalgia; S09.90XA Unspecified injury of head, initial encounter; S32.010A Wedge compression fracture of first lumbar vertebra, initial encounter for closed fracture; M54.9 Dorsalgia, unspecified; M25.511 Pain in right shoulder | CPT/HCPCS: 70450; 72070; 72100; 72125; 73030; 73110; 73130 ==

== ENCOUNTER 2024-08-17 09:21 | Outpatient (AMB) | payer OTHER, SELFPAY ==
[2024-08-17 09:28] VITALS: BP 114/60; PULSE 50; BMI 21.0
--- NOTE | 2024-08-17 09:28 | A.OFFVIS_ITS ---
Vital Signs 08/17/24 09:28 Height 5 ft 5 in Weight 126 lb 1.671 oz BMI 21.0 BP 114/60 Blood Pressure Location Lt brachial Position Sitting Pulse 50 Pulse Source Monitor Intake Visit Reasons: 6 mth f/up Accounting Manager Cpa Required: No Allergies Penicillins Allergy (Severe, Verified 08/17/24 10:43) hives Medication List - Last Reconciled 08/17/24 by Samina Schaffer NP-C acetaminophen 650 mg (2 x 325 mg) PO Q6H PRN atorvastatin 10 mg PO DAILY calcium carbonate (Jeremy-Gest Antacid) 200 mg PO TID cholecalciferol (vitamin D3) 50 mcg PO DAILY eszopiclone mg PO ferrous sulfate 325 mg PO DAILY furosemide 20 mg PO DAILY gabapentin mg PO BID Gel mattress overlay As directed hydroxyzine HCl 25 mg PO DAILY lidocaine 5% (Lidoderm) 1 patch topical DAILY lidocaine 5% 1 patch topical DAILY magnesium oxide 400 mg PO BID omeprazole 40 mg PO DAILY ondansetron HCl 4 mg PO Q8H PRN potassium chloride ER 20 mEq PO DAILY sennosides-docusate sodium 8.6-50 mg (Senexon-S) 1 tab PO BID sertraline 100 mg PO DAILY solifenacin 10 mg PO DAILY solifenacin 5 mg PO DAILY sumatriptan succinate 50 mg PO DAILY PRN topiramate 50 mg PO BID trazodone 100 mg PO BEDTIME verapamil ER 120 mg PO DAILY HPI HPI 6 mth f/up: Details: Lesly is a 69 yr old female with past medical history of hypertension, prediabetes, vertigo, bradycardia, who presents for follow-up. Today she reports that she fell down the stairs in her home last week and sustained a compression fracture in her back. She says that her legs gave out when she was going down the stairs. She does not recall having any lightheadedness or heart palpitations prior to the fall. She did not lose consciousness. She was seen in the emergency room for her injury on 08/13 which was days following the fall. She has not had any concerning chest discomfort. She denies having shortness of breath, PND, orthopnea or edema. Taking meds as directed. Mostly sedentary, especially now with her active back pain. [facility] Medical History Vertigo Cataracts, bilateral Arthritis Anxiety Full dentures Ambulates with cane Diabetes mellitus type 2, diet-controlled Anemia JV (obstructive sleep apnea) Elevated cholesterol HTN (hypertension) GERD (gastroesophageal reflux disease) Spinal stenosis of lumbar region with neurogenic claudication Lumbar back pain with radiculopathy affecting lower extremity Surgical History Hx of colonoscopy History of total right hip replacement Hx of cholecystectomy Social History Are you a primary eye care professional to a significant other at home: No Do you presently have visiting nurse or other home services: Yes (PRODUCTION PATTERN MAKER M-F 4 hours/day) Alcohol intake: never Patient Tobacco Use Status: Never used Tobacco Review of Systems Const All systems reviewed & are unremarkable except as noted in HPI and below Reports body aches (muscle and back pain from fall last week) ENT Denies dizziness Card Denies chest pain, Denies chest pain at rest, Denies chest pain with activity, Denies rapid heart rate, Denies pedal edema, Denies edema, Denies leg edema, Denies lightheadedness, Denies palpitations, Denies dyspnea, Denies dyspnea on exertion and Denies orthopnea Resp Denies cough, Denies dyspnea and Denies dyspnea on exertion GI Denies hematochezia and Denies change in stool character Musc Details: back pain Reports abnormal gait, Denies limited range of motion, Denies muscle cramps, Denies muscle weakness, Denies numbness, Denies radiating pain into limb, Denies stiffness and Denies tingling Neuro Reports abnormal gait, Denies dizziness, Denies numbness and Denies tingling Endo Denies palpitations Physical Exam Vital Signs: Last Vital Signs Pulse 50 08/17/24 09:28 BP 114/60 08/17/24 09:28 BMI result Body Mass Index 21.0 Const Other: uncomfortable appearance with movement related to back pain General: cooperative, healthy appearing and no acute distress Orientation/consciousness: patient oriented x3 Neck Neck: Yes normal visual inspection and Yes no JVD Resp Effort & Inspection: normal respiratory effort Auscultation: clear to auscultation bilaterally, no crackles, no rales, no rhonchi and no wheezes Cardio Jugular venous distension: no JVD Rate: regular rate Rhythm: regular rhythm Heart sounds: S1 normal heart sound present, S2 normal heart sound present, no murmurs and no rubs Neuro General: patient oriented x3 Extrem General: Yes normal to inspection, No no pedal edema and No calf tenderness Psych Appearance: grossly normal Mental Status: mental status grossly normal Speech and movement: Normal speech and movement present Office Procedures EKG Details: Today read by me, sinus bradycardia, rate 50, QTC 384 millisecond 77140-[id number], Complete Assessment & Plan Assessment & Plan (1) Bradycardia: Code(s): R00.1 - Bradycardia, unspecified Category: Medical Plan: History of bradycardia. She has been on verapamil right along for blood pressure control. She was previously instructed to stop but tells me today that she has never stopped it. Last echocardiogram was done on 03/19/2024 showing EF 65-70%, impaired relaxation. Holter monitor was done on 11/27/2023 for 3 days showed sinus rhythm with average heart rate 72, rare ectopy. EKG done today showing sinus bradycardia, rate 50. She did have a recent fall down the stairs in her home. Will check a Holter monitor to ensure no significant Oscar or pauses. She wants to stay on verapamil at this time. Plan to call her with Holter results. Cardiology follow-up 6 months, sooner if test results warrants. (2) Chest pain: Code(s): R07.9 - Chest pain, unspecified Category: Medical Plan: Prior reports of atypical chest discomfort, none at this time. EKG does not show any ischemia. Last echo shows normal EF and no regional wall motion abnormality. Signs and symptoms of angina reviewed with her. (3) Vertigo: Code(s): R42 - Dizziness and giddiness Category: Medical Plan: History of vertigo which seems to be chronic for her. Previously she was on meclizine but tells me it was stopped. She uses a cane for ambulation. She did have a fall down the stairs but tells me she had no lightheadedness prior to the fall. (4) HTN (hypertension): Code(s): I10 - Essential (primary) hypertension Category: Medical Qualifiers: Hypertension type: primary hypertension Qualified Code(s): I10 - Essential (primary) hypertension Plan: Well controlled at this time. No med changes made (5) LVH (left ventricular hypertrophy): Code(s): I51.7 - Cardiomegaly Category: Medical Plan: Mild LVH and moderate basal asymmetric hypertrophy noted on prior echocardiogram. She needs ongoing good blood pressure control Plan Time spent on chart review, documentation, interview and assessment Coding Level of Care Code Est Pt Level 4 (66832) Complex EM visit Add On G2211 Diagnoses Bradycardia R00.1 Chest pain R07.9 Vertigo R42 Primary hypertension I10 Hypertension type: primary hypertension LVH (left ventricular hypertrophy) I51.7 CPT Codes EKG - CPT: 55964-[id number], Complete ([id number]) Time Spent (min) 32
--- OUTSIDE RECORDS SUMMARY | 2024-08-17 10:09 | XMS_ITS | Encounter Summary ---
Author Organization [facility] Address [address] [place] [address] Care Team Providers Care Engineering Project Manager Name Role Phone Marisel Benito MD Primary Care Provider [phone] Encounter Details Date Type Department Care Team (Late st Contact Info) Description 08/04/2024 Telephone [facility] for [facility] [address] [facility] [address] [place] [address] Lexie Richards PA [address] [place] [address] [place] [address] Social History Tobacco Use Types Packs/Day Years [...] on filedocumented in this encounter Care Teams Engineering Project Manager Relationship Specialty Start Date End Date Marisel Benito MD [address] [place] [address] PCP - General Internal Medicine 05/01/18 documented as of this encounter
--- OUTSIDE RECORDS SUMMARY | 2024-08-17 10:09 | XMS_ITS | Encounter Summary ---
Author Organization [facility] Address [address] [place] [address] Care Team Providers Care Bean Sprout Grower Name Role Phone Marisel Benito MD Primary Care Provider [phone] Reason for Visit * Reason Onset Date Comments Request For Order(s) 08/12/2024 [facility] Annual Care Plan Encounter Details Date Type Department Care Team (Late st Contact Info) Description 08/12/2024 Telephone Internal Medicine [facility] [address] [facility] [address] [place] [address] Maryam Mckeon MA Request For Order(s) ([facility] Annual Care Plan /) Social History Tobacco [...] EST Scanned into chart and faxed to [facility] [phone] * Maryam Mckeon MA - 08/12/2024 7:18 AM EST [facility] Annual Care Plan Please sign & fax [phone] documented in this encounter Plan of Treatment Not on file documented as of this encounter Visit Diagnoses Not on filedocumented in this encounter Care Teams Bean Sprout Grower Relationship Specialty Start Date End Date Marisel Benito MD [address] [address] PCP - General Internal Medicine 05/01/18 documented as of this encounter
--- OUTSIDE RECORDS SUMMARY | 2024-08-17 10:09 | XMS_ITS | Encounter Summary ---
Author Organization [facility] Address [address] [place] [address] Care Team Providers Care Receiving Manager Name Role Phone Marisel Benito MD Primary Care Provider [phone] Encounter Details Date Type Department Care Team (Late st Contact Info) Description 08/14/2024 Telephone Internal Medicine - [place] [address] [facility] [address] [place] [phone] Marisel Benito MD [address] [facility] [address] [place] [address] Social History Tobacco Use Types Packs/Day Years [...] as of this encounter Progress Notes * Carlos Collins MA - 08/14/2024 2:03 PM EST ANDREWI * Danielle Hansen - 08/14/2024 9:18 AM EST Karen at [facility] is calling, She says she unfortunately has to decline the home health referral for nursing physical therapy because they are at capacity and are unable to take on more patients at this time. [facility]# [phone] opt. 2 documented in this encounter Plan of Treatment Not on file documented as of this encounter Visit Diagnoses Not on filedocumented in this encounter Care Teams Receiving Manager Relationship Specialty Start Date End Date Marisel Benito MD [address] [place] [phone] PCP - General Internal Medicine 05/01/18 documented as of this encounter
--- OUTSIDE RECORDS SUMMARY | 2024-08-17 10:09 | XMS_ITS | Encounter Summary ---
Author Organization [facility] Address [address] [place] [address] Care Team Providers Care Extension Worker Name Role Phone Marisel Benito MD Primary Care Provider Reason for Visit * Reason Onset Date Comments Faxed form 07/21/2024 [facility] Encounter Details Date Type Department Care Team (Late st Contact Info) Description 07/21/2024 Telephone Internal Medicine [facility] [address] [facility] [address] [place] [address] Katey Hernandez MA Faxed form ([facility]) Social History Tobacco Use Types Packs/Day Years [...] MA - 07/22/2024 1:44 PM EST Faxed [phone] * Katey Hernandez MA - 07/21/2024 11:22 AM EST [facility] ADH semi annual report. 01/06/2024 Placed in providers folder for signature. documented in this encounter Plan of Treatment Not on file documented as of this encounter Visit Diagnoses Not on filedocumented in this encounter Care Teams Extension Worker Relationship Specialty Start Date End Date Marisel Benito MD [address] [place] [phone] PCP - General Internal Medicine 05/01/18 documented as of this encounter
--- OUTSIDE RECORDS SUMMARY | 2024-08-17 10:09 | XMS_ITS | Encounter Summary ---
Author Organization [facility] Address [address] [place] [address] Care Team Providers Care Child Day Care Provider Name Role Phone Marisel Benito MD Primary Care Provider [phone] Encounter Details Date Type Department Care Team (Late st Contact Info) Description 06/30/2024 Telephone Internal Medicine [facility] [address] [facility] [address] [place] [address] Brittany Hernandez MA Social History Tobacco Use [...] 08/13/2024 8:13 AM EST Faxed to [facility] [phone] * Brittany Hernandez MA - 08/12/2024 4:43 PM ESTAddended by: BRITTANY HERNANDEZ on: 08/12/2024 04:43 PM Modules accepted: Orders * Brittany Hernandez MA - 08/12/2024 4:42 PM EST New RX pended with qualifying Dx * Brittany Hernandez MA - 07/23/2024 9:26 AM EST Faxed to [facility] [phone] * Brittany Hernandez MA - 07/21/2024 3:17 PM ESTAddended by: BRITTANY HERNANDEZ on: 07/21/2024 03:17 PM Modules accepted: Orders * Brittany Hernandez MA - 07/21/2024 3:17 PM EST HTN was not an approving dx for compression socks, Pended new order with new dx. * Brittany Hernandez MA - 07/08/2024 4:06 PM EST Faxed to [facility] [phone] * Brittany Hernandez MA - 06/30/2024 2:40 PM EST [facility] is requesting new RX. DME pended. documented in this encounter Plan of Treatment Not on file documented as of this encounter Visit Diagnoses Diagnosis Hypertension, unspecified type- Primary Type 2 diabetes mellitus with other specified complication, unspecified whether termite control technician insulin use ([facility]) Hyperlipidemia, unspecified hyperlipidemia type documented in this encounter Orders General Supply Count Last Ordered Date First Or dered Date COMPRESSION STOCKINGS 1 08/12/2024 documented in this encounter Care Teams Child Day Care Provider Relationship Specialty Start Date End Date Marisel Benito MD [address] [place] [address] PCP - General Internal Medicine 05/01/18 documented as of this encounter
--- OUTSIDE RECORDS SUMMARY | 2024-08-17 10:09 | XMS_ITS | Data Portability ---
Author Organization [place] [facility], All[facility] Address [address] [place] [address] Care Team Providers Care Grading Machine Operator Name Role Phone TAYLOR CANO Referring Provider [phone] Assessment Encounter Date Assessment Date Assessment LastModified [...] Surgeries None recorded. Imaging audiogram 2023 024 2 Not available 08:53:00 Medication Orders None recorded. Patient TargetsNo targets recorded. Patient InstructionsNo instructions recorded. Reason for Referral None Reported. Results Created Date Observation Date Name Description Value Unit Range Abnormal Flag Note LastModifiedBy Organization Detail LastModifiedTime 01/02/20 24 audio gram No observ ation record ed. [email or web address] Not Available 12/15 16:03:26 01/09/20 24 audio gram No observ ation record ed. BARCODE Not Available 2023 16:40:48 01/09/20 24 audio gram No observ ation record ed. BARCODE Not Available 2023 16:43:53 01/09/20 24 audio gram No observ ation record ed. [email or web address] Not Available 16:44:54 Result Notes None recorded. Problems Name Problem SNOMED Code Status Onset Date Resolution Date Notes Provider Name and Address Organization Details Recorded Time Bilateral tinnitus 2284129164947 Active 2023 OSCAR POLLARD MA, CCC-A [address], [place], [phone], [facility] - [facility] 4 14:37:41 Abnormal auditory perception 55333201 Active 2023 OSCAR POLLARD MA, [facility] [address] [facility] [address], [place], [address], [facility] 4 14:37:53 Sensorineur al hearing loss of bilateral ears 763066061 Active 2023 MERCY ARECHIGA PA-C [address] [facility] [address], [place], [address], [facility] 4 15:14:58 Problem Notes None recorded. Procedures Surgical History Date Name Laterality Status Provider Name and Address Organization Details Recorded Time 12/31/2023 Comp Audio with Tymps (58181 & 20571) completed OSCAR POLLARD MA, [facility] [address] [facility],[facility] [address], [place], [address], [facility] 12/31/2023 14:38:17 Imaging Results Imaging Date Name Status LastModified by Organiz ation Details LastModified Time 01/02/2024 audiogram completed [email or web address] Information n ot available 01/02/2024 16:03:26 01/09/2024 audiogram completed BARCODE Information no t available 01/09/2024 16:40:48 01/09/2024 audiogram completed BARCODE Information no t available 01/09/2024 16:43:53 01/09/2024 audiogram completed Information not available 01/09/2024 16:44:54 Procedure Notes [...] Note [id number] MERCY ARECHIGA PA-C [facility] of [address] [phone] 12/31/2023 13:52:20 12/31/2023 15:02:11 Bilateral tinnitus 0728578851 102 H93.13 For both ears, normal to borderline normal hearing thru 4000Hz with a mild- moderate loss thereafter . Excellent speech clarity for both ears. Normal middle ear compliance and pressure bilaterall y. Abnormal a uditory perception 42184850 H93.299 Sensorineu ral hearing loss of bilateral ears 912674221 H90.3 Health Concerns Section Related Observation LastModified by Organization Detai ls LastModified Time None Recorded Concern Status LastModified by Organization Details LastModified Time None Recorded Advance Directives Directive None Recorded Payers Encounter Date Sequence Insurance Name Policy Number Policy Gaitan Covered Member ID Gaitan Member ID Guarantor Name 12/31/2023 1 [facility] - DOS ON OR AFTER 2022 - ONE CARE (MEDICARE REPLACEMENT/ADV ANTAGE - HMO) Lesly Mike [id number] Lesly Mike Notes Date Note Type Note [...] of recurrent otitis and no ear surgeries. MERCY ARECHIGA PA-C [address] [place] [address], [place], [address], [facility] - [facility] 12/31/2023 15:15:11 OBGyn Episode No OBEpisode recorded.
--- OUTSIDE RECORDS SUMMARY | 2024-08-17 10:09 | XMS_ITS | Clinical Summary ---
Author Organization 175 [facility] Address 175 [place] [address] Phone Care Team Providers Care Weir Fisherman Name Role Phone Marisel Benito MD Primary Care Provider [phone] Allergies Active Allergy Reactions Criticality Noted Date [...] mellitus with other specified complication, unspecified whether devil dog insulin use ([facility]) Take 1 each by mouth 2 (two) [...] Encounters Date Type Department Care Team Description 08/14/2024 Telephone Internal Medicine [address] 200 [place] [phone] Marisel Benito MD 08/12/2024 Telephone Internal [address] 200 [place] [phone] Maryam Mckeon MA Request For Order(s) (RM Annual Care Plan /) 08/04/2024 Telephone [facility] for [facility] 175 [facility] 150 [place] [address] Lexie Richards PA 07/21/2024 Telephone Internal [address] 200 [place] [address] Katey Hernandez MA Faxed form (RMG) 06/30/2024 Telephone Internal [address] 200 [place] [address] Katey Hernandez MA 05/20/2024 Telephone Internal Medicine [facility] [address] [phone] Katey Hernandez MA faxed order (L&C) 05/19/2024 Telephone Internal Medicine - [address] [place] [address] Marisel Benito MD Fitting for DME from Last 3 Months Immunizations Name Administration Dates Next Due Influenza trivalent, with pr eservative (Fluzone; Afluria) 6mo and older 03/14/2020 Pneumococcal conjugate 13 va lent (Prevnar 13, PCV13) 2mo and older 03/14/2020,02/13/2019 Surgical History Surgery Date Site/Laterality Comments HYSTERECTOMY 2000 PROCEDURE: HISTORICAL HYSTERECTOMY OTHER SURGICAL HISTORY 1978 PROCEDURE: IN TONSILLECTOMY PRIMARY/SECONDARY AGE 12/> OTHER SURGICAL HISTORY 11/28/2018 PROCEDURE: IN LAPS SURG CHOLECYSTECTOMY W/CHOLANGIOGRAPHY; COMMENT: negative IOC [...] Laterality Modality Ultrasound us Provider [facility] US PROCEDURES Final Result * Lipid panel with reflex to direct LDL (04/30/2024 8:06 AM EST) Cholesterol 163 0 - 200 mg/dL LAB CHEMISTRY METHOD 04/30/2024 10:43 AM EST [facility] Triglycerides 87 0 - 150 mg/dL LAB CHEMISTRY METHOD 04/30/2024 10:43 AM EST [facility] HDL 64 >=40 mg/dL LAB CHEMISTRY METHOD 04/30/2024 10:43 AM EST [facility] LDL Calculated 82 0 - 100 mg/dL LAB CHEMISTRY METHOD 04/30/2024 10:43 AM EST [facility] VLDL Cholesterol Jeremy 17.4 mg/dL LAB CHEMISTRY METHOD 04/30/2024 10:43 AM EST [facility] Non HDL Chol. (LDL+VLDL) 99 <145 mg/dL LAB CHEMISTRY METHOD 04/30/2024 10:43 AM EST [facility] Chol/HDL Ratio 2.5 0.0 - 4.4 LAB CHEMISTRY METHOD 04/30/2024 10:43 AM EST [facility] Blood Venous blood specimen / Unknown Venipuncture / Unknown 04/30/2024 8:06 AM EST 04/30/2024 8:07 AM EST Marybel Reyes RUNNING INSTRUCTOR LAB BLOOD ORDERABLES Final Resul t Performing Organization Address City/[facility]/ZIP Co de Phone Number [facility] [address] [place] [address], [place] [phone] * Hemoglobin A1c (04/30/2024 8:06 AM EST) Hemoglobin A1C 6.0 <6.5 % LAB CHEMISTRY METHOD 04/30/2024 11:24 AM EST [facility] Mean Bld Glu Estim. 126 mg/dL LAB CHEMISTRY METHOD 04/30/2024 11:24 AM [facility] Blood Venous blood specimen / Unknown Venipuncture / Unknown 04/30/2024 8:06 AM EST 04/30/2024 8:07 AM EST us Marybel Reyes NP LAB BLOOD ORDERABLES Final Resul t [facility] [address] [place] [address], [place] [phone] * (ABNORMAL) Comprehensive metabolic panel (04/30/2024 8:06 AM EST) Sodium 142 133 - 145 mmol/L LAB CHEMISTRY METHOD 04/30/2024 10:43 AM [facility] Potassium 3.9 3.5 - 5.5 mmol/L LAB CHEMISTRY METHOD 04/30/2024 10:43 AM [facility] Chloride 110 96 - 110 mmol/L LAB CHEMISTRY METHOD 04/30/2024 10:43 AM [facility] CO2 28 21 - 32 mmol/L LAB CHEMISTRY METHOD 04/30/2024 10:43 AM [facility] Anion Gap 4 3 - 11 LAB CHEMISTRY METHOD 04/30/2024 10:43 AM [facility] Glucose 98 70 - 100 mg/dL LAB CHEMISTRY METHOD 04/30/2024 10:43 AM [facility] BUN 17 5 - 25 mg/dL LAB CHEMISTRY METHOD 04/30/2024 10:43 AM [facility] Creatinine 1.11(H) 0.50 - 1.10 mg/dL LAB CHEMISTRY METHOD 04/30/2024 10:43 AM [facility] eGFR 54(L) >=60 mL/min/1. 73m2 LAB CHEMISTRY METHOD 04/30/2024 10:43 AM [facility] Comment:Calculation based on the??Chronic Kidney Disease Epidemiology Collaboration (CKD-EPI) equation refit??without adjustment for race. BUN/Creatinine Ratio 15.3 LAB CHEMISTRY METHOD 04/30/2024 10:43 AM [facility] Calcium 9.5 8.5 - 10.5 mg/dL LAB CHEMISTRY METHOD 04/30/2024 10:43 AM [facility] AST (SGOT) 18 10 - 42 unit/L LAB CHEMISTRY METHOD 04/30/2024 10:43 AM [facility] ALT (SGPT) 20 10 - 60 unit/L LAB CHEMISTRY METHOD 04/30/2024 10:43 AM [facility] Alkaline Phosphatase 81 42 - 121 unit/L LAB CHEMISTRY METHOD 04/30/2024 10:43 AM [facility] Total Protein 7.2 6.0 - 8.0 g/dL LAB CHEMISTRY METHOD 04/30/2024 10:43 AM EST [facility] Albumin 3.5 3.2 - 5.0 g/dL LAB CHEMISTRY METHOD 04/30/2024 10:43 AM EST [facility] Total Bilirubin 0.5 0.0 - 1.4 mg/dL LAB CHEMISTRY METHOD 04/30/2024 10:43 AM EST [facility] Blood Venous blood specimen / Unknown Venipuncture / Unknown 04/30/2024 8:06 AM EST 04/30/2024 8:07 AM EST us Marybel Reyes NP LAB BLOOD ORDERABLES Final Resul t [facility] [address] [place] [address], from Last 3 Months or Most Recently Relevant to Health Maintenance Insurance MEDICARE Member Subscriber Plan / Payer (Ef fective 2019-Present) Name:Lesly Mike Relation to Subscriber:Self Name:Lesly Mike Payer ID:[id number] Group ID:[id number] Type:Not on file Address: [address] [phone] Advance Directives Documents on File Type Date Recorded Patient Saddle Stitcher Expl anation Health Care Decision (hx) 11/29/2018 [...] DIRECTIVE Health Care Decision (hx) 11/29/2018 AD SANFROD DIRECTIVE Health Care Decision (hx) 11/29/2018 AD [...] (hx) 10/01/2016 AD SANFORD DIRECTIVE Care Teams Weir Fisherman Relationship Specialty Start Date End Date Marisel Benito MD [address] [place] [phone] PCP - General Internal Medicine 05/01/18
== END 2024-08-17 10:09 | disposition home or self-care (01) ==
PROVIDERS: PCP Internal Medicine; Visit Provider Nurse Practitioner Family
DX: R00.1 Bradycardia, unspecified (principal); R07.9 Chest pain, unspecified; R42 Dizziness and giddiness; I10 Essential (primary) hypertension; I51.7 Cardiomegaly
CPT/HCPCS: 93010; 99214; G2211

== ENCOUNTER → 2024-08-17 09:21 | Outpatient (BNVA) | payer OTHER, SELFPAY | PROVIDERS: PCP Internal Medicine; Visit Provider Nurse Practitioner Family | DX: R00.1 Bradycardia, unspecified (principal); R07.89 Other chest pain; R42 Dizziness and giddiness; I11.9 Hypertensive heart disease without heart failure | CPT/HCPCS: 93005; 99212 ==

== ENCOUNTER 2024-08-17 10:22 | Emergency (ER) | payer OTHER, SELFPAY ==
[2024-08-17 10:42] VITALS: BP 123/77; PULSE 50; RESP 16; TEMP 36.6; O2SAT 100; BMI 20.8
--- NOTE | 2024-08-17 19:09 | ED.BACK ---
HPI - Back Pain/Injury General Chief Complaint: Headache Stated Complaint: back and neck pain Time Seen by Provider: 08/17/24 19:05 Source: patient Mode of arrival: ambulatory Limitations: no limitations History of Present Illness HPI Narrative: 69-year-old female presents emergency department with a known L1 compression fracture patient was seen by her electrical timing device calibrator and then came here she continues have pain she was given prednisone is taking Tylenol and got a short course of tramadol patient is not called to follow up with her doctor for this. She states she came here for another script of tramadol she denies any falls or injuries she does live with her grandson. MD elicited complaint: back pain Related Data Home Medications ?Medication ?Instructions ?Recorded ?Confirmed cholecalciferol (vitamin D3) 50 50 mcg PO DAILY 05/04/21 08/17/24 mcg (2,000 unit) capsule ferrous sulfate 325 mg (65 mg 325 mg PO DAILY 05/04/21 08/17/24 iron) tablet furosemide 20 mg tablet 20 mg PO DAILY 05/04/21 08/17/24 hydroxyzine HCl 25 mg tablet 25 mg PO DAILY 05/04/21 08/17/24 magnesium oxide 400 mg (241.3 mg 400 mg PO BID 05/04/21 08/17/24 magnesium) tablet omeprazole 40 mg capsule,delayed 40 mg PO DAILY 05/04/21 08/17/24 release ondansetron HCl 4 mg tablet 4 mg PO Q8H PRN Nausea 05/04/21 08/17/24 potassium chloride 20 mEq 20 meq PO DAILY 05/04/21 08/17/24 tablet,extended release sennosides 8.6 mg-docusate sodium 1 tab PO BID 05/04/21 08/17/24 50 mg tablet (Senexon-S) topiramate 50 mg tablet 50 mg PO BID 05/04/21 08/17/24 atorvastatin 10 mg tablet 10 mg PO DAILY 07/23/22 08/17/24 calcium carbonate (Jeremy-Gest 200 mg PO TID 07/23/22 08/17/24 Antacid) trazodone 100 mg tablet 100 mg PO BEDTIME 07/23/22 08/17/24 sumatriptan succinate 50 mg tablet 50 mg PO DAILY PRN Headache 02/19/23 08/17/24 sertraline 100 mg tablet 100 mg PO DAILY 05/28/23 08/17/24 solifenacin 10 mg tablet 10 mg PO DAILY 03/19/24 08/17/24 solifenacin 5 mg tablet 5 mg PO DAILY 03/19/24 08/17/24 gabapentin 400 mg capsule mg PO BID 04/16/24 08/17/24 verapamil 120 mg 24 hr 120 mg PO DAILY 04/16/24 08/17/24 capsule,extended release eszopiclone 1 mg tablet mg PO 08/13/24 08/17/24 Previous Rx's ?Medication ?Instructions ?Recorded Gel mattress overlay #1 ea 01/24/23 acetaminophen 325 mg capsule 650 mg (2 x 325 mg) PO Q6H PRN 02/19/23 pain #45 caps lidocaine 5 % topical patch 1 patch topical DAILY for pain #30 03/19/24 patches lidocaine 5 % topical patch 1 patch topical DAILY #15 ea 08/13/24 (Lidoderm) lidocaine 4 % topical patch 1 patch topical BID PRN pain #30 ea 08/17/24 (Aspercreme (lidocaine)) Allergies Allergy/AdvReac Type Severity Reaction Status Date / Time Penicillins Allergy Severe hives Verified 08/17/24 10:43 Review of Systems Review of Systems: Review of systems: General: Patient denies any fever chills recent illness or falls Musculoskeletal: Back pain denies any or body aches or other injuries HEENT: denies headache, runny nose, ear pain Respiratory: denies shortness of breath, cough Cardiovascular: no chest pain or palpitations : denies dysuria, frequency Abdomen: no nausea vomiting denies abdominal pain Extremities: no swelling, no pain Skin: no diaphoresis Yes all other systems are reviewed and are negative PMF Past Medical History Medical History Vertigo Cataracts, bilateral Arthritis Anxiety Full dentures Ambulates with cane Diabetes mellitus type 2, diet-controlled Anemia JV (obstructive sleep apnea) Elevated cholesterol HTN (hypertension) GERD (gastroesophageal reflux disease) Spinal stenosis of lumbar region with neurogenic claudication Lumbar back pain with radiculopathy affecting lower extremity Surgical History Hx of colonoscopy History of total right hip replacement Hx of cholecystectomy Social History Social History Are you a primary home health care provider to a significant other at home: No Do you presently have visiting nurse or other home services: Yes ([employer] M-F 4 hours/day) Alcohol intake: never Patient Tobacco Use Status: Never used Tobacco Advance Directives: No Advance Directives Information Provided: No Physical Exam Vital Signs: Vital Signs: Last Vital Signs Temp 98 F 08/17/24 10:42 Pulse 50 08/17/24 10:42 Resp 16 08/17/24 10:42 BP 123/77 08/17/24 10:42 Pulse Ox 100 08/17/24 10:42 O2 Del Method Room Air 08/17/24 10:42 BMI result Body Mass Index 20.8 Neurological exam: CN II- XII tested. Patient is alert and oriented to person place and time. Patient has no dysphagia or dysarthia, denies good vision in all four vision padron no nystagmus on exam, good strength to upper and lower extremities with normal reflexes to brachioradialis, wrist, patella and achilles. Negative romberg, good finger to nose and heel to varma. General: Well-appearing well-nourished in no signs of distress HEENT: Normocephalic atraumatic Neck: No signs of JVD, no masses no tenderness or lymphadenopathy Cardiovascular: Regular rate and rhythm Respiratory: Clear to auscultation bilaterally Abdomen: Soft nontender no masses Extremities: Normal pedal pulses no signs of edema Skin: Dry warm no rashes Back: No tenderness full ROM Course Course Course Narrative: Note the patient ambulated well with multiple bags carrying them back to be seen I do not think there is an acute neurosurgical issue I do think she is safe Medical Decision Making Medical Decision Making MDM Narrative: patient no food new falls or trauma patient has already been on prednisone I do not recommend more prednisone I recommend lidocaine Tylenol and follow up with her doctor. I did explain that I do not feel comfortable prescribing her more tramadol do not think that she is indicated to get morphine or anything stronger and she has been followed closely I do not think any more imaging is warranted she is okay with the plan to Differential Diagnosis Differential Diagnoses: The differential diagnosis associated with the presentation includes acute on chronic back pain Discharge Plan Discharge Clinical Impression: Chronic pain syndrome, Traumatic compression fracture of L1 lumbar vertebra Patient Disposition: Home, Self-Care Instructions: Acute Low Back Pain (ED) Additional Instructions: you were seen today for continued back pain I do recommend following with her doctor I will send him home with lidocaine patch Prescriptions: New lidocaine [Aspercreme (lidocaine)] 4 % adhesive patch,medicated 1 patch topical BID PRN (Reason: pain) Qty: 30 0RF No Action lidocaine [Lidoderm] 5 % adhesive patch,medicated 1 patch topical DAILY Qty: 15 0RF Rx Instructions: leave on most painful area for up to 12 hrs acetaminophen 325 mg capsule 650 mg PO Q6H PRN (Reason: pain) Qty: 45 0RF trazodone 100 mg tablet 100 mg PO BEDTIME calcium carbonate [Jeremy-Gest Antacid] 200 mg calcium (500 mg) tablet,chewable 200 mg PO TID atorvastatin 10 mg tablet 10 mg PO DAILY hydroxyzine HCl 25 mg tablet 25 mg PO DAILY magnesium oxide 400 mg (241.3 mg magnesium) tablet 400 mg PO BID omeprazole 40 mg capsule,delayed release(DR/EC) 40 mg PO DAILY sennosides-docusate sodium [Senexon-S] 8.6-50 mg tablet 1 tab PO BID ondansetron HCl 4 mg tablet 4 mg PO Q8H PRN (Reason: Nausea) furosemide 20 mg tablet 20 mg PO DAILY topiramate 50 mg tablet 50 mg PO BID potassium chloride 20 mEq tablet extended release 20 meq PO DAILY ferrous sulfate 325 mg (65 mg iron) tablet 325 mg PO DAILY cholecalciferol (vitamin D3) 50 mcg (2,000 unit) capsule 50 mcg PO DAILY sumatriptan succinate 50 mg tablet 50 mg PO DAILY PRN (Reason: Headache) (DME) Gel mattress overlay Misc See Rx Instructions .Route Qty: 1 3RF Rx Instructions: As directed solifenacin 10 mg tablet 10 mg PO DAILY solifenacin 5 mg tablet 5 mg PO DAILY lidocaine 5 % adhesive patch,medicated 1 patch topical DAILY Qty: 30 3RF sertraline 100 mg tablet 100 mg PO DAILY verapamil 120 mg capsule,ext rel. pellets 24 hr 120 mg PO DAILY gabapentin 400 mg capsule PO BID eszopiclone 1 mg tablet PO Print Language: South Sudanese
--- OUTSIDE RECORDS SUMMARY | 2024-08-17 19:30 | XMS_ITS | Clinical Summary ---
Author Organization 175 [facility] Address 175 [place] [address] Phone Care Team Providers Care Child And Adolescent Therapist Name Role Phone Marisel Benito MD Primary Care Provider [phone] Allergies Active Allergy Reactions Criticality Noted Date [...] mellitus with other specified complication, unspecified whether manager long term care insulin use ([facility]) Take 1 each by mouth [...] Care Team Description 08/14/2024 Telephone Internal Medicine [address] [place] [phone] Marisel Benito MD 08/12/2024 Telephone Internal [address] [place] [phone] Maryam Mckeon MA Request For Order(s) (RM Annual Care Plan /) 08/04/2024 Telephone [facility] for [facility] 175 [facility] [address] [place] [address] Lexie Richards PA 07/21/2024 Telephone Internal [address] [place] [address] Katey Hernandez MA Faxed form (RMG) 06/30/2024 Telephone Internal [address] [place] [address] Katey Hernandez MA 05/20/2024 Telephone Internal Medicine [facility] [address] [phone] Katey Hernandez MA faxed order (L&C) 05/19/2024 Telephone Internal Medicine - [address] [place] [address] Marisel Benito MD Fitting for DME from Last 3 Months Immunizations Name Administration Dates Next Due Influenza trivalent, with pr eservative (Fluzone; Afluria) 6mo and older 03/14/2020 Pneumococcal conjugate 13 va lent (Prevnar 13, PCV13) 2mo and older 03/14/2020,02/13/2019 Surgical History Surgery Date Site/Laterality Comments HYSTERECTOMY 2000 PROCEDURE: HISTORICAL HYSTERECTOMY OTHER SURGICAL HISTORY 1978 PROCEDURE: RI TONSILLECTOMY PRIMARY/SECONDARY AGE 12/> OTHER SURGICAL HISTORY 11/28/2018 PROCEDURE: RI LAPS SURG CHOLECYSTECTOMY W/CHOLANGIOGRAPHY; COMMENT: negative IOC [...] LAB CHEMISTRY METHOD 04/30/2024 10:43 AM EST [facility] Triglycerides 87 0 - 150 mg/dL LAB CHEMISTRY METHOD 04/30/2024 10:43 AM EST [facility] HDL 64 >=40 mg/dL LAB CHEMISTRY METHOD 04/30/2024 10:43 AM EST [facility] LDL Calculated 82 0 - 100 mg/dL LAB CHEMISTRY METHOD 04/30/2024 10:43 AM EST [facility] VLDL Cholesterol Jeremy 17.4 mg/dL LAB CHEMISTRY METHOD 04/30/2024 10:43 AM EST [facility] Non HDL Chol. (LDL+VLDL) 99 <145 mg/dL LAB CHEMISTRY METHOD 04/30/2024 10:43 AM EST [facility] Chol/HDL Ratio 2.5 0.0 - 4.4 LAB CHEMISTRY METHOD 04/30/2024 10:43 AM EST [facility] Blood Venous blood specimen / Unknown Venipuncture / Unknown 04/30/2024 8:06 AM EST 04/30/2024 8:07 AM EST Marybel Reyes QUANTITATIVE RESEARCHER LAB BLOOD ORDERABLES Final Resul t Performing Organization Address City/[facility]/ZIP Co de Phone Number [facility] [address] [place] [address], [place] [phone] * Hemoglobin A1c (04/30/2024 8:06 AM EST) Hemoglobin A1C 6.0 <6.5 % LAB CHEMISTRY METHOD 04/30/2024 11:24 AM EST [facility] Mean Bld Glu Estim. 126 mg/dL LAB CHEMISTRY METHOD 04/30/2024 11:24 AM [facility] Blood Venous blood specimen / Unknown Venipuncture / Unknown 04/30/2024 8:06 AM EST 04/30/2024 8:07 AM EST us Marybel Reyes NP LAB BLOOD ORDERABLES Final Resul t [facility] [address] [place] [address], [place] [phone] * (ABNORMAL) Comprehensive metabolic panel (04/30/2024 8:06 AM EST) Sodium 142 133 - 145 mmol/L LAB CHEMISTRY METHOD 04/30/2024 10:43 AM [facility] Potassium 3.9 3.5 - 5.5 mmol/L LAB CHEMISTRY METHOD 04/30/2024 10:43 AM [facility] Chloride 110 96 - 110 mmol/L LAB CHEMISTRY METHOD 04/30/2024 10:43 AM [facility] CO2 28 21 - 32 mmol/L LAB CHEMISTRY METHOD 04/30/2024 10:43 AM [facility] Anion Gap 4 3 - 11 LAB CHEMISTRY METHOD 04/30/2024 10:43 AM [facility] Glucose 98 70 - 100 mg/dL LAB CHEMISTRY METHOD 04/30/2024 10:43 AM [facility] BUN 17 5 - 25 mg/dL LAB CHEMISTRY METHOD 04/30/2024 10:43 AM [facility] Creatinine 1.11(H) 0.50 - 1.10 mg/dL LAB CHEMISTRY METHOD 04/30/2024 10:43 AM [facility] eGFR 54(L) >=60 mL/min/1. 73m2 LAB CHEMISTRY METHOD 04/30/2024 10:43 AM [facility] Comment:Calculation based on the??Chronic Kidney Disease Epidemiology Collaboration (CKD-EPI) equation refit??without adjustment for race. BUN/Creatinine Ratio 15.3 LAB CHEMISTRY METHOD 04/30/2024 10:43 AM [facility] Calcium 9.5 8.5 - 10.5 mg/dL LAB CHEMISTRY METHOD 04/30/2024 10:43 AM [facility] AST (SGOT) 18 10 - 42 unit/L LAB CHEMISTRY METHOD 04/30/2024 10:43 AM [facility] ALT (SGPT) 20 10 - 60 unit/L LAB CHEMISTRY METHOD 04/30/2024 10:43 AM [facility] Alkaline Phosphatase 81 42 - 121 unit/L LAB CHEMISTRY METHOD 04/30/2024 10:43 AM [facility] Total Protein 7.2 6.0 - 8.0 g/dL LAB CHEMISTRY METHOD 04/30/2024 10:43 AM EST [facility] Albumin 3.5 3.2 - 5.0 g/dL LAB CHEMISTRY METHOD 04/30/2024 10:43 AM EST [facility] Total Bilirubin 0.5 0.0 - 1.4 mg/dL LAB CHEMISTRY METHOD 04/30/2024 10:43 AM EST [facility] Blood Venous blood specimen / Unknown Venipuncture / Unknown 04/30/2024 8:06 AM EST 04/30/2024 8:07 AM EST us Marybel Reyes NP LAB BLOOD ORDERABLES Final Resul t [facility] [address] [place] [address], from Last 3 Months or Most Recently Relevant to Health Maintenance Insurance MEDICARE Member Subscriber Plan / Payer (Ef fective 2019-Present) Name:Lesly Mike Relation to Subscriber:Self Name:Lesly Mike Payer ID:[id number] Group ID:[id number] Type:Not on file Address: [address] [phone] Advance Directives Documents on File Type Date Recorded Patient Auto Wheel Alignment Specialist Expl anation Health Care Decision (hx) 11/29/2018 [...] DIRECTIVE Health Care Decision (hx) 10/01/2016 AD SNAFORD DIRECTIVE Care Teams Child And Adolescent Therapist Relationship Specialty Start Date End Date Marisel Benito MD [address] [place] [phone] PCP - General Internal Medicine 05/01/18
[2024-08-17 19:31] VITALS: BP 122/76; BP 126/76; PULSE 86; PULSE 89; RESP 16; TEMP 37.1; O2SAT 98; O2SAT 99
--- OUTSIDE RECORDS SUMMARY | 2024-08-17 19:31 | XMS_ITS | Encounter Summary ---
Author Organization [facility] Address [address] [place] [address] Care Team Providers Care Binding End Stitcher Name Role Phone Marisel Benito MD Primary Care Provider [phone] Encounter Details Date Type Department Care Team (Late st Contact Info) Description 06/30/2024 Telephone Internal Medicine [facility] 175 [facility] [address] [place] [address] Brittany Hernandez MA Social History [...] 08/13/2024 8:13 AM EST Faxed to L&C [phone] * Brittany Hernandez MA - 08/12/2024 4:43 PM ESTAddended by: BRITTANY HERNANDEZ on: 08/12/2024 04:43 PM Modules accepted: Orders * Brittany Hernandez MA - 08/12/2024 4:42 PM EST New RX pended with qualifying Dx * Brittany Hernandez MA - 07/23/2024 9:26 AM EST Faxed to L&C [phone] * Brittany Hernandez MA - 07/21/2024 3:17 PM ESTAddended by: BRITTANY HERNANDEZ on: 07/21/2024 03:17 PM Modules accepted: Orders * Brittany Hernandez MA - 07/21/2024 3:17 PM EST HTN was not an approving dx for compression socks, Pended new order with new dx. * Brittany Hernandez MA - 07/08/2024 4:06 PM EST Faxed to L&C [phone] * Brittany Hernandez MA - 06/30/2024 2:40 PM EST [facility] is requesting new RX. DME pended. documented in this encounter Plan of Treatment Not on file documented as of this encounter Visit Diagnoses Diagnosis Hypertension, unspecified type- Primary Type 2 diabetes mellitus with other specified complication, unspecified whether supervisor intermediates insulin use ([facility]) Hyperlipidemia, unspecified hyperlipidemia type documented in this encounter Orders General Supply Count Last Ordered Date First Or dered Date COMPRESSION STOCKINGS 1 08/12/2024 documented in this encounter Care Teams Binding End Stitcher Relationship Specialty Start Date End Date Marisel Benito MD [address] [place] [phone] PCP - General Internal Medicine 05/01/18 documented as of this encounter
--- OUTSIDE RECORDS SUMMARY | 2024-08-17 19:31 | XMS_ITS | Encounter Summary ---
Author Organization [facility] Address [address] [place] [address] Care Team Providers Care Surgical Services Assistant Name Role Phone Marisel Benito MD Primary Care Provider [phone] Encounter Details Date Type Department Care Team (Late st Contact Info) Description 08/14/2024 Telephone Internal Medicine - [place] [address] [facility] [address] [place] [phone] Marisel Benito MD [address] [facility] [address] [place] [address] Social History Tobacco Use Types [...] - 08/14/2024 9:18 AM EST Karen at [facility] is calling, She says she unfortunately has to decline the home health referral for nursing physical therapy because they are at capacity and are unable to take on more patients at this time. [facility] [phone] opt. 2 documented in this encounter Plan of Treatment Not on file documented as of this encounter Visit Diagnoses Not on filedocumented in this encounter Care Teams Surgical Services Assistant Relationship Specialty Start Date End Date Marisel Benito MD [address] [place] [phone] PCP - General Internal Medicine 05/01/18 documented as of this encounter
--- OUTSIDE RECORDS SUMMARY | 2024-08-17 19:31 | XMS_ITS | Encounter Summary ---
Author Organization [facility] Address [address] [place] [address] Care Team Providers Care Child Life Therapist Name Role Phone Marisel Benito MD Primary Care Provider [phone] Reason for Visit * Reason Onset Date Comments Faxed form 07/21/2024 [facility] Encounter Details Date Type Department Care Team (Late st Contact Info) Description 07/21/[address] [facility] [address] [facility] [address] [place] [address] Katey Hernandez MA Faxed form ([facility]) Social History Tobacco Use Types Packs/Day Years [...] [place] - 07/22/2024 1:44 PM EST Faxed [phone] * Katey Hernandez MA - 07/21/2024 11:22 AM EST [facility] ADH semi annual report. 01/06/2024 Placed in providers folder for signature. documented in this encounter Plan of Treatment Not on file documented as of this encounter Visit Diagnoses Not on filedocumented in this encounter Care Teams Child Life Therapist Relationship Specialty Start Date End Date Marisel Benito MD [address] [place] [phone] PCP - General Internal Medicine 05/01/18 documented as of this encounter
--- OUTSIDE RECORDS SUMMARY | 2024-08-17 19:31 | XMS_ITS | Encounter Summary ---
Author Organization [facility] Address [address] [place] [address] Care Team Providers Care Furniture Duster Name Role Phone Marisel Benito MD Primary Care Provider [phone] Encounter Details Date Type Department Care Team (Late st Contact Info) Description 08/04/2024 Telephone [facility] for [facility] [address] [facility] [address] [place] [address] Lexie Richards PA [address] [place] [address] [place] [address] Social History Tobacco Use Types Packs/Day Years [...] on filedocumented in this encounter Care Teams Furniture Duster Relationship Specialty Start Date End Date Marisel Benito MD [address] [place] [address] PCP - General Internal Medicine 05/01/18 documented as of this encounter
--- OUTSIDE RECORDS SUMMARY | 2024-08-17 19:31 | XMS_ITS | Encounter Summary ---
Author Organization [facility] Address [address] [place] [address] Care Team Providers Care Chyron Operator Name Role Phone Marisel Benito MD Primary Care Provider [phone] Reason for Visit * Reason Onset Date Comments Request For Order(s) 08/12/2024 [facility] Annual Care Plan Encounter Details Date Type Department Care Team (Late st Contact Info) Description 08/12/2024 Telephone Internal Medicine [facility] [address] [facility] [address] [place] [address] Maryam Mckeon MA Request For Order(s) ([facility] Annual Care Plan /) Social History Tobacco [...] of this encounter Progress Notes * Maryam Mcekon MA - 08/13/2024 10:05 AM EST Scanned into chart and faxed to [facility] [phone] * Maryam Mckeon MA - 08/12/2024 7:18 AM EST [facility] Annual Care Plan Please sign & fax [phone] documented in this encounter Plan of Treatment Not on file documented as of this encounter Visit Diagnoses Not on filedocumented in this encounter Care Teams Chyron Operator Relationship Specialty Start Date End Date Marisel Benito MD [address] [address] PCP - General Internal Medicine 05/01/18 documented as of this encounter
== END 2024-08-17 19:33 | disposition home or self-care (01) ==
PROVIDERS: Emergency Provider Student in an Organized Health Care Education/Training Program; PCP Internal Medicine
DX: G89.4 Chronic pain syndrome (principal); S32.018D Other fracture of first lumbar vertebra, subsequent encounter for fracture with routine healing; W10.9XXD Fall (on) (from) unspecified stairs and steps, subsequent encounter; E11.9 Type 2 diabetes mellitus without complications; I11.9 Hypertensive heart disease without heart failure; R00.1 Bradycardia, unspecified; R07.89 Other chest pain; R42 Dizziness and giddiness
CPT/HCPCS: 93005; 99212; 99282; 99283

== ENCOUNTER 2024-09-29 06:18 | Outpatient (REF) | payer OTHER, SELFPAY ==
--- OUTSIDE RECORDS SUMMARY | 2024-09-29 06:21 | XMS_ITS | Data Portability ---
Author Organization [place] [facility] Address [address] [place] [address] Care Team Providers Care Life Insurance Salesperson Name Role Phone TAYLOR CANO Referring Provider [...] Surgeries None recorded. Imaging audiogram 2023 024 [email or web address] [id number] Not available 08:53:00 Medication Orders None recorded. Patient TargetsNo targets recorded. Patient InstructionsNo instructions recorded. Reason for Referral None Reported. Results Created Date Observation Date Name Description Value Unit Range Abnormal Flag Note LastModifiedBy Organization Detail LastModifiedTime 01/02/20 24 audio gram No observ ation record ed. [email or web address] Not Available 12/15 16:03:26 01/09/20 24 audio gram No observ ation record ed. BARCODE Not Available 2023 16:40:48 01/09/20 24 audio gram No observ ation record ed. BARCODE Not Available 2023 16:43:53 01/09/20 24 audio gram No observ ation record ed. [email or web address] Not Available 16:44:54 Result Notes None recorded. Problems Name Problem SNOMED Code Status Onset Date Resolution Date Notes Provider Name and Address Organization Details Recorded Time Bilateral tinnitus 4622601659303 Active 2023 OSCAR POLLARD MA, CCC-A [address], [place], [address], [facility] - [facility] 4 14:37:41 Abnormal auditory perception 80417894 Active 2023 OSCAR POLLARD [place], [facility] [address] [facility] [address], [place], [address], [facility] 4 14:37:53 Sensorineur al hearing loss of bilateral ears 788660238 Active 2023 MERCY ARECHIGA PA-C [address] [facility] [facility] [address], [place], [address], [facility] 4 15:14:58 Problem Notes None recorded. Procedures Surgical History Date Name Laterality Status Provider Name and Address Organization Details Recorded Time 12/31/2023 Comp Audio with Tymps (15001 & 17991) completed OSCAR POLLARD MA, [facility] [address] [facility] [address],[facility] [address], [place], [address], [facility] 12/31/2023 14:38:17 Imaging Results Imaging Date Name Status LastModified by Organiz ation Details LastModified Time 01/02/2024 audiogram completed [email or web address] Information n ot available 01/02/2024 16:03:26 01/09/2024 audiogram completed [facility] Information no t available 01/09/2024 16:40:48 01/09/2024 audiogram completed BARCODE Information no t available 01/09/2024 16:43:53 01/09/2024 audiogram completed [email or web address] Information not available 01/09/2024 16:44:54 Procedure Notes [...] Note 8081 MERCY ARECHIGA PA-C [facility] [address] [phone] 12/31/2023 13:52:20 12/31/2023 15:02:11 Bilateral tinnitus [id number] 102 H93.13 For both ears, normal to borderline normal hearing thru 4000Hz with a mild- moderate loss thereafter . Excellent speech clarity for both ears. Normal middle ear compliance and pressure bilaterall y. Abnormal a uditory perception [id number] H93.299 Sensorineu ral hearing loss of bilateral ears 816314424 H90.3 Health Concerns Section Related Observation LastModified by Organization Detai ls LastModified Time None Recorded Concern Status LastModified by Organization Details LastModified Time None Recorded Advance Directives Directive None Recorded Payers Encounter Date Sequence Insurance Name Policy Number Policy Gaitan Covered Member ID Gaitan Member ID Guarantor Name 12/31/2023 1 [facility] - DOS ON OR AFTER 2022 - ONE CARE (MEDICARE REPLACEMENT/ADV ANTAGE - HMO) Lesly Mike [id number] Lesly Mike Notes Date Note Type Note [...] and no ear surgeries. MERCY ARECHIGA PA-C [address] [place] [address], [place], [address], [facility] - [facility] 12/31/2023 15:15:11 OBGyn Episode No OBEpisode recorded.
--- OUTSIDE RECORDS SUMMARY | 2024-09-29 06:21 | XMS_ITS | Clinical Summary ---
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 09/16/19 24 Active magnesium oxide (MAG-OX) 400 mg (241.3 elemental magnesium) tablet Take 1 tablet (400 mg total) by mouth 2 (two) times a day. 08/07/19 24 Active lactose-reduce d food (ENSURE HIGH PROTEIN ORAL) Take 100 mL by mouth 3 (three) times a day. 09/13/19 24 Active glucose blood test strip 1 each by Not Applicable route 2 (two) times a day. 10/16/19 23 Active OneTouch Ultra Test test strip 2 (two) times a day. 09/06/19 24 Active acetaminophen (TYLENOL) 500 mg tablet Take 1 tablet (500 mg total) by mouth every 6 (six) hours if needed (pain). 09/16/19 24 Active calcium carbonate (TUMS) 500 mg (200 mg elemental calcium) chewable tablet Chew 1 tablet (500 mg total) 3 (three) times a day. 12/04/19 23 Active cholecalcifero l (VITAMIN D-3) 50 mcg (2,000 unit) capsule Take 1 capsule (2,000 Units total) by mouth 1 (one) time each day. 09/16/19 24 Active gabapentin (NEURONTIN) 400 mg capsule TAKE 1 CAPSULE BY MOUTH IN THE MORNING ,1 CAP AT NOON TIME & 2 CAPS AT BEDTIME 09/16/19 24 Active hydrOXYzine HCL (ATARAX) 25 mg tablet Take 1 tablet (25 mg total) by mouth at bedtime as needed. Active lisinopriL (PRINIVIL,ZEST RIL) 5 mg tablet Take 1 tablet (5 mg total) by mouth 1 (one) time each day. 09/16/19 24 Active meclizine (ANTIVERT) 12.5 mg tablet Take 1 tablet (12.5 mg total) by mouth 3 (three) times a day if needed for dizziness. 12/10/19 24 Active omeprazole (PriLOSEC) [address] capsule Take 1 capsule (40 mg total) by mouth 2 (two) times a day before meals. 09/11/19 24 Active ondansetron (ZOFRAN) 4 mg tablet Take 1 tablet (4 mg total) by mouth every 8 (eight) hours if needed for nausea. 09/16/19 24 Active ondansetron (ZOFRAN) 8 mg tablet Take 1 tablet (8 mg total) by mouth 3 (three) times a day if needed for nausea. 09/11/19 24 Active senna-docusate (Senexon-S) 8.6-50 mg per tablet Take 2 tablets by mouth 1 (one) time each day. 10/30/19 24 Active SUMAtriptan (IMITREX) 50 mg tablet May repeat dose once after 2 hours, if needed. 09/16/19 24 Active solifenacin (VESICARE) 10 mg tablet Take 1 tablet (10 mg total) by mouth 1 (one) time each day. 03/07/20 24 Active sertraline (ZOLOFT) 100 mg tablet Take 1 tablet (100 mg total) by mouth 1 (one) time each day in the morning. 04/12/20 24 Active topiramate (TOPAMAX) 50 mg tablet TAKE 1 TABLET BY MOUTH TWICE A DAY 180 tablet 1 06/07/20 24 Active atorvastatin (LIPITOR) 10 mg tablet TAKE 1 TABLET BY MOUTH EVERY DAY 90 tablet 1 06/18/19 25 Active potassium chloride (Klor-Con) 20 mEq packet Take 20 mEq by mouth 1 (one) time each day. 30 packet 3 08/19/19 25 Active traMADoL (ULTRAM) 50 mg tabletIndicati ons:Closed fracture of first lumbar vertebra, unspecified fracture morphology, sequela Take 1 tablet (50 mg total) by mouth 3 (three) times a day if needed for moderate pain. Max Daily Amount: 150 mg 15 tablet 08/19/19 25 Active heating pads (Comfort-Heal Heating Pad) padIndications :Closed fracture of first lumbar vertebra, unspecified fracture morphology, sequela 1 each 1 (one) time each day. 1 each 08/22/19 25 Active verapamil ER (VERELAN) 120 mg 24 hr capsule TAKE 1 CAPSULE BY MOUTH EVERY DAY 90 capsule 1 08/29/19 25 Active ferrous sulfate 325 mg (65 mg elemental iron) tablet TAKE 1 TABLET BY MOUTH EVERY DAY 90 tablet 1 09/08/19 25 Active traZODone (DESYREL) 100 mg tablet TAKE 1 TABLET BY MOUTH EVERYDAY AT BEDTIME 90 tablet 1 09/08/19 25 Active nutritional drink (Ensure) liquidIndicati ons:Vertigo,De creased appetite,Sleep apnea, unspecified type Take 100 mL by mouth 3 (three) times a day. 330 mL 3 09/29/19 25 Active nutritional supplement-fib er liquidIndicati ons:Type 2 diabetes mellitus with other specified complication, unspecified whether adjunct faculty for medical terminology insulin use (CMS/HCC V24, CMS/[facility] V28),Vertigo Take 1 each by mouth 2 (two) times a day. 1500 mL 09/29/19 25 Active ferrous sulfate 325 mg (65 mg elemental iron) tablet Take 1 tablet (325 mg total) by mouth 1 (one) time each day. 09/16/19 24 025 Discontinued traZODone (DESYREL) 100 mg tablet Take 1 tablet (100 mg total) by mouth at bedtime. 09/16/19 24 025 Discontinued nutritional drink (Ensure) liquidIndicati ons:Vertigo,De creased appetite,Sleep apnea, unspecified type Take 100 mL by mouth 3 (three) times a day. 330 mL 3 05/06/20 24 025 Discontinued(Re order) nutritional supplement-fib er liquidIndicati ons:Type 2 diabetes mellitus with other specified complication, unspecified whether nursing home insulin use (CMS/HCC V24, CMS/HCC V28),Vertigo Take 1 each by mouth 2 (two) times a day. 1500 mL 11 08/19/19 25 025 Discontinued(Re order) Active Problems Problem Noted Date Diagnosed Date Benign essential hypertension 09/15/2024 Edema of foot 09/15/2024 Gastroesophageal reflux disease 09/15/2024 Iron deficiency anemia 09/15/2024 Neuropathy 09/15/2024 Obstructive sleep apnea syndrome 09/15/2024 Osteoarthritis of right hip 09/15/2024 Type 2 diabetes mellitus (CMS/[facility] V24, CMS/[facility] V 28) 09/15/2024 Vertigo 06/08/2020 Pure hypercholesterolemia 02/13/2019 Obesity (BMI 30-39.9) 02/13/2019 Migraine 02/13/2019 HTN (hypertension) 02/13/2019 Encounters Date Type Department Care Team Description 09/28/2024 Telephone Internal Medicine [facility] [address] [phone] Katey Hernandez MA faxed order (L&C) 09/16/2024 2:15 PM EDT Office Visit Internal Medicine [facility] [address] [phone] Marisel Benito MD Hand muscle weakness (Primary Dx); Adult general medical examination; Fall, sequela; Acute right-sided thoracic back pain 09/16/2024 Telephone Internal Medicine [facility] [address] [phone] Katey Hernandez MA faxed form (RMG) 09/16/[address] [facility] [address] [phone] Marisel Benito MD 09/15/2024 Telephone Internal Medicine [facility] [address] [phone] Marisel Benito MD Appointment 09/15/2024 Telephone Internal Medicine [facility] [address] [phone] Katey Hernandez MA faxed order (L&C) 09/15/[address] [facility] [address] [phone] Katey Hernandez MA faxed order (CHLOE's) 08/18/2024 10:30 AM EST Office Visit Internal Medicine [facility] 175 [facility] [address] [place] [phone] Marisel Benito MD Closed fracture of first lumbar vertebra, unspecified fracture morphology, sequela (Primary Dx); Primary hypertension; Pure hypercholesterolemia; Fall, sequela 08/14/2024 Telephone Internal Medicine - [place] 175 [facility] [address] [place] [phone] Marisel Benito MD 08/12/2024 Telephone Internal Medicine [facility] 175 [facility] [address] [place] [phone] Maryam Mckeon MA Request For Order(s) (RMG Annual Care Plan /) 08/04/2024 Telephone [facility] 175 [facility] [address] [place] [phone] Lexie Richards PA 07/21/2024 Telephone Internal Medicine [facility] 175 [facility] [address] [place] [phone] Katey Hernandez MA Faxed form (RMG) from Last 3 Months Immunizations Name Administration Dates Next Due Influenza trivalent, with pr eservative (Fluzone; Afluria) 6mo and older 03/14/2020 Pneumococcal conjugate 13 va lent (Prevnar 13, PCV13) 2mo and older 03/14/2020,02/13/2019 Surgical History Surgery Date Site/Laterality Comments HYSTERECTOMY 2000 PROCEDURE: HISTORICAL HYSTERECTOMY OTHER SURGICAL HISTORY 1978 PROCEDURE: [place] TONSILLECTOMY PRIMARY/SECONDARY AGE 11/> OTHER SURGICAL HISTORY 11/28/2018 PROCEDURE: [place] LAPS SURG CHOLECYSTECTOMY W/CHOLANGIOGRAPHY; COMMENT: negative IOC HIP ARTHROPLASTY 2019 Right PROCEDURE: HISTORICAL HIP REPLACEMENT Medical History [...] Sign Reading Time Taken Comments Blood Pressure 122/82 09/16/2024 2:15 PM EDT Pulse 65 09/16/2024 2:15 PM EDT Temperature 36.6 ??C (97.8 ??F) 09/16/2024 2:15 PM ED T Respiratory Rate - - Oxygen Saturation 99% 09/16/2024 2:15 PM EDT Inhaled Oxygen Concentration - - Weight 54.4 kg (120 lb) 09/16/2024 2:15 PM EDT Height 165.1 cm (5' 5 ) 08/18/2024 10:38 AM EST Body Mass Index 19.97 08/18/2024 10:38 AM EST Plan of Treatment Upcoming Encounters Date Type Department Care Team (Late st Contact Info) Description 10/26/2024 8:30 AM EDT Office Visit Orthopedic Surgery [place] [address] [phone] Enrique Pop DPM [address] [address] 02/01/2025 9:45 AM EDT Office Visit Internal Medicine - [place] [address] [phone] Marisel Benito MD 175 [facility] [address] [place] [address] Health Maintenance Due Date Last Done Comments Breast Cancer Screening 1955 Diabetes: Annual Foot Exam 01/02/1964 Diabetes: Annual Retina Eye Exam 01/02/1964 DTaP,Tdap,and Td Vaccines (1 - Tdap) 1973 Hepatitis B Vaccines (3 of 3 - 19+ 3-dose series) 06/12/2006 04/17/2006, 11/07/2005, 10/18/2005 RSV Immunization Adult Patients (1 - Risk 60-74 years 1-dose series) [...] 2024 06/21/2022, 11/22/2021, 05/31/2021, Additional history exists Diabetes: Annual Urine Albumin-Creatinine Ratio (uACR) 04/29/2024 Diabetes: Blood Sugar Control Test (HGBA1C) 10/28/2024 04/30/2024, 01/27/2024, 01/27/2024 Influenza Vaccine (Season Ended) 2025 03/26/2023, 06/21/2022, 08/24/2021, Additional history exists Diabetes: Annual GFR (Glomerular Filtration Rate) 09/16/2025 09/16/2024, 04/30/2024, 01/27/2024, Additional history exists Hypertension/CHF/CAD Annual BMP Blood Test 09/16/2025 09/16/2024, 04/30/2024, 01/27/2024, Additional history exists Cholesterol Screening (Lipid Panel) 04/30/2029 04/30/2024, 01/27/2024, [...] age to complete this topic Meningococcal B Vaccine Aged Out No l onger eligible based on patient's age to complete this topic RSV Immunization Patients Under 20 months Aged Out No longer eligible based on patient's age to complete this topic Varicella Vaccines Aged Out No longer eligible based on patient's age to complete this topic Procedures Procedure Name Priority Date/Time Associated Diagnosis Comments [place] PROTEIN ELECTROPHORETIC FRACTIONATION & QUANTITATION SERUM Routine 09/16/2024 3:46 PM EDT Intractable migraine without status migrainosus, unspecified migraine type Vertigo Neuropathy IMMUNOGLOBULINS IGG, IGA, IGM Routine 09/16/2024 3:46 PM EDT Neuropathy IMMUNOFIXATION ELECTROPHORESIS Routine 09/16/2024 3:46 PM EDT Neuropathy PROTEIN, TOTAL Routine 09/16/2024 3:46 PM EDT Intractable migraine without status migrainosus, unspecified migraine type Vertigo Neuropathy CBC WITH AUTO DIFFERENTIAL Routine 09/16/2024 3:46 PM EDT Intractable migraine without status migrainosus, unspecified migraine type Vertigo Neuropathy SJOGRENS ANTIBODIES, SSA AND SSB Routine 09/16/2024 3:46 PM EDT Intractable migraine without status migrainosus, unspecified migraine type Vertigo Neuropathy THYROID STIMULATING HORMONE Routine 09/16/2024 3:46 PM EDT Intractable migraine without status migrainosus, unspecified migraine type Vertigo Neuropathy COMPREHENSIVE METABOLIC PANEL Routine 09/16/2024 3:46 PM EDT Intractable migraine without status migrainosus, unspecified migraine type Vertigo Neuropathy CBC AND DIFFERENTIAL Routine 09/16/2024 3:46 PM EDT Intractable migraine without status migrainosus, unspecified migraine type Vertigo Neuropathy ISABELLA IFA WITH TITER AND PATTERN Routine 09/16/2024 3:46 PM EDT Intractable migraine without status migrainosus, unspecified migraine type Vertigo Neuropathy VITAMIN E Routine 09/16/2024 3:46 PM EDT Intractable migraine without status migrainosus, unspecified migraine type Vertigo Neuropathy VITAMIN B6 Routine 09/16/2024 3:46 PM EDT Intractable migraine without status migrainosus, unspecified migraine type Vertigo Neuropathy TISSUE TRANSGLUTAMINASE, IGA Routine 09/16/2024 3:46 PM EDT Intractable migraine without status migrainosus, unspecified migraine type Vertigo Neuropathy VITAMIN B1 Routine 09/16/2024 3:46 PM EDT Intractable migraine without status migrainosus, unspecified migraine type Vertigo Neuropathy PROTEIN ELECTROPHORESIS, SERUM Routine 09/16/2024 3:46 PM EDT Intractable migraine without status migrainosus, unspecified migraine type Vertigo Neuropathy C-REACTIVE PROTEIN Routine 09/16/2024 3: 46 PM EDT Intractable migraine without status migrainosus, unspecified migraine type Vertigo SEDIMENTATION RATE Routine 09/16/2024 3: 46 PM EDT Intractable migraine without status migrainosus, unspecified migraine type Vertigo BORRELIA BURGDORFERI ANTIBODY Routine 09/16/2024 3:46 PM EDT Intractable migraine without status migrainosus, unspecified migraine type Vertigo [place] IMMUNOFIXATION ELECTROPHORESIS SERUM Routine 09/16/2024 3:45 PM EDT Neuropathy INTERFERON GAMMA INTERPRETATION Routine 09/16/2024 3:45 PM EDT Adult general medical examination INTERFERON GAMMA ANTIGEN 2 Routine 09/16/2024 3:45 PM EDT Adult general medical examination INTERFERON GAMMA ANTIGEN 1 Routine 09/16/2024 3:45 PM EDT Adult general medical examination INTERFERON GAMMA MITOGEN Routine 09/16/2024 3:45 PM EDT Adult general medical examination INTERFERON GAMMA NIL Routine 09/16/2024 3:45 PM EDT Adult general medical examination INTERFERON GAMMA FOR TB, QUALITATIVE Routine 09/16/2024 3:45 PM EDT Adult general medical examination IMMUNOFIXATION ELECTROPHORESIS Routine 09/16/2024 3:45 PM EDT Neuropathy EXTERNAL XRAY REPORT 08/13/2024 EXTERNAL XRAY REPORT 08/13/2024 EXTERNAL XRAY REPORT 08/13/2024 EXTERNAL XRAY REPORT 08/13/2024 EXTERNAL XRAY REPORT 08/13/2024 EXTERNAL XRAY REPORT 08/13/2024 EXTERNAL XRAY REPORT 08/13/2024 EXTERNAL XRAY REPORT 08/13/[address] REPORT 08/13/2024 EXTERNAL XRAY REPORT 08/13/2024 EXTERNAL XRAY REPORT 08/13/[address] REPORT 08/13/[address] REPORT 08/13/[address] REPORT 08/13/2024 HEMOGLOBIN A1C Routine 04/30/2024 8:06 AM EST Decreased appetite LIPID PANEL WITH REFLEX TO DIRECT LDL Routine 04/30/2024 8:06 AM EST Decreased appetite from Last 3 Months or Most Recently Relevant to Health Maintenance Results * PATHOLOGIST REVIEW PROTEIN ELECTROPHORESIS (09/16/2024 3:46 PM EDT) Pathologist Interpretation 09/18/2024 12:53 PM EDT [facility]) [facility] Blood Venous blood specimen / Unknown Venipuncture / Unknown 09/16/2024 3:46 PM EDT 09/16/2024 4:14 PM EDT Mary Castañeda MD LAB BLOOD ORDERABLES Fin al Result [facility] ([facility]) [facility] [address] [place] [address], [place] [phone] * Sjogrens antibodies, SSA and SSB (09/16/2024 3:46 PM EDT) Sjogren's SS-A (Ro) Ab Quant 8 <20 units LAB CHEMISTRY METHOD 09/20/2024 10:52 AM EDT [facility] Sjogren's SS-A (Ro) Ab Negative Negative LAB CHEMISTRY METHOD 09/20/2024 10:52 AM EDT [facility] Sjogren's SS-B (La) Ab Quant 8 <20 units LAB CHEMISTRY METHOD 09/20/2024 10:52 AM EDT [facility] Sjogren's SS-B (La) Ab Negative Negative LAB CHEMISTRY METHOD 09/20/2024 10:52 AM EDT [facility] Blood Venous blood specimen / Unknown Venipuncture / Unknown 09/16/2024 3:46 PM EDT 09/16/2024 4:14 PM EDT Mary Castañeda MD LAB BLOOD ORDERABLES Fin al Result [facility] [address] [place] [address], [place] [phone] * (ABNORMAL) ISABELLA IFA with titer and pattern (09/16/2024 3:46 PM EDT) ISABELLA Positive( A) Negative 09/17/2024 10:40 AM EDT [facility] ISABELLA Pattern Speckled( A) (none) 09/17/2024 10:40 AM EDT [facility] Comment:May be associated wi th SLE, Sjogren's syndrome, and mixed connective tissue disorder (MCTD). Titer 1:160(A) <1:160 09/17/2024 10:40 AM EDT [facility] Comment: Approximately 5% of healthy persons have ISABELLA titer of 1:160 or higher Further testing for other autoantibodies should be prompted by specific clinical findings/impressions. Blood Venous blood specimen / Unknown Venipuncture / Unknown 09/16/2024 3:46 PM EDT 09/16/2024 4:14 PM EDT Mary Castañeda MD LAB BLOOD ORDERABLES Fin al Result [facility] [address] [place] [address], [place] [phone] * (ABNORMAL) CBC auto differential (09/16/2024 3:46 PM EDT) [facility] WBC 5.2 4.8 - 10.8 K/mcL LAB HEMETOLOGY METHOD 09/16/2024 4:29 PM EDT [facility] RBC 4.10 3.80 - 4.80 M/mcL LAB HEMETOLOGY METHOD 09/16/2024 4:29 PM EDT [facility] Hemoglobin 12.4 11.5 - 16.0 g/dL LAB HEMETOLOGY METHOD 09/16/2024 4:29 PM EDT [facility] Hematocrit 39.5 35.0 - 47.0 % LAB HEMETOLOGY METHOD 09/16/2024 4:29 PM EDT [facility] MCV 96.6 79.0 - 98.0 FL LAB HEMETOLOGY METHOD 09/16/2024 4:29 PM EDT [facility] MCH 30.3 27.0 - 32.0 pcg LAB HEMETOLOGY METHOD 09/16/2024 4:29 PM EDT [facility] MCHC 31.4(L) 32.0 - 37.0 g/dL LAB HEMETOLOGY METHOD 09/16/2024 4:29 PM EDT [facility] RDW 13.5 11.0 - 15.0 % LAB HEMETOLOGY METHOD 09/16/2024 4:29 PM EDT [facility] Platelets 249 130 - 400 K/mcL LAB HEMETOLOGY METHOD 09/16/2024 4:29 PM EDT [facility] MPV 10.9 7.0 - 11.0 FL LAB HEMETOLOGY METHOD 09/16/2024 4:29 PM EDT [facility] NRBC 0.0 <1.0 % LAB HEMETOLOGY METHOD 09/16[facility]2024 [facility] NRBC Absolute 0.00 <0.10 K/mcL LAB HEMETOLOGY METHOD 09/16/2024 4[facility] Neutrophils Relative 45.8 % LAB HEMETOLOGY METHOD 09/16/2024 4:[facility] Lymphocytes Relative 38.3 % LAB HEMETOLOGY METHOD 09/16/2024 4:[address] [facility] Monocytes Relative 11.9 % LAB HEMETOLOGY METHOD 09/16/2024 4:[address] [facility] Eosinophils Relative 3.4 % LAB HEMETOLOGY METHOD 09/16/2024 4:[address] [facility] Basophils Relative 0.4 % LAB HEMETOLOGY METHOD 09/16/2024 4:[facility] Immature Granulocytes Relative 0.2 % LAB HEMETOLOGY METHOD 09/16/2024 4:[address] [facility] Neutrophils Absolute 2.39 1.50 - 7.00 K/mcL LAB HEMETOLOGY METHOD 09/16/2024 4:29 PM EDT [facility] Lymphocytes Absolute 2.00 1.00 - 5.00 K/mcL LAB HEMETOLOGY METHOD 09/16/2024 4:[facility] Monocytes Absolute 0.62 0.20 - 1.00 K/mcL LAB HEMETOLOGY METHOD 09/16/2024 4:[address] [facility] Eosinophils Absolute 0.18 0.00 - 0.50 K/mcL LAB HEMETOLOGY METHOD 09/16/2024 4:29 PM EDT [facility] Basophils Absolute 0.02 0.00 - 0.20 K/[facility] HEMETOLOGY METHOD 09/16/2024 4:29 PM EDT [facility] Immature Granulocytes Absolute 0.01 0.00 - 0.03 K/[facility] LAB HEMETOLOGY METHOD 09/16/2024 4:29 PM EDT [facility] Blood Venous blood specimen / Unknown Venipuncture / Unknown 09/16/2024 3:46 PM EDT 09/16/2024 4:15 PM EDT us Mary Castañeda MD LAB BLOOD ORDERABLES Fin al Result Performing Organization Address [facility] de Phone Number [facility] [address] [place] [address], * Borrelia burgdorferi antibody (09/16/2024 3:46 PM EDT) [facility] Lyme Ab Negative Negative LAB CHEMISTRY METHOD 09/17/2024 10:02 AM EDT [facility] Comment: No laboratory evidence of infection with B. burgdorferi (Lyme disease). Negative results may occur in patients recently infected (<=14 days) with B. burgdorferi. ??If recent infection is suspected, repeat testing on a new sample collected in 7-14 days is recommended. Blood Venous blood specimen / Unknown Venipuncture / Unknown 09/16/2024 3:46 PM EDT 09/16/2024 4:14 PM EDT us Mary Castañeda MD LAB BLOOD ORDERABLES Fin al Result Performing Organization Address [facility]/ZIP Co de Phone Number [facility] [address] [place] [address], [place] [phone] * Tissue transglutaminase, IgA (09/16/2024 3:46 PM EDT) Tissue Transglutaminase Ab, IgA Quant 1 <4 unit/mL LAB CHEMISTRY METHOD 09/23/2024 10:39 AM EDT [facility] Tissue Transglutaminase Ab, IgA Negative Negative LAB CHEMISTRY METHOD 09/23/2024 10:39 AM EDT [facility] Blood Venous blood specimen / Unknown Venipuncture / Unknown 09/16/2024 3:46 PM EDT 09/16/2024 4:14 PM EDT us Mary Castañeda MD LAB BLOOD ORDERABLES Fin al Result Performing Organization Address City/[facility]/ZIP Co de Phone Number [facility] [address] [place] [address], [place] [phone] * (ABNORMAL) Sedimentation rate (09/16/2024 3:46 PM EDT) Pathologist [facility] Sed Rate 35(H) 0 - 30 mm/hr LAB HEMETOLOGY METHOD 09/16/2024 4:51 PM EDT [facility] Blood Venous blood specimen / Unknown Venipuncture / Unknown 09/16/2024 3:46 PM EDT 09/16/2024 4:15 PM EDT us Mary Castañeda MD LAB BLOOD ORDERABLES Fin al Result Performing Organization Address City/[facility]/ZIP Co de Phone Number [facility] [address] [place] [address], [place] [phone] * Immunoglobulins IgG, IgA, IgM (09/16/2024 3:46 PM EDT) Total IgG 1,440 549 - 1,584 mg/dL LAB CHEMISTRY METHOD 09/17/2024 9:33 PM EDT [facility] IgA 283 61 - 348 mg/dL LAB CHEMISTRY METHOD 09/17/2024 9:33 PM EDT [facility] IgM 60 23 - 259 mg/dL LAB CHEMISTRY METHOD 09/17/2024 9:33 PM EDT [facility] Blood Venous blood specimen / Unknown Venipuncture / Unknown 09/16/2024 3:46 PM EDT 09/16/2024 4:14 PM EDT Marisel Benito MD LAB BLOOD ORDERABLES Final Res ult Performing Organization Address [facility] Co de Phone Number [facility] [address] [place] [address], [place] [phone] * (ABNORMAL) C-reactive protein (09/16/2024 3:46 PM EDT) [facility] C-Reactive Protein 0.86(H) <=0.50 mg/dL LAB CHEMISTRY METHOD 09/16/2024 9:38 PM EDT [facility] Blood Venous blood specimen / Unknown Venipuncture / Unknown 09/16/2024 3:46 PM EDT 09/16/2024 4:14 PM EDT Mary Castañeda MD LAB BLOOD ORDERABLES Fin al Result Performing Organization Address [facility] de Phone Number [facility] [address] [place] [address], [place] [phone] * Vitamin E (09/16/2024 3:46 PM EDT) Pathologist [facility] Vitamin E (Alpha Tocopherol) 1486 500 - 1800 ug/dL 09/22/2024 6:07 AM EDT [facility] Comment: This test was developed and the performance characteristics determined by [facility]. It has not been cleared or approved by the FDA. The laboratory is regulated under CLIA as qualified to perform high-complexity testing. This test is used for patient testing purposes. It should not be regarded as investigational or for research. Test performed at [facility], [address] , [place], [place] ??[address] ? [phone] Nicole Laird MD, PhD - Cash Register Operator Blood Venous blood specimen / Unknown Venipuncture / Unknown 09/16/2024 3:46 PM EDT 09/16/2024 4:14 PM EDT us Mary Castañeda MD LAB BLOOD ORDERABLES Fin al Result [facility] [facility] [address] [place] [address] * Thyroid stimulating hormone (09/16/2024 3:46 PM EDT) TSH 1.32 0.40 - 4.00 mcIU/mL LAB CHEMISTRY METHOD 09/16/2024 10:33 PM EDT [facility] Blood Venous blood specimen / Unknown Venipuncture / Unknown 09/16/2024 3:46 PM EDT 09/16/2024 4:14 PM EDT Mary Castañeda MD LAB BLOOD ORDERABLES Fin al Result Performing Organization Address City/[facility]/ZIP Co de Phone Number [facility] [address] [place] [address], * Vitamin B1 (09/16/2024 3:46 PM EDT) Vitamin B1 Whole Blood 63 38 - 122 ug/L 09/22/2024 7:14 AM EDT [facility] Comment: This test was developed and the performance characteristics determined by [facility]. It has not been cleared or approved by the FDA. The laboratory is regulated under CLIA as qualified to perform high-complexity testing. This test is used for patient testing purposes. It should not be regarded as investigational or for research. Test performed at [facility], [address] , [place], [place] ??[address] ? [phone] Nicole Laird MD, PhD - Cash Register Operator Blood Venous blood specimen / Unknown Venipuncture / Unknown 09/16/2024 3:46 PM EDT 09/16/2024 4:14 PM EDT Mary Castañeda MD LAB BLOOD ORDERABLES Fin al Result Performing Organization Address [facility]/ZIP Co de Phone Number [facility] [address] [place] [address] * Vitamin B6 (09/16/2024 3:46 PM EDT) Pathologist [facility] Vitamin B6 (Pyridoxine) Level 24 5 - 50 ug/L 09/22/2024 12:44 PM EDT [facility] Comment: This test was developed and the performance characteristics determined by [facility]. It has not been cleared or approved by the FDA. The laboratory is regulated under CLIA as qualified to perform high-complexity testing. This test is used for patient testing purposes. It should not be regarded as investigational or for research. Test performed at [facility], [address] [facility] [place], [place] [address] ? [phone] Nicole Laird MD, PhD - Cash Register Operator Blood Venous blood specimen / Unknown Venipuncture / Unknown 09/16/2024 3:46 PM EDT 09/16/2024 4:14 PM EDT Mary Castañeda MD LAB BLOOD ORDERABLES Fin al Result Performing Organization Address [facility] Co de Phone Number [facility] [address] [facility] [place] [address] * Protein electrophoresis, serum (09/16/2024 3:46 PM EDT) Total Protein 6.8 6.0 - 8.0 g/dL LAB CHEMISTRY METHOD 09/18/2024 12:53 PM EDT [facility] Albumin, Serum 3.3 2.9 - 4.1 g/dL LAB CHEMISTRY METHOD 09/18/2024 12:53 PM EDT [facility] Alpha 1 Globulin (g/dL) 0.3 0.1 - 0.5 g/dL LAB CHEMISTRY METHOD 09/18/2024 12:53 PM EDT [facility] Alpha 2 Globulin (g/dL) 1.1 0.7 - 1.5 g/dL LAB CHEMISTRY METHOD 09/18/2024 12:53 PM EDT [facility] Beta (g/dL) 0.9 0.7 - 1.5 g/dL LAB CHEMISTRY METHOD 09/18/2024 12:53 PM EDT [facility] Gamma Globulin (g/dL) 1.5 0.7 - 1.9 g/dL LAB CHEMISTRY METHOD 09/18/2024 12:53 PM EDT [facility] SPEP Interpretation Essentially normal pattern. No M-David seen. LAB CHEMISTRY METHOD 09/18/2024 12:53 PM EDT [facility] Blood Venous blood specimen / Unknown Venipuncture / Unknown 09/16/2024 3:46 PM EDT 09/16/2024 4:14 PM EDT us Mary Castañeda MD LAB BLOOD ORDERABLES Fin al Result Performing Organization Address [facility]/ZIP Co de Phone Number [facility] [address] [place] [address], * Protein, total (09/16/2024 3:46 PM EDT) Total Protein 6.8 6.0 - 8.0 g/dL LAB CHEMISTRY METHOD 09/17/2024 2:16 AM EDT [facility] Blood Venous blood specimen / Unknown Venipuncture / Unknown 09/16/2024 3:46 PM EDT 09/16/2024 4:14 PM EDT us Mary Castañeda MD LAB BLOOD ORDERABLES Fin al Result [facility] [address] [place] [address], [place] [phone] * (ABNORMAL) Comprehensive metabolic panel (09/16/2024 3:46 PM EDT) Sodium 143 133 - 145 mmol/L LAB CHEMISTRY METHOD 09/16/2024 9:[address] [facility] Potassium 4.3 3.5 - 5.5 mmol/L LAB CHEMISTRY METHOD 09/16/2024 9:[address] [facility] Chloride 112(H) 96 - 110 mmol/L LAB CHEMISTRY METHOD 09/16/2024 9:[address] [facility] CO2 25 21 - 32 mmol/L LAB CHEMISTRY METHOD 09/16/2024 9:[address] [facility] Anion Gap 6 3 - 11 LAB CHEMISTRY METHOD 09/16/2024 9:[address] [facility] Glucose 85 70 - 100 mg/dL LAB CHEMISTRY METHOD 09/16/2024 9:[address] [facility] BUN 13 5 - 25 mg/dL LAB CHEMISTRY METHOD 09/16/2024 9:[address] [facility] Creatinine 0.93 0.50 - 1.10 mg/dL LAB CHEMISTRY METHOD 09/16/2024 9:[address] [facility] eGFR 66 >=60 mL/min/1. 73m2 LAB CHEMISTRY METHOD 09/16/2024 9:[address] [facility] Comment:Calculation based on the??Chronic Kidney Disease Epidemiology Collaboration (CKD-EPI) equation refit??without adjustment for race. BUN/Creatinine Ratio 14.0 LAB CHEMISTRY METHOD 09/16/2024 9:[address] [facility] Calcium 9.8 8.5 - 10.5 mg/dL LAB CHEMISTRY METHOD 09/16/2024 9:[address] [facility] AST (SGOT) 19 10 - 42 unit/L LAB CHEMISTRY METHOD 09/16/2024 9:38 PM EDT [facility] ALT (SGPT) 23 10 - 60 unit/L LAB CHEMISTRY METHOD 09/16/2024 9:38 PM EDT [facility] Alkaline Phosphatase 109 42 - 121 unit/L LAB CHEMISTRY METHOD 09/16/2024 9:38 PM EDT [facility] Total Protein 6.8 6.0 - 8.0 g/dL LAB CHEMISTRY METHOD 09/16/2024 9:38 PM EDT [facility] Albumin 3.4 3.2 - 5.0 g/dL LAB CHEMISTRY METHOD 09/16/2024 9:38 PM EDT [facility] Total Bilirubin 0.3 0.0 - 1.4 mg/dL LAB CHEMISTRY METHOD 09/16/2024 9:38 PM EDT [facility] Blood Venous blood specimen / Unknown Venipuncture / Unknown 09/16/2024 3:46 PM EDT 09/16/2024 4:14 PM EDT Mary Castañeda MD LAB BLOOD ORDERABLES Fin al Result Performing Organization Address City/[facility]/ZIP Co de Phone Number [facility] [address] [place] [address], * Pathologist Review Immunofixation (09/16/2024 3:45 PM EDT) Pathologist Interpretation 09/18/2024 12:53 PM EDT [facility] Blood Venous blood specimen / Unknown Venipuncture / Unknown 09/16/2024 3:45 PM EDT 09/16/2024 4:14 PM EDT us Mary Castañeda MD LAB BLOOD ORDERABLES Fin al Result [facility] [address] [place] [address], [place] [phone] * Interferon gamma interpretation (09/16/2024 3:45 PM EDT) [facility] Quantiferon Plus Interpretation Negative Negative LAB CHEMISTRY METHOD 09/18/2024 11:37 AM EDT [facility] Blood Venous blood specimen / Unknown Venipuncture / Unknown 09/16/2024 3:45 PM EDT 09/16/2024 4:16 PM EDT Marisel Benito MD LAB BLOOD ORDERABLES Final Res ult Performing Organization Address [facility] Co de Phone Number [facility] [address] [place] [address], [place] [phone] * Interferon gamma antigen 2 (09/16/2024 3:45 PM EDT) Blood Venous blood specimen / Unknown Venipuncture / Unknown 09/16/2024 3:45 PM EDT 09/16/2024 4:16 PM EDT Marisel Benito MD LAB BLOOD ORDERABLES Final Res ult Performing Organization Address [facility]/ZIP Co de Phone Number [facility] [address] [place] [address], [place] [phone] * Inteferon gamma antigen 1 (09/16/2024 3:45 PM EDT) Blood Venous blood specimen / Unknown Venipuncture / Unknown 09/16/2024 3:45 PM EDT 09/16/2024 4:16 PM EDT us Marisel Benito MD LAB BLOOD ORDERABLES Final Res ult Performing Organization Address [facility]/ZIP Co de Phone Number [facility] [address] [place] [address], [place] [phone] * Interferon gamma mitogen (09/16/2024 3:45 PM EDT) Blood Venous blood specimen / Unknown Venipuncture / Unknown 09/16/2024 3:45 PM EDT 09/16/2024 4:16 PM EDT Marisel Benito MD LAB BLOOD ORDERABLES Final Res ult Performing Organization Address [facility]/ZIP Co de Phone Number [facility] [address] [place] [address], [place] [phone] * Interferon gamma NIL (09/16/2024 3:45 PM EDT) Blood Venous blood specimen / Unknown Venipuncture / Unknown 09/16/2024 3:45 PM EDT 09/16/2024 4:16 PM EDT Marisel Benito MD LAB BLOOD ORDERABLES Final Res ult Performing Organization Address [facility] Phone Number [facility] [address] [place] [address], [place] [phone] * Immunofixation electrophoresis serum (09/16/2024 3:45 PM EDT) [facility] Immunofixation Result, Serum No monoclonal immunoglobulins detected. LAB CHEMISTRY METHOD 09/18/2024 12:53 PM EDT [facility] Blood Venous blood specimen / Unknown Venipuncture / Unknown 09/16/2024 3:45 PM EDT 09/16/2024 4:14 PM EDT Mary Castañeda MD LAB BLOOD ORDERABLES Fin al Result Performing Organization Address [facility] Co de Phone Number [facility] [address] [place] [address], [place] [phone] * External Xray Report (08/13/2024) Only the most recent of10 resultswithin the time period is included. Anatomical Region Laterality Modality Radiographic Shruthi ging us Provider [facility] XR PROCEDURES Final Result * External CT Report (08/13/2024) Only the most recent of4 resultswithin the time period is included. Anatomical Region Laterality Modality Computed Tomogra phy Provider [facility] PROCEDURES Final Result * Lipid panel with reflex to direct LDL (04/30/2024 8:06 AM EST) Cholesterol 163 0 - 200 mg/dL LAB CHEMISTRY METHOD 04/30/2024 10:43 AM EST [facility] Triglycerides 87 0 - 150 mg/dL LAB CHEMISTRY METHOD 04/30/2024 10:43 AM EST [facility] HDL 64 >=40 mg/dL LAB CHEMISTRY METHOD 04/30/2024 10:43 AM [facility] LDL Calculated 82 0 - 100 mg/dL LAB CHEMISTRY METHOD 04/30/2024 10:43 AM EST [facility] VLDL Cholesterol Jeremy 17.4 mg/dL LAB CHEMISTRY METHOD 04/30/2024 10:43 AM EST [facility] Non HDL Chol. (LDL+VLDL) 99 <145 mg/dL LAB CHEMISTRY METHOD 04/30/2024 10:43 AM EST [facility] Chol/HDL Ratio 2.5 0.0 - 4.4 LAB CHEMISTRY METHOD 04/30/2024 10:43 AM [facility] Blood Venous blood specimen / Unknown Venipuncture / Unknown 04/30/2024 8:06 AM EST 04/30/2024 8:07 AM EST Marybel Reyes NP LAB BLOOD ORDERABLES Final Resul t [facility] [address] [place] [address], * Hemoglobin A1c (04/30/2024 8:06 AM EST) Hemoglobin A1C 6.0 <6.5 % LAB CHEMISTRY METHOD 04/30/2024 11:24 AM EST [facility] Mean Bld Glu Estim. 126 mg/dL LAB CHEMISTRY METHOD 04/30/2024 11:24 AM EST [facility] Blood Venous blood specimen / Unknown Venipuncture / Unknown 04/30/2024 8:06 AM EST 04/30/2024 8:07 AM EST us Marybel Reyes NP LAB BLOOD ORDERABLES Final Resul t [facility] [address] [place] [address], from Last 3 Months or Most Recently Relevant to Health Maintenance Insurance [facility] MEDIC[facility] Member Subscriber Plan / Payer (Ef fective 2019-Present) Name:Lesly Mike Relation to Subscriber:Self Name:Lesly Mike Payer ID:[id number] Group ID:[id number] Type:Not on file Address: [address] [facility] [place] [id number] Advance Directives Documents on File Type Date Recorded 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
--- OUTSIDE RECORDS SUMMARY | 2024-09-29 06:21 | XMS_ITS | Encounter Summary ---
Author Organization [facility] Address [address] [place] [address] Care Team Providers Care Powder Cutting Operator Name Role Phone Marisel Benito MD Primary Care Provider [phone] Reason for Visit * Reason Onset Date Comments faxed order 09/28/2024 L&C Encounter Details Date Type Department Care Team (Late st Contact Info) Description 09/28/2024 Telephone Internal Medicine [facility] [address] [place] [phone] Katey Hernandez MA faxed order (L&C) Social History Tobacco Use Types Packs/Day Years [...] on file documented as of this encounter Ordered Prescriptions Prescription Sig Dispense Quantity Refills Last Filled Start Date End Date nutritional supplement-fiber liquidIndications:T ype 2 diabetes mellitus with other specified complication, unspecified whether terminal gauger supervisor insulin use (CMS/HCC V24, CMS/HCC V28),Vertigo Take 1 each by mouth 2 (two) times a day. 1500 mL 11 09/28/2024 documented in this encounter Progress Notes * Katey Hernandez MA - 09/28/2024 4:43 PM EDT [facility] Confirmation of order, [id number] New Rx pended. Placed in providers folder for signature. documented in this encounter Plan of Treatment Upcoming Encounters Date Type Department Care Team (Late st Contact Info) Description 10/26/2024 8:30 AM EDT Office Visit Orthopedic Surgery - [place] [address] [facility] [address] [place] [phone] Enrique Pop DPM [address] [facility] [address] [place] [address] 02/01/2025 9:45 AM EDT Office Visit Internal Medicine - [place] [address] [facility] [address] [place] [phone] Marisel Benito MD [address] [facility] [address] [place] [phone] documented as of this encounter Visit Diagnoses Diagnosis Type 2 diabetes mellitus with other specified complication, unspecified whether terminal gauger supervisor insulin use (CMS/[facility] V24, CMS/[facility] V28) Vertigo Dizziness and giddiness documented in this encounter Discontinued Medications Medication Sig Discontinue Reason Start Date End Da te nutritional supplement-fiber liquidIndications:Type 2 diabetes mellitus with other specified complication, unspecified whether retirement insulin use (CMS/[facility] V24, CMS/[facility] V28),Vertigo Take 1 each by mouth 2 (two) times a day. Reorder 08/18/2024 09/28/2024 documented as of this encounter Care Teams Powder Cutting Operator Relationship Specialty Start Date End Date Marisel Benito MD [address] [facility] [address] [place] [phone] PCP - General Internal Medicine 05/01/18 documented as of this encounter
== END 2024-09-29 06:19 | disposition home or self-care (01) ==
LOC: CF 06:18
PROVIDERS: Visit Provider Anesthesiology
DX: Z13.89 Encounter for screening for other disorder (principal)

== ENCOUNTER → 2024-11-05 07:57 | Outpatient (REF) | payer OTHER, SELFPAY ==
--- OUTSIDE RECORDS SUMMARY | 2024-11-05 08:00 | XMS_ITS | Clinical Summary ---
Author Organization 175 [facility] Address [address] [place] [address] Phone Care Team Providers Care Insurance Agency Manager Name Role Phone Marisel Benito MD Primary Care Provider Allergies Active Allergy Reactions Criticality Noted Date Comments Penicillins Anaphylaxis High 01/17/2010 Medications blood-glucose meter kit 2 (two) times a day. 09/16/19 24 Active lactose-reduce d food (ENSURE HIGH [...] if needed for dizziness. 12/10/19 24 Active ondansetron (ZOFRAN) 4 mg tablet [...] 3 (three) times a day. 330 mL 09/29/19 25 Active nutritional supplement-fib er liquidIndicati ons:Type 2 diabetes mellitus with other specified complication, unspecified whether termination clerk insulin use ([facility] V24, [facility] V28),Vertigo Take 1 each by mouth 2 (two) times a day. 1500 mL 09/29/19 25 Active incontinence pad, liner, disp padIndications :Type 2 diabetes mellitus with other specified complication, unspecified whether termination clerk insulin use ([facility] V24, [facility] V28),Urinary incontinence, unspecified type 1 each at bedtime. 100 each 10/08/19 25 Active oxyBUTYnin XL (Ditropan XL) 5 mg 24 hr tablet Take 1 tablet (5 mg total) by mouth 1 (one) time each day. Do not crush, chew, or split. 90 each 10/14/19 25 Active omeprazole (PriLOSEC) [address] capsule Take 1 capsule (40 mg total) by mouth 1 (one) time each day. 180 capsule 1 11/05/19 25 Active magnesium oxide (MAG-OX) 400 mg (241.3 elemental magnesium) tablet TAKE 1 TABLET BY MOUTH TWICE A DAY 180 tablet 1 11/05/19 25 Active magnesium oxide (MAG-OX) 400 mg (241.3 elemental magnesium) tablet Take 1 tablet (400 mg total) by mouth 2 (two) times a day. 08/07/19 24 025 Discontinued(Re order) omeprazole (PriLOSEC) [address] capsule Take 1 capsule (40 mg total) by mouth 2 (two) times a day before meals. 09/11/19 24 025 Discontinued magnesium oxide (MAG-OX) 400 mg (241.3 elemental magnesium) tablet Take 1 tablet (400 mg total) by mouth 2 (two) times a day. 60 tablet 3 10/14/19 25 025 Discontinued nitrofurantoin , macrocrystal-m onohydrate, (MACROBID) 100 mg capsule Take 1 capsule (100 mg total) by mouth 2 (two) times a day for 7 days. 14 each 10/14/19 25 025 Active Problems Problem Noted Date Diagnosed Date Unsteady gait when walking 10/13/2024 Recurrent falls 10/13/2024 Benign essential hypertension 09/15/2024 Edema of foot 09/15/2024 Gastroesophageal reflux disease 09/15/2024 Iron deficiency anemia 09/15/2024 Neuropathy 09/15/2024 Obstructive sleep apnea syndrome 09/15/2024 Osteoarthritis of right hip 09/15/2024 Type 2 diabetes mellitus (CMS/HCC V24, CMS/[facility] V 28) 09/15/2024 Vertigo 06/08/2020 Pure hypercholesterolemia 02/13/2019 Obesity (BMI 30-39.9) 02/13/2019 Migraine 02/13/2019 HTN (hypertension) 02/13/2019 Encounters Date Type Department Care Team Description 10/26/2024 8:30 AM EDT Office Visit Orthopedic Surgery [facility] 250 [address] [facility] 250 [place] [phone] Enrique Pop DPM Controlled type 2 diabetes with neuropathy (CMS/HCC V24, CMS/HCC V28) (Primary Dx); Neuropathy; Arthritis of both feet; Callus; Localized edema; Onychomycosis 10/13/2024 4:00 PM EDT Office Visit Internal Medicine [facility] 175 [facility] 200 [place] [phone] Marisel Benito MD Urinary incontinence, unspecified type (Primary Dx); Frequency of urination; Urinary tract infection without hematuria, site unspecified; Unsteady gait when walking; Recurrent falls; Vertigo 09/28/2024 Telephone Internal Medicine [facility] 175 [facility] 200 [place] [phone] Katey Hernandez MA faxed order (L&C) 09/16/2024 2:15 PM EDT Office Visit Internal Medicine [address] [phone] Marisel eBnito MD Hand muscle weakness (Primary Dx); Adult general medical examination; Fall, sequela; Acute right-sided thoracic back pain 09/16/2024 Telephone Internal Medicine [address] [phone] Katey Hernandez [place] faxed form ([facility]) 09/16/2024 Telephone Internal [address] [phone] Marisel Benito MD 09/15/2024 [facility] [address] [phone] Marisel Benito MD Appointment 09/15/2024 Telephone Internal [address] [phone] Katey Hernandez MA faxed order (L&C) 09/15/2024 [facility] [address] [phone] Katey Hernandez [place] faxed order (CHLOE's) 08/18/2024 10:30 AM EST Office Visit Internal [address] [phone] Marisel Benito MD Closed fracture of first lumbar vertebra, unspecified fracture morphology, sequela (Primary Dx); Primary hypertension; Pure hypercholesterolemia; Fall, sequela 08/14/2024 Telephone Internal Medicine [address] [phone] Marisel Benito MD 08/12/2024 Telephone Internal Medicine [address] [phone] Maryam Mckeon MA Request For Order(s) ([facility] Annual Care Plan /) from Last 3 Months Immunizations Name Administration Dates Next Due Influenza trivalent, with pr eservative (Fluzone; Afluria) 6mo and older 03/14/2020 Pneumococcal conjugate 13 va lent (Prevnar 13, PCV13) 2mo and older 03/14/2020,02/13/2019 Surgical History Surgery Date Site/Laterality Comments HYSTERECTOMY 2000 PROCEDURE: HISTORICAL HYSTERECTOMY OTHER SURGICAL HISTORY 1978 PROCEDURE: CO TONSILLECTOMY PRIMARY/SECONDARY AGE 11/> OTHER SURGICAL HISTORY 11/28/2018 PROCEDURE: CO LAPS SURG CHOLECYSTECTOMY W/CHOLANGIOGRAPHY; COMMENT: negative IOC [...] Information Value Date Recorded Sex Assigned at Female 10/13/2024 4:56 PM EDT Legal Sex Female 7:17 PM EST Gender Identity Female 10/13/2024 4:56 PM EDT Sexual Orientation Straight 10/13/2024 4: 56 PM EDT Obstetrics History Last Filed Vital Signs Vital Sign Reading Time Taken Comments Blood Pressure 108/80 10/13/2024 4:02 PM EDT Pulse 64 10/13/2024 4:02 PM EDT Temperature 35.9 ??C (96.6 ??F) 10/13/2024 4:02 PM ED T Respiratory Rate 16 10/13/2024 4:02 PM EDT Oxygen Saturation 99% 09/16/2024 2:15 PM EDT Inhaled Oxygen Concentration - - Weight 60.3 kg (133 lb) 10/26/2024 8:17 AM EDT Height 165.1 cm (5' 5 ) 10/26/2024 8:17 AM EDT Body Mass Index 22.13 10/26/2024 8:17 AM EDT Plan of Treatment Upcoming Encounters Date Type Department Care Team (Late st Contact Info) Description 11/05/2024 3:30 PM EDT Evaluation [address] [phone] Tashia Rasheed, PT 12/28/2024 8:15 AM EDT Office Visit Orthopedic Surgery - [place] 250 [address] [facility] 250 [place] [phone] Enrique Pop, ABEL 175 [facility] [address] [place] [address] 02/01/2025 9:45 AM EDT Office Visit Internal Medicine - [place] 175 [facility] 200 [place] [phone] Marisel Benito MD 175 [facility] 200 [place] [phone] Health Maintenance Due Date Last Done Comments [...] Procedure Name Priority Date/Time Associated Diagnosis Comments POC URINE NON-AUTO W/O MICRO Routine 10/13/2024 4:37 PM EDT Frequency of urination CO PROTEIN ELECTROPHORETIC FRACTIONATION & QUANTITATION SERUM Routine [...] without status migrainosus, unspecified migraine type Vertigo CO IMMUNOFIXATION ELECTROPHORESIS SERUM Routine 09/16/2024 3:45 PM [...] Recently Relevant to Health Maintenance Results * (ABNORMAL) POC Urine Non-Auto W/O Micro (10/13/2024 4:37 PM EDT) Leukocytes UA POC Trace(A) Negative Nitrite UA POC Negative Negative Urobilinogen UA POC 0.2 E.U./dL mg/dL Protein UA POC Negative Negative, >=300 mg/dL PH UA POC 6.0 Blood UA POC Negative Negative, Large Specific [place] UA POC >=1.030 Ketones UA POC Negative Negative, Trace Bilirubin UA POC Negative Negative, Small Urine Urine specimen obtained by clean catch procedure / Unknown 10/13/2024 4:37 PM EDT Marisel Benito MD POINT OF CARE TEST ENTER/EDIT ORDERABLES Final Result * PATHOLOGIST REVIEW PROTEIN ELECTROPHORESIS (09/16/2024 3:46 PM EDT) Pathologist Interpretation 09/18/2024 12:53 PM EDT [facility] Blood Venous blood specimen / Unknown Venipuncture / Unknown 09/16/2024 3:46 PM EDT 09/16/2024 4:14 PM EDT Mary Castañeda MD LAB BLOOD ORDERABLES Fin al Result [facility] [address] [place] [address], [place] [phone] * Sjogrens antibodies, SSA and SSB (09/16/2024 3:46 PM EDT) Sjogren's SS-A (Ro) Ab Quant 8 <20 units LAB CHEMISTRY METHOD 09/20/2024 10:52 AM EDT [facility] Sjogren's SS-A (Ro) Ab Negative Negative LAB CHEMISTRY METHOD 09/20/2024 10:52 AM EDT [facility] Sjogren's SS-B (La) Ab Quant 8 <20 units LAB CHEMISTRY METHOD 09/20/2024 10:52 AM EDT [facility] Sjogren's SS-B (La) Ab Negative Negative LAB CHEMISTRY METHOD 09/20/2024 10:52 AM EDT [facility] Blood Venous blood specimen / Unknown Venipuncture / Unknown 09/16/2024 3:46 PM EDT 09/16/2024 4:14 PM EDT Mary Castañeda MD LAB BLOOD ORDERABLES Fin al Result [facility] [address] [place] [address], * (ABNORMAL) ISABELLA IFA with titer and pattern (09/16/2024 3:46 PM EDT) ISABELLA Positive( A) Negative 09/17/2024 10:40 AM EDT [facility] ISABELLA Pattern Speckled( A) (none) 09/17/2024 10:40 AM EDT [facility] Comment:May be associated wi th SLE, Sjogren's syndrome, and mixed connective tissue disorder (MCTD). Titer 1:160(A) <1:160 09/17/2024 10:40 AM EDT [facility] Comment: Approximately 5% of healthy persons have ISABELLA titer of 1:160 or higher Further testing for other autoantibodies should be prompted by specific clinical findings/impressions. Blood Venous blood specimen / Unknown Venipuncture / Unknown 09/16/2024 3:46 PM EDT 09/16/2024 4:14 PM EDT Mary Castañeda MD LAB BLOOD ORDERABLES Fin al Result [facility] [address] [place] [address], * (ABNORMAL) CBC auto differential (09/16/2024 3:46 PM EDT) WBC 5.2 4.8 - 10.8 K/mcL LAB HEMETOLOGY METHOD 09/16/2024 4:29 PM EDT [facility] RBC 4.10 3.80 - 4.80 M/mcL LAB HEMETOLOGY METHOD 09/16/2024 4:29 PM EDT [facility] Hemoglobin 12.4 11.5 - 16.0 g/dL LAB HEMETOLOGY METHOD 09/16/2024 4:29 PM EDT [facility] Hematocrit 39.5 35.0 - 47.0 % LAB HEMETOLOGY METHOD 09/16/2024 4:29 PM EDT [facility] MCV 96.6 79.0 - 98.0 FL LAB HEMETOLOGY METHOD 09/16/2024 4:29 PM EDT [facility] MCH 30.3 27.0 - 32.0 pcg LAB HEMETOLOGY METHOD 09/16/2024 4:29 PM T [facility] MCHC 31.4(L) 32.0 - 37.0 g/dL LAB HEMETOLOGY METHOD 09/16/2024 4:29 PM EDT [facility] RDW 13.5 11.0 - 15.0 % LAB HEMETOLOGY METHOD 09/16/2024 4:29 PM EDT [facility] Platelets 249 130 - 400 K/mcL LAB HEMETOLOGY METHOD 09/16/2024 4:29 PM [facility] MPV 10.9 7.0 - 11.0 FL LAB HEMETOLOGY METHOD 09/16/2024 4:29 PM [facility] NRBC 0.0 <1.0 % LAB HEMETOLOGY METHOD 09/16/2024 4:29 PM [facility] NRBC Absolute 0.00 <0.10 K/[facility] HEMETOLOGY METHOD 09/16/2024 4:29 PM [facility] Neutrophils Relative 45.8 % LAB HEMETOLOGY METHOD 09/16/2024 4:29 PM [facility] Lymphocytes Relative 38.3 % LAB HEMETOLOGY METHOD 09/16/2024 4:29 PM [facility] Monocytes Relative 11.9 % LAB HEMETOLOGY METHOD 09/16/2024 4:29 PM [facility] Eosinophils Relative 3.4 % LAB HEMETOLOGY METHOD 09/16/2024 4:29 PM [facility] Basophils Relative 0.4 % LAB HEMETOLOGY METHOD 09/16/2024 4:29 PM [facility] Immature Granulocytes Relative 0.2 % LAB HEMETOLOGY METHOD 09/16/2024 4:29 PM [facility] Neutrophils Absolute 2.39 1.50 - 7.00 K/[facility] HEMETOLOGY METHOD 09/16/2024 4:29 PM [facility] Lymphocytes Absolute 2.00 1.00 - 5.00 K/mcL LAB HEMETOLOGY METHOD 09/16/2024 4:29 PM [facility] Monocytes Absolute 0.62 0.20 - 1.00 K/mcL LAB HEMETOLOGY METHOD 09/16/2024 4:29 PM [facility] Eosinophils Absolute 0.18 0.00 - 0.50 K/[facility] HEMETOLOGY METHOD 09/16/2024 4:29 PM EDT [facility] Basophils Absolute 0.02 0.00 - 0.20 K/[facility] HEMETOLOGY METHOD 09/16/2024 4:29 PM EDT [facility] Immature Granulocytes Absolute 0.01 0.00 - 0.03 K/[facility] HEMETOLOGY METHOD 09/16/2024 4:29 PM EDT [facility] Blood Venous blood specimen / Unknown Venipuncture / Unknown 09/16/2024 3:46 PM EDT 09/16/2024 4:15 PM EDT us Mary Castañeda MD LAB BLOOD ORDERABLES Fin al Result Performing Organization Address [facility]/ZIP Co de Phone Number [facility] [address] [place] [address], [place] [phone] * Borrelia burgdorferi antibody (09/16/2024 3:46 PM EDT) [facility] Lyme Ab Negative Negative LAB CHEMISTRY METHOD 09/17/2024 10:02 AM EDT [facility] Comment: No laboratory evidence of infection [...] MD LAB BLOOD ORDERABLES Fin al Result [facility] [address] [place] [address], * Tissue transglutaminase, IgA (09/16/2024 3:46 PM EDT) Pathologist [facility] Tissue Transglutaminase Ab, IgA Quant 1 <4 unit/mL LAB CHEMISTRY METHOD 09/23/2024 10:39 AM EDT [facility] Tissue Transglutaminase Ab, IgA Negative Negative LAB CHEMISTRY METHOD 09/23/2024 10:39 AM EDT [facility] Blood Venous blood specimen / Unknown Venipuncture / Unknown 09/16/2024 3:46 PM EDT 09/16/2024 4:14 PM EDT us Mary Castañeda MD LAB BLOOD ORDERABLES Fin al Result Performing Organization Address [facility] Co de Phone Number [facility] [address] [place] [address], [place] [phone] * (ABNORMAL) Sedimentation rate (09/16/2024 3:46 PM EDT) [facility] Sed Rate 35(H) 0 - 30 mm/hr LAB HEMETOLOGY METHOD 09/16/2024 4:51 PM EDT [facility] Blood Venous blood specimen / Unknown Venipuncture / Unknown 09/16/2024 3:46 PM EDT 09/16/2024 4:15 PM EDT us Mary Castañeda MD LAB BLOOD ORDERABLES Fin al Result Performing Organization Address City/[facility]/ZIP Co de Phone Number [facility] [address] [place] [address], [place] [phone] * Immunoglobulins IgG, IgA, IgM (09/16/2024 3:46 PM EDT) [facility] Total IgG 1,440 549 - 1,584 mg/dL LAB CHEMISTRY METHOD 09/17/2024 9:33 PM EDT [facility] IgA 283 61 - 348 mg/dL LAB CHEMISTRY METHOD 09/17/2024 9:33 PM EDT [facility] IgM 60 23 - 259 mg/dL LAB CHEMISTRY METHOD 09/17/2024 9:33 PM EDT [facility] Blood Venous blood specimen / Unknown Venipuncture / Unknown 09/16/2024 3:46 PM EDT 09/16/2024 4:14 PM EDT Marisel Benito MD LAB BLOOD ORDERABLES Final Res ult Performing Organization Address [facility]/ZIP Co de Phone Number [facility] [address] [place] [address], [place] [phone] * (ABNORMAL) C-reactive protein (09/16/2024 3:46 PM EDT) C-Reactive Protein 0.86(H) <=0.50 mg/dL LAB CHEMISTRY METHOD 09/16/2024 9:38 PM EDT [facility] Blood Venous blood specimen / Unknown Venipuncture / Unknown 09/16/2024 3:46 PM EDT 09/16/2024 4:14 PM EDT Mary Castañeda MD LAB BLOOD ORDERABLES Fin al Result Performing Organization Address [facility] Co de Phone Number [facility] [address] [place] [address], [place] [phone] * Vitamin E (09/16/2024 3:46 PM EDT) Vitamin E (Alpha Tocopherol) 1486 500 - 1800 ug/dL 09/22/2024 6:07 AM EDT [facility] Comment: This test was developed and the performance characteristics determined by [email or web address]. It has not been cleared or approved by the FDA. The laboratory is regulated under CLIA as qualified to perform high-complexity testing. This test is used for patient testing purposes. It should not be regarded as investigational or for research. Test performed at [email or web address], [address] , [place], [place] ??[address] ? [phone] Nicole Laird MD, PhD - Boat Officer Blood Venous blood specimen / Unknown Venipuncture / Unknown 09/16/2024 3:46 PM EDT 09/16/2024 4:14 PM EDT Mary Castañeda MD LAB BLOOD ORDERABLES Fin al Result Performing Organization Address City/[facility]/ZIP Co de Phone Number [facility] [address] [place] [address] * Thyroid stimulating hormone (09/16/2024 3:46 PM EDT) Pathologist [facility] TSH 1.32 0.40 - 4.00 mcIU/mL LAB CHEMISTRY METHOD 09/16/2024 10:33 PM EDT [facility] Blood Venous blood specimen / Unknown Venipuncture / Unknown 09/16/2024 3:46 PM EDT 09/16/2024 4:14 PM EDT Mary Castañeda MD LAB BLOOD ORDERABLES Fin al Result Performing Organization Address City/[facility] Co de Phone Number [facility] [address] [place] [address], * Vitamin B1 (09/16/2024 3:46 PM EDT) Vitamin B1 Whole Blood 63 38 - 122 ug/L 09/22/2024 7:14 AM EDT [facility] Comment: This test was developed and the performance characteristics determined by [facility]. It has not been cleared or approved by the FDA. The laboratory is regulated under CLIA as qualified to perform high-complexity testing. This test is used for patient testing purposes. It should not be regarded as investigational or for research. Test performed at [facility], [address] [place], [place] ??[address] ? [phone] Nicole Laird MD, PhD - Boat Officer Blood Venous blood specimen / Unknown Venipuncture / Unknown 09/16/2024 3:46 PM EDT 09/16/2024 4:14 PM EDT Mary Castañeda MD LAB BLOOD ORDERABLES Fin al Result Performing Organization Address [facility]/ZIP Co de Phone Number [facility] [address] [place] [address] * Vitamin B6 (09/16/2024 3:46 PM EDT) Pathologist [facility] Vitamin B6 (Pyridoxine) Level 24 5 - 50 ug/L 09/22/2024 12:44 PM EDT [facility] Comment: This test was developed and the performance characteristics determined by [facility]. It has not been cleared or approved by the FDA. The laboratory is regulated under CLIA as qualified to perform high-complexity testing. This test is used for patient testing purposes. It should not be regarded as investigational or for research. Test performed at [facility], [address] [place], [place] ??[address] ? [phone] Nicole Laird MD, PhD - Boat Officer Blood Venous blood specimen / Unknown Venipuncture / Unknown 09/16/2024 3:46 PM EDT 09/16/2024 4:14 PM EDT Mary Castañeda MD LAB BLOOD ORDERABLES Fin al Result Performing Organization Address [facility]/ZIP Co de Phone Number [facility] [address] [place] [address] * Protein electrophoresis, serum (09/16/2024 3:46 PM EDT) Pathologist [facility] Total Protein 6.8 6.0 - 8.0 g/dL LAB CHEMISTRY METHOD 09/18/2024 12:53 PM EDT [facility] Albumin, Serum 3.3 2.9 - 4.1 g/dL LAB CHEMISTRY METHOD 09/18/2024 12:53 PM EDT [facility] Alpha 1 Globulin (g/dL) 0.3 0.1 - 0.5 g/dL LAB CHEMISTRY METHOD 09/18/2024 12:53 PM EDT [facility] Alpha 2 Globulin (g/dL) 1.1 0.7 - 1.5 g/dL LAB CHEMISTRY METHOD 09/18/2024 12:53 PM EDT [facility] Beta (g/dL) 0.9 0.7 - 1.5 g/dL LAB CHEMISTRY METHOD 09/18/2024 12:53 PM EDT [facility] Gamma Globulin (g/dL) 1.5 0.7 - 1.9 g/dL LAB CHEMISTRY METHOD 09/18/2024 12:53 PM EDT [facility] SPEP Interpretation Essentially normal pattern. No M-David seen. LAB CHEMISTRY METHOD 09/18/2024 12:53 PM EDT [facility] Blood Venous blood specimen / Unknown Venipuncture / Unknown 09/16/2024 3:46 PM EDT 09/16/2024 4:14 PM EDT us Mary Castañeda MD LAB BLOOD ORDERABLES Fin al Result [facility] [address] [place] [address], * Protein, total (09/16/2024 3:46 PM EDT) Total Protein 6.8 6.0 - 8.0 g/dL LAB CHEMISTRY METHOD 09/17/2024 2:16 AM EDT [facility] Blood Venous blood specimen / Unknown Venipuncture / Unknown 09/16/2024 3:46 PM EDT 09/16/2024 4:14 PM EDT us Mary Castañeda MD LAB BLOOD ORDERABLES Fin al Result [facility] [address] [place] [address], * (ABNORMAL) Comprehensive metabolic panel (09/16/2024 3:46 PM EDT) Sodium 143 133 - 145 mmol/L LAB CHEMISTRY METHOD 09/16/2024 9:38 PM EDT [facility] Potassium 4.3 3.5 - 5.5 mmol/L LAB CHEMISTRY METHOD 09/16/2024 9:38 PM [facility] Chloride 112(H) 96 - 110 mmol/L LAB CHEMISTRY METHOD 09/16/2024 9:38 PM [facility] CO2 25 21 - 32 mmol/L LAB CHEMISTRY METHOD [facility] Anion Gap 6 3 - 11 LAB CHEMISTRY METHOD 09/16/2024 9:38 PM [facility] Glucose 85 70 - 100 mg/dL LAB CHEMISTRY METHOD 09/16/2024 9:38 PM [facility] BUN 13 5 - 25 mg/dL LAB CHEMISTRY METHOD 09/16/2024 9:38 PM [facility] Creatinine 0.93 0.50 - 1.10 mg/dL LAB CHEMISTRY METHOD 09/16[facility]2024 [facility] eGFR 66 >=60 mL/min/1. 73m2 LAB CHEMISTRY METHOD 09/16/2024 9:38 PM [facility] Comment:Calculation based on the??Chronic Kidney Disease Epidemiology Collaboration (CKD-EPI) equation refit??without adjustment for race. BUN/Creatinine Ratio 14.0 LAB CHEMISTRY METHOD 09/16/2024 9:38 PM [facility] Calcium 9.8 8.5 - 10.5 mg/dL LAB CHEMISTRY METHOD 09/16/2024 9:38 PM [facility] AST (SGOT) 19 10 - 42 unit/L LAB CHEMISTRY METHOD 09/16/2024 9:38 PM EDT [facility] ALT (SGPT) 23 10 - 60 unit/L LAB CHEMISTRY METHOD 09/16/2024 9:38 PM EDT [facility] Alkaline Phosphatase 109 42 - 121 unit/L LAB CHEMISTRY METHOD 09/16/2024 9:38 PM EDT [facility] Total Protein 6.8 6.0 - 8.0 g/dL LAB CHEMISTRY METHOD 09/16/2024 9:38 PM EDT [facility] Albumin 3.4 3.2 - 5.0 g/dL LAB CHEMISTRY METHOD 09/16/2024 9:38 PM EDT [facility] Total Bilirubin 0.3 0.0 - 1.4 mg/dL LAB CHEMISTRY METHOD 09/16/2024 9:38 PM EDT [facility] Blood Venous blood specimen / Unknown Venipuncture / Unknown 09/16/2024 3:46 PM EDT 09/16/2024 4:14 PM EDT us Mary Castañeda MD LAB BLOOD ORDERABLES Fin al Result [facility] [address] [place] [address], * Pathologist Review Immunofixation (09/16/2024 3:45 PM EDT) Pathologist Interpretation 09/18/2024 12:53 PM EDT [facility] Blood Venous blood specimen / Unknown Venipuncture / Unknown 09/16/2024 3:45 PM EDT 09/16/2024 4:14 PM EDT us Mary Castañeda MD LAB BLOOD ORDERABLES Fin al Result Performing Organization Address [facility]/ZIP Co de Phone Number [facility] [address] [place] [address], [place] [phone] * Interferon gamma interpretation (09/16/2024 3:45 PM EDT) [facility] Quantiferon Plus Interpretation Negative Negative LAB CHEMISTRY METHOD 09/18/2024 11:37 AM EDT [facility] Blood Venous blood specimen / Unknown Venipuncture / Unknown 09/16/2024 3:45 PM EDT 09/16/2024 4:16 PM EDT Marisel Benito MD LAB BLOOD ORDERABLES Final Res ult Performing Organization Address [facility]/ZIP Co de Phone Number [facility] [address] [place] [address], [place] [phone] * Interferon gamma antigen 2 (09/16/2024 3:45 PM EDT) Blood Venous blood specimen / Unknown Venipuncture / Unknown 09/16/2024 3:45 PM EDT 09/16/2024 4:16 PM EDT Marisel Benito MD LAB BLOOD ORDERABLES Final Res ult Performing Organization Address City/[facility]/ZIP Co de Phone Number [facility] [address] [place] [address], [place] [phone] * Inteferon gamma antigen 1 (09/16/2024 3:45 PM EDT) Blood Venous blood specimen / Unknown Venipuncture / Unknown 09/16/2024 3:45 PM EDT 09/16/2024 4:16 PM EDT Marisel Benito MD LAB BLOOD ORDERABLES Final Res ult Performing Organization Address City/[facility]/ZIP Co de Phone Number [facility] [address] [place] [address], [place] [phone] * Interferon gamma mitogen (09/16/2024 3:45 PM EDT) Blood Venous blood specimen / Unknown Venipuncture / Unknown 09/16/2024 3:45 PM EDT 09/16/2024 4:16 PM EDT us Marisel Benito MD LAB BLOOD ORDERABLES Final Res ult Performing Organization Address [facility]/ZIP Co de Phone Number [facility] [address] [place] [address], [place] [phone] * Interferon gamma NIL (09/16/2024 3:45 PM EDT) Blood Venous blood specimen / Unknown Venipuncture / Unknown 09/16/2024 3:45 PM EDT 09/16/2024 4:16 PM EDT us Marisel Benito MD LAB BLOOD ORDERABLES Final Res ult Performing Organization Address [facility] de Phone Number [facility] [address] [place] [address], [place] [phone] * Immunofixation electrophoresis serum (09/16/2024 3:45 PM EDT) [facility] Immunofixation Result, Serum No monoclonal immunoglobulins detected. LAB CHEMISTRY METHOD 09/18/2024 12:53 PM EDT [facility] Blood Venous blood specimen / Unknown Venipuncture / Unknown 09/16/2024 3:45 PM EDT 09/16/2024 4:14 PM EDT us Mary Castañeda MD LAB BLOOD ORDERABLES Fin al Result Performing Organization Address [facility] Co de Phone Number [facility] [address] [place] [address], [place] [phone] * External Xray Report (08/13/2024) Only the most recent of10 resultswithin the time period is included. Anatomical Region Laterality Modality Radiographic Shruthi ging us Provider [facility] XR PROCEDURES Final Result * External CT Report (08/13/2024) Only the most recent of4 resultswithin the time period is included. Anatomical Region Laterality Modality Computed Tomogra phy us Provider [facility] CT PROCEDURES Final Result * Lipid panel with reflex to direct LDL (04/30/2024 8:06 AM EST) [facility] Cholesterol 163 0 - 200 mg/dL LAB CHEMISTRY METHOD 04/30/2024 10:43 AM EST [facility] Triglycerides 87 0 - 150 mg/dL LAB CHEMISTRY METHOD 04/30/2024 10:43 AM [facility] HDL 64 >=40 mg/dL LAB CHEMISTRY METHOD 04/30/2024 10:43 AM [facility] LDL Calculated 82 0 - 100 mg/dL LAB CHEMISTRY METHOD 04/30/2024 10:43 AM [facility] VLDL Cholesterol Jeremy 17.4 mg/dL LAB CHEMISTRY METHOD 04/30/2024 10:43 AM [facility] Non HDL Chol. (LDL+VLDL) 99 <145 mg/dL LAB CHEMISTRY METHOD 04/30/2024 10:43 AM [facility] Chol/HDL Ratio 2.5 0.0 - 4.4 LAB CHEMISTRY METHOD 04/30/2024 10:43 AM [facility] Blood Venous blood specimen / Unknown Venipuncture / Unknown 04/30/2024 8:06 AM EST 04/30/2024 8:07 AM EST Marybel Reyes NP LAB BLOOD ORDERABLES Final Resul t [facility] [address] [place] [address], [place] [phone] * Hemoglobin A1c (04/30/2024 8:06 AM EST) Hemoglobin A1C 6.0 <6.5 % LAB CHEMISTRY METHOD 04/30/2024 11:24 AM EST [facility] Mean Bld Glu Estim. 126 mg/dL LAB CHEMISTRY METHOD 04/30/2024 11:24 AM EST [facility] Blood Venous blood specimen / Unknown Venipuncture / Unknown 04/30/2024 8:06 AM EST 04/30/2024 8:07 AM EST us Marybel Reyes NP LAB BLOOD ORDERABLES Final Resul t [facility] [address] [place] [address], [place] [phone] from Last 3 Months or Most Recently Relevant to Health Maintenance Insurance [facility] MEDICARE Member Subscriber Plan / Payer (Ef fective 2019-Present) Name:Lesly Mike Relation to Subscriber:Self Name:Lesly Mike Payer ID:[id number] Group ID:[id number] Type:Not on file Address: [address] [facility] [place] [phone] Advance Directives Documents on File Type Date Recorded 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
--- OUTSIDE RECORDS SUMMARY | 2024-11-05 08:00 | XMS_ITS | Data Portability ---
Author Organization [place] - [facility], Allergy Address [address] [place] [phone] Care Team Providers Care Animal Cop Name Role Phone TAYLOR CANO Referring Provider [phone] Assessment Encounter Date Assessment Date Assessment [...] Surgeries None recorded. Imaging audiogram 2023 024 [email or web address] Not available 08:53:00 Medication Orders None recorded. Patient TargetsNo targets recorded. Patient InstructionsNo instructions recorded. Reason for Referral None Reported. Results Created Date Observation Date Name Description Value Unit Range Abnormal Flag Note LastModifiedBy Organization Detail LastModifiedTime 01/02/20 24 audio gram No observ ation record ed. [email or web address] Not Available 12/15 16:03:26 01/09/20 24 audio gram No observ ation record ed. BARCODE Not Available 2023 16:40:48 01/09/20 24 audio gram No observ ation record ed. BARCODE Not Available 2023 16:43:53 01/09/20 24 audio gram No observ ation record ed. [email or web address] Not Available 16:44:54 Result Notes None recorded. Problems Name Problem SNOMED Code Status Onset Date Resolution Date Notes Provider Name and Address Organization Details Recorded Time Bilateral tinnitus 8316519752572 Active 2023 OSCAR POLLARD [place], CCC-A [address], [place], [phone], [facility] - [facility] 4 14:37:41 Abnormal auditory perception 93815207 Active 2023 OSCAR POLLARD [place], [facility] [address] [facility], [place], [phone], [facility] 4 14:37:53 Sensorineur al hearing loss of bilateral ears 085036070 Active 2023 MERCY ARECHIGA PA-C [address] [facility], [place], [phone], [facility] 15:14:58 Problem Notes None recorded. Procedures Surgical History Date Name Laterality Status Provider Name and Address Organization Details Recorded Time 12/31/2023 Comp Audio with Tymps - 95098 & 08018 completed OSCAR POLLARD [place], [facility] [address] [facility] [address], [place], [phone], [facility] 12/31/2023 14:38:17 Imaging Results Imaging Date Name Status LastModified by Organiz ation Details LastModified Time 01/02/2024 audiogram completed [email or web address] Information n ot available 01/02/2024 16:03:26 01/09/2024 audiogram completed BARCODE Information no t available 01/09/2024 16:40:48 01/09/2024 audiogram completed BARCODE Information no t available 01/09/2024 16:43:53 01/09/2024 audiogram completed [email or web address] Information not available 01/09/2024 16:44:54 Procedure Notes [...] [id number] MERCY ARECHIGA PA-C [facility] [address] [phone] 12/31/2023 13:52:20 12/31/2023 15:02:11 Bilateral tinnitus [id number] 102 H93.13 For both ears, normal to borderline normal hearing thru 4000Hz with a mild- moderate loss thereafter . Excellent speech clarity for both ears. Normal middle ear compliance and pressure bilaterall y. Abnormal a uditory perception 54321498 H93.299 Sensorineu ral hearing loss of bilateral ears 743998973 H90.3 Health Concerns Section Related Observation LastModified by Organization Detai ls LastModified Time None Recorded Concern Status LastModified by Organization Details LastModified Time None Recorded Advance Directives Directive None Recorded Payers Insurance Date Sequence Insurance Name Policy Number Policy Gaitan Covered Member ID Gaitan Member ID Guarantor Name [id number] 1 [facility] - DOS ON OR AFTER 2022 - ONE CARE (MEDICARE REPLACEMENT/ADV ANTAGE - HMO) Lesly Mike [id number] Lesly Mike Notes Date Note Type Note [...] and no ear surgeries. MERCY ARECHIGA PA-C [address] [place] [address], [place], [phone], [facility] - [facility] 12/31/2023 15:15:11 OBGyn Episode No OBEpisode recorded.
== END ==
LOC: HO.CARD 07:57
PROVIDERS: Visit Provider Nurse Practitioner Family
DX: R00.1 Bradycardia, unspecified (principal); Z91.81 History of falling
CPT/HCPCS: 93242

== ENCOUNTER → 2024-11-05 08:00 | Outpatient (BNV) | payer OTHER, SELFPAY | PROVIDERS: Visit Provider Internal Medicine | DX: I47.10 Supraventricular tachycardia, unspecified (principal); I49.3 Ventricular premature depolarization | CPT/HCPCS: 93244 ==

== ENCOUNTER 2024-11-22 22:32 | Emergency (ER) | payer OTHER, SELFPAY ==
--- NOTE | ~2024-11-22 | XR_ITS ---
CLINICAL HISTORY: pain 1 view chest x-ray. Comparison: None Findings: The lungs appear clear. There is no consolidation, effusion, or pneumothorax. Cardiomediastinal silhouette is within normal limits. There is a gastric lap band in the left upper quadrant. IMPRESSION: No acute cardiopulmonary abnormality. This document has been electronically signed by: Simone Levy MD on 11/23/2024 01:12:32
--- NOTE | ~2024-11-22 | XR_ITS ---
CLINICAL HISTORY: fall 1 view pelvis Comparison: None Findings: There is no fracture. There is a right total hip arthroplasty in expected position on the single view. Left hip joint alignment and joint space appear normal. There are degenerative changes of the lower lumbar spine. IMPRESSION: No acute findings. This document has been electronically signed by: Simone Levy MD on 11/23/2024 01:33:19
--- NOTE | ~2024-11-22 | CT_ITS ---
CLINICAL HISTORY: fall CT cervical spine without contrast Comparison: CT/[place]/SR - CT CERVICAL SPINE WO IV CON - 08/13/24 10:23 EST Findings: There is mild degenerative anterolisthesis of C3 on C4 due to facet osteoarthritis. There is no fracture. There is bony fusion of C4-5. There is moderate C5-6 and C6-7 degenerative disc disease. There is multilevel facet and uncovertebral joint osteoarthritis with associated neuroforaminal stenoses. IMPRESSION: No evidence of cervical spine injury. This document has been electronically signed by: Simone Levy MD on 11/23/2024 03:55:41
--- NOTE | ~2024-11-22 | CT_ITS ---
CLINICAL HISTORY: fall CT head without contrast Comparison: CT/[place]/SR - CT HEAD/BRAIN WO IV CON - 08/13/24 10:23 EST Findings: There is no acute intracranial hemorrhage. Ventricles are of normal size and shape. No mass effect or midline shift is present. The brannon-white matter differentiation appears normal. There is unchanged partial opacification of the mastoid air cells. Visualized portions of the paranasal sinuses are clear. Orbits are unremarkable. No fractures are identified. IMPRESSION: No acute intracranial abnormality. This document has been electronically signed by: Simone Levy MD on 11/23/2024 03:50:52
[2024-11-22 22:36] VITALS: BP 111/61; PULSE 59; RESP 18; TEMP 36.6; O2SAT 98; BMI 19.7
[2024-11-22] MEDS: Acetaminophen 325 MG TABLET 650 MG PO (22:50)
[2024-11-22 23:03] VITALS: BP 120/53; PULSE 58; RESP 16; TEMP 36.4; O2SAT 100
--- NOTE | 2024-11-22 23:21 | PC.NURSE ---
Provider Sonia notified this nurse that he removed pt off of 3L NC to observe her Sats on RA.
--- NOTE | 2024-11-22 23:28 | ED.FALL ---
HPI - Fall General Chief Complaint: Fall Stated Complaint: fall Time Seen by Provider: 11/22/24 23:19 Source: patient and family Mode of arrival: ambulatory Limitations: no limitations History of Present Illness ED Provider: HPI Narrative: Patient was at graduation daughter was pushing the wheelchair from the front tripped and patient fell backwards with the wheelchair hitting her head to the ground no loss of consciousness complaining of pain in upper back and mild headache no nausea no vomiting not on any blood thinners no LOC Related Data Home Medications ?Medication ?Instructions ?Recorded ?Confirmed cholecalciferol (vitamin D3) 50 50 mcg PO DAILY 05/04/21 08/17/24 mcg (2,000 unit) capsule ferrous sulfate 325 mg (65 mg 325 mg PO DAILY 05/04/21 08/17/24 iron) tablet furosemide 20 mg tablet 20 mg PO DAILY 05/04/21 08/17/24 hydroxyzine HCl 25 mg tablet 25 mg PO DAILY 05/04/21 08/17/24 magnesium oxide 400 mg (241.3 mg 400 mg PO BID 05/04/21 08/17/24 magnesium) tablet omeprazole 40 mg capsule,delayed 40 mg PO DAILY 05/04/21 08/17/24 release ondansetron HCl 4 mg tablet 4 mg PO Q8H PRN Nausea 05/04/21 08/17/24 potassium chloride 20 mEq 20 meq PO DAILY 05/04/21 08/17/24 tablet,extended release sennosides 8.6 mg-docusate sodium 1 tab PO BID 05/04/21 08/17/24 50 mg tablet (Senexon-S) topiramate 50 mg tablet 50 mg PO BID 05/04/21 08/17/24 atorvastatin 10 mg tablet 10 mg PO DAILY 07/23/22 08/17/24 calcium carbonate (Jeremy-Gest 200 mg PO TID 07/23/22 08/17/24 Antacid) trazodone 100 mg tablet 100 mg PO BEDTIME 07/23/22 08/17/24 sumatriptan succinate 50 mg tablet 50 mg PO DAILY PRN Headache 02/19/23 08/17/24 sertraline 100 mg tablet 100 mg PO DAILY 05/28/23 08/17/24 solifenacin 10 mg tablet 10 mg PO DAILY 03/19/24 08/17/24 solifenacin 5 mg tablet 5 mg PO DAILY 03/19/24 08/17/24 gabapentin 400 mg capsule mg PO BID 04/16/24 08/17/24 verapamil 120 mg 24 hr 120 mg PO DAILY 04/16/24 08/17/24 capsule,extended release eszopiclone 1 mg tablet mg PO 08/13/24 08/17/24 Previous Rx's ?Medication ?Instructions ?Recorded Gel mattress overlay #1 ea 01/24/23 acetaminophen 325 mg capsule 650 mg (2 x 325 mg) PO Q6H PRN 02/19/23 pain #45 caps lidocaine 5 % topical patch 1 patch topical DAILY for pain #30 03/19/24 patches lidocaine 5 % topical patch 1 patch topical DAILY #15 ea 08/13/24 (Lidoderm) lidocaine 4 % topical patch 1 patch topical BID PRN pain #30 ea 10/01/24 (Aspercreme (lidocaine)) Allergies Allergy/AdvReac Type Severity Reaction Status Date / Time Penicillins Allergy Severe hives Verified 11/22/24 22:45 Review of Systems Review of Systems: Yes all other systems are reviewed and are negative PMFSH Past Medical History Medical History Vertigo Cataracts, bilateral Arthritis Anxiety Full dentures Ambulates with cane Diabetes mellitus type 2, diet-controlled Anemia JV (obstructive sleep apnea) Elevated cholesterol HTN (hypertension) GERD (gastroesophageal reflux disease) Spinal stenosis of lumbar region with neurogenic claudication Lumbar back pain with radiculopathy affecting lower extremity Surgical History Hx of colonoscopy History of total right hip replacement Hx of cholecystectomy Social History Social History Are you a primary eye care professional to a significant other at home: No Do you presently have visiting nurse or other home services: Yes ([employer] M-F 4 hours/day) Alcohol intake: never Patient Tobacco Use Status: Never used Tobacco Physical Exam Vital Signs: Vital Signs: Last Vital Signs Temp 97.6 F 11/23/24 04:05 Pulse 58 11/23/24 04:05 Resp 16 11/23/24 04:05 BP 120/53 L 11/23/24 04:05 Pulse Ox 100 11/23/24 04:05 O2 Del Method Room Air 11/23/24 04:05 BMI result Body Mass Index 19.7 Appearance: Alert. Oriented X3. No acute distress. Eyes: No pallor includes ENT: Pharynx normal. Oral Mucosa moist Neck: Normal inspection. Neck supple. No midline tenderness CVS: Normal heart rate and rhythm. Pulses normal. Respiratory: No respiratory distress. Equal air entry bilateral, no wheezing/rales/rhonchi Abdomen: Soft and nontender. Bowel sounds are present, no mass palpable, no CVA tenderness Skin: Skin warm and dry. Normal skin color. Normal skin turgor. Extremities: No lower extremity edema. No calf tenderness Neuro: Oriented X 3. No motor deficit. No sensory deficit.No cerebellar signs , cranial nerves II-XII intact Medications Administered Discontinued Medications Generic Name Dose Route Start Last Admin Trade Name Freq PRN Reason Stop Dose Admin Acetaminophen 650 mg 11/22/24 22:46 11/22/24 22:50 Acetaminophen 325 Mg Tablet PO 11/22/24 22:47 650 mg ONCE ONE Administration Oxycodone HCl 10 mg 11/23/24 00:20 11/23/24 01:09 Oxycodone Hcl Immed Release 5 Mg Tablet PO 11/23/24 00:21 10 mg ONCE ONE Administration Medical Decision Making Medical Decision Making [facility] Narrative: Patient status post mechanical fall complaining of headache and pelvic pain x-ray of the pelvis in the right hip was negative CT scan of the head also negative will discharge patient Tylenol for pain as needed patient is ambulatory in the ED from bed to the wheelchair Differential Diagnosis Differential Diagnoses: The differential diagnosis associated with the presentation includes Pelvic fracture/SAH/SDH/cervical spine fracture Independent Interpretation I performed an independent interpretation of an: CT Scan Radiology Impression Discussion of test interpretation with radiology: I have reviewed the radiologist's reading. Radiologist Impression: No acute Discharge Plan Discharge Clinical Impression: Head injury Patient Disposition: Home, Self-Care Instructions: Head Injury (ED) Additional Instructions: Take Tylenol/ibuprofen for pain as needed Prescriptions: No Action lidocaine [Aspercreme (lidocaine)] 4 % adhesive patch,medicated 1 patch topical BID PRN (Reason: pain) Qty: 30 4RF lidocaine [Lidoderm] 5 % adhesive patch,medicated 1 patch topical DAILY Qty: 15 0RF Rx Instructions: leave on most painful area for up to 12 hrs acetaminophen 325 mg capsule 650 mg PO Q6H PRN (Reason: pain) Qty: 45 0RF trazodone 100 mg tablet 100 mg PO BEDTIME calcium carbonate [Jeremy-Gest Antacid] 200 mg calcium (500 mg) tablet,chewable 200 mg PO TID atorvastatin 10 mg tablet 10 mg PO DAILY hydroxyzine HCl 25 mg tablet 25 mg PO DAILY magnesium oxide 400 mg (241.3 mg magnesium) tablet 400 mg PO BID omeprazole 40 mg capsule,delayed release(DR/EC) 40 mg PO DAILY sennosides-docusate sodium [Senexon-S] 8.6-50 mg tablet 1 tab PO BID ondansetron HCl 4 mg tablet 4 mg PO Q8H PRN (Reason: Nausea) furosemide 20 mg tablet 20 mg PO DAILY topiramate 50 mg tablet 50 mg PO BID potassium chloride 20 mEq tablet extended release 20 meq PO DAILY ferrous sulfate 325 mg (65 mg iron) tablet 325 mg PO DAILY cholecalciferol (vitamin D3) 50 mcg (2,000 unit) capsule 50 mcg PO DAILY sumatriptan succinate 50 mg tablet 50 mg PO DAILY PRN (Reason: Headache) (DME) Gel mattress overlay Misc See Rx Instructions .Route Qty: 1 3RF Rx Instructions: As directed solifenacin 10 mg tablet 10 mg PO DAILY solifenacin 5 mg tablet 5 mg PO DAILY lidocaine 5 % adhesive patch,medicated 1 patch topical DAILY Qty: 30 3RF sertraline 100 mg tablet 100 mg PO DAILY verapamil 120 mg capsule,ext rel. pellets 24 hr 120 mg PO DAILY gabapentin 400 mg capsule PO BID eszopiclone 1 mg tablet PO Interventions: ED Discharge Assessment Last Done: 11/23/24 04:05 Discharge Date/Time: 11/23/24 04:05 Print Language: Kuwaiti
[2024-11-23] MEDS: oxyCODONE HCl Immed Release 5 MG TABLET 10 MG PO (01:09)
[2024-11-23 04:05] VITALS: BP 120/53; PULSE 58; RESP 16; TEMP 36.4; O2SAT 100
== END 2024-11-23 04:05 | disposition home or self-care (01) ==
PROVIDERS: Emergency Provider Internal Medicine; PCP Internal Medicine
DX: S09.90XA Unspecified injury of head, initial encounter (principal); W05.0XXA Fall from non-moving wheelchair, initial encounter; Y93.89 Activity, other specified; Y92.89 Other specified places as the place of occurrence of the external cause; Y99.9 Unspecified external cause status
CPT/HCPCS: 70450; 71045; 72125; 72170; 99284

== ENCOUNTER → 2024-11-23 00:20 | Outpatient (BNV) | payer OTHER, SELFPAY | PROVIDERS: Emergency Provider Internal Medicine; PCP Internal Medicine; Visit Provider Radiology Diagnostic Radiology | DX: M50.322 Other cervical disc degeneration at C5-C6 level (principal); G44.309 Post-traumatic headache, unspecified, not intractable; R07.9 Chest pain, unspecified; M51.360 Other intervertebral disc degeneration, lumbar region with discogenic back pain only | CPT/HCPCS: 70450; 71045; 72125; 72170 ==

== ENCOUNTER 2024-12-08 06:16 | Outpatient (REF) | payer OTHER, SELFPAY ==
--- NOTE | ~2024-12-08 | FL_ITS ---
EXAMINATION: FL GUIDANCE ONLY HISTORY: M54.16 - Radiculopathy, lumbar region COMPARISON: Correlation is made with plain films of the lumbar spine dated 08/13/2024. TECHNIQUE: Fluoroscopy time: 0.2 minutes. Cumulative Dose: 2.76 mGy. DAP: 0.0396 mGym2 Images: 2. FINDINGS: Fluoroscopic spot films of the lumbar spine in the AP projection demonstrate needles and contrast material in the regions of the right L2-3 and L3-4 facet joints. FL/FL guidance in treatment room IMPRESSION: Fluoroscopy during procedure. Please see procedure report for additional information. Electronically signed by: Hari Dorado MD 12/08/2024 12:02 PM EDT
== END 2024-12-08 06:17 | disposition home or self-care (01) ==
LOC: CF 06:16
PROVIDERS: Visit Provider Anesthesiology
DX: M54.16 Radiculopathy, lumbar region (principal)
CPT/HCPCS: 64483; J1100; J2003; Q9967

== ENCOUNTER 2024-12-08 07:13 | Outpatient (AMB) | payer OTHER, SELFPAY ==
[2024-12-08 07:29] VITALS: BP 104/74; PULSE 54; RESP 16
--- NOTE | 2024-12-08 07:29 | MHC.OFFVIS ---
Vital Signs 12/08/24 07:29 Weight 120 lb BP 104/74 Blood Pressure Location Rt brachial Position Left Lateral Respiration 16 Pulse 54 Pulse Source Pulse Oximeter Intake Visit Reasons: RIGHT L3, L4 [employer] Director Required: No Allergies Penicillins Allergy (Severe, Verified 11/22/24 22:45) hives [facility] Medical History Vertigo Cataracts, bilateral Arthritis Anxiety Full dentures Ambulates with cane Diabetes mellitus type 2, diet-controlled Anemia JV (obstructive sleep apnea) Elevated cholesterol HTN (hypertension) GERD (gastroesophageal reflux disease) Spinal stenosis of lumbar region with neurogenic claudication Lumbar back pain with radiculopathy affecting lower extremity Surgical History Hx of colonoscopy History of total right hip replacement Hx of cholecystectomy Social History Are you a primary physician primary care sports medicine to a significant other at home: No Do you presently have visiting nurse or other home services: Yes ([employer] D[employer] M-F 4 hours/day) Alcohol intake: never Patient Tobacco Use Status: Never used Tobacco Physical Exam Vital Signs: Last Vital Signs Pulse 54 12/08/24 07:29 Resp 16 12/08/24 07:29 BP 104/74 12/08/24 07:29 Assessment & Plan Assessment & Plan (1) Radiculopathy, lumbar region: Code(s): M54.16 - Radiculopathy, lumbar region Category: Medical Plan Transforaminal right L3-L4 epidural steroid injection Informed consent was thoroughly explained to the patient before the procedure. The risks were delineated as bleeding infection peripheral nerve damage spinal cord damage and headache. ? The patient came to the operating room.? He was positioned prone on operating table with a pillow under his abdomen.? Time-out was performed delineating correct site and side of the procedure, nature of the injection, name and date of of the patient. The lower back of the patient was prepped with ChloraPrep and draped with sterile utility towels.? C-arm was brought over the operating field and sq picture of L3 vertebra were demonstrated on the screen.? The right side was chosen 1st as the side of the injection.? Tilting machine ipsilateral to the right at the level of L3 1st the most prominent picture of the right pedicle was obtained on the screen.? 3 mm below the level of the lowest point of the pedicle projection to the skin small amount of lidocaine 1% 2 cc was injected to anesthetize the skin.? After that 5 in 22 gauge Quincke point needle was inserted through the skin wheal and was advanced to were theL3-L4 foramina on anterior posterior and oblique views intermittently.? When tip of the needle entered foramina projection on AP view injection of the contrast was performed demonstrating epidural and perineural spread of the contrast.? After that injection of the treatment medicine 3 cc of lidocaine 1% mixed with dexamethasone 10 mg was injected into the foramina.? Upon completion of the procedure sterile Band-Aids were applied. Orders: Orders FL guidance in treatment room Today M54.16 - Radiculopathy, lumbar region Coding Level of Care Code Procedure Only Diagnoses Radiculopathy, lumbar region M54.16
== END 2024-12-08 08:25 | disposition home or self-care (01) ==
PROVIDERS: PCP Internal Medicine; Visit Provider Anesthesiology
DX: M54.16 Radiculopathy, lumbar region (principal)
CPT/HCPCS: 64483

== ENCOUNTER 2025-02-16 10:56 | Outpatient (AMB) | payer OTHER, SELFPAY ==
[2025-02-16 10:57] VITALS: BP 116/70; PULSE 58
--- NOTE | 2025-02-16 10:57 | A.OFFVIS_ITS ---
Vital Signs 02/16/25 10:57 Height 5 ft 5 in BP 116/70 Blood Pressure Location Lt brachial Position Sitting Pulse 58 Pulse Source Monitor Intake Visit Reasons: 6 mth f/up/holter Liquor Department Manager Required: No High Speed Printer Operator: High Speed Printer Operator Present Allergies Penicillins Allergy (Severe, Verified 02/16/25 11:00) hives Medication List - Last Reconciled 02/16/25 by CURTIS Rai acetaminophen 650 mg (2 x 325 mg) PO Q6H PRN atorvastatin 10 mg PO DAILY calcium carbonate (Jeremy-Gest Antacid) 200 mg PO TID cholecalciferol (vitamin D3) 50 mcg PO DAILY eszopiclone mg PO ferrous sulfate 325 mg PO DAILY furosemide 20 mg PO DAILY gabapentin mg PO BID Gel mattress overlay As directed hydroxyzine HCl 25 mg PO DAILY lidocaine 4% (Aspercreme (lidocaine)) 1 patch topical BID PRN lidocaine 5% 1 patch topical DAILY lidocaine 5% (Lidoderm) 1 patch topical DAILY magnesium oxide 400 mg PO BID omeprazole 40 mg PO DAILY ondansetron HCl 4 mg PO Q8H PRN potassium chloride ER 20 mEq PO DAILY sennosides-docusate sodium 8.6-50 mg (Senexon-S) 1 tab PO BID sertraline 100 mg PO DAILY solifenacin 10 mg PO DAILY solifenacin 5 mg PO DAILY sumatriptan succinate 50 mg PO DAILY PRN topiramate 50 mg PO BID trazodone 100 mg PO BEDTIME verapamil ER 120 mg PO DAILY HPI HPI 6 mth f/up/holter: Details: Lesly is a 70 yr old female with past medical history of hypertension, prediabetes, vertigo, bradycardia, who presents for follow-up. Today she reports that she had another fall with compression fractures in September. She has been nonambulatory since that time. She has home physical therapy and occupational therapy. She is sitting in a wheelchair for this visit. Her back pain is gradually improving. She has been having some chest discomfort that is worse with deep inspiration and palpation of the anterior chest wall. No other types of chest discomfort reported. No lightheadedness. She says her prior vertigo has improved after stopping 1 of her medications. She continues on verapamil and does not want to stop that medication. No shortness of breath, PND, orthopnea or edema. Taking meds as directed. Family member present. [facility] Medical History Vertigo Cataracts, bilateral Arthritis Anxiety Full dentures Ambulates with cane Diabetes mellitus type 2, diet-controlled Anemia JV (obstructive sleep apnea) Elevated cholesterol HTN (hypertension) GERD (gastroesophageal reflux disease) Spinal stenosis of lumbar region with neurogenic claudication Lumbar back pain with radiculopathy affecting lower extremity Surgical History Hx of colonoscopy History of total right hip replacement Hx of cholecystectomy Social History Are you a primary career services director to a significant other at home: No Do you presently have visiting nurse or other home services: Yes ([employer] M-F 4 hours/day) Alcohol intake: never Patient Tobacco Use Status: Never used Tobacco Review of Systems Const All systems reviewed & are unremarkable except as noted in HPI and below Denies daytime sleepiness, Denies difficulty sleeping, Denies snoring, Denies stops breathing during sleep and Denies weakness Card Reports chest pain, Reports chest pain at rest, Denies rapid heart rate, Denies irregular heart rhythm, Denies claudication, Denies leg edema, Denies lightheadedness, Denies palpitations, Denies dyspnea, Denies dyspnea on exertion, Denies orthopnea, Denies paroxysmal nocturnal dyspnea and Denies slow heart rate Resp Denies cough, Denies dyspnea, Denies dyspnea on exertion and Denies snoring GI Reports no additional complaints, Denies hematochezia, Denies change in stool character and Denies dyspepsia Musc Reports abnormal gait, Reports back pain, Reports muscle weakness and Denies numbness Neuro Reports abnormal gait, Denies numbness and Denies weakness Endo Denies palpitations Physical Exam Const Other: sitting in wheelchair, generalized weakness General: cooperative, healthy appearing and no acute distress Orientation/consciousness: patient oriented x3 Neck Neck: Yes normal visual inspection and Yes no JVD Resp Effort & Inspection: normal respiratory effort Auscultation: clear to auscultation bilaterally, no crackles, no rales, no rhonchi and no wheezes Cardio Jugular venous distension: no JVD Rate: regular rate Rhythm: regular rhythm Heart sounds: S1 normal heart sound present, S2 normal heart sound present, no murmurs and no rubs Neuro General: patient oriented x3 Extrem General: Yes normal to inspection, No no pedal edema and No calf tenderness Psych Appearance: grossly normal Mental Status: mental status grossly normal Speech and movement: Normal speech and movement present Office Procedures EKG Details: Today, read by me, sinus bradycardia, rate 58, Qtc 406ms [id number], Complete Assessment & Plan Assessment & Plan (1) Bradycardia: Code(s): R00.1 - Bradycardia, unspecified Category: Medical Plan: History of sinus bradycardia. Last echocardiogram was done on 03/19/2024 showing EF 65-70%, impaired relaxation. Holter monitor was done on 11/27/2023 for 3 days showed sinus rhythm with average heart rate 72, rare ectopy. EKG done last visit showing sinus bradycardia, rate 50. She was having issues with vertigo and underwent a repeat Holter monitor 11/05/2024 showing sinus rhythm with average heart rate 77 beats per minute, rare SVE and VE. EKG today showing sinus bradycardia, rate 58. She wants to stay on verapamil as it keeps her blood pressure controlled. No med changes at this time. Cardiology follow-up 6 months, sooner if test results warrants. (2) Chest pain: Code(s): R07.9 - Chest pain, unspecified Category: Medical Plan: Reports of atypical chest discomfort, that is reproducible with palpation of the anterior chest wall. EKG today does not show any ischemia. Last echo shows normal EF and no regional wall motion abnormality. Offered reassurance. Signs and symptoms of angina reviewed with her. (3) Vertigo: Code(s): R42 - Dizziness and giddiness Category: Medical Plan: History of vertigo, with falls. She had been on meclizine but states she stopped as it made her more lightheaded. She has been doing well recently with this symptom. (4) HTN (hypertension): Code(s): I10 - Essential (primary) hypertension Category: Medical Qualifiers: Hypertension type: primary hypertension Qualified Code(s): I10 - Essential (primary) hypertension Plan: Blood pressure goal less than 130/80. Well controlled at this time. No med changes made (5) LVH (left ventricular hypertrophy): Code(s): I51.7 - Cardiomegaly Category: Medical Plan: Mild LVH and moderate basal asymmetric hypertrophy noted on prior echocardiogram. She needs ongoing good blood pressure control Plan Time spent on chart review, documentation, interview and assessment Coding Level of Care Code Est Pt Level 4 (64222) Complex EM visit Add On G2211 Diagnoses Bradycardia R00.1 Chest pain R07.9 Vertigo R42 Primary hypertension I10 Hypertension type: primary hypertension LVH (left ventricular hypertrophy) I51.7 CPT Codes EKG - CPT: 51657-[id number], Complete ([id number]) Time Spent (min) 28
--- OUTSIDE RECORDS SUMMARY | 2025-02-16 12:31 | XMS_ITS | Encounter Summary ---
Author Organization [facility] Address [address] [place] [address] Care Team Providers Care Environmental Protection Inspector Name Role Phone Marisel Benito MD Primary Care Provider [phone] Reason for Visit * Reason Onset Date Comments Forms/questionnaires 01/15/2025 L&C Encounter Details Date Type Department Care Team ([facility] st Contact Info) Description 01/15/2025 Telephone Internal Medicine [facility] [address] [place] [address] Marisel Benito MD [address] [place] [phone] Social History Tobacco Use Types Packs/Day Years [...] Orientation Straight 10/13/2024 4: 56 PM EDT documented as of this encounter Ordered Prescriptions Prescription Sig Dispense Quantity Refills Last Filled Start Date End Date aloe yiol-ytyhfmh-erfq glycol soapIndications:Freq uency of urination,Urinary incontinence, unspecified type,Abnormal auditory perception, unspecified laterality,Primary osteoarthritis of right hip,Unsteady gait when walking Apply 1 EA topically 1 (one) time each day. 473 mL 2 01/15/2025 documented in this encounter Progress Notes * Katey Hernandez MA - 02/12/2025 1:28 PM EDT Faxed to [facility] [phone] * Katey Hernandez MA - 02/11/2025 2:24 PM EDT [facility] Confirmation of order, recliner [id number] Attached PT Evaluation Placed in providers folder for signature. * Katey Hernandez MA - 02/01/2025 1:08 PM EDT Faxed to [facility] [phone] * Katey Hernandez MA - 01/28/2025 3:49 PM EDT [facility] Confirmation of order, [id number] Placed in providers folder for signature. * Katey Hernandez MA - 01/15/2025 2:39 PM EDT Faxed to [employer] [phone] * Katey Hernandez MA - 01/15/2025 10:42 AM EDT pended * Marisel Benito MD - 01/15/2025 10:22 AM EDT heel protectors, wedge pillow and perineal wash. documented in this encounter Plan of Treatment Upcoming Encounters Date Type Department Care Team (Late st Contact Info) Description 04/19/2025 9:00 AM EST Office Visit Urogynecology - [place] [address] [place] [address] Pam Becerra MD [address] [place] [address] 06/08/2025 2:30 PM EST Office Visit Internal Medicine - [place] [address] [place] [address] Marisel Benito MD [address] [place] [address] documented as of this encounter Goals Goal Patient Goal Type Associated Problems Recent Progress Patient-Stated? Author OT STG 6-8 visits General No Maryam Zaragoza OT Note: L sh flex at least 80 for ease of UBD Pt will perform grasp/release on built-up utensil sufficient for holding toothbrush Pt will perform hand to mouth pattern sufficient for self feed at least 1dish/meal Pt/family to bring in AED/splints to date w/ recs of which are most approp/beneficial for this stage to follow OT LTG 12-16 visits General No Maryam Zaragoza OT Note: 1> Pt will maximize fcnl grasp of L hand in order to hold onto banister 2> Pt will maximize LUE ROM/strength in order to resume light ADLs w/ setup and AE (ie groom, feed, UBD) documented as of this encounter Visit Diagnoses Diagnosis Edema of foot- Primary Edema Frequency of urination Urinary frequency Urinary incontinence, unspecified type Abnormal auditory perception, unspecified laterality Primary osteoarthritis of right hip Unsteady gait when walking documented in this encounter Discontinued Medications Medication Sig Discontinue Reason Start Date End Da te aloe znds-hzylwac-zjpw glycol soapIndications:Frequen cy of urination,Urinary incontinence, unspecified type,Abnormal auditory perception, unspecified laterality Apply 1 EA topically 1 (one) time each day. Reorder 12/08/2024 01/15/2025 documented as of this encounter Orders General Supply Count Last Ordered Date First Or dered Date GENERAL SUPPLY 4 01/15/2025 HEEL PROTECTORS 1 01/15/2025 WALKER 1 01/15/2025 WHEELCHAIR 1 01/15/2025 documented in this encounter Care Teams Environmental Protection Inspector Relationship Specialty Start Date End Date Marisel Benito MD [address] [facility] [address] [place] [phone] PCP - General Internal Medicine 05/01/18 documented as of this encounter
--- OUTSIDE RECORDS SUMMARY | 2025-02-16 12:31 | XMS_ITS | Clinical Summary ---
Author Organization 175 [facility] Address [address] [place] [address] Phone Care Team Providers Care Floral Clerk Name Role Phone Marisel Benito MD Primary Care Provider [phone] Allergies Active Allergy Reactions Criticality Noted Date Comments Penicillins Anaphylaxis High 01/17/2010 Medications blood-glucose meter kit 2 (two) times a day. 09/16/19 24 Active lactose-reduced food (ENSURE HIGH PROTEIN ORAL) [...] hours if needed (pain). 09/16/19 24 Active cholecalciferol (VITAMIN D-3) 50 mcg (2,000 [...] mouth at bedtime as needed. Active lisinopriL (PRINIVIL,ZESTRIL) 5 mg tablet Take 1 tablet (5 [...] if needed for nausea. 09/11/19 24 Active solifenacin (VESICARE) 10 mg tablet Take 1 tablet (10 mg total) by mouth 1 (one) time each day. 03/07/20 24 Active sertraline (ZOLOFT) 100 mg tablet Take 1 tablet (100 mg total) by mouth 1 (one) time each day in the morning. 04/12/20 24 Active heating pads (Comfort-Heal Heating Pad) padIndications:Isi sed fracture of first lumbar vertebra, unspecified fracture morphology, sequela 1 each 1 (one) time each day. 1 each 08/22/19 25 Active verapamil ER (VERELAN) 120 mg 24 hr capsule TAKE 1 CAPSULE BY MOUTH EVERY DAY 90 capsule 1 08/29/19 25 Active traZODone (DESYREL) 100 mg tablet TAKE 1 TABLET BY MOUTH EVERYDAY AT BEDTIME 90 tablet 1 09/08/19 25 Active nutritional drink (Ensure) liquidIndications: Vertigo,Decreased appetite,Sleep apnea, unspecified type Take 100 mL by mouth 3 (three) times a day. 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 1500 mL 11 09/29/19 25 Active oxyBUTYnin XL (Ditropan XL) 5 mg 24 hr tablet Take 1 tablet (5 mg total) by mouth 1 (one) time each day. Do not crush, chew, or split. 90 each 3 10/14/19 25 Active omeprazole (PriLOSEC) [address] capsule Take 1 capsule (40 mg total) by mouth 1 (one) time each day. 180 capsule 1 11/05/19 25 Active magnesium oxide (MAG-OX) 400 mg (241.3 elemental magnesium) tablet TAKE 1 TABLET BY MOUTH TWICE A DAY 180 tablet 1 11/05/19 25 Active potassium chloride (KLOR-CON) 20 mEq packet Take 20 mEq by mouth 1 (one) time each day. 90 packet 1 11/14/19 25 Active topiramate (TOPAMAX) 50 mg tablet TAKE 1 TABLET BY MOUTH TWICE A DAY 180 tablet 1 12/01/19 25 Active atorvastatin (LIPITOR) 10 mg tablet TAKE 1 TABLET BY MOUTH EVERY DAY 90 tablet 1 12/04/19 25 Active furosemide (LASIX) 20 mg tablet Take 1 tablet (20 mg total) by mouth 1 (one) time each day. 30 each 1 12/08/19 25 Active traMADoL (ULTRAM) 50 mg tabletIndications: Falls,Urinary incontinence, unspecified type,Intractable migraine without status migrainosus, unspecified migraine type,Chronic pain of both shoulders Take 1 tablet (50 mg total) by mouth 2 (two) times a day if needed for moderate pain. Max Daily Amount: 100 mg 56 tablet 2 12/08/19 25 Active traMADoL (ULTRAM) 50 mg tabletIndications: Closed fracture of first lumbar vertebra, unspecified fracture morphology, sequela Take 1 tablet (50 mg total) by mouth 3 (three) times a day if needed for moderate pain. Max Daily Amount: 150 mg 15 tablet 12/08/19 25 Active calcium carbonate (TUMS) 500 mg (200 mg elemental calcium) chewable tablet Chew 1 tablet (500 mg total) 3 (three) times a day. 90 tablet 12/16/19 25 Active oxyCODONE (ROXICODONE) 5 mg immediate release tablet Take 1 tablet (5 mg total) by mouth every 8 (eight) hours if needed for severe pain. Max Daily Amount: 15 mg 21 tablet 01/16/20 25 Active wound dressings (Triad Wound Dressing) paste Apply 1 Tube topically 2 (two) times a day. 71 g 1 01/16/20 25 Active aloe uyjy-dbnnumn-enzg glycol soapIndications:Fr equency of urination,Urinary incontinence, unspecified type,Abnormal auditory perception, unspecified laterality,Primary osteoarthritis of right hip,Unsteady gait when walking Apply 1 EA topically 1 (one) time each day. 473 mL 2 01/16/20 25 Active calcium carbonate-vitamin D 500 mg-5 mcg (200 unit) per tablet Take 1 tablet by mouth 1 (one) time each day. 90 tablet 1 01/16/20 25 026 Active ibuprofen (ADVIL,MOTRIN) 800 mg tablet Take 1 tablet (800 mg total) by mouth 3 (three) times a day if needed for mild pain (pain). 60 tablet 01/20/20 25 025 Active ferrous sulfate 325 mg (65 mg elemental iron) tablet Take 1 tablet (325 mg total) by mouth 1 (one) time each day. 90 tablet 1 01/20/20 25 Active erythromycin 5 mg/gram (0.5 %) ophthalmic ointment Apply to left eye 2 (two) times a day. 15 g 02/02/20 25 Active SUMAtriptan (IMITREX) 50 mg tablet Take 1 tablet (50 mg total) by mouth 2 (two) times a day if needed for migraine. May repeat dose once in 2 hours if no relief. Do not exceed 2 doses in 24 hours. 15 tablet 5 02/02/20 25 Active senna-docusate (Senexon-S) 8.6-50 mg per tablet Take 2 tablets by mouth 1 (one) time each day. 180 tablet 1 02/02/20 25 Active polyethylene glycol (MIRALAX) 17 gram packet Take 17 g by mouth 1 (one) time each day. 510 g 3 02/02/20 25 Active incontinence pad, liner, disp padIndications:Uri nary incontinence, unspecified type,Type 2 diabetes mellitus with other specified complication, unspecified whether [place] [facility] insulin use ([facility] V24, [facility] V28) 1 each at bedtime. 100 each 11 02/02/20 25 Active incontinence pad, liner, disp padIndications:Typ e 2 diabetes mellitus with other specified complication, unspecified whether [place] [facility] insulin use ([facility] V24, [facility] V28),Urinary incontinence, unspecified type 1 each at bedtime. 100 each 11 10/08/19 25 025 Discontinu ed(Reorder ) Senexon-S 8.6-50 mg per tablet TAKE 2 TABLETS BY MOUTH DAILY 180 tablet 1 11/14/19 25 025 Discontinu ed(Reorder ) SUMAtriptan (IMITREX) 50 mg tablet Take 1 tablet (50 mg total) by mouth 2 (two) times a day if needed for migraine. May repeat dose once in 2 hours if no relief. Do not exceed 2 doses in 24 hours. 9 tablet 5 12/08/19 25 025 Discontinu ed(Reorder ) ferrous sulfate 325 mg (65 mg elemental iron) tablet TAKE 1 TABLET BY MOUTH EVERY DAY 90 tablet 1 01/06/20 25 025 Discontinu ed(Reorder ) bacitracin (bacitracin zinc) 500 unit/gram ointment Apply 1 Application topically 1 (one) time for 1 dose. 14 g 01/16/20 25 025 Discontinu ed(Reorder ) acetaminophen (Tylenol 8 Hour) 650 mg 8 hr tablet Take 1 tablet (650 mg total) by mouth every 8 (eight) hours if needed for mild pain for up to 10 days. Do not crush, chew, or split. 30 tablet 01/20/20 25 025 bacitracin (bacitracin zinc) 500 unit/gram ointment Apply 1 Application topically 1 (one) time for 1 dose. 28 g 2 01/20/20 25 025 Active Problems Problem Noted Date Diagnosed Date Unsteady gait when walking 10/13/2024 Recurrent falls 10/13/2024 Benign essential hypertension 09/15/2024 Edema of foot 09/15/2024 Gastroesophageal reflux disease 09/15/2024 Iron deficiency anemia 09/15/2024 Neuropathy 09/15/2024 Obstructive sleep apnea syndrome 09/15/2024 Osteoarthritis of right hip 09/15/2024 Type 2 diabetes mellitus ([facility] V24, [facility] V 28) 09/15/2024 Abnormal auditory perception 12/31/2023 Bilateral tinnitus 12/31/2023 Sensorineural hearing loss (SNHL) of both ears 0 12/31/2023 Pain in finger of left hand 12/13/2023 Vertigo 06/08/2020 Pure hypercholesterolemia 02/13/2019 Obesity (BMI 30-39.9) 02/13/2019 Migraine 02/13/2019 HTN (hypertension) 02/13/2019 Degeneration of lumbar intervertebral disc 06/25 /2018 Overview (12/08/2024): Problem Code: M51.36; Problem Code Type: ICD-10; Status: 'A'; Encounters Date Type Department Care Team Description 02/01/2025 9:45 AM EDT Office Visit Internal Medicine [facility] [address] [phone] Marisel Benito MD Closed fracture of first lumbar vertebra, unspecified fracture morphology, sequela (Primary Dx); Primary hypertension; Accidental fall, sequela; Wheelchair dependent 01/26/2025 10:58 AM EDT - 01/26/2025 11:59 PM EDT Hospital Encounter [facility] MRI [address] [place] [address] Stress fracture of lumbar vertebra, sequela Discharge Disposition: Home or Self Care 01/26/2025 10:54 AM EDT - 01/26/2025 11:59 PM EDT Hospital Encounter [facility] MRI [address] [place] [address] Intractable migraine without status migrainosus, unspecified migraine type; Vertigo Discharge Disposition: Home or Self Care 01/26/2025 Telephone Internal Medicine - [place] [address] [phone] Maryam Mckeon MA 01/22/2025 Telephone Internal Medicine [facility] [address] [phone] Maryam Mckeon MA 01/19/2025 Telephone Internal Medicine [facility] [address] [phone] Maryam Mckeon MA 01/18/2025 Telephone Internal Medicine [facility] [address] [phone] Marisel Benito MD 01/17/2025 11:20 AM EDT - 01/17/2025 11:59 PM EDT Hospital Encounter [facility] Xray [address] [place] [address] Recurrent falls Discharge Disposition: Home or Self Care 01/17/2025 11:19 AM EDT - 01/17/2025 11:59 PM EDT Hospital Encounter [facility] Xray [address] [place] [phone] Recurrent falls Discharge Disposition: Home or Self Care 01/17/2025 11:19 AM EDT - 01/17/2025 11:59 PM EDT Hospital Encounter [facility] Xray [address] [place] [phone] Recurrent falls Discharge Disposition: Home or Self Care 01/15/2025 Telephone Internal Medicine - [place] [address] [phone] Marisel Benito MD 01/12/2025 Telephone Internal Medicine [facility] [address] [phone] Marisel Benito MD 12/24/2024 6:00 PM EDT Treatment [facility] [address] [phone] Esvin Bowie PTA Falls (Primary Dx) 12/24/2024 5:00 PM EDT Evaluation [facility] [address] [phone] Maryam Zaragoza, OT Left shoulder pain, unspecified chronicity (Primary Dx); Pain in finger of left hand 12/15/2024 8:00 AM EDT Evaluation [facility] [address] [phone] Samantha Herbert, PT Falls 12/15/2024 Telephone Internal Medicine [facility] [address] [phone] Marisel Benito MD 12/07/2024 10:00 AM EDT Office Visit Internal Medicine [facility] [address] [phone] Marisel Benito MD Falls (Primary Dx); Urinary incontinence, unspecified type; Intractable migraine without status migrainosus, unspecified migraine type; Chronic pain of both shoulders; Closed fracture of first lumbar vertebra, unspecified fracture morphology, sequela 12/07/2024 Telephone Internal Medicine [facility] 175 [facility] [address] [place] [phone] Marisel Benito MD 12/04/2024 Telephone Internal Medicine [facility] 175 [facility] [address] [place] [phone] Roel Mckeon MA 11/27/2024 Telephone Internal Medicine [facility] 175 [facility] [address] [place] [phone] Marisel Benito MD from Last 3 Months Immunizations Name Administration Dates Next Due Influenza trivalent, with pr eservative (Fluzone; Afluria) 6mo and older 03/14/2020 Pneumococcal conjugate 13 va lent (Prevnar 13, PCV13) 2mo and older 03/14/2020,02/13/2019 Surgical History Surgery Date Site/Laterality Comments HYSTERECTOMY 2000 PROCEDURE: HISTORICAL HYSTERECTOMY OTHER SURGICAL HISTORY 1978 PROCEDURE: MD TONSILLECTOMY PRIMARY/SECONDARY AGE 11/> OTHER SURGICAL HISTORY 11/28/2018 PROCEDURE: MD LAPS SURG CHOLECYSTECTOMY W/CHOLANGIOGRAPHY; COMMENT: negative [facility] HIP ARTHROPLASTY 2018 Right PROCEDURE: HISTORICAL HIP [...] Sign Reading Time Taken Comments Blood Pressure 126/82 02/01/2025 9:48 AM EDT Pulse 53 02/01/2025 9:48 AM EDT Temperature 36.8 C (98.2 F) 02/01/2025 9:48 AM EDT Respiratory Rate 18 02/01/2025 9:48 AM EDT Oxygen Saturation 96% 02/01/2025 9:48 AM EDT Inhaled Oxygen Concentration - - Weight 61.7 kg (136 lb) 02/01/2025 9:48 AM EDT Height 165.1 cm (5' 5 ) 02/01/2025 9:48 AM EDT Body Mass Index 22.63 02/01/2025 9:48 AM EDT Plan of Treatment Upcoming Encounters Date Type Department Care Team (Late st Contact Info) Description 04/19/2025 9:00 AM EST Office Visit [facility]necology [facility] [address] [place] [address] Pam Becerra MD [address] [facility] [address] [place] [address] 06/08/2025 2:30 PM EST Office Visit Internal Medicine - [place] 175 [facility] [address] [place] [address] Marisel Benito MD [address] [place] [address] Health Maintenance Due Date Last Done Comments [...] 03/14/2020, 02/13/2019 Colorectal Cancer Screening: Colonoscopy 05/19/2022 Falls Risk Assessment 05/19/2022 Hepatitis C Screening 05/19/2022 Medicare Annual Wellness Visit 05/19/2022 Osteoporosis Screening (Bone Density Screening) 05/19/2022 Social Influencers of Health Screening 05/19/2022 COVID-19 Vaccine ( season) 2024 06/21/2022, 11/22/2021, 05/31/2021, Additional history exists Diabetes: Annual Urine Albumin-Creatinine Ratio (uACR) 04/29/2024 Depression Screening 06/17/2024 Diabetes: Blood Sugar Control Test (HGBA1C) 10/28/2024 04/30/2024, 01/27/2024, 01/27/2024 Influenza Vaccine (#1) 2025 , 06/21/2022, 08/24/2021, Additional history exists Diabetes: [...] on patient's age to complete this topic Goals Goal Patient Goal Type Associated Problems Recent Progress Patient-Stated? Author OT STG 6-8 visits General No Maryam Zaragoza, JOELLEN Note: L sh flex at least 80 for ease of UBD Pt will perform grasp/release on built-up utensil sufficient for holding toothbrush Pt will perform hand to mouth pattern sufficient for self feed at least 1dish/meal Pt/family to bring in AED/splints to date w/ recs of which are most approp/beneficial for this stage to follow OT LTG 12-16 visits General Maryam Vides, OT Note: 1> Pt will maximize fcnl grasp of L hand in order to hold onto banister 2> Pt will maximize LUE ROM/strength in order to resume light ADLs w/ setup and AE (ie groom, feed, UBD) Procedures Procedure Name Priority Date/Time Associated Diagnosis Comments MR LUMBAR SPINE WO CONTRAST Routine 01/26/2025 12:39 PM EDT Stress fracture of lumbar vertebra, sequela MR BRAIN WO CONTRAST Routine 01/26/2025 12:28 PM EDT Intractable migraine without status migrainosus, unspecified migraine type Vertigo XR SHOULDER 2+ VIEWS BILAT Routine 01/17/2025 11:45 AM EDT Recurrent falls XR HIPS 5+ VIEWS WO OR W PELVIS BILAT Routine 01/17/2025 11:45 AM EDT Recurrent falls XR LUMBAR SPINE 4+ VIEWS Routine 01/17/2025 11:45 AM EDT Recurrent falls EXTERNAL CT REPORT 11/23/2024 EXTERNAL XRAY REPORT 11/23/2024 EXTERNAL XRAY REPORT 11/23/2024 COMPREHENSIVE METABOLIC PANEL Routine 09/16/2024 3:46 PM EDT Intractable migraine without status migrainosus, unspecified migraine type Vertigo Neuropathy HEMOGLOBIN A1C Routine 04/30/2024 8:06 AM EST Decreased appetite LIPID PANEL WITH REFLEX TO DIRECT LDL Routine 04/30/2024 8:06 AM EST Decreased appetite from Last 3 Months or Most Recently Relevant to Health Maintenance Results * MR Lumbar Spine wo Contrast (01/26/2025 12:39 PM EDT) Anatomical Region Laterality Modality L-spine, Spine Magnetic Resonan ce 01/26/2025 2:18 PM EDT Impressions 01/26/2025 2:42 PM EDT 1. Acute or subacute superior endplate fracture deformity with a Schmorl's node configuration at L1. Maximal height loss is approximately 25%. No retropulsion. 2. Degenerative changes as detailed above. -------- FINAL REPORT -------- Dictated By: Jared Hollis Dictated Date: 01/26/2025 14:18 ET Assigned Physician: Jared Hollis Reviewed and Electronically Signed By: Jared Hollis Signed Date: 01/26/2025 14:42 ET Workstation ID: [id number] Transcribed By: Self Edit Transcribed Date: 01/26/2025 14:21 ET Narrative 01/26/2025 2:42 PM EDT PROCEDURE: MRI of the lumbar spine without contrast. TECHNIQUE: Multiplanar multisequence MRI of the lumbar spine without intravenous contrast administration. HISTORY: Low back pain, increased fracture risk COMPARISON: Radiographs dated 01/17/2025. FINDINGS: Bilateral T2 hyperintense renal cortical lesions, likely cysts. Mild atrophy of the lower lumbar and sacral paraspinous musculature. There is a mild lumbar levoscoliosis. Slight anterolisthesis at L5-S1. Superior endplate fracture deformity at L1 with a Schmorl's node configuration. There is adjacent marrow signal abnormality suggesting that this is acute or subacute. Maximum height loss approximately 25%. No retropulsion. Mild Baastrup's changes. Conus is in a normal position at T12-L1. Lumbar disc levels: L1-2: Mild degenerative irregularity of the facet joints. No spinal or foraminal stenosis. L2-3: Small left foraminal protrusion. Mild bilateral facet arthropathy and ligamentum flavum hypertrophy. Mild left foraminal stenosis. No significant spinal stenosis. L3-4: Prominent endplate irregularity and moderate disc space height loss eccentric to the right. Small symmetric disc osteophyte complex. Slight widening of the facet joints and mild bilateral ligamentum flavum hypertrophy suggesting facet joint hypermobility. Moderate right facet arthropathy. Moderate right and mild left foraminal stenosis. Mild spinal stenosis. L4-5: Mild endplate irregularity. Small symmetric disc bulge. Slight widening of the facet joints and mild bilateral ligament flavum hypertrophy suggesting facet joint hypermobility. Mild bilateral facet arthropathy. Mild bilateral foraminal stenosis. Mild-moderate spinal stenosis. Mild bilateral lateral recess stenosis. L5-S1: Mild endplate irregularity. Slight anterolisthesis. Minimal symmetric disc bulge. Mild bilateral facet arthropathy. Mild left greater than right foraminal stenosis. No spinal stenosis. Procedure Note Jared Hollis MD - 01/26/2025 PROCEDURE: MRI of the lumbar spine without contrast. TECHNIQUE: Multiplanar multisequence MRI of the lumbar spine withoutintravenous contrast administration. HISTORY: Low back pain, increased fracture risk COMPARISON: Radiographs dated 01/17/2025. FINDINGS: Bilateral T2 hyperintense renal cortical lesions, likely cysts. Mildatrophy of the lower lumbar and sacral paraspinous musculature. There is a mild lumbar levoscoliosis. Slight anterolisthesis at L5-S1. Superior endplate fracture deformity at L1 with a Schmorl's nodeconfiguration. There is adjacent marrow signal abnormality suggestingthat this is acute or subacute. Maximum height loss approximately 25%.No retropulsion. Mild Baastrup's changes. Conus is in a normal position at T12-L1. Lumbar disc levels: L1-2: Mild degenerative irregularity of the facet joints. No spinal orforaminal stenosis. L2-3: Small left foraminal protrusion. Mild bilateral facet arthropathyand ligamentum flavum hypertrophy. Mild left foraminal stenosis. Nosignificant spinal stenosis. L3-4: Prominent endplate irregularity and moderate disc space height losseccentric to the right. Small symmetric disc osteophyte complex. Slightwidening of the facet joints and mild bilateral ligamentum flavumhypertrophy suggesting facet joint hypermobility. Moderate right facetarthropathy. Moderate right and mild left foraminal stenosis. Mildspinal stenosis. L4-5: Mild endplate irregularity. Small symmetric disc bulge. Slightwidening of the facet joints and mild bilateral ligament flavumhypertrophy suggesting facet joint hypermobility. Mild bilateral facetarthropathy. Mild bilateral foraminal stenosis. Mild-moderate spinalstenosis. Mild bilateral lateral recess stenosis. L5-S1: Mild endplate irregularity. Slight anterolisthesis. Minimalsymmetric disc bulge. Mild bilateral facet arthropathy. Mild leftgreater than right foraminal stenosis. No spinal stenosis. IMPRESSION: 1. Acute or subacute superior endplate fracture deformity with aSchmorl's node configuration at L1. Maximal height loss is [id number]%. No retropulsion. 2. Degenerative changes as detailed above. -------- FINAL REPORT -------- Dictated By: Jared Hollis Dictated Date: 01/26/2025 14:18 ET Assigned Physician: Jared Hollis Reviewed and Electronically Signed By: Jared Hollis Signed Date: 01/26/2025 14:42 ET Workstation ID: [id number] Transcribed By: Self Edit Transcribed Date: 01/26/2025 14:21 ET Marisel Benito MD [facility] MRI PROCEDURES Final Resul t * MR Brain wo Contrast (01/26/2025 12:28 PM EDT) Anatomical Region Laterality Modality Head and Neck Magnetic Resonan ce 01/26/2025 2:42 PM EDT Impressions 01/26/2025 2:45 PM EDT No acute intracranial findings. Small partially empty sella. This is a relatively common finding which can be seen in asymptomatic patients, but has been associated with pseudotumor cerebri and requires correlation with the patient's clinical presentation.. -------- FINAL REPORT -------- Dictated By: Jared Hollis Dictated Date: 01/26/2025 14:42 ET Assigned Physician: Jared Hollis Reviewed and Electronically Signed By: Jared Hollis Signed Date: 01/26/2025 14:45 ET Workstation ID: [id number] Transcribed By: Self Edit Transcribed Date: 01/26/2025 14:42 ET Narrative 01/26/2025 2:45 PM EDT PROCEDURE: Noncontrast MRI of the brain. HISTORY: intractable migraine headache. Recent fall. COMPARISON: Head CT 10/10/2021. TECHNIQUE: Multiplanar multisequence MRI of the brain without intravenous contrast administration. FINDINGS: BRAIN: No diffusion abnormality. No mass or extra-axial fluid collection. No hydrocephalus. The major intracranial flow voids are preserved. Age commensurate ventricles and sulci. Small partially empty sella. There are a few scattered T2 hyperintensities in the supratentorial white matter. These are an age commensurate finding which are likely sequela of very mild chronic microvascular ischemic disease. ORBITS: Normal. SINUSES/MASTOIDS: Moderate bilateral mastoid fluid. CALVARIUM: Normal. OTHER: The visualized skull base soft tissues are normal. Partially visible mild degenerative changes of the cervical spine. Procedure Note Jared Hollis MD - 01/26/2025 PROCEDURE: Noncontrast MRI of the brain. HISTORY: intractable migraine headache. Recent fall. COMPARISON: Head CT 10/10/2021. TECHNIQUE: Multiplanar multisequence MRI of the brain without intravenouscontrast administration. FINDINGS: BRAIN: No diffusion abnormality. No mass or extra-axial fluid collection.No hydrocephalus. The major intracranial flow voids are preserved. Agecommensurate ventricles and sulci. Small partially empty sella. Thereare a few scattered T2 hyperintensities in the supratentorial whitematter. These are an age commensurate finding which are likely sequela ofvery mild chronic microvascular ischemic disease. ORBITS: Normal. SINUSES/MASTOIDS: Moderate bilateral mastoid fluid. CALVARIUM: Normal. OTHER: The visualized skull base soft tissues are normal. Partiallyvisible mild degenerative changes of the cervical spine. IMPRESSION: No acute intracranial findings. Small partially empty sella. This is a relatively common finding whichcan be seen in asymptomatic patients, but has been associated withpseudotumor cerebri and requires correlation with the patient's clinicalpresentation.. -------- FINAL REPORT -------- Dictated By: Jared Hollis Dictated Date: 01/26/2025 14:42 ET Assigned Physician: Jared Hollis Reviewed and Electronically Signed By: Jared Hollis Signed Date: 01/26/2025 14:45 ET Workstation ID: [id number] Transcribed By: Self Edit Transcribed Date: 01/26/2025 14:42 ET Mary Castañeda MD IMG MRI PROCEDURES Final Result * XR Shoulder 2+ Views bilat (01/17/2025 11:45 AM EDT) Anatomical Region Laterality Modality Upper Extremities, Shoulder Bilateral Radi ographic Imaging 01/19/2025 8:26 AM EDT Impressions 01/19/2025 8:27 AM EDT Normal examination. Code 22765, 14440 -------- FINAL REPORT -------- Dictated By: Raymundo Russell Dictated Date: 01/19/2025 08:26 ET Assigned Physician: Raymundo Russell Reviewed and Electronically Signed By: Raymundo Russell Signed Date: 01/19/2025 08:27 ET Workstation ID: [id number] Transcribed By: Self Edit Transcribed Date: 01/19/2025 08:26 ET Narrative 01/19/2025 8:27 AM EDT HISTORY: The patient is a 70-year-old female with bilateral shoulder pain following multiple falls. FINDINGS: AP, right posterior oblique, and transscapular views of the right shoulder, along with AP, left posterior oblique, and transscapular views of the left shoulder, are obtained. The study demonstrates no fracture, dislocation, arthritic change, or other bony abnormality. No soft tissue abnormality is seen. Procedure Note Raymundo Russell MD - 01/19/2025 HISTORY: The patient is a 70-year-old female with bilateral shoulder painfollowing multiple falls. FINDINGS: AP, right posterior oblique, and transscapular views of theright shoulder, along with AP, left posterior oblique, and transscapularviews of the left shoulder, are obtained. The study demonstrates nofracture, dislocation, arthritic change, or other bony abnormality. Nosoft tissue abnormality is seen. IMPRESSION: Normal examination. Code 57316, 29043 -------- FINAL REPORT -------- Dictated By: Raymundo Russell Dictated Date: 01/19/2025 08:26 ET Assigned Physician: Raymundo Russell Reviewed and Electronically Signed By: Raymundo Russell Signed Date: 01/19/2025 08:27 ET Workstation ID: [id number] Transcribed By: Self Edit Transcribed Date: 01/19/2025 08:26 ET Marisel Benito MD IMG XR PROCEDURES Final Result * XR Hips 5+ Views wo or w Pelvis bilat (01/17/2025 11:45 AM EDT) Anatomical Region Laterality Modality Lower Extremities, Hip Bilateral Radiograp hic Imaging 01/19/2025 8:27 AM EDT Impressions 01/19/2025 8:29 AM EDT No acute findings. Satisfactory appearance following previous total right hip replacement surgery. There is mild osteoarthritis of the left hip. Code 47710 -------- FINAL REPORT -------- Dictated By: Raymundo Russell Dictated Date: 01/19/2025 08:27 ET Assigned Physician: Raymundo Russell Reviewed and Electronically Signed By: Raymundo Russell Signed Date: 01/19/2025 08:29 ET Workstation ID: [id number] Transcribed By: Self Edit Transcribed Date: 01/19/2025 08:27 ET Narrative 01/19/2025 8:29 AM EDT HISTORY: The patient is a 70-year-old female with bilateral hip pain following (false. FINDINGS: AP radiograph of the pelvis, along with coned-down AP and external rotation-abduction views of the right hip and coned down AP and external rotation-abduction views of the left hip, are obtained. The study demonstrates no fracture or dislocation. The patient is seen to have undergone previous total right hip replacement surgery. There is good relationship of the prosthetic elements to each other and to the surrounding bony structures. There is no radiographic evidence of loosening or infection of the prostheses. There is mild osteoarthritis of the left hip. There is no soft tissue abnormality. There are degenerative changes of the included portion of the lower lumbar spine. Procedure Note Raymundo Russell MD - 01/19/2025 HISTORY: The patient is a 70-year-old female with bilateral hip painfollowing (false. FINDINGS: AP radiograph of the pelvis, along with coned-down AP andexternal rotation-abduction views of the right hip and coned down AP andexternal rotation-abduction views of the left hip, are obtained. The studydemonstrates no fracture or dislocation. The patient is seen to haveundergone previous total right hip replacement surgery. There is goodrelationship of the prosthetic elements to each other and to thesurrounding bony structures. There is no radiographic evidence ofloosening or infection of the prostheses. There is mild osteoarthritis ofthe left hip. There is no soft tissue abnormality. There are degenerative changes of the included portion of the lower lumbarspine. IMPRESSION: No acute findings. Satisfactory appearance following previous total righthip replacement surgery. There is mild osteoarthritis of the left hip. Code 52233 -------- FINAL REPORT -------- Dictated By: Raymundo Russell Dictated Date: 01/19/2025 08:27 ET Assigned Physician: Ryamundo Russell Reviewed and Electronically Signed By: Raymundo Russell Signed Date: 01/19/2025 08:29 ET Workstation ID: [id number] Transcribed By: Self Edit Transcribed Date: 01/19/2025 08:27 ET Marisel Benito MD IMG XR PROCEDURES Final Result * XR Lumbar Spine 4+ Views (01/17/2025 11:45 AM EDT) Anatomical Region Laterality Modality Spine, L-spine Radiographic Shruthi ging 01/19/2025 8:30 AM EDT Impressions 01/19/2025 8:35 AM EDT Moderate compression fracture of L1, new since 11/27/2018 but otherwise of unknown chronicity. If the patient has symptoms referable to this area, further evaluation with MRI or with radionuclide bone scan may be considered. There is degenerative disc disease at the L3-4, L4-5, and L5-S1 levels. There is evidence of moderate constipation. Code 24276 -------- FINAL REPORT -------- Dictated By: Raymundo Russell Dictated Date: 01/19/2025 08:30 ET Assigned Physician: Raymundo Russell Reviewed and Electronically Signed By: Raymundo Russell Signed Date: 01/19/2025 08:35 ET Workstation ID: [id number] Transcribed By: Self Edit Transcribed Date: 01/19/2025 08:30 ET Narrative 01/19/2025 8:35 AM EDT HISTORY: The patient is a 70-year-old female with low back pain following recurrent falls. FINDINGS: AP, lateral, right and left oblique, and coned-down spot lateral views of the lumbosacral spine are obtained. The study demonstrates the presence of a gastric lap band. Cholecystectomy clips are noted. The patient is seen to have undergone previous total right hip replacement surgery. There is grade 1, 4.7 mm anterior spondylolisthesis of L5 relative to S1. The alignment of the bony structures is otherwise anatomic. There is a moderate compression fracture of the L1 vertebral body, new since the abdominal CT performed 11/27/2018 but otherwise of unknown age. No other fracture is seen. There is narrowing of the L3-4, L4-5, and L5-S1 disc spaces with vacuum phenomenon at L3-4 and L5-S1 and adjacent osteophytes, consistent with degenerative disc disease. There is no evidence of facet joint disease. A 1.5 cm disc shaped density is present in the upper abdomen which changes in position with various projections and therefore consistent with an ingested tablet. A moderate amount of fecal material is present throughout the colon consistent with moderate constipation. Procedure Note Raymundo Russell MD - 01/19/2025 HISTORY: The patient is a 70-year-old female with low back pain followingrecurrent falls. FINDINGS: AP, lateral, right and left oblique, and coned-down spot lateralviews of the lumbosacral spine are obtained. The study demonstrates thepresence of a gastric lap band. Cholecystectomy clips are noted. Thepatient is seen to have undergone previous total right hip replacementsurgery. There is grade 1, 4.7 mm anterior spondylolisthesis of [id number] to S1. The alignment of the bony structures is otherwiseanatomic. There is a moderate compression fracture of the L1 vertebralbody, new since the abdominal CT performed 11/27/2018 but otherwise ofunknown age. No other fracture is seen. There is narrowing of the L3-4,L4-5, and L5-S1 disc spaces with vacuum phenomenon at L3-4 and L5-S1 andadjacent osteophytes, consistent with degenerative disc disease. There isno evidence of facet joint disease. A 1.5 cm disc shaped density is present in the upper abdomen which changesin position with various projections and therefore consistent with aningested tablet. A moderate amount of fecal material is present throughout the colonconsistent with moderate constipation. IMPRESSION: Moderate compression fracture of L1, new since 11/27/2018 but otherwise ofunknown chronicity. If the patient has symptoms referable to this area,further evaluation with MRI or with radionuclide bone scan may beconsidered. There is degenerative disc disease at the L3-4, L4-5, andL5-S1 levels. There is evidence of moderate constipation. Code 69781 -------- FINAL REPORT -------- Dictated By: Raymundo Russell Dictated Date: 01/19/2025 08:30 ET Assigned Physician: Raymundo Russell Reviewed and Electronically Signed By: Raymundo Russell Signed Date: 01/19/2025 08:35 ET Workstation ID: [id number] Transcribed By: Self Edit Transcribed Date: 01/19/2025 08:30 ET Marisel Benito MD IMG XR PROCEDURES Final Result * External Xray Report (11/23/2024) Only the most recent of2 resultswithin the time period is included. Anatomical Region Laterality Modality Radiographic Shruthi ging us Provider [facility] IMG XR PROCEDURES Final Result * External CT Report (11/23/2024) Anatomical Region Laterality Modality Computed Tomogra phy us Provider [facility] IMG CT PROCEDURES Final Result * (ABNORMAL) Comprehensive metabolic panel (09/16/2024 3:46 PM EDT) Sodium 143 133 - 145 mmol/L LAB CHEMISTRY METHOD 09/16/2024 9:38 PM EDT [facility] Potassium 4.3 3.5 - 5.5 mmol/L LAB CHEMISTRY METHOD 09/16/2024 9:38 PM EDT [facility] Chloride 112(H) 96 - 110 mmol/L LAB CHEMISTRY METHOD 09/16/2024 9:38 PM [facility] CO2 25 21 - 32 mmol/L LAB CHEMISTRY METHOD 09/16/2024 9:38 PM [facility] Anion Gap 6 3 - 11 LAB CHEMISTRY METHOD 09/16/2024 9:38 PM [facility] Glucose 85 70 - 100 mg/dL LAB CHEMISTRY METHOD 09/16/2024 9:38 PM [facility] BUN 13 5 - 25 mg/dL LAB CHEMISTRY METHOD 09/16/2024 9:38 PM [facility] Creatinine 0.93 0.50 - 1.10 mg/dL LAB CHEMISTRY METHOD 09/16/2024 9:38 PM [facility] eGFR 66 >=60 mL/min/1. 73m2 LAB CHEMISTRY METHOD 09/16/2024 9:38 PM [facility] Comment:Calculation based on the Chronic Kidney Disease Epidemiology Collaboration (CKD-EPI) equation refit without adjustment for race. BUN/Creatinine Ratio 14.0 LAB CHEMISTRY METHOD 09/16/2024 9:38 PM [facility] Calcium 9.8 8.5 - 10.5 mg/dL LAB CHEMISTRY METHOD 09/16/2024 9:38 PM [facility] AST (SGOT) 19 10 - 42 unit/L LAB CHEMISTRY METHOD 09/16/2024 9:38 PM [facility] ALT (SGPT) 23 10 - 60 unit/L LAB CHEMISTRY METHOD 09/16/2024 9:38 PM [facility] Alkaline Phosphatase 109 42 - 121 unit/L LAB CHEMISTRY METHOD 09/16/2024 9:38 PM [facility] Total Protein 6.8 6.0 - 8.0 g/dL LAB CHEMISTRY METHOD 09/16/2024 9:38 PM [facility] Albumin 3.4 3.2 - 5.0 [...] al Result [facility] [address] [place] [address], [place] [phone] * Lipid panel with reflex to direct LDL (04/30/2024 8:06 AM EST) Cholesterol 163 0 - 200 mg/dL LAB CHEMISTRY METHOD 04/30/2024 10:43 AM [facility] Triglycerides 87 0 - 150 mg/dL LAB CHEMISTRY METHOD 04/30/2024 10:43 AM [facility] HDL 64 >=40 mg/dL LAB CHEMISTRY METHOD 04/30/2024 10:43 AM [facility] LDL Calculated 82 0 - 100 mg/dL LAB CHEMISTRY METHOD 04/30/2024 10:43 AM [facility] VLDL Cholesterol Jeremy 17.4 mg/dL LAB CHEMISTRY METHOD 04/30/2024 10:43 AM [facility] Non HDL Chol. (LDL+VLDL) 99 <145 mg/dL LAB CHEMISTRY METHOD 04/30/2024 10:43 AM [facility] Chol/HDL Ratio 2.5 0.0 - 4.4 LAB CHEMISTRY METHOD 04/30/2024 10:43 AM [facility] Blood Venous blood specimen / Unknown Venipuncture / Unknown 04/30/2024 8:06 AM EST 04/30/2024 8:07 AM EST Marybel Eric SLIDE FASTENER REPAIRER LAB BLOOD ORDERABLES Final Resul t Performing Organization Address City/[facility]/ZIP Co de Phone Number [facility] [address] [place] [address], [place] [phone] * Hemoglobin A1c (04/30/2024 8:06 AM EST) Hemoglobin A1C 6.0 <6.5 % LAB CHEMISTRY METHOD 04/30/2024 11:24 AM EST [facility] Mean Bld Glu Estim. 126 mg/dL LAB CHEMISTRY METHOD 04/30/2024 11:24 AM EST [facility] Blood Venous blood specimen / Unknown Venipuncture / Unknown 04/30/2024 8:06 AM EST 04/30/2024 8:07 AM EST Marybel Moralesnaomy SLIDE FASTENER REPAIRER LAB BLOOD ORDERABLES Final Resul t Performing Organization Address City/[facility]/ZIP Co de Phone Number [facility] [address] [place] [address], [place] [phone] from Last 3 Months or Most Recently Relevant to Health Maintenance Insurance [facility] [employer] Member Subscriber Plan / Payer (Ef fective 2024-Present) Name:Lesly Mike Relation to Subscriber:Self Name:Lesly Mike Payer ID:[id number] Group ID:Not on file Type:Not on file Address: [place] [address] [address] [id number] Advance Directives Documents on File Type Date Recorded Patient 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
--- OUTSIDE RECORDS SUMMARY | 2025-02-16 12:31 | XMS_ITS | Encounter Summary ---
Author Organization [facility] Address [address] [place] [address] Care Team Providers Care Yarder Boss Name Role Phone Marisel eBnito MD Primary Care Provider [phone] Reason for Visit * Reason Onset Date Comments X-ray requested 01/12/2025 Encounter Details Date Type Department Care Team ([facility] Contact Info) Description 01/12/[address] [facility] [address] [place] [address] Marisel Benito MD [address] [place] [phone] Social History Tobacco Use Types Packs/Day Years [...] Refills Last Filled Start Date End Date wound dressings (Triad Wound Dressing) paste Apply 1 Tube topically 2 (two) times a day. 71 g 1 01/15/2025 oxyCODONE (ROXICODONE) 5 mg immediate release tablet Take 1 tablet (5 mg total) by mouth every 8 (eight) hours if needed for severe pain. Max Daily Amount: 15 mg 21 tablet 01/15/2025 bacitracin (bacitracin zinc) 500 unit/gram ointment Apply 1 Application topically 1 (one) time for 1 dose. 14 g 01/15/2025 documented in this encounter Progress Notes * Anastasiia Vaughan - 01/18/2025 3:24 PM EDT Patient called and requesting only to speak with lesley - states she phone earlier today 3 times And will come to office if she has to So please call her * Lesley Garcia - 01/15/2025 1:28 PM EDT Spoke with Patient daughter Mahnaz. Let her know that we ordered the Xrays and the prescriptions. We will see what the Xrays say and go from there. I told her we will let her know when the results come in. All DME supplies have been pended. * Marisel Benito MD - 01/15/2025 1:17 PM EDT All orders signed, Ask pt if she want look into [facility] facility,she has been falling multiple times,not safe to stay home. She was at [facility] . following pain management for pain in [facility]. She was seen on 12/08/2024 and got an injection in her back. I do not feel her taking stronger pain medication see if because of her recurrent falls Overall the situation is not safe for her to stay home, I highly recommend her to look into [facility] facility where she can get more help and more supervision * Lesley Garcia - 01/15/2025 10:12 AM EDT Patients daughter came into the office, stating her mom had another fall in early December. She states her mom needs Xrays of her hips, (R) side is shorter than the other and cannot ambulate well. PT is requesting that we do Xrays of the shoulders and hips, and back. She also states the Tramadol is nothelping with the pain, is she able to get something stronger? I pended all orders as well as an Rx for 21 Oxycodone and a cream for a small sore on Patients back. Please see which one would be betterto send as I pended 2. Please sign and send if appropriate. * Daniellesheyla Sterlingieta - 01/13/2025 4:29 PM EDT Pt's daughter Mahnaz is calling again if we can send them orders to do x-rays Patient cannot walk rn, and the daughter is trying to get her to do occupational rehab. Please advise, tramadol medication isn't working, daughter states it's affecting her quality of life Cb# [phone] * Yen Mitch - 01/12/2025 1:39 PM EDT Pt called and requested X-rays of her hips, shoulder and back due to her fall because PT is requesting them and would like to get them done miguel angel. Please advise Cb# [phone] documented in this encounter Plan of Treatment Upcoming Encounters Date Type Department Care Team (Late st Contact Info) Description 04/19/2025 9:00 AM EST Office Visit Urogynecology [address] [phone] Pam Becerra MD [address] [place] [address] [address] [place] [address] 06/08/2025 2:30 PM EST Office Visit Internal Medicine - [place] [address] [place] [address] Marisel Benito MD [address] [place] [phone] documented as of this encounter Goals Goal Patient Goal Type Associated Problems Recent Progress Patient-Stated? Author OT STG 6-8 visits General No Maryam Zaragoza, OT Note: L sh flex at least 80 for ease of UBD Pt will perform grasp/release on built-up utensil sufficient for holding toothbrush Pt will perform hand to mouth pattern sufficient for self feed at least 1dish/meal Pt/family to bring in AED/splints to date w/ recs of which are most approp/beneficial for this stage to follow OT LTG 12-16 visits General No Maryam Zaragoza, OT Note: 1> Pt will maximize fcnl grasp of L hand in order to hold onto banister 2> Pt will maximize LUE ROM/strength in order to resume light ADLs w/ setup and AE (ie groom, feed, UBD) documented as of this encounter Results * XR Shoulder 2+ Views bilat (01/17/2025 11:45 AM EDT) Anatomical Region Laterality Modality Upper Extremities, Shoulder Bilateral Radi ographic Imaging 01/19/2025 8:26 AM EDT Impressions 01/19/2025 8:27 AM EDT Normal examination. Code 27746, 30090 -------- FINAL REPORT -------- Dictated By: Raymundo Russell Dictated Date: 01/19/2025 08:26 ET Assigned Physician: Raymundo Russell Reviewed and Electronically Signed By: Raymundo Russell Signed Date: 01/19/2025 08:27 ET Workstation ID: [id number] Transcribed By: Self Edit Transcribed Date: 01/19/2025 [...] abnormality is seen. IMPRESSION: Normal examination. Code 76563, 91085 -------- FINAL REPORT -------- Dictated By: Raymundo Russell Dictated Date: 01/19/2025 08:26 ET Assigned Physician: Raymundo Russell Reviewed and Electronically Signed By: Raymundo Russell Signed Date: 01/19/2025 08:27 ET Workstation ID: [id number] Transcribed By: Self Edit Transcribed Date: 01/19/2025 [...] mild osteoarthritis of the left hip. Code 21802 -------- FINAL REPORT -------- Dictated By: Raymundo Russell Dictated Date: 01/19/2025 08:27 ET Assigned Physician: Raymundo Russell Reviewed and Electronically Signed By: Raymundo Russell Signed Date: 01/19/2025 08:29 ET Workstation ID: [id number] Transcribed By: Self Edit Transcribed Date: 01/19/2025 [...] mild osteoarthritis of the left hip. Code 23626 -------- FINAL REPORT -------- Dictated By: Raymundo Russell Dictated Date: 01/19/2025 08:27 ET Assigned Physician: Raymundo Russell Reviewed and Electronically Signed By: Raymundo Russell Signed Date: 01/19/2025 08:29 ET Workstation ID: [id number] Transcribed By: Self Edit Transcribed Date: 01/19/2025 [...] There is evidence of moderate constipation. Code 55512 -------- FINAL REPORT -------- Dictated By: Raymundo Russell Dictated Date: 01/19/2025 08:30 ET Assigned Physician: Raymundo Russell Reviewed and Electronically Signed By: Raymundo Russell Signed Date: 01/19/2025 08:35 ET Workstation ID: [id number] Transcribed By: Self Edit Transcribed Date: 01/19/2025 [...] grade 1, 4.7 mm anterior spondylolisthesis of [id number] to S1. The alignment of the bony [...] There is evidence of moderate constipation. Code 46636 -------- FINAL REPORT -------- Dictated By: Raymundo Russell Dictated Date: 01/19/2025 08:30 ET Assigned Physician: Raymundo Russell Reviewed and Electronically Signed By: Raymundo Russell Signed Date: 01/19/2025 08:35 ET Workstation ID: [id number] Transcribed By: Self Edit Transcribed Date: 01/19/2025 08:30 ET Marisel Benito MD IMG XR PROCEDURES Final Result documented in this encounter Visit Diagnoses Diagnosis Recurrent falls- Primary Recurrent falls Recurrent falls Recurrent falls documented in this encounter Care Teams Yarder Boss Relationship Specialty Start Date End Date Marisel Benito MD [address] [place] [phone] PCP - General Internal Medicine 05/01/18 documented as of this encounter
== END 2025-02-16 11:24 | disposition home or self-care (01) ==
PROVIDERS: PCP Internal Medicine; Visit Provider Nurse Practitioner Family
DX: R00.1 Bradycardia, unspecified (principal); R07.9 Chest pain, unspecified; R42 Dizziness and giddiness; I10 Essential (primary) hypertension; I51.7 Cardiomegaly
CPT/HCPCS: 93010; 99214; G2211

== ENCOUNTER → 2025-02-16 10:56 | Outpatient (BNVA) | payer OTHER, SELFPAY | PROVIDERS: PCP Internal Medicine; Visit Provider Nurse Practitioner Family | DX: R42 Dizziness and giddiness (principal); R07.9 Chest pain, unspecified; I10 Essential (primary) hypertension; I51.7 Cardiomegaly | CPT/HCPCS: 93005; 99212 ==